=== PATIENT | male | born 1960 | race African-American/Black ===

== ENCOUNTER 2016-09-26 22:05 | Emergency (ER) | payer OTHER ==
[~2016-09-26] VITALS: Ht 167.6 cm; Wt 56.7 kg
[~2016-09-26 22:05] MED LIST: ADVAIR 250-501 EACH INH; ALBUTEROL SULF8.5 GM INH; ALBUTEROL2.5 MG/3 M HHN; ALBUTEROL2.5 MG/3 M INH; ASPIRIN81 MG ORAL; AUGMENTIN 875-1 EAC1 ORAL; BENAZEPRIL HCL20 MG ORAL; CYCLOBENZAPRINE10 MG ORAL; FUROSEMIDE40 MG ORAL; GUAIFENESIN DM118 M1 ORAL; HYDRALAZINE HCL25 M1 ORAL; KEFLEX500 MG ORAL; LEVAQUIN500 MG ORAL; LISINOPRIL20 MG ORAL; MEDROL DOSEPAK4 MG ORAL; NICODERM CQ1 EAC1 TDERMAL; NORVASC5 MG ORAL; PREDNISONE20 MG ORAL; PROMETHAZINE-C118 M1 ORAL; SPIRIVA INHALE1 PUF1 INH; VENTOLIN HFA18 GM INH; ZITHROMAX250 MG ORAL
[2016-09-26 22:30] VITALS: BP 117/78
[2016-09-26] MEDS ORDERED: Ipratropium 0.02% Inh Soln 2.5ml UD HHN ONE (22:30)
[2016-09-26] MEDS ORDERED: PredniSONE 20mg tab ORAL ONE (22:30)
[2016-09-26] MEDS ORDERED: Albuterol ud Inhalation HHN ONE (22:30)
[2016-09-26] MEDS ORDERED: ALBUTEROL SULF8.5 GM INH (22:33)
[2016-09-26] MEDS ORDERED: PREDNISONE20 MG ORAL (22:33)
[2016-09-26] MEDS ORDERED: AZITHROMYCIN250 MG ORAL (22:33)
[2016-09-26] MEDS ORDERED: ALBUTEROL2.5 MG/3 M HHN (22:33)
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
[2016-09-26 23:00] VITALS: BP 116/63
== END 2016-09-26 23:00 | disposition home or self-care (01) ==
LOC: EMR 22:29
DX: J44.1 Chronic obstructive pulmonary disease with (acute) exacerbation (principal); F14.10 Cocaine abuse, uncomplicated; Z88.8 Allergy status to other drugs, medicaments and biological substances; I10 Essential (primary) hypertension; F17.200 Nicotine dependence, unspecified, uncomplicated
CPT/HCPCS: 94640; 94664; 99284

== ENCOUNTER 2017-01-16 14:00 | Emergency (ER) | payer OTHER ==
[~2017-01-16] VITALS: Ht 167.6 cm; Wt 59.0 kg
[~2017-01-16 14:00] MED LIST changes: +AZITHROMYCIN250 MG ORAL
[2017-01-16] MEDS ORDERED: Acetaminophen 500mg (ES) tab ORAL ONE (14:15)
[2017-01-16] MEDS ORDERED: Ipratropium 0.02% Inh Soln 2.5ml UD HHN ONE (14:15)
[2017-01-16] MEDS ORDERED: Solu-MEDROL 125mg Inj IVP ONE (14:15)
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
[2017-01-16] MEDS ORDERED: Albuterol ud Inhalation ONE (14:18)
[2017-01-16] MEDS ORDERED: Ipratropium 0.02% Inh Soln 2.5ml UD ONE (14:18)
[2017-01-16] MEDS: Albuterol ud Inhalation HHN SCH ×3 (14:30→14:59)
[2017-01-16 14:56] LABS: MEAN CORPUSCULAR HGB CONC 32.8 G/DL (32.0-36.0); MEAN CORPUSCULAR VOLUME 95 FL (80-99); PLATELET COUNT 174 K/UL (150-450); RED BLOOD COUNT 4.93 M/UL (4.70-6.10); RED CELL DISTRIBUTION WIDTH 12.2 % (11.6-14.8); WHITE BLOOD COUNT 3.8 K/UL (4.8-10.8)
[2017-01-16 15:06] LABS: INR 0.9 (0.9-1.1); PROTHROMBIN TIME 9.4 SEC (9.30-11.50)
[2017-01-16 15:10] LABS: ALANINE AMINOTRANSFERASE 16 U/L (3-41); ANION GAP 14 (5-15); ASPARTATE AMINO TRANSFERASE 20 U/L (5-40); CARBON DIOXIDE 28 mEQ/L (20-30); CHLORIDE 103 mEQ/L (98-107); CREATININE 1.1 mg/dL (0.7-1.2); GLOMERULAR FILTRATION RATE > 60 mL/min (>60); HEMOLYSIS 8; POTASSIUM 3.7 mEQ/L (3.4-4.9); SODIUM 145 mEQ/L (135-145); TOTAL PROTEIN 8.2 g/dL (6.6-8.7)
[2017-01-16 15:11] LABS: BAND NEUTROPHILS % (MANUAL) 0 % (0-8); BASOPHILS % (MANUAL) 0 % (0-2); EOSINOPHILS % (MANUAL) 12 % (0-3); LYMPHOCYTES % (MANUAL) 28 % (20-45); NEUTROPHILS % (MANUAL) 43 % (45-75); PLATELET ESTIMATE ADEQUATE; PLATELET MORPHOLOGY NORMAL; TOTAL CELLS COUNTED 100
[2017-01-16 15:25] VITALS: BP 136/90
[2017-01-16 16:57] LABS: APPEARANCE,URINE CLEAR; KETONES,URINE 1+ (NEGATIVE); LEUKOCYTE ESTERASE ,URINE 3+ (NEGATIVE); NITRITE,URINE NEGATIVE (NEGATIVE); PH,URINE 5 (4.5-8.0); PROTEIN,URINE 1+ (NEGATIVE); UROBILINOGEN,URINE 4 MG/DL (0.0-1.0)
[2017-01-16] MEDS ORDERED: PREDNISONE20 MG ORAL (16:59)
[2017-01-16] MEDS ORDERED: CHLOR-TRIMETON4 MG PO (16:59)
[2017-01-16] MEDS ORDERED: ALBUTEROL2.5 MG/3 M HHN (16:59)
[2017-01-16 17:08] LABS: AMORPHOUS SEDIMENT,UR FEW /LPF; BACTERIA,URINE FEW /HPF; RBC,URINE 0-2 /HPF (0 - 0)
[2017-01-16 17:51] VITALS: BP 157/70
[2017-01-16 17:56] VITALS: BP 157/70
--- NOTE | 2017-01-17 10:02 | Diagnostic Imaging Report ---
Indication: Dyspnea Technique: XRAY CHEST 1 V Comparison: 12/29/15 Findings: Cardiac silhouette is prominent. There is no consolidation, pneumothorax or pleural effusion. Osseous structures are grossly stable. Impression: No acute cardiopulmonary disease.
--- NOTE | 2017-01-21 23:07 | Cardiology Report ---
APPROVED REPORT EKG Measurement Heart [id number] MS [id number] Sinus tachycardia Possible Left atrial enlargement Left ventricular hypertrophy with repolarization abnormality Cannot rule out Septal infarct, age undetermined Prolonged QT Abnormal ECG
== END 2017-01-16 17:57 | disposition home or self-care (01) ==
LOC: EMR 14:19
DX: J44.1 Chronic obstructive pulmonary disease with (acute) exacerbation (principal); F19.10 Other psychoactive substance abuse, uncomplicated; D72.1 Eosinophilia; I10 Essential (primary) hypertension; G81.94 Hemiplegia, unspecified affecting left nondominant side
CPT/HCPCS: 36415; 71010; 80053; 80300; 81003; 82550; 83605; 84484; 85007; 85025; 85610; 85730; 93005; 94640; 94664; 96374; 96375; 99284; J2930

== ENCOUNTER 2017-01-31 22:11 | Inpatient (IN) | payer OTHER ==
[~2017-01-31] VITALS: Ht 167.6 cm; Wt 61.2 kg
[~2017-01-31 22:11] MED LIST changes: +CHLOR-TRIMETON4 MG PO
[2017-01-31 22:35] VITALS: BP 138/80
[2017-01-31 23:29] LABS: BASOPHILS % (AUTO) 0.9 % (0.0-2.0); EOSINOPHILS % (AUTO) 6.2 % (0.0-3.0); LYMPHOCYTES % (AUTO) 23.7 % (20.0-45.0); MEAN CORPUSCULAR HGB CONC 31.3 G/DL (32.0-36.0); MEAN CORPUSCULAR VOLUME 96 FL (80-99); MEAN PLATELET VOLUME 7.9 FL (6.5-10.1); MONOCYTES % (AUTO) 9.4 % (1.0-10.0); NEUTROPHILS % (AUTO) 59.8 % (45.0-75.0); PLATELET COUNT 150 K/UL (150-450); RED CELL DISTRIBUTION WIDTH 12.2 % (11.6-14.8); WHITE BLOOD COUNT 7.6 K/UL (4.8-10.8)
[2017-01-31 23:37] LABS: ALANINE AMINOTRANSFERASE 20 U/L (12-78); ALBUMIN/GLOBULIN RATIO 0.8 (1.0-2.7); ANION GAP 6 mmol/L (5-15); ASPARTATE AMINO TRANSFERASE 15 U/L (15-37); CARBON DIOXIDE 32 MMOL/L (21-32); CHLORIDE 105 MMOL/L (98-107); CREATININE 1.7 MG/DL (0.55-1.30); GLOMERULAR FILTRATION RATE 50.8 mL/min (>60); POTASSIUM 3.8 MMOL/L (3.5-5.1); SODIUM 142 MMOL/L (136-145); TOTAL PROTEIN 7.4 G/DL (6.4-8.2)
[2017-01-31 23:40] VITALS: BP 135/78
[2017-02-01] VITALS (8 sets, daily range): BP systolic 113–196; BP diastolic 78–121
[2017-02-01] MEDS ORDERED: Ampicillin/Sulbactam Sod 3 GM in NS 110 ML IVPB ONE ×2
[2017-02-01] MEDS ORDERED: Unasyn 3gm Inj ONE (00:15)
[2017-02-01] MEDS ORDERED: Norco 5mg/325mg tab ORAL PRN (01:00)
[2017-02-01] MEDS ORDERED: Vancomycin 1 GM in D5W 275 ML IVPB ONE (02:00)
[2017-02-01] MEDS ORDERED: Vancomycin 1gm inj IVPB ONE (02:47)
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
[2017-02-01] MEDS: cefTRIAXone 1 GM in D5W 55 ML IVPB SCH (03:11)
[2017-02-01] MEDS ORDERED: Heparin 5000 units/ml inj SUBQ SCH (06:00)
[2017-02-01] MEDS ORDERED: Miralax 17gm pkt ORAL PRN (07:30)
[2017-02-01] MEDS ORDERED: Albuterol/Ipratropium 3ml neb HHN PRN (07:30)
[2017-02-01] MEDS ORDERED: Nitroglycerin Subl 0.4mg tab SL PRN (07:30)
[2017-02-01] MEDS ORDERED: Morphine Sulfate 2mg/ml Inj IVP PRN (07:30)
[2017-02-01] MEDS ORDERED: Albuterol ud Inhalation HHN PRN (07:30)
[2017-02-01 10:25] LABS: BASOPHILS % (AUTO) 1.3 % (0.0-2.0); EOSINOPHILS % (AUTO) 5.2 % (0.0-3.0); MEAN CORPUSCULAR HEMOGLOBIN 31.2 PG (27.0-31.0); MEAN CORPUSCULAR HGB CONC 32.8 G/DL (32.0-36.0); MEAN CORPUSCULAR VOLUME 95 FL (80-99); MEAN PLATELET VOLUME 9.6 FL (6.5-10.1); MONOCYTES % (AUTO) 10.4 % (1.0-10.0); NEUTROPHILS % (AUTO) 70.2 % (45.0-75.0); PLATELET COUNT 167 K/UL (150-450); RED BLOOD COUNT 4.47 M/UL (4.70-6.10); RED CELL DISTRIBUTION WIDTH 12.1 % (11.6-14.8); WHITE BLOOD COUNT 8.3 K/UL (4.8-10.8)
[2017-02-01 10:49] LABS: ALANINE AMINOTRANSFERASE 19 U/L (12-78); ALBUMIN/GLOBULIN RATIO 0.8 (1.0-2.7); ANION GAP 7 mmol/L (5-15); ASPARTATE AMINO TRANSFERASE 17 U/L (15-37); CALCIUM 8.8 MG/DL (8.5-10.1); CARBON DIOXIDE 28 MMOL/L (21-32); CHLORIDE 106 MMOL/L (98-107); GLOMERULAR FILTRATION RATE > 60 mL/min (>60); MAGNESIUM 1.8 MG/DL (1.8-2.4); PHOSPHORUS 2.7 MG/DL (2.5-4.9); SODIUM 140 MMOL/L (136-145); TOTAL PROTEIN 6.6 G/DL (6.4-8.2)
[2017-02-01 10:53] LABS: URIC ACID 4.2 MG/DL (2.6-7.2)
--- NOTE | 2017-02-01 10:58 | Wound Care Consultation ---
Wound Assessment Wound Assessment : Wound Number: 1 Wound Present on Admission: Yes New Wound: No Status Change of Wound: No Wound Location Body Site Modif: right Wound Location Body Site: hand Wound Type: other - open draining wound possible abcess. Nunu Test: Does not Nunu Wound Thickness: Full Thickness Wound Length: 3.0 Wound Width: 2.0 Wound Depth: utd Percent of Wound [place]/Red: 50 Percent of Wound Bed Yellow/Wh: 50 Wound Drainage Description: Cloudy - yellow, Serosanguineous Wound Drainage Amount: Moderate Wound Drainage Odor: None/Absent Tissue Surrounding Wound: Edematous Wound General Appearance: Reddened, Draining Wound Comment #1 Right hand open draining wound with cellulitis. Recommendation. -Local wound care as ordered. -Turn and reposition. -Offload affected site. -Keep clean and dry. -Optimize nutrition. -Follow up with MD for possible surgical evaluation. -Asses and notify MD for any further changes. per patient had a blister on right hand than popped it and it had a hole and pus. GAYLE IVEY Feb 01, 2017 10:57
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
[2017-02-01] MEDS ORDERED: Tubing IV Secondary IV ONE (14:42)
[2017-02-01] MEDS ORDERED: D5W 275ml ONE (14:42)
[2017-02-01] MEDS ORDERED: NS 275ml ONE (14:42)
--- NOTE | 2017-02-01 16:21 | Diagnostic Imaging Report ---
Indication: Infected right hand with dorsal open wound Technique: Coronal, axial, sagittal T1, coronal STIR, axial T2 fat saturated, pre-and postcontrast axial and coronal T1 fat saturated images of the right hand Comparison: None Findings: Marker díaz area of soft tissue wound in the medial dorsum of the right hand. There is diffuse enhancement of the subcutaneous fat, particularly dorsally. There is associated increased T2 and STIR signal within the subcutaneous fat as well. 2 small areas of non-enhancement are seen in the region of the MRI marker, the more proximal 7 x 8 mm in diameter, the more distal measuring 8 x 8 mm in diameter. These both reach the skin surface. No adjacent abnormal marrow signal abnormality to suggest osteomyelitis demonstrated. Small subchondral cysts are seen within the base of the first metacarpal, and within the heads of the third and fourth metacarpals, consistent with degenerative changes. The tendons are grossly unremarkable. Impression: Diffuse enhancement and edema of the subcutaneous fat, particularly dorsally. Given stated clinical history, most likely on the basis of cellulitis. 2 small areas of non-enhancement in the area of the open wound described in the technologist note. These are consistent with small superficial abscesses. May do appear to be communicating with the skin surface, so quite possibly clinically apparent No evidence of osteomyelitis Degenerative changes, as described
--- NOTE | 2017-02-01 19:15 | History & Physical ---
History and Physical History & Physicial Dictated for Int Med-Dr Moore no. [id number]. KRISTINE AUSTIN Feb 01, 2017 19:15
[2017-02-01] MEDS: Heparin 5000 units/ml inj SUBQ SCH (21:48)
[2017-02-01] MEDS ORDERED: Vancomycin 750mg/NS 250ml IVPB SCH (22:00)
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
[2017-02-01 23:22] LABS: APPEARANCE,URINE SLIGHTLY CLOUDY; KETONES,URINE NEGATIVE (NEGATIVE); LEUKOCYTE ESTERASE ,URINE 1+ (NEGATIVE); NITRITE,URINE NEGATIVE (NEGATIVE); PH,URINE 6 (4.5-8.0); PROTEIN,URINE NEGATIVE (NEGATIVE); UROBILINOGEN,URINE 1 MG/DL (0.0-1.0)
[2017-02-01 23:40] LABS: BACTERIA,URINE OCCASIONAL /HPF; SQUAMOUS EPITHELIAL CELL,UR OCCASIONAL /LPF (NONE/OCC); WBC,URINE 20-30 /HPF (0 - 0)
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
[2017-02-02] VITALS: BP 142/82
[2017-02-02] MEDS ORDERED: Vancomycin 1 GM in D5W 275 ML IV SCH (00:30)
[2017-02-02 04:00] VITALS: BP 154/94
[2017-02-02] MEDS: cefTRIAXone 1 GM in D5W 55 ML IVPB SCH (04:19)
[2017-02-02 07:03] LABS: ALANINE AMINOTRANSFERASE 19 U/L (12-78); ALBUMIN/GLOBULIN RATIO 0.7 (1.0-2.7); ANION GAP 8 mmol/L (5-15); ASPARTATE AMINO TRANSFERASE 18 U/L (15-37); CALCIUM 8.8 MG/DL (8.5-10.1); CARBON DIOXIDE 27 MMOL/L (21-32); CHLORIDE 105 MMOL/L (98-107); GLOMERULAR FILTRATION RATE > 60 mL/min (>60); POTASSIUM 4.1 MMOL/L (3.5-5.1); SODIUM 140 MMOL/L (136-145)
[2017-02-02 07:05] LABS: BASOPHILS % (AUTO) 1.7 % (0.0-2.0); EOSINOPHILS % (AUTO) 9.7 % (0.0-3.0); LYMPHOCYTES % (AUTO) 28.4 % (20.0-45.0); MEAN CORPUSCULAR HEMOGLOBIN 32.4 PG (27.0-31.0); MEAN CORPUSCULAR HGB CONC 34.2 G/DL (32.0-36.0); MEAN CORPUSCULAR VOLUME 95 FL (80-99); MEAN PLATELET VOLUME 9.5 FL (6.5-10.1); MONOCYTES % (AUTO) 9.4 % (1.0-10.0); NEUTROPHILS % (AUTO) 50.7 % (45.0-75.0); PLATELET COUNT 184 K/UL (150-450); RED BLOOD COUNT 4.57 M/UL (4.70-6.10); RED CELL DISTRIBUTION WIDTH 12.2 % (11.6-14.8); WHITE BLOOD COUNT 5.7 K/UL (4.8-10.8)
[2017-02-02 08:00] VITALS: BP 159/90
[2017-02-02] MEDS: Heparin 5000 units/ml inj SUBQ SCH ×2 (08:53→21:00)
--- NOTE | 2017-02-02 10:40 | Diagnostic Imaging Report ---
Indication: Abnormal renal function tests. Hypertension Technique: Grayscale and duplex images of the kidneys, retroperitoneum, and bladder were obtained. Comparison:12/03/2014 Findings: Right kidney measures 10.1 cm in length. Left kidney measures 9.3 cm in length. Right kidney demonstrates borderline increased echogenicity, appearing similar to the prior exam. Left kidney appears less hyperechoic than previously. No hydronephrosis. No focal abnormality. Normal inferior vena cava. Bladder is normal. Impression: Borderline increased right renal echogenicity, also evident on prior study 12/02/2014, could indicate medical renal disease Negative for hydronephrosis.
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
[2017-02-02 12:00] VITALS: BP 164/102
[2017-02-02] MEDS: Vancomycin 750mg/NS 250ml IVPB SCH (15:56)
[2017-02-02 16:00] VITALS: BP 144/95
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
--- NOTE | 2017-02-02 18:08 | Internal Med Progress Note ---
Subjective Date of Service: Feb 02, 2017 Physician Name Jovany Austin Attending Physician Satish Moore MD Current Medications Medications (Trade) Dose Ordered Sig/Stephenie Route PRN Reason Start Time Stop Time Status Last Admin Dose Admin Acetaminophen (Tylenol) 650 mg Q6H PRN ORAL Mild Pain/Temp > 100.5 02/01/17 01:00 03/03/17 00:59 Acetaminophen/ Hydrocodone Bitart ([place] 5/325) 1 tab Q6H PRN ORAL For Pain 02/01/17 01:00 02/08/17 00:59 Albuterol/ Ipratropium (DuoNeb 0.5-3(2.5)mg/3ml) 3 ml Q4H PRN HHN Shortness of Breath 02/01/17 07:30 02/06/17 07:29 Amlodipine Besylate (Norvasc) 5 mg DAILY ORAL 02/03/17 09:00 03/05/17 08:59 Carvedilol (Coreg) 3.125 mg EVERY 12 HOURS ORAL 02/01/17 21:00 03/03/17 20:59 02/02/17 08:52 Clonidine HCl (Catapres) 0.1 mg Q6H PRN ORAL SBP >150mmHg OR DBP>100mmHg 02/02/17 15:30 03/04/17 15:29 02/02/17 15:56 Dextrose (Dextrose 50%) STAT PRN IV Hypoglycemia 02/01/17 07:30 03/03/17 07:29 Heparin Sodium (Porcine) (Heparin 5000 units/ml) 5,000 units EVERY 12 HOURS SUBQ 02/01/17 21:00 03/03/17 20:59 02/02/17 08:53 Morphine Sulfate (Morphine Sulfate) 2 mg Q4H PRN IVP Moderate Pain (Pain Scale 4-6) 02/01/17 07:30 02/08/17 07:29 Nitroglycerin (Ntg) 0.4 mg Q5M PRN SL Prn Chest Pain 02/01/17 07:30 03/03/17 07:29 Ondansetron HCl (Zofran) 4 mg Q6H PRN IVP Nausea & Vomiting 02/01/17 07:30 03/03/17 07:29 Polyethylene Glycol (Miralax) 17 gm DAILYPRN PRN ORAL Constipation 02/01/17 07:30 03/03/17 07:29 Temazepam (Restoril) 15 mg HSPRN PRN ORAL Insomnia 02/01/17 07:30 02/08/17 07:29 Vancomycin HCl (Vanco rx to dose) 1 ea DAILY PRN MISC PER RX PROTOCOL 02/01/17 07:45 03/03/17 07:44 Vancomycin/Sodium Chloride 250 ml @ 166.667 mls/hr Q12HR@0500,1700 IVPB 02/02/17 17:00 02/07/17 16:59 02/02/17 15:56 Allergies: Coded Allergies: DIPHENHYDRAMINE (Unverified Allergy, Unknown, 11/29/14) ROS Limited/Unobtainable: No Constitutional: Reports: no symptoms HEENT: Reports: no symptoms Cardiovascular: Reports: no symptoms Respiratory: Reports: no symptoms Gastrointestinal/Abdominal: Reports: no symptoms Genitourinary: Reports: no symptoms Neurologic/Psychiatric: Reports: no symptoms Subjective 56 YO M admitted with right hand cellulitis. Cover for [facility] Med-Dr Moore. Objective Last Vital Signs Date Time Temp Pulse Resp B/P (MAP) Pulse Ox O2 Delivery O2 Flow Rate FiO2 02/02/17 16:00 97.3 61 20 144/95 98 Room Air 02/02/17 07:52 21 General Appearance: alert, mild distress, thin EENT: PERRL/EOMI, normal ENT inspection, TMs normal Neck: non-tender, normal alignment, supple Cardiovascular: normal peripheral pulses, normal rate, regular rhythm, no gallop/murmur, no JVD Respiratory/Chest: chest wall non-tender, lungs clear, normal breath sounds, no respiratory distress, no accessory muscle use Abdomen: normal bowel sounds, non tender, soft, no organomegaly, no mass Extremities: normal range of motion, other - right hand dressing Edema: trace edema 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, other - left hemiparesis Skin: normal pigmentation, warm/dry Laboratory Tests Test 02/01/17 22:40 02/02/17 06:05 Urine Color Pale yellow Urine Appearance Slightly cloudy Urine pH 6 (4.5-8.0) Urine Specific [place] 1.020 (1.005-1.035) Urine Protein Negative (NEGATIVE) Urine Glucose (UA) Negative (NEGATIVE) Urine Ketones Negative (NEGATIVE) Urine Occult Blood 1+ (NEGATIVE) H Urine Nitrite Negative (NEGATIVE) Urine Bilirubin Negative (NEGATIVE) Urine Urobilinogen 1 MG/DL (0.0-1.0) H Urine Leukocyte Esterase 1+ (NEGATIVE) H Urine RBC 2-4 /HPF (0 - 0) H Urine WBC 20-30 /HPF (0 - 0) H Urine Squamous Epithelial Cells Occasional /LPF Urine Bacteria Occasional /HPF (NONE) Urine Eosinophils None seen Urine Random Sodium 207 MEQ/L (20-110) H Urine Potassium Timed 26 mmol/L (12-62) White Blood Count 5.7 K/UL (4.8-10.8) Red Blood Count 4.57 M/UL (4.70-6.10) L Hemoglobin 14.8 G/DL (14.2-18.0) Hematocrit 43.3 % (42.0-52.0) Mean Corpuscular Volume 95 FL (80-99) Mean Corpuscular Hemoglobin 32.4 PG (27.0-31.0) H Mean Corpuscular Hemoglobin Concent 34.2 G/DL (32.0-36.0) Red Cell Distribution Width 12.2 % (11.6-14.8) Platelet Count 184 K/UL (150-450) Mean Platelet Volume 9.5 FL (6.5-10.1) Neutrophils (%) (Auto) 50.7 % (45.0-75.0) Lymphocytes (%) (Auto) 28.4 % (20.0-45.0) Monocytes (%) (Auto) 9.4 % (1.0-10.0) Eosinophils (%) (Auto) 9.7 % (0.0-3.0) H Basophils (%) (Auto) 1.7 % (0.0-2.0) Sodium Level 140 MMOL/L (136-145) Potassium Level 4.1 MMOL/L (3.5-5.1) Chloride Level 105 MMOL/L (98-107) Carbon Dioxide Level 27 MMOL/L (21-32) Anion Gap 8 mmol/L (5-15) Blood Urea Nitrogen 24 mg/dL (7-18) H Creatinine 1.0 MG/DL (0.55-1.30) Estimat Glomerular Filtration Rate > 60 mL/min (>60) Glucose Level 91 MG/DL (74-106) Calcium Level 8.8 MG/DL (8.5-10.1) Total Bilirubin 0.3 MG/DL (0.2-1.0) Aspartate Amino Transf (AST/SGOT) 18 U/L (15-37) Alanine Aminotransferase (ALT/SGPT) 19 U/L (12-78) Alkaline Phosphatase 45 U/L (46-116) L Total Protein 7.0 G/DL (6.4-8.2) Albumin 2.9 G/DL (3.4-5.0) L Globulin 4.1 g/dL Albumin/Globulin Ratio 0.7 (1.0-2.7) L Microbiology Date/Time Source Procedure Growth Status 01/31/17 23:10 Blood Blood Culture - Preliminary NO GROWTH AFTER 24 HOURS Resulted 01/31/17 22:55 Blood Blood Culture - Preliminary NO GROWTH AFTER 24 HOURS Resulted 02/01/17 12:50 Wound Gram Stain - Final Resulted 02/01/17 12:50 Wound Culture - Preliminary Staphylococcus Aureus Resulted 01/31/17 23:00 Hand Right Gram Stain - Final Resulted 01/31/17 23:00 Wound Culture - Preliminary Staphylococcus Aureus Resulted Intake and Output 02/02/17 02/03/17 19:00 07:00 Intake Total 300 ml Balance 300 ml Intake Oral 300 ml # Voids 1 Assessment/Plan Problem List: (1) HTN (hypertension) Assessment & Plan: Continue norvasc and prn clonidine (2) Left hemiparesis (3) Cellulitis of right hand Assessment & Plan: Continue vanco and ceftriaxone (4) COPD exacerbation Assessment & Plan: Cont prn albuterol Status: not improved JOVANY AUSTIN Feb 02, 2017 18:08
[2017-02-02 20:00] VITALS: BP 129/64
[2017-02-03 00:15] VITALS: BP 135/78
[2017-02-03 04:00] VITALS: BP 149/93
[2017-02-03] MEDS: Vancomycin 750mg/NS 250ml IVPB SCH (05:02)
[2017-02-03 06:52] LABS: ANION GAP 9 mmol/L (5-15); CALCIUM 8.9 MG/DL (8.5-10.1); CARBON DIOXIDE 26 MMOL/L (21-32); CHLORIDE 104 MMOL/L (98-107); CREATININE 1.1 MG/DL (0.55-1.30); GLOMERULAR FILTRATION RATE > 60 mL/min (>60); POTASSIUM 4.1 MMOL/L (3.5-5.1); SODIUM 139 MMOL/L (136-145)
[2017-02-03 07:04] LABS: BASOPHILS % (AUTO) 1.4 % (0.0-2.0); EOSINOPHILS % (AUTO) 8.9 % (0.0-3.0); LYMPHOCYTES % (AUTO) 28.4 % (20.0-45.0); MEAN CORPUSCULAR HEMOGLOBIN 30.9 PG (27.0-31.0); MEAN CORPUSCULAR HGB CONC 32.7 G/DL (32.0-36.0); MEAN CORPUSCULAR VOLUME 94 FL (80-99); MEAN PLATELET VOLUME 8.7 FL (6.5-10.1); MONOCYTES % (AUTO) 11.8 % (1.0-10.0); NEUTROPHILS % (AUTO) 49.6 % (45.0-75.0); PLATELET COUNT 196 K/UL (150-450); RED BLOOD COUNT 4.78 M/UL (4.70-6.10); RED CELL DISTRIBUTION WIDTH 12.1 % (11.6-14.8); WHITE BLOOD COUNT 5.3 K/UL (4.8-10.8)
[2017-02-03] MEDS: Heparin 5000 units/ml inj SUBQ SCH ×2 (08:29→20:24)
[2017-02-03 08:50] VITALS: BP 149/77
--- NOTE | 2017-02-03 08:59 | Diagnostic Imaging Report ---
APPROVED REPORT CPT Code: 09503 Present Symptoms Comments: R/O DVT BILATERAL: Imaging reveals a patent deep venous system bilaterally. There is no evidence of thrombus within the femoral, popliteal or tibial segments. The greater saphenous veins are also within normal limits. Doppler indicates normal spontaneous flow within these segments.
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
[2017-02-03 12:53] VITALS: BP 152/100
--- NOTE | 2017-02-03 13:30 | Internal Med Progress Note ---
Subjective Date of Service: Feb 03, 2017 Physician Name KallieKristine Attending Physician Satish Moore MD Current Medications Medications (Trade) Dose Ordered Sig/Stephenie Route PRN Reason Start Time Stop Time Status Last Admin Dose Admin Acetaminophen (Tylenol) 650 mg Q6H PRN ORAL Mild Pain/Temp > 100.5 02/01/17 01:00 03/03/17 00:59 Acetaminophen/ Hydrocodone Bitart ([place] 5/325) 1 tab Q6H PRN ORAL For Pain 02/01/17 01:00 02/08/17 00:59 Albuterol/ Ipratropium (DuoNeb 0.5-3(2.5)mg/3ml) 3 ml Q4H PRN HHN Shortness of Breath 02/01/17 07:30 02/06/17 07:29 Amlodipine Besylate (Norvasc) 5 mg DAILY ORAL 02/03/17 09:00 03/05/17 08:59 02/03/17 08:24 Carvedilol (Coreg) 3.125 mg EVERY 12 HOURS ORAL 02/01/17 21:00 03/03/17 20:59 02/03/17 08:24 Clonidine HCl (Catapres) 0.1 mg Q6H PRN ORAL SBP >150mmHg OR DBP>100mmHg 02/02/17 15:30 03/04/17 15:29 02/02/17 15:56 Dextrose (Dextrose 50%) STAT PRN IV Hypoglycemia 02/01/17 07:30 03/03/17 07:29 Heparin Sodium (Porcine) (Heparin 5000 units/ml) 5,000 units EVERY 12 HOURS SUBQ 02/01/17 21:00 03/03/17 20:59 02/03/17 08:29 Morphine Sulfate (Morphine Sulfate) 2 mg Q4H PRN IVP Moderate Pain (Pain Scale 4-6) 02/01/17 07:30 02/08/17 07:29 Nitroglycerin (Ntg) 0.4 mg Q5M PRN SL Prn Chest Pain 02/01/17 07:30 03/03/17 07:29 Ondansetron HCl (Zofran) 4 mg Q6H PRN IVP Nausea & Vomiting 02/01/17 07:30 03/03/17 07:29 Polyethylene Glycol (Miralax) 17 gm DAILYPRN PRN ORAL Constipation 02/01/17 07:30 03/03/17 07:29 Temazepam (Restoril) 15 mg HSPRN PRN ORAL Insomnia 02/01/17 07:30 02/08/17 07:29 Vancomycin HCl (Vanco rx to dose) 1 ea DAILY PRN MISC PER RX PROTOCOL 02/01/17 07:45 03/03/17 07:44 Vancomycin/Sodium Chloride 250 ml @ 166.667 mls/hr Q12HR@0500,1700 IVPB 02/02/17 17:00 02/07/17 16:59 02/03/17 05:02 Allergies: Coded Allergies: DIPHENHYDRAMINE (Unverified Allergy, Unknown, 11/29/14) ROS Limited/Unobtainable: No Constitutional: Reports: no symptoms HEENT: Reports: no symptoms Cardiovascular: Reports: no symptoms Respiratory: Reports: no symptoms Gastrointestinal/Abdominal: Reports: no symptoms Genitourinary: Reports: no symptoms Neurologic/Psychiatric: Reports: no symptoms Subjective 56 YO M admitted with right hand cellulitis. Await hand surgery consult. Cover for Int Med-Dr Moore. Objective Last Vital Signs Date Time Temp Pulse Resp B/P (MAP) Pulse Ox O2 Delivery O2 Flow Rate FiO2 02/03/17 12:53 97.9 62 20 152/100 98 Room Air 02/03/17 07:16 21 Laboratory Tests Test 02/03/17 05:55 White Blood Count 5.3 K/UL (4.8-10.8) Red Blood Count 4.78 M/UL (4.70-6.10) Hemoglobin 14.8 G/DL (14.2-18.0) Hematocrit 45.1 % (42.0-52.0) Mean Corpuscular Volume 94 FL (80-99) Mean Corpuscular Hemoglobin 30.9 PG (27.0-31.0) Mean Corpuscular Hemoglobin Concent 32.7 G/DL (32.0-36.0) Red Cell Distribution Width 12.1 % (11.6-14.8) Platelet Count 196 K/UL (150-450) Mean Platelet Volume 8.7 FL (6.5-10.1) Neutrophils (%) (Auto) 49.6 % (45.0-75.0) Lymphocytes (%) (Auto) 28.4 % (20.0-45.0) Monocytes (%) (Auto) 11.8 % (1.0-10.0) H Eosinophils (%) (Auto) 8.9 % (0.0-3.0) H Basophils (%) (Auto) 1.4 % (0.0-2.0) Sodium Level 139 MMOL/L (136-145) Potassium Level 4.1 MMOL/L (3.5-5.1) Chloride Level 104 MMOL/L (98-107) Carbon Dioxide Level 26 MMOL/L (21-32) Anion Gap 9 mmol/L (5-15) Blood Urea Nitrogen 24 mg/dL (7-18) H Creatinine 1.1 MG/DL (0.55-1.30) Estimat Glomerular Filtration Rate > 60 mL/min (>60) Glucose Level 146 MG/DL (74-106) H Calcium Level 8.9 MG/DL (8.5-10.1) Microbiology Date/Time Source Procedure Growth Status 01/31/17 23:10 Blood Blood Culture - Preliminary NO GROWTH AFTER 48 HOURS Resulted 01/31/17 22:55 Blood Blood Culture - Preliminary NO GROWTH AFTER 48 HOURS Resulted 02/01/17 12:50 Wound Gram Stain - Final Resulted 02/01/17 12:50 Wound Culture - Preliminary Staphylococcus Aureus Resulted 02/01/17 22:40 Urine,Clean Catch Urine Culture - Preliminary NO GROWTH AFTER 24 HOURS Resulted 01/31/17 23:00 Hand Right Gram Stain - Final Resulted 01/31/17 23:00 Wound Culture - Preliminary Staphylococcus Aureus - Mrsa Resulted Intake and Output 02/03/17 02/04/17 19:00 07:00 Intake Total 720 ml Balance 720 ml Intake Oral 720 ml Objective General Appearance: alert, mild distress, thin EENT: PERRL/EOMI, normal ENT inspection, TMs normal Neck: non-tender, normal alignment, supple Cardiovascular: normal peripheral pulses, normal rate, regular rhythm, no gallop/murmur, no JVD Respiratory/Chest: chest wall non-tender, lungs clear, normal breath sounds, no respiratory distress, no accessory muscle use Abdomen: normal bowel sounds, non tender, soft, no organomegaly, no mass Extremities: normal range of motion, other - right hand dressing Edema: trace edema 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 Await hand surgery consult-Dr White (4) COPD exacerbation Assessment & Plan: Cont prn albuterol Status: progressing KRISTINE AUSTIN Feb 03, 2017 13:30
[2017-02-03 16:00] VITALS: BP 137/86
--- NOTE | 2017-02-03 19:04 | Pulmonology Progress Note ---
Assessment/Plan Problems: (1) Cellulitis (2) COPD (chronic obstructive pulmonary disease) (3) Renal insufficiency (4) HTN (hypertension) (5) Substance abuse Assessment/Plan improving no surgical intervention needed Subjective ROS Limited/Unobtainable: No Interval Events: improving Allergies: Coded Allergies: DIPHENHYDRAMINE (Unverified Allergy, Unknown, 11/29/14) Objective Last 24 Hour Vital Signs Date Time Temp Pulse Resp B/P (MAP) Pulse Ox O2 Delivery O2 Flow Rate FiO2 02/03/17 16:00 97.7 63 19 137/86 100 02/03/17 12:53 97.9 62 20 152/100 98 Room Air 02/03/17 08:50 97.7 76 20 149/77 97 Room Air 02/03/17 08:24 76 149/77 02/03/17 08:24 76 149/77 02/03/17 07:16 57 16 Room Air 21 02/03/17 04:00 97.3 58 19 149/93 98 Room Air 02/03/17 00:15 97.5 61 19 135/78 98 Room Air 02/02/17 21:06 64 18 Room Air 21 02/02/17 20:59 62 129/64 02/02/17 20:00 97.3 62 19 129/64 98 Room Air Intake and Output 02/03/17 02/04/17 19:00 07:00 Intake Total 1530 ml Output Total 600 ml Balance 930 ml Intake Oral 1530 ml Output Urine Total 600 ml # Voids 2 General Appearance: cachetic HEENT: normocephalic, atraumatic Respiratory/Chest: chest wall non-tender, lungs clear Abdomen: normal bowel sounds, soft, non tender Skin: no rash, no lesions Microbiology Date/Time Source Procedure Growth Status 01/31/17 23:10 Blood Blood Culture - Preliminary NO GROWTH AFTER 48 HOURS Resulted 01/31/17 22:55 Blood Blood Culture - Preliminary NO GROWTH AFTER 48 HOURS Resulted 02/01/17 12:50 Wound Gram Stain - Final Resulted 02/01/17 12:50 Wound Culture - Preliminary Staphylococcus Aureus Resulted 02/01/17 22:40 Urine,Clean Catch Urine Culture - Preliminary NO GROWTH AFTER 24 HOURS Resulted 01/31/17 23:00 Hand Right Gram Stain - Final Resulted 01/31/17 23:00 Wound Culture - Preliminary Staphylococcus Aureus - Mrsa Resulted Laboratory Tests 02/03/17 05:55: White Blood Count 5.3, Red Blood Count 4.78, Hemoglobin 14.8, Hematocrit 45.1, Mean Corpuscular Volume 94, Mean Corpuscular Hemoglobin 30.9, Mean Corpuscular Hemoglobin Concent 32.7, Red Cell Distribution Width 12.1, Platelet Count 196, Mean Platelet Volume 8.7, Neutrophils (%) (Auto) 49.6, Lymphocytes (%) (Auto) 28.4, Monocytes (%) (Auto) 11.8H, Eosinophils (%) (Auto) 8.9H, Basophils (%) ( Auto) 1.4, Sodium Level 139, Potassium Level 4.1, Chloride Level 104, Carbon Dioxide Level 26, Anion Gap 9, Blood Urea Nitrogen 24H, Creatinine 1.1, Estimat Glomerular Filtration Rate > 60, Glucose Level 146H, Calcium Level 8.9 02/03/17 16:00: Vancomycin Level Trough 8.8 Current Medications Medications (Trade) Dose Ordered Sig/Stephenie Route PRN Reason Start Time Stop Time Status Last Admin Dose Admin Acetaminophen (Tylenol) 650 mg Q6H PRN ORAL Mild Pain/Temp > 100.5 02/01/17 01:00 03/03/17 00:59 Acetaminophen/ Hydrocodone Bitart ([place] 5/325) 1 tab Q6H PRN ORAL For Pain 02/01/17 01:00 02/08/17 00:59 Albuterol/ Ipratropium (DuoNeb 0.5-3(2.5)mg/3ml) 3 ml Q4H PRN HHN Shortness of Breath 02/01/17 07:30 02/06/17 07:29 Amlodipine Besylate (Norvasc) 5 mg DAILY ORAL 02/03/17 09:00 03/05/17 08:59 02/03/17 08:24 Carvedilol (Coreg) 3.125 mg EVERY 12 HOURS ORAL 02/01/17 21:00 03/03/17 20:59 02/03/17 08:24 Clonidine HCl (Catapres) 0.1 mg Q6H PRN ORAL SBP >150mmHg OR DBP>100mmHg 02/02/17 15:30 03/04/17 15:29 02/02/17 15:56 Dextrose (Dextrose 50%) STAT PRN IV Hypoglycemia 02/01/17 07:30 03/03/17 07:29 Heparin Sodium (Porcine) (Heparin 5000 units/ml) 5,000 units EVERY 12 HOURS SUBQ 02/01/17 21:00 03/03/17 20:59 02/03/17 08:29 Morphine Sulfate (Morphine Sulfate) 2 mg Q4H PRN IVP Moderate Pain (Pain Scale 4-6) 02/01/17 07:30 02/08/17 07:29 Nitroglycerin (Ntg) 0.4 mg Q5M PRN SL Prn Chest Pain 02/01/17 07:30 03/03/17 07:29 Ondansetron HCl (Zofran) 4 mg Q6H PRN IVP Nausea & Vomiting 02/01/17 07:30 03/03/17 07:29 Polyethylene Glycol (Miralax) 17 gm DAILYPRN PRN ORAL Constipation 02/01/17 07:30 03/03/17 07:29 Temazepam (Restoril) 15 mg HSPRN PRN ORAL Insomnia 02/01/17 07:30 02/08/17 07:29 Vancomycin HCl (Vanco rx to dose) 1 ea DAILY PRN MISC PER RX PROTOCOL 02/01/17 07:45 03/03/17 07:44 Vancomycin HCl 1 gm/Dextrose 250 ml @ 166.667 mls/hr Q12HR@0630,1830 IVPB 02/03/17 18:30 02/08/17 18:29 02/03/17 18:39 PANTERA RODRIGUEZ Feb 03, 2017 19:04
[2017-02-03 20:00] VITALS: BP 139/93
[2017-02-04] VITALS: BP 136/86
[2017-02-04 03:58] VITALS: BP 141/96
[2017-02-04 06:41] LABS: BASOPHILS % (AUTO) 1.2 % (0.0-2.0); EOSINOPHILS % (AUTO) 8.4 % (0.0-3.0); LYMPHOCYTES % (AUTO) 29.6 % (20.0-45.0); MEAN CORPUSCULAR HEMOGLOBIN 31.2 PG (27.0-31.0); MEAN CORPUSCULAR HGB CONC 32.9 G/DL (32.0-36.0); MEAN CORPUSCULAR VOLUME 95 FL (80-99); MEAN PLATELET VOLUME 8.1 FL (6.5-10.1); MONOCYTES % (AUTO) 15.3 % (1.0-10.0); NEUTROPHILS % (AUTO) 45.5 % (45.0-75.0); PLATELET COUNT 214 K/UL (150-450); RED BLOOD COUNT 4.78 M/UL (4.70-6.10); WHITE BLOOD COUNT 5.3 K/UL (4.8-10.8)
[2017-02-04 07:04] LABS: ANION GAP 7 mmol/L (5-15); CALCIUM 9.2 MG/DL (8.5-10.1); CARBON DIOXIDE 29 MMOL/L (21-32); CHLORIDE 104 MMOL/L (98-107); CREATININE 1.1 MG/DL (0.55-1.30); GLOMERULAR FILTRATION RATE > 60 mL/min (>60); POTASSIUM 4.4 MMOL/L (3.5-5.1); SODIUM 140 MMOL/L (136-145)
[2017-02-04 08:00] VITALS: BP 154/90
[2017-02-04] MEDS: Heparin 5000 units/ml inj SUBQ SCH (08:46)
[2017-02-04] MEDS ORDERED: NS 275ml ONE (10:48)
--- NOTE | 2017-02-04 11:46 | Consultation ---
History of Present Illness General Date patient seen: Feb 04, 2017 Time patient seen: 11:39 Chief Complaint: Skin Rash/Abscess Reason for Consultation: Right hand cellulitis Present Illness HPI Asked to evaluate this right hand dominant pt who was admitted to [facility] [place] on 01/31 with right hand cellulitis. He first noticed a boil on the ulnar dorsum of his right hand on 01/29. He lanced it at home the following day and purulent drainage came out. However he developed worsening swelling and erythema of the right hand and forearm and on 01/31 came to the ER. He was admitted and started on IV abx. He had an MRI c/w cellulitis. but no osteo and no tendon involvement. He has clinically improved over the last few days. Allergies: Coded Allergies: DIPHENHYDRAMINE (Unverified Allergy, Unknown, 11/29/14) Medication History Scheduled Albuterol Sulfate* (Albuterol Sulfate Mdi*), 2 PUFF INH Q4H Azithromycin* (Zithromax*), 250 MG ORAL DAILY Chlorpheniramine Maleate (Chlor-Trimeton), 4 MG PO Q6HR Prednisone* (Prednisone*), 60 MG ORAL DAILY Prednisone* (Prednisone*), 40 MG ORAL DAILY Scheduled PRN Albuterol Sulfate* (Albuterol Sulfate Hhn*), 3 ML INH Q4H PRN for Shortness of Breath Albuterol Sulfate* (Albuterol Sulfate Hhn*), 2.5 MG HHN Q4H PRN for Shortness of Breath Patient History History Provided By: Patient, Medical Record Healthcare decision maker PRINCE MCQUEEN Resuscitation status Full Code Advanced Directive on File No Past Medical/Surgical History Past Medical/Surgical History: (1) Left hemiparesis (2) HTN (hypertension) (3) Renal insufficiency (4) Substance abuse Review of Systems Constitutional: Reports: no symptoms Eye: Reports: no symptoms ENT: Reports: no symptoms Respiratory: Reports: no symptoms Cardiovascular: Reports: no symptoms All Other Systems: negative except mentioned in HPI Physical Exam General Appearance: WD/WN, no apparent distress, alert Lines, tubes and drains: peripheral Neck: non-tender Respiratory/Chest: no respiratory distress Cardiovascular/Chest: normal peripheral pulses, normal rate, regular rhythm Extremities: normal range of motion - Normal flexion and extension right fingers. Strength 5/5 on right hand Skin Exam: other - Open wound ulnar aspect of the dorsum of the right hand. Base is clean. No purulence and no fluctuance. No erythema. Mild edema around the wound but no swelling in wrist, forearm, or fingers. Last 24 Hour Vital Signs Date Time Temp Pulse Resp B/P (MAP) Pulse Ox O2 Delivery O2 Flow Rate FiO2 02/04/17 08:44 98 154/90 02/04/17 08:44 98 154/90 02/04/17 08:41 98 18 Room Air 21 02/04/17 08:00 97.7 61 18 154/90 96 Room Air 02/04/17 03:58 97.0 66 18 141/96 99 Room Air 02/04/17 00:00 97.6 73 18 136/86 100 Room Air 02/03/17 21:01 82 16 Room Air 21 02/03/17 20:23 82 139/93 02/03/17 20:00 96.4 82 18 139/93 96 Room Air 02/03/17 16:00 97.7 63 19 137/86 100 02/03/17 12:53 97.9 62 20 152/100 98 Room Air Laboratory Tests Test 02/03/17 16:00 02/04/17 05:45 Vancomycin Level Trough 8.8 ug/mL (5.0-12.0) White Blood Count 5.3 K/UL (4.8-10.8) Red Blood Count 4.78 M/UL (4.70-6.10) Hemoglobin 14.9 G/DL (14.2-18.0) Hematocrit 45.2 % (42.0-52.0) Mean Corpuscular Volume 95 FL (80-99) Mean Corpuscular Hemoglobin 31.2 PG (27.0-31.0) H Mean Corpuscular Hemoglobin Concent 32.9 G/DL (32.0-36.0) Red Cell Distribution Width 12.0 % (11.6-14.8) Platelet Count 214 K/UL (150-450) Mean Platelet Volume 8.1 FL (6.5-10.1) Neutrophils (%) (Auto) 45.5 % (45.0-75.0) Lymphocytes (%) (Auto) 29.6 % (20.0-45.0) Monocytes (%) (Auto) 15.3 % (1.0-10.0) H Eosinophils (%) (Auto) 8.4 % (0.0-3.0) H Basophils (%) (Auto) 1.2 % (0.0-2.0) Sodium Level 140 MMOL/L (136-145) Potassium Level 4.4 MMOL/L (3.5-5.1) Chloride Level 104 MMOL/L (98-107) Carbon Dioxide Level 29 MMOL/L (21-32) Anion Gap 7 mmol/L (5-15) Blood Urea Nitrogen 21 mg/dL (7-18) H Creatinine 1.1 MG/DL (0.55-1.30) Estimat Glomerular Filtration Rate > 60 mL/min (>60) Glucose Level 74 MG/DL (74-106) Calcium Level 9.2 MG/DL (8.5-10.1) Height (Feet): 5 Height (Inches): 6.00 Weight (Pounds): 135 Medications Current Medications Medications (Trade) Dose Ordered Sig/Stephenie Route PRN Reason Start Time Stop Time Status Last Admin Dose Admin Acetaminophen (Tylenol) 650 mg Q6H PRN ORAL Mild Pain/Temp > 100.5 02/01/17 01:00 03/03/17 00:59 Acetaminophen/ Hydrocodone Bitart ([place] 5/325) 1 tab Q6H PRN ORAL For Pain 02/01/17 01:00 02/08/17 00:59 Albuterol/ Ipratropium (DuoNeb 0.5-3(2.5)mg/3ml) 3 ml Q4H PRN HHN Shortness of Breath 02/01/17 07:30 02/06/17 07:29 Amlodipine Besylate (Norvasc) 5 mg DAILY ORAL 02/03/17 09:00 03/05/17 08:59 02/04/17 08:44 Carvedilol (Coreg) 3.125 mg EVERY 12 HOURS ORAL 02/01/17 21:00 03/03/17 20:59 02/04/17 08:44 Clonidine HCl (Catapres) 0.1 mg Q6H PRN ORAL SBP >150mmHg OR DBP>100mmHg 02/02/17 15:30 03/04/17 15:29 02/02/17 15:56 Dextrose (Dextrose 50%) STAT PRN IV Hypoglycemia 02/01/17 07:30 03/03/17 07:29 Heparin Sodium (Porcine) (Heparin 5000 units/ml) 5,000 units EVERY 12 HOURS SUBQ 02/01/17 21:00 03/03/17 20:59 02/04/17 08:46 Morphine Sulfate (Morphine Sulfate) 2 mg Q4H PRN IVP Moderate Pain (Pain Scale 4-6) 02/01/17 07:30 02/08/17 07:29 Nitroglycerin (Ntg) 0.4 mg Q5M PRN SL Prn Chest Pain 02/01/17 07:30 03/03/17 07:29 Ondansetron HCl (Zofran) 4 mg Q6H PRN IVP Nausea & Vomiting 02/01/17 07:30 03/03/17 07:29 Polyethylene Glycol (Miralax) 17 gm DAILYPRN PRN ORAL Constipation 02/01/17 07:30 03/03/17 07:29 Temazepam (Restoril) 15 mg HSPRN PRN ORAL Insomnia 02/01/17 07:30 02/08/17 07:29 Vancomycin HCl (Vanco rx to dose) 1 ea DAILY PRN MISC PER RX PROTOCOL 02/01/17 07:45 03/03/17 07:44 Vancomycin HCl 1 gm/Dextrose 250 ml @ 166.667 mls/hr Q12HR@0630,1830 IVPB 02/03/17 18:30 02/08/17 18:29 02/04/17 06:13 Assessment/Plan Status: stable, progressing Assessment/Plan Patient with right hand cellulitis that is resolving. No abscess, tenosynovitis. No surgical intervention necessary. He should continue antibiotics per ID recommendations. He should perform dressing changes with xereform or antibiotic ointment until wound is healed. Thank you for allowing me to participate in this patient's care. LIBERTY OGDEN Feb 04, 2017 11:46
[2017-02-04 11:58] VITALS: BP 163/99
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
[2017-02-04] MEDS ORDERED: cefTRIAXone 1 GM in D5W 55 ML IVPB SCH (13:00)
[2017-02-04 16:11] VITALS: BP 167/101
[2017-02-04 16:35] VITALS: BP 135/86
--- NOTE | 2017-02-04 17:19 | Internal Med Progress Note ---
Subjective Date of Service: Feb 04, 2017 Physician Name Jovany Austin Attending Physician Satish Moore MD Current Medications Medications (Trade) Dose Ordered Sig/Stephenie Route PRN Reason Start Time Stop Time Status Last Admin Dose Admin Acetaminophen (Tylenol) 650 mg Q6H PRN ORAL Mild Pain/Temp > 100.5 02/01/17 01:00 03/03/17 00:59 Acetaminophen/ Hydrocodone Bitart (Latimer 5/325) 1 tab Q6H PRN ORAL For Pain 02/01/17 01:00 02/08/17 00:59 Albuterol/ Ipratropium (DuoNeb 0.5-3(2.5)mg/3ml) 3 ml Q4H PRN HHN Shortness of Breath 02/01/17 07:30 02/06/17 07:29 Amlodipine Besylate (Norvasc) 5 mg DAILY ORAL 02/03/17 09:00 03/05/17 08:59 02/04/17 08:44 Carvedilol (Coreg) 3.125 mg EVERY 12 HOURS ORAL 02/01/17 21:00 03/03/17 20:59 02/04/17 08:44 Ceftriaxone Sodium 1 gm/ Dextrose 55 ml @ 110 mls/hr Q24H IVPB 02/04/17 13:00 02/11/17 12:59 02/04/17 13:50 Clonidine HCl (Catapres) 0.1 mg Q6H PRN ORAL SBP >150mmHg OR DBP>100mmHg 02/02/17 15:30 03/04/17 15:29 02/02/17 15:56 Dextrose (Dextrose 50%) STAT PRN IV Hypoglycemia 02/01/17 07:30 03/03/17 07:29 Heparin Sodium (Porcine) (Heparin 5000 units/ml) 5,000 units EVERY 12 HOURS SUBQ 02/01/17 21:00 03/03/17 20:59 02/04/17 08:46 Morphine Sulfate (Morphine Sulfate) 2 mg Q4H PRN IVP Moderate Pain (Pain Scale 4-6) 02/01/17 07:30 02/08/17 07:29 Nitroglycerin (Ntg) 0.4 mg Q5M PRN SL Prn Chest Pain 02/01/17 07:30 03/03/17 07:29 Ondansetron HCl (Zofran) 4 mg Q6H PRN IVP Nausea & Vomiting 02/01/17 07:30 03/03/17 07:29 Polyethylene Glycol (Miralax) 17 gm DAILYPRN PRN ORAL Constipation 02/01/17 07:30 03/03/17 07:29 Temazepam (Restoril) 15 mg HSPRN PRN ORAL Insomnia 02/01/17 07:30 02/08/17 07:29 Vancomycin HCl (Vanco rx to dose) 1 ea DAILY PRN MISC PER RX PROTOCOL 02/01/17 07:45 03/03/17 07:44 Vancomycin HCl 1 gm/Dextrose 250 ml @ 166.667 mls/hr Q12HR@0630,1830 IVPB 02/03/17 18:30 02/08/17 18:29 02/04/17 06:13 Allergies: Coded Allergies: DIPHENHYDRAMINE (Unverified Allergy, Unknown, 11/29/14) ROS Limited/Unobtainable: No Constitutional: Reports: no symptoms HEENT: Reports: no symptoms Cardiovascular: Reports: no symptoms Respiratory: Reports: no symptoms Gastrointestinal/Abdominal: Reports: no symptoms Genitourinary: Reports: no symptoms Neurologic/Psychiatric: Reports: no symptoms Subjective 56 YO M admitted with right hand cellulitis. Cover for Int Med-Dr Moore. Await discharge home Objective Last Vital Signs Date Time Temp Pulse Resp B/P (MAP) Pulse Ox O2 Delivery O2 Flow Rate FiO2 02/04/17 16:11 97.7 57 18 167/101 98 Room Air 02/04/17 08:41 21 Laboratory Tests Test 02/04/17 05:45 White Blood Count 5.3 K/UL (4.8-10.8) Red Blood Count 4.78 M/UL (4.70-6.10) Hemoglobin 14.9 G/DL (14.2-18.0) Hematocrit 45.2 % (42.0-52.0) Mean Corpuscular Volume 95 FL (80-99) Mean Corpuscular Hemoglobin 31.2 PG (27.0-31.0) H Mean Corpuscular Hemoglobin Concent 32.9 G/DL (32.0-36.0) Red Cell Distribution Width 12.0 % (11.6-14.8) Platelet Count 214 K/UL (150-450) Mean Platelet Volume 8.1 FL (6.5-10.1) Neutrophils (%) (Auto) 45.5 % (45.0-75.0) Lymphocytes (%) (Auto) 29.6 % (20.0-45.0) Monocytes (%) (Auto) 15.3 % (1.0-10.0) H Eosinophils (%) (Auto) 8.4 % (0.0-3.0) H Basophils (%) (Auto) 1.2 % (0.0-2.0) Sodium Level 140 MMOL/L (136-145) Potassium Level 4.4 MMOL/L (3.5-5.1) Chloride Level 104 MMOL/L (98-107) Carbon Dioxide Level 29 MMOL/L (21-32) Anion Gap 7 mmol/L (5-15) Blood Urea Nitrogen 21 mg/dL (7-18) H Creatinine 1.1 MG/DL (0.55-1.30) Estimat Glomerular Filtration Rate > 60 mL/min (>60) Glucose Level 74 MG/DL (74-106) Calcium Level 9.2 MG/DL (8.5-10.1) Microbiology Date/Time Source Procedure Growth Status 02/01/17 22:40 Urine,Clean Catch Urine Culture - Final NO GROWTH AFTER 48 HOURS Complete Objective General Appearance: alert, mild distress, thin EENT: PERRL/EOMI, normal ENT inspection, TMs normal Neck: non-tender, normal alignment, supple Cardiovascular: normal peripheral pulses, normal rate, regular rhythm, no gallop/murmur, no JVD Respiratory/Chest: chest wall non-tender, lungs clear, normal breath sounds, no respiratory distress, no accessory muscle use Abdomen: normal bowel sounds, non tender, soft, no organomegaly, no mass Extremities: normal range of motion, other - right hand dressing Edema: trace edema 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 See hand surgery consult-Dr White (4) COPD exacerbation Assessment & Plan: Cont prn albuterol Status: stable Assessment/Plan D/C home with oral cipro 500 mg BID and doxycycline 100 mg BID X 10 days JOVANY AUSTIN Feb 04, 2017 17:19
[2017-02-04] MEDS ORDERED: DOXYCYCLINE HY150 M1 PO (17:43)
[2017-02-04] MEDS ORDERED: DOXYCYCLINE MO100 MG ORAL (17:44)
[2017-02-04] MEDS ORDERED: CIPROFLOXACIN500 M2 ORAL (17:45)
--- NOTE | 2017-02-04 19:35 | Pulmonology Progress Note ---
Assessment/Plan Problems: (1) Cellulitis (2) COPD (chronic obstructive pulmonary disease) (3) Renal insufficiency (4) HTN (hypertension) (5) Substance abuse Assessment/Plan improving no surgical intervention needed continue abx dc planning Subjective ROS Limited/Unobtainable: No Constitutional: Reports: no symptoms HEENT: Repors: no symptoms Allergies: Coded Allergies: DIPHENHYDRAMINE (Unverified Allergy, Unknown, 11/29/14) Objective Last 24 Hour Vital Signs Date Time Temp Pulse Resp B/P (MAP) Pulse Ox O2 Delivery O2 Flow Rate FiO2 02/04/17 16:35 135/86 02/04/17 16:11 97.7 57 18 167/101 98 Room Air 02/04/17 11:58 97.7 59 17 163/99 96 Room Air 02/04/17 08:44 98 154/90 02/04/17 08:44 98 154/90 02/04/17 08:41 98 18 Room Air 21 02/04/17 08:00 97.7 61 18 154/90 96 Room Air 02/04/17 03:58 97.0 66 18 141/96 99 Room Air 02/04/17 00:00 97.6 73 18 136/86 100 Room Air 02/03/17 21:01 82 16 Room Air 21 02/03/17 20:23 82 139/93 02/03/17 20:00 96.4 82 18 139/93 96 Room Air General Appearance: cachetic HEENT: normocephalic, atraumatic Respiratory/Chest: chest wall non-tender, lungs clear Cardiovascular: normal peripheral pulses, normal rate Abdomen: normal bowel sounds, soft, non tender Genitourinary: normal external genitalia Extremities: no cyanosis 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, no motor/sensory deficits Microbiology Date/Time Source Procedure Growth Status 02/01/17 22:40 Urine,Clean Catch Urine Culture - Final NO GROWTH AFTER 48 HOURS Complete Laboratory Tests 02/04/17 05:45: White Blood Count 5.3, Red Blood Count 4.78, Hemoglobin 14.9, Hematocrit 45.2, Mean Corpuscular Volume 95, Mean Corpuscular Hemoglobin 31.2H, Mean Corpuscular Hemoglobin Concent 32.9, Red Cell Distribution Width 12.0, Platelet Count 214, Mean Platelet Volume 8.1, Neutrophils (%) (Auto) 45.5, Lymphocytes (%) (Auto) 29.6, Monocytes (%) (Auto) 15.3H, Eosinophils (%) (Auto) 8.4H, Basophils (%) ( Auto) 1.2, Sodium Level 140, Potassium Level 4.4, Chloride Level 104, Carbon Dioxide Level 29, Anion Gap 7, Blood Urea Nitrogen 21H, Creatinine 1.1, Estimat Glomerular Filtration Rate > 60, Glucose Level 74, Calcium Level 9.2 Current Medications Medications (Trade) Dose Ordered Sig/Stephenie Route PRN Reason Start Time Stop Time Status Last Admin Dose Admin Acetaminophen (Tylenol) 650 mg Q6H PRN ORAL Mild Pain/Temp > 100.5 02/01/17 01:00 03/03/17 00:59 Acetaminophen/ Hydrocodone Bitart (Tell 5/325) 1 tab Q6H PRN ORAL For Pain 02/01/17 01:00 02/08/17 00:59 Albuterol/ Ipratropium (DuoNeb 0.5-3(2.5)mg/3ml) 3 ml Q4H PRN HHN Shortness of Breath 02/01/17 07:30 02/06/17 07:29 Amlodipine Besylate (Norvasc) 5 mg DAILY ORAL 02/03/17 09:00 03/05/17 08:59 02/04/17 08:44 Carvedilol (Coreg) 3.125 mg EVERY 12 HOURS ORAL 02/01/17 21:00 03/03/17 20:59 02/04/17 08:44 Ceftriaxone Sodium 1 gm/ Dextrose 55 ml @ 110 mls/hr Q24H IVPB 02/04/17 13:00 02/11/17 12:59 02/04/17 13:50 Clonidine HCl (Catapres) 0.1 mg Q6H PRN ORAL SBP >150mmHg OR DBP>100mmHg 02/02/17 15:30 03/04/17 15:29 02/02/17 15:56 Dextrose (Dextrose 50%) STAT PRN IV Hypoglycemia 02/01/17 07:30 03/03/17 07:29 Heparin Sodium (Porcine) (Heparin 5000 units/ml) 5,000 units EVERY 12 HOURS SUBQ 02/01/17 21:00 03/03/17 20:59 02/04/17 08:46 Morphine Sulfate (Morphine Sulfate) 2 mg Q4H PRN IVP Moderate Pain (Pain Scale 4-6) 02/01/17 07:30 02/08/17 07:29 Nitroglycerin (Ntg) 0.4 mg Q5M PRN SL Prn Chest Pain 02/01/17 07:30 03/03/17 07:29 Ondansetron HCl (Zofran) 4 mg Q6H PRN IVP Nausea & Vomiting 02/01/17 07:30 03/03/17 07:29 Polyethylene Glycol (Miralax) 17 gm DAILYPRN PRN ORAL Constipation 02/01/17 07:30 03/03/17 07:29 Temazepam (Restoril) 15 mg HSPRN PRN ORAL Insomnia 02/01/17 07:30 02/08/17 07:29 Vancomycin HCl (Vanco rx to dose) 1 ea DAILY PRN MISC PER RX PROTOCOL 02/01/17 07:45 03/03/17 07:44 Vancomycin HCl 1 gm/Dextrose 250 ml @ 166.667 mls/hr Q12HR@0630,1830 IVPB 02/03/17 18:30 02/08/17 18:29 02/04/17 06:13 PANTERA RODRIGUEZ Feb 04, 2017 19:35
--- NOTE | 2017-02-05 10:25 | Discharge Summary ---
Discharge Summary Hospital Course Date of Admission Jan 31, 2017 at 23:42 Date of Discharge Feb 04, 2017 at 19:20 Admitting Diagnosis HAND CELLULITIS CHRIS Castellano is a 56 year old male who was admitted on Jan 31, 2017 at 23:42 for Hand Cellulitis Hospital Course [id number] Discharge Discharge Disposition Patient was discharged to home Discharge Diagnoses: Brittnee Harvey NP Feb 05, 2017 10:25
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
== END 2017-02-04 19:20 | disposition home or self-care (01) | DRG 383 ==
LOC: EMR 22:38 → ENRESERV 23:08 → 4W 23:42 → EDBEDREQ 02-01 00:10
DX: L03.113 Cellulitis of right upper limb (principal); N17.9 Acute kidney failure, unspecified; G81.94 Hemiplegia, unspecified affecting left nondominant side; J44.1 Chronic obstructive pulmonary disease with (acute) exacerbation; L02.511 Cutaneous abscess of right hand; Y24.9XXS Unspecified firearm discharge, undetermined intent, sequela; Z86.61 Personal history of infections of the central nervous system; T14.90XS Injury, unspecified, sequela; W34.00XS Accidental discharge from unspecified firearms or gun, sequela; Z88.8 Allergy status to other drugs, medicaments and biological substances; I10 Essential (primary) hypertension; A49.01 Methicillin susceptible Staphylococcus aureus infection, unspecified site; N28.9 Disorder of kidney and ureter, unspecified; F19.10 Other psychoactive substance abuse, uncomplicated
CPT/HCPCS: 36415; 76775; 80048; 80053; 80202; 81001; 82550; 83605; 83735; 84100; 84133; 84300; 84550; 85025; 87040; 87070; 87086; 87181; 87205; 89050; 93970; 94664; 99285; A9585

== ENCOUNTER 2017-09-14 06:20 | Inpatient (IN) | payer OTHER ==
[2017-09-14] VITALS (7 sets, daily range): BP systolic 131–188; BP diastolic 82–109
[~2017-09-14] VITALS: Ht 167.6 cm; Wt 59.9 kg
[~2017-09-14 06:20] MED LIST changes: +CIPROFLOXACIN500 M2 ORAL; +DOXYCYCLINE HY150 M1 PO; +DOXYCYCLINE MO100 MG ORAL
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
[2017-09-14] MEDS ORDERED: Ipratropium 0.02% Inh Soln 2.5ml UD HHN ONE (06:45)
[2017-09-14] MEDS ORDERED: Albuterol ud Inhalation HHN ONE (06:45)
[2017-09-14 07:47] LABS: BASOPHILS % (AUTO) 1.8 % (0.0-2.0); HEMATOCRIT 46.4 % (42.0-52.0); HEMOGLOBIN 15.7 G/DL (14.2-18.0); LYMPHOCYTES % (AUTO) 37.1 % (20.0-45.0); MEAN CORPUSCULAR VOLUME 92 FL (80-99); MONOCYTES % (AUTO) 10.2 % (1.0-10.0); NEUTROPHILS % (AUTO) 35.9 % (45.0-75.0); PLATELET COUNT 135 K/UL (150-450); RED BLOOD COUNT 5.04 M/UL (4.70-6.10); RED CELL DISTRIBUTION WIDTH 12.2 % (11.6-14.8); WHITE BLOOD COUNT 3.7 K/UL (4.8-10.8)
[2017-09-14 07:58] LABS: ANION GAP 8 mmol/L (5-15); BLOOD UREA NITROGEN 23 mg/dL (7-18); CALCIUM 8.6 MG/DL (8.5-10.1); CARBON DIOXIDE 27 MMOL/L (21-32); CHLORIDE 104 MMOL/L (98-107); CREATININE 1.3 MG/DL (0.55-1.30); POTASSIUM 3.8 MMOL/L (3.5-5.1); SODIUM 139 MMOL/L (136-145)
[2017-09-14 08:03] LABS: ALANINE AMINOTRANSFERASE 30 U/L (12-78); ALBUMIN 3.4 G/DL (3.4-5.0); ALKALINE PHOSPHATASE 43 U/L (46-116); ASPARTATE AMINO TRANSFERASE 38 U/L (15-37); BILIRUBIN,TOTAL 0.7 MG/DL (0.2-1.0); CREATINE KINASE 270 U/L (26-308)
[2017-09-14] MEDS ORDERED: Nitroglycerin 2% oint pkt TOPIC ONE (08:15)
[2017-09-14 09:54] LABS: APPEARANCE,URINE CLEAR; BILIRUBIN, URINE NEGATIVE (NEGATIVE); GLUCOSE, URINE (UA) 1+ (NEGATIVE); KETONES,URINE NEGATIVE (NEGATIVE); LEUKOCYTE ESTERASE ,URINE 3+ (NEGATIVE); NITRITE,URINE NEGATIVE (NEGATIVE); PH,URINE 5 (4.5-8.0); PROTEIN,URINE 1+ (NEGATIVE); UROBILINOGEN,URINE 1 MG/DL (0.0-1.0)
[2017-09-14 10:09] LABS: COLOR,URINE YELLOW
--- NOTE | 2017-09-14 11:02 | Diagnostic Imaging Report ---
Indication: Dyspnea Technique: One view of the chest Comparison: 01/16/2017 Findings: The heart is enlarged. The lungs and pleural spaces are clear. There is no significant interim change Impression: Cardiomegaly. No acute process This agrees with the preliminary interpretation provided by the emergency room physician
[2017-09-14] MEDS ORDERED: Promethazine/Codeine 5ml UD ORAL PRN (11:30)
[2017-09-14] MEDS ORDERED: Ketorolac 30mg Inj IV PRN (11:30)
[2017-09-14] MEDS ORDERED: Nitroglycerin Subl 0.4mg tab SL PRN (11:30)
[2017-09-14] MEDS ORDERED: LORazepam Inj 2mg/ml 1ml IV PRN (11:30)
[2017-09-14] MEDS ORDERED: Albuterol/Ipratropium 3ml neb HHN PRN (11:30)
[2017-09-14] MEDS ORDERED: Solu-MEDROL 125mg Inj IV SCH (12:00)
[2017-09-14] MEDS ORDERED: LISINOPRIL5 MG ORAL (12:17)
[2017-09-14] MEDS ORDERED: AMLODIPINE BESY10 MG ORAL (12:17)
--- NOTE | 2017-09-14 13:47 | Cardiology Report ---
APPROVED REPORT EKG Measurement Heart [id number] Sinus rhythm with marked sinus arrhythmia Possible Left atrial enlargement Left axis deviation Left bundle branch block Abnormal ECG
[2017-09-14] MEDS ORDERED: Piperacillin/Tazobactam 2.25 GM in D5W 55 ML IV SCH (14:00)
[2017-09-14] MEDS: Zosyn 3.375gm q8h **Extended infusion IVPB SCH ×4 (14:35→21:47)
[2017-09-14] MEDS: Heparin 5000 units/ml inj SUBQ SCH ×2 (14:35→21:49)
[2017-09-14] MEDS ORDERED: Tubing IV Secondary IV ONE (15:26)
[2017-09-14] MEDS ORDERED: NS 500ML ONE (15:26)
--- NOTE | 2017-09-14 16:16 | History & Physical ---
History and Physical History & Physicial Dictated for Int Med-Dr Moore no. [id number]. Jovany Arreguin MD Sep 14, 2017 16:16
--- NOTE | 2017-09-14 16:30 | Cardiac Electrophysiology PN ---
Subjective Subjective [id number] Objective Last 24 Hour Vital Signs Date Time Temp Pulse Resp B/P (MAP) Pulse Ox O2 Delivery O2 Flow Rate FiO2 09/14/17 12:30 73 09/14/17 12:30 97.9 68 20 145/82 95 Room Air 97.9 09/14/17 12:14 98.1 84 20 157/92 99 Room Air 09/14/17 11:09 98.3 87 18 131/94 97 Room Air 98.3 09/14/17 08:58 98.0 78 20 145/99 99 Room Air 98.0 09/14/17 08:17 162/71 09/14/17 07:32 72 18 99 Nasal Cannula 2.0 28 09/14/17 07:27 82 177/85 09/14/17 07:15 98.1 82 18 177/85 97 Nasal Cannula 2.0 28 98.1 09/14/17 07:15 82 18 Nasal Cannula 2.0 28 09/14/17 07:09 71 20 97 Nasal Cannula 2.0 28 09/14/17 07:09 28 09/14/17 06:50 70 24 Room Air 88 09/14/17 06:50 71 19 177/85 88 Room Air 09/14/17 06:38 97.6 85 18 192/103 96 Room Air 97.5 Intake and Output 09/13/17 09/14/17 19:00 07:00 Intake Total 0 ml Balance 0 ml Intake Oral 0 ml Laboratory Tests Test 09/14/17 07:30 09/14/17 09:47 White Blood Count 3.7 K/UL (4.8-10.8) L Red Blood Count 5.04 M/UL (4.70-6.10) Hemoglobin 15.7 G/DL (14.2-18.0) Hematocrit 46.4 % (42.0-52.0) Mean Corpuscular Volume 92 FL (80-99) Mean Corpuscular Hemoglobin 31.1 PG (27.0-31.0) H Mean Corpuscular Hemoglobin Concent 33.7 G/DL (32.0-36.0) Red Cell Distribution Width 12.2 % (11.6-14.8) Platelet Count 135 K/UL (150-450) L Mean Platelet Volume 8.8 FL (6.5-10.1) Neutrophils (%) (Auto) 35.9 % (45.0-75.0) L Lymphocytes (%) (Auto) 37.1 % (20.0-45.0) Monocytes (%) (Auto) 10.2 % (1.0-10.0) H Eosinophils (%) (Auto) 15.0 % (0.0-3.0) H Basophils (%) (Auto) 1.8 % (0.0-2.0) Prothrombin Time 10.7 SEC (9.30-11.50) Prothromb Time International Ratio 1.0 (0.9-1.1) Activated Partial Thromboplast Time 29 SEC (23-33) Sodium Level 139 MMOL/L (136-145) Potassium Level 3.8 MMOL/L (3.5-5.1) Chloride Level 104 MMOL/L (98-107) Carbon Dioxide Level 27 MMOL/L (21-32) Anion Gap 8 mmol/L (5-15) Blood Urea Nitrogen 23 mg/dL (7-18) H Creatinine 1.3 MG/DL (0.55-1.30) Estimat Glomerular Filtration Rate > 60 mL/min (>60) Glucose Level 192 MG/DL (74-106) H Calcium Level 8.6 MG/DL (8.5-10.1) Total Bilirubin 0.7 MG/DL (0.2-1.0) Aspartate Amino Transf (AST/SGOT) 38 U/L (15-37) H Alanine Aminotransferase (ALT/SGPT) 30 U/L (12-78) Alkaline Phosphatase 43 U/L (46-116) L Total Creatine Kinase 270 U/L (26-308) Troponin I 0.158 ng/mL (0.000-0.056) Total Protein 6.8 G/DL (6.4-8.2) Albumin 3.4 G/DL (3.4-5.0) Globulin 3.4 g/dL Albumin/Globulin Ratio 1.0 (1.0-2.7) Serum Alcohol < 3 mg/dL Urine Color Yellow Urine Appearance Clear Urine pH 5 (4.5-8.0) Urine Specific [place] 1.025 (1.005-1.035) Urine Protein 1+ (NEGATIVE) H Urine Glucose (UA) 1+ (NEGATIVE) H Urine Ketones Negative (NEGATIVE) Urine Occult Blood 1+ (NEGATIVE) H Urine Nitrite Negative (NEGATIVE) Urine Bilirubin Negative (NEGATIVE) Urine Urobilinogen 1 MG/DL (0.0-1.0) H Urine Leukocyte Esterase 3+ (NEGATIVE) H Urine RBC 2-4 /HPF (0 - 0) H Urine WBC 10-15 /HPF (0 - 0) H Urine Squamous Epithelial Cells Occasional /LPF Urine Bacteria Occasional /HPF (NONE) Urine Opiates Screen Negative (NEGATIVE) Urine Barbiturates Screen Negative (NEGATIVE) Phencyclidine (PCP) Screen Negative (NEGATIVE) Urine Amphetamines Screen Negative (NEGATIVE) Urine Benzodiazepines Screen Negative (NEGATIVE) Urine Cocaine Screen Positive (NEGATIVE) H Urine Marijuana (THC) Screen Negative (NEGATIVE) Agustin Sheehan MD Sep 14, 2017 16:30
[2017-09-14] MEDS: Solu-MEDROL 125mg Inj IV SCH ×2 (18:14→23:51)
[2017-09-14] MEDS: Theophylline ER 100mg ORAL SCH (21:47)
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
[2017-09-15] VITALS: BP 161/98
[2017-09-15 04:00] VITALS: BP 152/94
[2017-09-15 05:01] LABS: HEMATOCRIT 47.7 % (42.0-52.0); HEMOGLOBIN 15.8 G/DL (14.2-18.0); MEAN CORPUSCULAR VOLUME 92 FL (80-99); PLATELET COUNT 157 K/UL (150-450); RED BLOOD COUNT 5.16 M/UL (4.70-6.10); RED CELL DISTRIBUTION WIDTH 11.8 % (11.6-14.8); WHITE BLOOD COUNT 5.7 K/UL (4.8-10.8)
[2017-09-15 05:25] LABS: ANION GAP 10 mmol/L (5-15); BLOOD UREA NITROGEN 28 mg/dL (7-18); CALCIUM 9.3 MG/DL (8.5-10.1); CARBON DIOXIDE 24 MMOL/L (21-32); CHLORIDE 102 MMOL/L (98-107); CREATININE 1.2 MG/DL (0.55-1.30); POTASSIUM 4.5 MMOL/L (3.5-5.1); SODIUM 136 MMOL/L (136-145)
[2017-09-15 05:29] LABS: CHOLESTEROL 237 MG/DL (< 200); HDL CHOLESTEROL 127 MG/DL (40-60); TRIGLYCERIDES 36 MG/DL (30-150)
[2017-09-15] MEDS: Solu-MEDROL 125mg Inj IV SCH ×4 (05:48→23:55)
[2017-09-15] MEDS: Zosyn 3.375gm q8h **Extended infusion IVPB SCH ×4 (06:22→13:38)
[2017-09-15 08:00] VITALS: BP 154/91
[2017-09-15] MEDS ORDERED: Lisinopril 10mg tab ORAL SCH (09:00)
[2017-09-15] MEDS: Theophylline ER 100mg ORAL SCH ×2 (10:08→20:19)
[2017-09-15] MEDS: Heparin 5000 units/ml inj SUBQ SCH ×2 (10:11→20:22)
--- NOTE | 2017-09-15 10:49 | Consultation ---
History of Present Illness General Date patient seen: Sep 15, 2017 Chief Complaint: Asthma Reason for Consultation: dyspnea Present Illness HPI 57 year old male with hx of COPD, HTN, presented to ER with CC of acute onset of Dyspnea. Apparently pt ran out of his inhalers and developed acute SOB. On presentation to ER his troponin was positive. He is admitted to [facility] for further evaluation. Allergies: Coded Allergies: DIPHENHYDRAMINE (Unverified Allergy, Unknown, 11/29/14) Medication History Scheduled Albuterol Sulfate* (Albuterol Sulfate Mdi*), 2 PUFF INH Q4H Amlodipine Besylate* (Amlodipine Besylate*), 10 MG ORAL DAILY, (Reported) Ciprofloxacin Hcl* (Ciprofloxacin Hcl*), 500 MG ORAL EVERY 12 HOURS, (Reported) Doxycycline Hyclate (Doxycycline Hyclate), 100 MG PO BID, (Reported) Doxycycline Monohydrate* (Doxycycline Monohydrate*), 100 MG ORAL TWICE A DAY, ( Reported) Lisinopril (Lisinopril*), 5 MG ORAL DAILY, (Reported) Scheduled PRN Albuterol Sulfate* (Albuterol Sulfate Hhn*), 3 ML INH Q4H PRN for Shortness of Breath Albuterol Sulfate* (Albuterol Sulfate Hhn*), 2.5 MG HHN Q4H PRN for Shortness of Breath Patient History Healthcare decision maker Resuscitation status Full Code Advanced Directive on File Past Medical/Surgical History Past Medical/Surgical History: (1) Hypertension (2) Cocaine abuse (3) COPD (chronic obstructive pulmonary disease) (4) HTN (hypertension) Review of Systems Respiratory: Reports: shortness of breath, wheezing Physical Exam General Appearance: WD/WN, no apparent distress Lines, tubes and drains: peripheral HEENT: normocephalic, atraumatic Neck: non-tender, normal alignment Respiratory/Chest: chest wall non-tender, lungs clear Cardiovascular/Chest: normal peripheral pulses, normal rate Abdomen: normal bowel sounds, non tender Genitourinary/Rectal: normal genital exam Extremities: normal range of motion Skin Exam: normal pigmentation Neurologic: [employer] member II-XII grossly normal Last 24 Hour Vital Signs Date Time Temp Pulse Resp B/P (MAP) Pulse Ox O2 Delivery O2 Flow Rate FiO2 09/15/17 10:08 62 154/91 09/15/17 10:08 154/91 09/15/17 08:00 62 09/15/17 08:00 97.0 88 20 154/91 98 Nasal Cannula 2.0 98 97.0 09/15/17 07:29 96 Nasal Cannula 2.0 28 09/15/17 07:29 89 20 Nasal Cannula 2.0 28 09/15/17 07:29 Nasal Cannula 2.0 28 09/15/17 04:00 98.2 80 20 152/94 98 Room Air 98.2 09/15/17 03:47 54 09/15/17 00:00 97.7 59 19 161/98 96 Room Air 97.7 09/14/17 23:46 61 09/14/17 20:55 95 Nasal Cannula 2.0 28 09/14/17 20:55 Nasal Cannula 2.0 28 09/14/17 20:50 102 20 Nasal Cannula 2.0 28 09/14/17 20:29 97.7 67 19 188/109 97 Room Air 97.7 09/14/17 20:01 188/109 09/14/17 19:25 81 09/14/17 16:00 97.0 60 22 154/95 95 Room Air 97.0 09/14/17 16:00 64 09/14/17 12:30 73 09/14/17 12:30 97.9 68 20 145/82 95 Room Air 97.9 09/14/17 12:14 98.1 84 20 157/92 99 Room Air 09/14/17 11:09 98.3 87 18 131/94 97 Room Air 98.3 Intake and Output 09/14/17 09/15/17 19:00 07:00 Intake Total 1060.0 ml 354.98 ml Output Total 560 ml 150 ml Balance 500.0 ml 204.98 ml Intake Oral 950 ml 200 ml IV Total 110.0 ml 154.98 ml Output Urine Total 560 ml 150 ml # Voids 2 1 # Bowel Movements 5 Laboratory Tests Test 09/14/17 18:15 09/15/17 03:40 Troponin I 0.118 ng/mL (0.000-0.056) 0.107 ng/mL (0.000-0.056) Pro-B-Type Natriuretic Peptide 758 pg/mL (0-125) H 744 pg/mL (0-125) H White Blood Count 5.7 K/UL (4.8-10.8) # Red Blood Count 5.16 M/UL (4.70-6.10) Hemoglobin 15.8 G/DL (14.2-18.0) Hematocrit 47.7 % (42.0-52.0) Mean Corpuscular Volume 92 FL (80-99) Mean Corpuscular Hemoglobin 30.6 PG (27.0-31.0) Mean Corpuscular Hemoglobin Concent 33.1 G/DL (32.0-36.0) Red Cell Distribution Width 11.8 % (11.6-14.8) Platelet Count 157 K/UL (150-450) Mean Platelet Volume 10.0 FL (6.5-10.1) Neutrophils (%) (Auto) % (45.0-75.0) Lymphocytes (%) (Auto) % (20.0-45.0) Monocytes (%) (Auto) % (1.0-10.0) Eosinophils (%) (Auto) % (0.0-3.0) Basophils (%) (Auto) % (0.0-2.0) Sodium Level 136 MMOL/L (136-145) Potassium Level 4.5 MMOL/L (3.5-5.1) Chloride Level 102 MMOL/L (98-107) Carbon Dioxide Level 24 MMOL/L (21-32) Anion Gap 10 mmol/L (5-15) Blood Urea Nitrogen 28 mg/dL (7-18) H Creatinine 1.2 MG/DL (0.55-1.30) Estimat Glomerular Filtration Rate > 60 mL/min (>60) Glucose Level 132 MG/DL (74-106) H Calcium Level 9.3 MG/DL (8.5-10.1) Triglycerides Level 36 MG/DL (30-150) Cholesterol Level 237 MG/DL (< 200) H LDL Cholesterol 104 mg/dL (<100) H HDL Cholesterol 127 MG/DL (40-60) H Cholesterol/HDL Ratio 1.9 (3.3-4.4) L Height (Feet): 5 Height (Inches): 6.00 Weight (Pounds): 121 Medications Current Medications Medications (Trade) Dose Ordered Sig/Stephenie Route PRN Reason Start Time Stop Time Status Last Admin Dose Admin Acetaminophen (Tylenol) 650 mg Q6H PRN ORAL Mild Pain/Temp > 100.5 09/14/17 19:00 10/14/17 18:59 09/14/17 19:55 Albuterol/ Ipratropium (Albuterol/ Ipratropium) 3 ml Q4H PRN HHN dyspnea 09/14/17 11:30 09/19/17 11:29 Amlodipine Besylate (Norvasc) 5 mg DAILY ORAL 09/15/17 09:00 10/15/17 08:59 09/15/17 10:08 Clonidine HCl (Catapres Tab) 0.1 mg Q4H PRN ORAL For High Blood Pressure 09/14/17 16:30 10/14/17 16:29 09/14/17 20:01 Dextrose (Dextrose 50%) 25 ml STAT PRN IV Hypoglycemia 09/14/17 11:30 10/14/17 11:29 Dextrose (Dextrose 50%) 50 ml STAT PRN IV Hypoglycemia 09/14/17 12:30 10/14/17 12:29 Heparin Sodium (Porcine) (Heparin 5000 units/ml) 5,000 units EVERY 12 HOURS SUBQ 09/14/17 11:30 10/14/17 11:29 09/15/17 10:11 Ketorolac Tromethamine (Toradol 30mg) 30 mg Q8H PRN IV moderate pain 4-6 09/14/17 11:30 09/19/17 11:29 Lisinopril (Zestril) 10 mg DAILY ORAL 09/15/17 09:00 10/15/17 08:59 09/15/17 10:08 Lorazepam (Ativan 2mg/ml 1ml) 0.5 mg Q4H PRN IV For Anxiety 09/14/17 11:30 09/21/17 11:29 Methylprednisolone Sodium Succinate (Solu-MEDROL) 60 mg EVERY 6 HOURS IV 09/14/17 18:00 10/14/17 17:59 09/15/17 05:48 Nitroglycerin (Ntg) 0.4 mg Q5M X 3 DOSES PRN SL Prn Chest Pain 09/14/17 11:30 10/14/17 11:29 Ondansetron HCl (Zofran) 4 mg Q6H PRN IVP Nausea & Vomiting 09/14/17 11:30 10/14/17 11:29 Piperacillin Sod/ Tazobactam Sod 3.375 gm/Sodium Chloride 110 ml @ 27.5 mls/hr EVERY 8 HOURS IVPB 09/14/17 14:00 09/19/17 13:59 09/15/17 06:22 Promethazine HCl/ Codeine (Phenergan with Codeine) 5 ml Q6H PRN ORAL cough 09/14/17 11:30 10/14/17 11:29 Temazepam (Restoril) 15 mg HSPRN PRN ORAL Insomnia 09/14/17 11:30 09/21/17 11:29 Theophylline (Noe-Dur) 100 mg EVERY 12 HOURS ORAL 09/14/17 21:00 10/14/17 20:59 09/15/17 10:08 Assessment/Plan Problem List: (1) Acute respiratory failure ICD Codes: J96.00 - Acute respiratory failure, unspecified whether with hypoxia or hypercapnia SNOMED: 65895825 (2) Non-ST elevation (NSTEMI) myocardial infarction ICD Codes: I21.4 - Non-ST elevation (NSTEMI) myocardial infarction SNOMED: 110513402 (3) COPD (chronic obstructive pulmonary disease) ICD Codes: J44.9 - Chronic obstructive pulmonary disease, unspecified SNOMED: 34765511 (4) Cocaine abuse ICD Codes: F14.10 - Cocaine abuse, uncomplicated SNOMED: 57392484 (5) COPD exacerbation ICD Codes: J44.1 - COPD exacerbation SNOMED: 164565754 (6) HTN (hypertension) ICD Codes: I10 - Essential (primary) hypertension SNOMED: 60772624 Assessment/Plan respiratory treatment IV steroids IV abx check sputum check echo f/u torponin dvt prophylaxis, symptomatic treatment Jewell Sarabia MD Sep 15, 2017 10:49
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
[2017-09-15 12:00] VITALS: BP_SYST 156; BP_SYST 164; BP_DIAS 164; BP_DIAS 87
[2017-09-15] MEDS ORDERED: Nitroglycerin Subl 0.4mg tab SL PRN ×2 (12:15→15:30)
--- NOTE | 2017-09-15 12:27 | Internal Med Progress Note ---
Subjective Date of Service: Sep 15, 2017 Physician Name Jovany Arreguin Attending Physician Satish Moore MD Current Medications Medications (Trade) Dose Ordered Sig/Stephenie Route PRN Reason Start Time Stop Time Status Last Admin Dose Admin Acetaminophen (Tylenol) 650 mg Q6H PRN ORAL Mild Pain/Temp > 100.5 09/14/17 19:00 10/14/17 18:59 09/14/17 19:55 Albuterol/ Ipratropium (Albuterol/ Ipratropium) 3 ml Q4H PRN HHN dyspnea 09/14/17 11:30 09/19/17 11:29 Amlodipine Besylate (Norvasc) 5 mg DAILY ORAL 09/15/17 09:00 10/15/17 08:59 09/15/17 10:08 Clonidine HCl (Catapres Tab) 0.1 mg Q4H PRN ORAL For High Blood Pressure 09/14/17 16:30 10/14/17 16:29 09/14/17 20:01 Dextrose (Dextrose 50%) 25 ml STAT PRN IV Hypoglycemia 09/14/17 11:30 10/14/17 11:29 Dextrose (Dextrose 50%) 50 ml STAT PRN IV Hypoglycemia 09/14/17 12:30 10/14/17 12:29 Heparin Sodium (Porcine) (Heparin 5000 units/ml) 5,000 units EVERY 12 HOURS SUBQ 09/14/17 11:30 10/14/17 11:29 09/15/17 10:11 Ketorolac Tromethamine (Toradol 30mg) 30 mg Q8H PRN IV moderate pain 4-6 09/14/17 11:30 09/19/17 11:29 Lisinopril (Zestril) 10 mg DAILY ORAL 09/15/17 09:00 10/15/17 08:59 09/15/17 10:08 Lorazepam (Ativan 2mg/ml 1ml) 0.5 mg Q4H PRN IV For Anxiety 09/14/17 11:30 09/21/17 11:29 Methylprednisolone Sodium Succinate (Solu-MEDROL) 60 mg EVERY 6 HOURS IV 09/14/17 18:00 10/14/17 17:59 09/15/17 05:48 Nitroglycerin (Ntg) 0.4 mg Q5M PRN SL Prn Chest Pain 09/15/17 12:15 10/15/17 12:14 Ondansetron HCl (Zofran) 4 mg Q6H PRN IVP Nausea & Vomiting 09/14/17 11:30 10/14/17 11:29 Piperacillin Sod/ Tazobactam Sod 3.375 gm/Sodium Chloride 110 ml @ 27.5 mls/hr EVERY 8 HOURS IVPB 09/14/17 14:00 09/19/17 13:59 09/15/17 06:22 Promethazine HCl/ Codeine (Phenergan with Codeine) 5 ml Q6H PRN ORAL cough 09/14/17 11:30 10/14/17 11:29 Temazepam (Restoril) 15 mg HSPRN PRN ORAL Insomnia 09/14/17 11:30 09/21/17 11:29 Theophylline (Noe-Dur) 100 mg EVERY 12 HOURS ORAL 09/14/17 21:00 10/14/17 20:59 09/15/17 10:08 Allergies: Coded Allergies: DIPHENHYDRAMINE (Unverified Allergy, Unknown, 11/29/14) ROS Limited/Unobtainable: No Constitutional: Reports: no symptoms HEENT: Reports: no symptoms Cardiovascular: Reports: no symptoms Respiratory: Reports: shortness of breath, wheezing Gastrointestinal/Abdominal: Reports: no symptoms Genitourinary: Reports: no symptoms Neurologic/Psychiatric: Reports: no symptoms Subjective 57 YO M admitted with shortness of breath. Now COPD exacerbation and elevated troponin. Cover for Int Ansel[facility]-Dr Moore. [facility] Objective Last Vital Signs Date Time Temp Pulse Resp B/P (MAP) Pulse Ox O2 Delivery O2 Flow Rate FiO2 09/15/17 10:08 62 154/91 09/15/17 08:00 97.0 20 98 Nasal Cannula 2.0 98 97.0 General Appearance: alert, mild distress, thin EENT: PERRL/EOMI, normal ENT inspection Neck: non-tender, normal alignment, supple Cardiovascular: normal peripheral pulses, normal rate, regular rhythm, no gallop/murmur, no JVD Respiratory/Chest: chest wall non-tender, respiratory distress, crackles/rales , rhonchi - left, expiratory wheezing Abdomen: normal bowel sounds, non tender, soft, no organomegaly, no mass Neurologic: motor weakness - left Skin: normal pigmentation, warm/dry Laboratory Tests Test 09/14/17 18:15 09/15/17 03:40 Troponin I 0.118 ng/mL (0.000-0.056) 0.107 ng/mL (0.000-0.056) Pro-B-Type Natriuretic Peptide 758 pg/mL (0-125) H 744 pg/mL (0-125) H White Blood Count 5.7 K/UL (4.8-10.8) # Red Blood Count 5.16 M/UL (4.70-6.10) Hemoglobin 15.8 G/DL (14.2-18.0) Hematocrit 47.7 % (42.0-52.0) Mean Corpuscular Volume 92 FL (80-99) Mean Corpuscular Hemoglobin 30.6 PG (27.0-31.0) Mean Corpuscular Hemoglobin Concent 33.1 G/DL (32.0-36.0) Red Cell Distribution Width 11.8 % (11.6-14.8) Platelet Count 157 K/UL (150-450) Mean Platelet Volume 10.0 FL (6.5-10.1) Neutrophils (%) (Auto) % (45.0-75.0) Lymphocytes (%) (Auto) % (20.0-45.0) Monocytes (%) (Auto) % (1.0-10.0) Eosinophils (%) (Auto) % (0.0-3.0) Basophils (%) (Auto) % (0.0-2.0) Sodium Level 136 MMOL/L (136-145) Potassium Level 4.5 MMOL/L (3.5-5.1) Chloride Level 102 MMOL/L (98-107) Carbon Dioxide Level 24 MMOL/L (21-32) Anion Gap 10 mmol/L (5-15) Blood Urea Nitrogen 28 mg/dL (7-18) H Creatinine 1.2 MG/DL (0.55-1.30) Estimat Glomerular Filtration Rate > 60 mL/min (>60) Glucose Level 132 MG/DL (74-106) H Calcium Level 9.3 MG/DL (8.5-10.1) Triglycerides Level 36 MG/DL (30-150) Cholesterol Level 237 MG/DL (< 200) H LDL Cholesterol 104 mg/dL (<100) H HDL Cholesterol 127 MG/DL (40-60) H Cholesterol/HDL Ratio 1.9 (3.3-4.4) L Microbiology Date/Time Source Procedure Growth Status 09/14/17 09:47 Urine,Clean Catch Urine Culture - Preliminary Mixed Gram Positive Organism Resulted Intake and Output 09/14/17 09/15/17 19:00 07:00 Intake Total 1060.0 ml 354.98 ml Output Total 560 ml 150 ml Balance 500.0 ml 204.98 ml Intake Oral 950 ml 200 ml IV Total 110.0 ml 154.98 ml Output Urine Total 560 ml 150 ml # Voids 2 1 # Bowel Movements 5 Assessment/Plan Problem List: (1) Uncontrolled hypertension Assessment & Plan: Increase amlodipine. Continue lisinopril and prn clonidine (2) COPD exacerbation Assessment & Plan: Schedule duoneb. Continue IV solumedrol (3) Bronchitis Assessment & Plan: Continue zosyn (4) Elevated troponin Assessment & Plan: Decreasing. See cardiology note. (5) Left hemiparesis (6) Cardiomyopathy Assessment & Plan: LVEF=55-60%. See cardiology note. Status: progressing Jovany Arreguin MD Sep 15, 2017 12:27
--- NOTE | 2017-09-15 14:05 | Cardiology Report ---
APPROVED REPORT EXAM: Two-dimensional and M-mode echocardiogram with Doppler and color Doppler. INDICATION Congestive Heart Failure M-Mode DIMENSIONS IVSd1.2 (0.7-1.1cm)Left Atrium (MM)3.6 (1.6-4.0cm) LVDd5.7 (3.5-5.6cm)Aortic Root3.4 (2.0-3.7cm) PWd1.5 (0.7-1.1cm)Aortic Cusp Exc.1.9 (1.5-2.0cm) LVDs4.3 (2.5-4.0cm) PWs1.8 cm Mild left ventricular enlargement,normal systolic function and mild global hypokinesis Left ventricular ejection fraction estimated to be 45-50%. No evidence of left ventricular hypertrophy. No evidence of pericardial or pleural effusion. All other cardiac chamber sizes are within normal limits. Focal aortic valve sclerosis with adequate cusp excursion. Thickened mitral valve leaflets with normal excursion. Mild mitral annulus and aortic root calcification. Pulmonic valve not well visualized. Normal tricuspid valve structure. IVC is normal in size and collapsible with respiration. on the para sternal images there are increased mobile echo in the lvot but they are not noted on the apical images specially the three chamber view and likey represent reverberration artifact , clinical correlation is recommneded , message left for the treatign bridge operator slip A color flow and spectral Doppler study was performed and revealed: No aortic regurgitation. Trace mitral regurgitation. Mitral diastolic velocities suggest reduced left ventricular relaxation c/w diastolic dysfunction grade 1. No tricuspid regurgitation.
[2017-09-15] MEDS ORDERED: Albuterol/Ipratropium 3ml neb HHN SCH (15:00)
[2017-09-15] MEDS ORDERED: LORazepam Inj 2mg/ml 1ml IV PRN (15:30)
[2017-09-15] MEDS ORDERED: Ketorolac 30mg Inj IV PRN (15:30)
[2017-09-15] MEDS: Albuterol/Ipratropium 3ml neb HHN SCH ×3 (15:41→23:16)
[2017-09-15 16:00] VITALS: BP 140/74
[2017-09-15] MEDS ORDERED: Promethazine/Codeine 5ml UD ORAL PRN (16:00)
[2017-09-15 20:00] VITALS: BP 162/81
[2017-09-15] MEDS: Piperacillin/Tazobactam 3.375 GM in NS 110 ML IVPB SCH (22:22)
[2017-09-16] VITALS: BP 137/75
[2017-09-16] MEDS: Albuterol/Ipratropium 3ml neb HHN SCH ×6 (03:44→23:08)
[2017-09-16 04:00] VITALS: BP 143/78
[2017-09-16] MEDS: Solu-MEDROL 125mg Inj IV SCH (05:08)
[2017-09-16] MEDS: Piperacillin/Tazobactam 3.375 GM in NS 110 ML IVPB SCH (05:08)
[2017-09-16 06:58] LABS: HEMATOCRIT 43.3 % (42.0-52.0); HEMOGLOBIN 15.5 G/DL (14.2-18.0); MEAN CORPUSCULAR VOLUME 92 FL (80-99); PLATELET COUNT 159 K/UL (150-450); RED BLOOD COUNT 4.71 M/UL (4.70-6.10); RED CELL DISTRIBUTION WIDTH 12.3 % (11.6-14.8); WHITE BLOOD COUNT 17.4 K/UL (4.8-10.8)
[2017-09-16 07:05] LABS: ANION GAP 10 mmol/L (5-15); BLOOD UREA NITROGEN 26 mg/dL (7-18); CALCIUM 8.8 MG/DL (8.5-10.1); CARBON DIOXIDE 24 MMOL/L (21-32); CHLORIDE 104 MMOL/L (98-107); CREATININE 1.3 MG/DL (0.55-1.30); POTASSIUM 3.8 MMOL/L (3.5-5.1); SODIUM 138 MMOL/L (136-145)
[2017-09-16 08:00] VITALS: BP 178/105
[2017-09-16] MEDS: Theophylline ER 100mg ORAL SCH ×2 (09:19→22:04)
[2017-09-16] MEDS: Lisinopril 10mg tab ORAL SCH (09:19)
[2017-09-16] MEDS: Heparin 5000 units/ml inj SUBQ SCH ×2 (09:20→21:00)
--- NOTE | 2017-09-16 10:53 | Pulmonology Progress Note ---
Assessment/Plan Problems: (1) Acute respiratory failure (2) Non-ST elevation (NSTEMI) myocardial infarction (3) COPD (chronic obstructive pulmonary disease) (4) Cocaine abuse (5) COPD exacerbation (6) HTN (hypertension) Assessment/Plan taper steroids change IV abx to po f/u cardio recommendations Review Echo reports, old echo showing EF of 10, echo from yesterday showing EF of 45% titrate cardiac meds. Subjective ROS Limited/Unobtainable: No Constitutional: Reports: no symptoms HEENT: Repors: no symptoms Respiratory: Reports: no symptoms Allergies: Coded Allergies: DIPHENHYDRAMINE (Unverified Allergy, Unknown, 11/29/14) Objective Last 24 Hour Vital Signs Date Time Temp Pulse Resp B/P (MAP) Pulse Ox O2 Delivery O2 Flow Rate FiO2 09/16/17 09:19 178/105 09/16/17 09:19 105 178/101 09/16/17 08:00 98.1 105 20 178/105 96 Room Air 98.1 09/16/17 07:03 86 20 100 Room Air 21 09/16/17 07:02 71 20 Room Air 21 09/16/17 07:02 98 Room Air 21 09/16/17 07:02 Nasal Cannula 2.0 28 09/16/17 06:53 71 20 98 Room Air 21 09/16/17 04:00 96.3 63 20 143/78 98 Room Air 96.3 09/16/17 04:00 63 09/16/17 03:10 83 20 100 Room Air 21 09/16/17 03:00 88 20 99 Nasal Cannula 2.0 28 09/16/17 00:00 97.9 71 20 137/75 96 Room Air 97.9 09/16/17 00:00 73 09/15/17 23:26 70 20 100 Nasal Cannula 2.0 28 09/15/17 23:17 68 20 98 Nasal Cannula 2.0 28 09/15/17 20:57 162/81 09/15/17 20:16 63 16 99 Nasal Cannula 2.0 28 09/15/17 20:12 Nasal Cannula 2.0 28 09/15/17 20:12 62 16 97 Nasal Cannula 2.0 28 09/15/17 20:11 97 Nasal Cannula 2.0 28 09/15/17 20:10 62 16 Nasal Cannula 2.0 28 09/15/17 20:00 97.5 64 18 162/81 96 Room Air 97.5 09/15/17 20:00 83 09/15/17 16:00 97.0 60 18 140/74 98 Room Air 97.0 09/15/17 15:44 85 18 99 Room Air 21 09/15/17 15:30 80 16 97 Room Air 21 09/15/17 15:15 61 09/15/17 12:00 93 09/15/17 12:00 97.6 61 20 156/87 98 Room Air 97.6 Intake and Output 09/15/17 09/16/17 19:00 07:00 Intake Total 230.0 ml 361.3 ml Balance 230.0 ml 361.3 ml Intake Oral 120 ml 200 ml IV Total 110.0 ml 161.3 ml # Voids 1 # Bowel Movements 1 General Appearance: cachetic HEENT: normocephalic, atraumatic Respiratory/Chest: chest wall non-tender, lungs clear Genitourinary: normal external genitalia Extremities: no cyanosis Skin: no rash Microbiology Date/Time Source Procedure Growth Status 09/14/17 09:47 Urine,Clean Catch Urine Culture - Final Mixed Gram Positive Organism Complete Laboratory Tests 09/16/17 06:05: White Blood Count 17.4#H, Red Blood Count 4.71, Hemoglobin 15.5, Hematocrit 43.3 , Mean Corpuscular Volume 92, Mean Corpuscular Hemoglobin 32.9H, Mean Corpuscular Hemoglobin Concent 35.9, Red Cell Distribution Width 12.3, Platelet Count 159, Mean Platelet Volume 9.7, Neutrophils (%) (Auto) , Lymphocytes (%) ( Auto) , Monocytes (%) (Auto) , Eosinophils (%) (Auto) , Basophils (%) (Auto) , Differential Total Cells Counted 100, Neutrophils % (Manual) 93H, Lymphocytes % (Manual) 5L, Monocytes % (Manual) 2, Eosinophils % (Manual) 0, Basophils % ( Manual) 0, Band Neutrophils 0, Platelet Estimate Adequate, Platelet Morphology Normal, Red Blood Cell Morphology Normal, Sodium Level 138, Potassium Level 3.8 , Chloride Level 104, Carbon Dioxide Level 24, Anion Gap 10, Blood Urea Nitrogen 26H, Creatinine 1.3, Estimat Glomerular Filtration Rate > 60, Glucose Level 184H, Calcium Level 8.8, Troponin I 0.073H Current Medications Medications (Trade) Dose Ordered Sig/Stephenie Route PRN Reason Start Time Stop Time Status Last Admin Dose Admin Acetaminophen (Tylenol) 650 mg Q6H PRN ORAL Mild Pain/Temp > 100.5 09/15/17 16:00 10/14/17 15:59 Albuterol/ Ipratropium (Albuterol/ Ipratropium) 3 ml Q4HRT HHN 09/15/17 15:00 09/20/17 14:59 09/16/17 06:54 Amlodipine Besylate (Norvasc) 10 mg DAILY ORAL 09/16/17 09:00 10/15/17 08:59 09/16/17 09:19 Clonidine HCl (Catapres Tab) 0.1 mg Q4H PRN ORAL SBP>150 or DBP>100 09/15/17 15:30 10/15/17 15:29 09/15/17 20:57 Dextrose (Dextrose 50%) 25 ml STAT PRN IV Hypoglycemia 09/16/17 15:30 10/14/17 15:29 Dextrose (Dextrose 50%) 50 ml STAT PRN IV Hypoglycemia 09/15/17 15:30 10/15/17 15:29 Heparin Sodium (Porcine) (Heparin 5000 units/ml) 5,000 units EVERY 12 HOURS SUBQ 09/15/17 21:00 10/14/17 11:29 09/16/17 09:20 Ketorolac Tromethamine (Toradol 30mg) 30 mg Q8H PRN IV Moderate Pain (Pain Scale 4-6) 09/15/17 15:30 09/19/17 15:29 Lisinopril (Zestril) 10 mg DAILY ORAL 09/16/17 09:00 10/15/17 08:59 09/16/17 09:19 Lorazepam (Ativan 2mg/ml 1ml) 0.5 mg Q4H PRN IV For Anxiety 09/15/17 15:30 09/21/17 11:29 Methylprednisolone Sodium Succinate (Solu-MEDROL) 60 mg EVERY 6 HOURS IV 09/15/17 18:00 10/14/17 17:59 09/16/17 05:08 Nitroglycerin (Ntg) 0.4 mg Q5M PRN SL Prn Chest Pain 09/15/17 15:30 10/15/17 15:29 Ondansetron HCl (Zofran) 4 mg Q6H PRN IVP Nausea & Vomiting 09/15/17 15:30 10/14/17 15:29 Piperacillin Sod/ Tazobactam Sod 3.375 gm/Sodium Chloride 110 ml @ 27.5 mls/hr EVERY 8 HOURS IVPB 09/15/17 22:00 09/19/17 13:59 09/16/17 05:08 Promethazine HCl/ Codeine (Phenergan with Codeine) 5 ml Q6H PRN ORAL cough 09/15/17 16:00 10/14/17 15:59 Temazepam (Restoril) 15 mg HSPRN PRN ORAL Insomnia 09/15/17 21:00 09/22/17 20:59 Theophylline (Noe-Dur) 100 mg EVERY 12 HOURS ORAL 09/15/17 21:00 10/14/17 20:59 09/16/17 09:19 Jewell Sarabia MD Sep 16, 2017 10:53
[2017-09-16 12:00] VITALS: BP 145/80
[2017-09-16] MEDS: Promethazine/Codeine 5ml UD ORAL PRN ×2 (12:16→17:15)
[2017-09-16 15:39] VITALS: BP 141/88
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
--- NOTE | 2017-09-16 17:36 | Internal Med Progress Note ---
Subjective Date of Service: Sep 16, 2017 Physician Name Jovany Arreguin Attending Physician Satish Moore MD Current Medications Medications (Trade) Dose Ordered Sig/Stephenie Route PRN Reason Start Time Stop Time Status Last Admin Dose Admin Acetaminophen (Tylenol) 650 mg Q6H PRN ORAL Mild Pain/Temp > 100.5 09/15/17 16:00 10/14/17 15:59 Albuterol/ Ipratropium (Albuterol/ Ipratropium) 3 ml Q4HRT HHN 09/15/17 15:00 09/20/17 14:59 09/16/17 16:13 Clonidine HCl (Catapres Tab) 0.1 mg Q4H PRN ORAL SBP>150 or DBP>100 09/15/17 15:30 10/15/17 15:29 09/15/17 20:57 Dextrose (Dextrose 50%) 25 ml STAT PRN IV Hypoglycemia 09/16/17 15:30 10/14/17 15:29 Dextrose (Dextrose 50%) 50 ml STAT PRN IV Hypoglycemia 09/15/17 15:30 10/15/17 15:29 Furosemide (Lasix) 40 mg DAILY IV 09/17/17 09:00 10/17/17 08:59 Heparin Sodium (Porcine) (Heparin 5000 units/ml) 5,000 units EVERY 12 HOURS SUBQ 09/15/17 21:00 10/14/17 11:29 09/16/17 09:20 Lisinopril (Zestril) 10 mg DAILY ORAL 09/16/17 09:00 10/15/17 08:59 09/16/17 09:19 Lorazepam (Ativan 2mg/ml 1ml) 0.5 mg Q4H PRN IV For Anxiety 09/15/17 15:30 09/21/17 11:29 Nitroglycerin (Ntg) 0.4 mg Q5M PRN SL Prn Chest Pain 09/15/17 15:30 10/15/17 15:29 Ondansetron HCl (Zofran) 4 mg Q6H PRN IVP Nausea & Vomiting 09/15/17 15:30 10/14/17 15:29 Prednisone (predniSONE) 20 mg DAILY ORAL 09/17/17 09:00 10/17/17 08:59 Promethazine HCl/ Codeine (Phenergan with Codeine) 5 ml Q4H PRN ORAL For Cough 09/16/17 11:15 10/16/17 11:14 09/16/17 17:15 Spironolactone (Aldactone) 25 mg DAILY ORAL 09/17/17 09:00 10/17/17 08:59 Temazepam (Restoril) 15 mg HSPRN PRN ORAL Insomnia 09/15/17 21:00 09/22/17 20:59 Theophylline (Noe-Dur) 100 mg EVERY 12 HOURS ORAL 09/15/17 21:00 10/14/17 20:59 09/16/17 09:19 Trimethoprim/ Sulfamethoxazole (Bactrim-DS) 20 ml EVERY 12 HOURS NG 09/16/17 21:00 09/23/17 20:59 Allergies: Coded Allergies: DIPHENHYDRAMINE (Unverified Allergy, Unknown, 11/29/14) ROS Limited/Unobtainable: No Constitutional: Reports: no symptoms HEENT: Reports: no symptoms Cardiovascular: Reports: no symptoms Respiratory: Reports: cough Gastrointestinal/Abdominal: Reports: no symptoms Genitourinary: Reports: no symptoms Neurologic/Psychiatric: Reports: no symptoms Subjective 57 YO M admitted with shortness of breath. Now COPD exacerbation and elevated troponin. Cover for Int Anselmo-Dr Moore. WBC increasing. C/O cough Objective Last Vital Signs Date Time Temp Pulse Resp B/P (MAP) Pulse Ox O2 Delivery O2 Flow Rate FiO2 09/16/17 16:23 88 20 98 Room Air 21 09/16/17 15:39 97.1 141/88 97.1 09/16/17 07:02 2.0 Laboratory Tests Test 09/16/17 06:05 White Blood Count 17.4 K/UL (4.8-10.8) #H Red Blood Count 4.71 M/UL (4.70-6.10) Hemoglobin 15.5 G/DL (14.2-18.0) Hematocrit 43.3 % (42.0-52.0) Mean Corpuscular Volume 92 FL (80-99) Mean Corpuscular Hemoglobin 32.9 PG (27.0-31.0) H Mean Corpuscular Hemoglobin Concent 35.9 G/DL (32.0-36.0) Red Cell Distribution Width 12.3 % (11.6-14.8) Platelet Count 159 K/UL (150-450) Mean Platelet Volume 9.7 FL (6.5-10.1) Neutrophils (%) (Auto) % (45.0-75.0) Lymphocytes (%) (Auto) % (20.0-45.0) Monocytes (%) (Auto) % (1.0-10.0) Eosinophils (%) (Auto) % (0.0-3.0) Basophils (%) (Auto) % (0.0-2.0) Differential Total Cells Counted 100 Neutrophils % (Manual) 93 % (45-75) H Lymphocytes % (Manual) 5 % (20-45) L Monocytes % (Manual) 2 % (1-10) Eosinophils % (Manual) 0 % (0-3) Basophils % (Manual) 0 % (0-2) Band Neutrophils 0 % (0-8) Platelet Estimate Adequate Platelet Morphology Normal Red Blood Cell Morphology Normal Sodium Level 138 MMOL/L (136-145) Potassium Level 3.8 MMOL/L (3.5-5.1) Chloride Level 104 MMOL/L (98-107) Carbon Dioxide Level 24 MMOL/L (21-32) Anion Gap 10 mmol/L (5-15) Blood Urea Nitrogen 26 mg/dL (7-18) H Creatinine 1.3 MG/DL (0.55-1.30) Estimat Glomerular Filtration Rate > 60 mL/min (>60) Glucose Level 184 MG/DL (74-106) H Calcium Level 8.8 MG/DL (8.5-10.1) Troponin I 0.073 ng/mL (0.000-0.056) Microbiology Date/Time Source Procedure Growth Status 09/14/17 09:47 Urine,Clean Catch Urine Culture - Final Mixed Gram Positive Organism Complete Intake and Output 09/15/17 09/16/17 19:00 07:00 Intake Total 230.0 ml 361.3 ml Balance 230.0 ml 361.3 ml Intake Oral 120 ml 200 ml IV Total 110.0 ml 161.3 ml # Voids 1 # Bowel Movements 1 Objective General Appearance: alert, mild distress, thin EENT: PERRL/EOMI, normal ENT inspection Neck: non-tender, normal alignment, supple Cardiovascular: normal peripheral pulses, normal rate, regular rhythm, no gallop/murmur, no JVD Respiratory/Chest: chest wall non-tender, respiratory distress, crackles/rales , rhonchi - left, expiratory wheezing Abdomen: normal bowel sounds, non tender, soft, no organomegaly, no mass Neurologic: motor weakness - left Skin: normal pigmentation, warm/dry Assessment/Plan Problem List: (1) Uncontrolled hypertension Assessment & Plan: Increase amlodipine. Continue lisinopril and prn clonidine (2) COPD exacerbation Assessment & Plan: Schedule duoneb. Continue IV solumedrol and theophylline (3) Bronchitis Assessment & Plan: Continue zosyn (4) Elevated troponin Assessment & Plan: Decreasing. See cardiology note. (5) Left hemiparesis (6) Cardiomyopathy Assessment & Plan: LVEF=55-60%. See cardiology note. (7) Leukocytosis Assessment & Plan: ?due to solumedrol? Repeat CXR and CBC. ID consult. Status: not improved Jovany Arreguin MD Sep 16, 2017 17:36
[2017-09-16 18:03] LABS: HEMATOCRIT 42.2 % (42.0-52.0); HEMOGLOBIN 14.3 G/DL (14.2-18.0); MEAN CORPUSCULAR VOLUME 92 FL (80-99); PLATELET COUNT 142 K/UL (150-450); RED BLOOD COUNT 4.59 M/UL (4.70-6.10); RED CELL DISTRIBUTION WIDTH 12.8 % (11.6-14.8); WHITE BLOOD COUNT 18.5 K/UL (4.8-10.8)
[2017-09-16 18:04] LABS: BASOPHILS % (AUTO) 0.3 % (0.0-2.0); LYMPHOCYTES % (AUTO) 3.6 % (20.0-45.0); MONOCYTES % (AUTO) 6.9 % (1.0-10.0); NEUTROPHILS % (AUTO) 89.2 % (45.0-75.0)
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
[2017-09-16 20:00] VITALS: BP 150/87
[2017-09-16] MEDS ORDERED: Levofloxacin 500mg tab ORAL SCH (21:00)
[2017-09-16] MEDS ORDERED: Bactrim Susp 20ml NG SCH (21:00)
[2017-09-17] VITALS: BP 154/92
[2017-09-17] MEDS: Albuterol/Ipratropium 3ml neb HHN SCH ×3 (03:21→11:15)
[2017-09-17 04:00] VITALS: BP 153/98
[2017-09-17 07:49] LABS: ANION GAP 8 mmol/L (5-15); BLOOD UREA NITROGEN 20 mg/dL (7-18); CALCIUM 8.5 MG/DL (8.5-10.1); CARBON DIOXIDE 27 MMOL/L (21-32); CHLORIDE 107 MMOL/L (98-107); CREATININE 1.2 MG/DL (0.55-1.30); SODIUM 142 MMOL/L (136-145)
[2017-09-17 07:55] LABS: BASOPHILS % (AUTO) 0.3 % (0.0-2.0); EOSINOPHILS % (AUTO) 0.1 % (0.0-3.0); HEMATOCRIT 42.6 % (42.0-52.0); HEMOGLOBIN 14.7 G/DL (14.2-18.0); LYMPHOCYTES % (AUTO) 10.2 % (20.0-45.0); MEAN CORPUSCULAR VOLUME 93 FL (80-99); MONOCYTES % (AUTO) 7.7 % (1.0-10.0); NEUTROPHILS % (AUTO) 81.8 % (45.0-75.0); PLATELET COUNT 135 K/UL (150-450); RED BLOOD COUNT 4.57 M/UL (4.70-6.10); RED CELL DISTRIBUTION WIDTH 12.5 % (11.6-14.8); WHITE BLOOD COUNT 12.9 K/UL (4.8-10.8)
[2017-09-17 08:00] VITALS: BP 178/100
[2017-09-17] MEDS ORDERED: Spironolactone 25mg tab ORAL SCH (09:00)
[2017-09-17] MEDS: Lisinopril 10mg tab ORAL SCH (09:04)
[2017-09-17] MEDS: Theophylline ER 100mg ORAL SCH (09:04)
[2017-09-17] MEDS: Heparin 5000 units/ml inj SUBQ SCH (09:10)
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
[2017-09-17 12:00] VITALS: BP 162/88
[2017-09-17] MEDS ORDERED: LEVAQUIN500 MG ORAL (12:34)
[2017-09-17] MEDS ORDERED: THEOPHYLLINE A100 MG ORAL (12:34)
--- NOTE | 2017-09-17 12:35 | Pulmonology Progress Note ---
Assessment/Plan Problems: (1) Acute respiratory failure (2) Non-ST elevation (NSTEMI) myocardial infarction (3) COPD (chronic obstructive pulmonary disease) (4) Cocaine abuse (5) COPD exacerbation (6) HTN (hypertension) Assessment/Plan improving f/u cardio recommendations Review Echo reports, old echo showing EF of 10, echo from yesterday showing EF of 45% titrate cardiac meds. dc home today/ Subjective ROS Limited/Unobtainable: No Constitutional: Reports: no symptoms HEENT: Repors: no symptoms Allergies: Coded Allergies: DIPHENHYDRAMINE (Unverified Allergy, Unknown, 11/29/14) Objective Last 24 Hour Vital Signs Date Time Temp Pulse Resp B/P (MAP) Pulse Ox O2 Delivery O2 Flow Rate FiO2 09/17/17 12:22 162/88 09/17/17 12:00 97.5 75 19 162/88 99 Room Air 97.5 09/17/17 11:24 78 20 99 Room Air 21 09/17/17 11:15 82 18 98 Room Air 21 09/17/17 09:04 178/100 09/17/17 08:00 92 09/17/17 08:00 97.5 90 20 178/100 99 Room Air 97.5 09/17/17 07:34 80 20 99 Room Air 21 09/17/17 07:25 77 20 97 Room Air 21 09/17/17 07:25 99 Room Air 21 09/17/17 07:25 Room Air 21 09/17/17 04:00 82 09/17/17 04:00 97.5 85 18 153/98 98 Room Air 97.5 09/17/17 03:35 90 18 99 Room Air 21 09/17/17 03:23 92 20 98 Room Air 21 09/17/17 00:00 97.7 89 19 154/92 99 Room Air 97.7 09/17/17 00:00 88 09/16/17 23:20 83 18 99 Room Air 21 09/16/17 23:07 85 18 98 Room Air 21 09/16/17 20:00 97.5 74 20 150/87 96 Room Air 97.5 09/16/17 20:00 69 09/16/17 19:57 78 18 Room Air 21 09/16/17 19:57 78 18 99 Room Air 21 09/16/17 19:47 98 Room Air 21 09/16/17 19:47 21 09/16/17 19:46 80 20 98 Room Air 21 09/16/17 16:23 88 20 98 Room Air 21 09/16/17 16:13 88 20 98 Room Air 21 09/16/17 16:00 85 09/16/17 15:39 97.1 92 18 141/88 96 Room Air 97.1 Intake and Output 09/16/17 09/17/17 19:00 07:00 Intake Total 600 ml 240 ml Output Total 250 ml Balance 350 ml 240 ml Intake Oral 600 ml 240 ml Output Urine Total 250 ml # Voids 1 2 General Appearance: WD/WN HEENT: normocephalic, atraumatic Respiratory/Chest: chest wall non-tender, lungs clear Cardiovascular: normal peripheral pulses, normal rate Abdomen: normal bowel sounds, soft, non tender Genitourinary: normal external genitalia Neurologic/Psychiatric: precision honer II-XII grossly normal Microbiology Date/Time Source Procedure Growth Status 09/16/17 11:40 Sputum Gram Stain Pending Resulted 09/16/17 11:40 Sputum Sputum Culture - Preliminary NORMAL UPPER RESPIRATORY IHSAN AT 24 ... Resulted Laboratory Tests 09/16/17 17:45: White Blood Count 18.5H, Red Blood Count 4.59L, Hemoglobin 14.3, Hematocrit 42.2 , Mean Corpuscular Volume 92, Mean Corpuscular Hemoglobin 31.1H, Mean Corpuscular Hemoglobin Concent 33.8, Red Cell Distribution Width 12.8, Platelet Count 142L, Mean Platelet Volume 9.4, Neutrophils (%) (Auto) 89.2H, Lymphocytes (%) (Auto) 3.6L, Monocytes (%) (Auto) 6.9, Eosinophils (%) (Auto) 0.0, Basophils (%) (Auto) 0.3 09/17/17 06:00: White Blood Count 12.9H, Red Blood Count 4.57L, Hemoglobin 14.7, Hematocrit 42.6 , Mean Corpuscular Volume 93, Mean Corpuscular Hemoglobin 32.1H, Mean Corpuscular Hemoglobin Concent 34.4, Red Cell Distribution Width 12.5, Platelet Count 135L, Mean Platelet Volume 10.3H, Neutrophils (%) (Auto) 81.8H, Lymphocytes (%) (Auto) 10.2L, Monocytes (%) (Auto) 7.7, Eosinophils (%) (Auto) 0.1, Basophils (%) (Auto) 0.3, Sodium Level 142, Potassium Level 4.0, Chloride Level 107, Carbon Dioxide Level 27, Anion Gap 8, Blood Urea Nitrogen 20H, Creatinine 1.2, Estimat Glomerular Filtration Rate > 60, Glucose Level 104, Calcium Level 8.5 Current Medications Medications (Trade) Dose Ordered Sig/Stephenie Route PRN Reason Start Time Stop Time Status Last Admin Dose Admin Acetaminophen (Tylenol) 650 mg Q6H PRN ORAL Mild Pain/Temp > 100.5 09/15/17 16:00 10/14/17 15:59 09/16/17 22:06 Albuterol/ Ipratropium (Albuterol/ Ipratropium) 3 ml Q4HRT HHN 09/15/17 15:00 09/20/17 14:59 09/17/17 11:15 Carisoprodol (Soma) 350 mg EVERY 8 HOURS ORAL 09/17/17 14:00 10/17/17 13:59 Clonidine HCl (Catapres Tab) 0.1 mg Q4H PRN ORAL SBP>150 or DBP>100 09/15/17 15:30 10/15/17 15:29 09/17/17 12:22 Dextrose (Dextrose 50%) 25 ml STAT PRN IV Hypoglycemia 09/16/17 15:30 10/14/17 15:29 Dextrose (Dextrose 50%) 50 ml STAT PRN IV Hypoglycemia 09/15/17 15:30 10/15/17 15:29 Furosemide (Lasix) 40 mg DAILY IV 09/17/17 09:00 10/17/17 08:59 09/17/17 09:05 Heparin Sodium (Porcine) (Heparin 5000 units/ml) 5,000 units EVERY 12 HOURS SUBQ 09/15/17 21:00 10/14/17 11:29 09/17/17 09:10 Levofloxacin (Levaquin) 500 mg QHS ORAL 09/16/17 21:00 09/18/17 20:59 09/16/17 22:04 Lisinopril (Zestril) 10 mg DAILY ORAL 09/16/17 09:00 10/15/17 08:59 09/17/17 09:04 Lorazepam (Ativan 2mg/ml 1ml) 0.5 mg Q4H PRN IV For Anxiety 09/15/17 15:30 09/21/17 11:29 Nitroglycerin (Ntg) 0.4 mg Q5M PRN SL Prn Chest Pain 09/15/17 15:30 10/15/17 15:29 Ondansetron HCl (Zofran) 4 mg Q6H PRN IVP Nausea & Vomiting 09/15/17 15:30 10/14/17 15:29 Prednisone (predniSONE) 20 mg DAILY ORAL 09/17/17 09:00 10/17/17 08:59 09/17/17 09:04 Promethazine HCl/ Codeine (Phenergan with Codeine) 5 ml Q4H PRN ORAL For Cough 09/16/17 11:15 10/16/17 11:14 09/16/17 17:15 Spironolactone (Aldactone) 25 mg DAILY ORAL 09/17/17 09:00 10/17/17 08:59 09/17/17 09:04 Temazepam (Restoril) 15 mg HSPRN PRN ORAL Insomnia 09/15/17 21:00 09/22/17 20:59 Theophylline (Noe-Dur) 100 mg EVERY 12 HOURS ORAL 09/15/17 21:00 10/14/17 20:59 09/17/17 09:04 Jewell Sarabia MD Sep 17, 2017 12:35
--- NOTE | 2017-09-17 12:36 | Diagnostic Imaging Report ---
Indication: Cough Comparison: 09/14/2017 A single view chest radiograph was obtained. Findings: Cardiomediastinal appearance is within normal limits for age. Pulmonary vascularity is appropriate. The diaphragmatic contour is smooth and costophrenic angles are sharp. No pleural effusions are identified. The bones are unremarkable. Impression: No acute findings
[2017-09-17 13:46] VITALS: BP 150/92
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
== END 2017-09-17 14:04 | disposition home or self-care (01) | DRG 133 ==
LOC: EMR 06:51 → 2W 09:18 → EDBEDREQ 11:37 → 2E 09-15 15:00
DX: J96.00 Acute respiratory failure, unspecified whether with hypoxia or hypercapnia (principal); I42.9 Cardiomyopathy, unspecified; A04.72 Enterocolitis due to Clostridium difficile, not specified as recurrent; E86.0 Dehydration; G81.94 Hemiplegia, unspecified affecting left nondominant side; J44.1 Chronic obstructive pulmonary disease with (acute) exacerbation; I16.0 Hypertensive urgency; Y33.XXXS Other specified events, undetermined intent, sequela; F14.10 Cocaine abuse, uncomplicated; D72.829 Elevated white blood cell count, unspecified; B96.89 Other specified bacterial agents as the cause of diseases classified elsewhere
CPT/HCPCS: 36415; 71045; 80048; 80053; 80061; 80307; 80329; 81003; 82550; 83880; 84484; 85007; 85025; 85610; 85730; 87040; 87070; 87086; 87205; 93005; 93306; 94640; 94664; 94760; 99285; J7620

== ENCOUNTER 2017-12-18 20:45 | Emergency (ER) | payer OTHER ==
[~2017-12-18] VITALS: Ht 167.6 cm; Wt 63.5 kg
[~2017-12-18 20:45] MED LIST changes: +AMLODIPINE BESY10 MG ORAL; +LISINOPRIL5 MG ORAL; +THEOPHYLLINE A100 MG ORAL
[2017-12-18 21:00] VITALS: BP 162/92
[2017-12-18] MEDS ORDERED: Albuterol/Ipratropium 3ml neb HHN ONE (21:15)
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
[2017-12-18] MEDS ORDERED: Aspirin Baby 81mg ORAL ONE (21:45)
[2017-12-18] MEDS ORDERED: ALBUTEROL SULF8.5 GM INH (22:18)
[2017-12-19 01:52] VITALS: BP 150/76
== END 2017-12-18 22:35 | disposition home or self-care (01) ==
LOC: EMR 21:28
DX: J44.9 Chronic obstructive pulmonary disease, unspecified (principal); F14.10 Cocaine abuse, uncomplicated
CPT/HCPCS: 94640; 94664; 99284; J7620

== ENCOUNTER 2017-12-27 09:17 | Inpatient (IN) | payer OTHER ==
[~2017-12-27] VITALS: Ht 167.6 cm; Wt 61.7 kg
[2017-12-27 09:30] VITALS: BP 161/115
[2017-12-27] MEDS ORDERED: HYDROCHLOROTH12.5 M2 ORAL (09:40)
[2017-12-27] MEDS ORDERED: Ipratropium 0.02% Inh Soln 2.5ml UD HHN ONE (09:45)
[2017-12-27] MEDS ORDERED: Albuterol ud Inhalation HHN ONE (09:45)
[2017-12-27 10:00] VITALS: BP 163/129
[2017-12-27 10:19] LABS: BASOPHILS % (AUTO) 1.3 % (0.0-2.0); EOSINOPHILS % (AUTO) 15.5 % (0.0-3.0); HEMATOCRIT 49.2 % (42.0-52.0); HEMOGLOBIN 15.9 G/DL (14.2-18.0); LYMPHOCYTES % (AUTO) 27.8 % (20.0-45.0); MEAN CORPUSCULAR VOLUME 93 FL (80-99); NEUTROPHILS % (AUTO) 45.5 % (45.0-75.0); PLATELET COUNT 165 K/UL (150-450); RED BLOOD COUNT 5.29 M/UL (4.70-6.10); RED CELL DISTRIBUTION WIDTH 12.7 % (11.6-14.8); WHITE BLOOD COUNT 4.2 K/UL (4.8-10.8)
[2017-12-27] MEDS ORDERED: cefTRIAXone 1 GM in NS 55 ML IVPB ONE (10:30)
[2017-12-27 10:32] LABS: ANION GAP 8 mmol/L (5-15); BLOOD UREA NITROGEN 22 mg/dL (7-18); CALCIUM 8.8 MG/DL (8.5-10.1); CARBON DIOXIDE 28 MMOL/L (21-32); CHLORIDE 108 MMOL/L (98-107); CREATININE 1.2 MG/DL (0.55-1.30); POTASSIUM 4.2 MMOL/L (3.5-5.1); SODIUM 144 MMOL/L (136-145)
--- NOTE | 2017-12-27 10:55 | Diagnostic Imaging Report ---
Indication: Chest pain Technique: XRAY Chest 1v Comparison: 09/16/2017 and 09/14/2017 Findings: Stable cardiomegaly. Sternal contours are sharp. There are some atherosclerotic calcifications in the aortic arch. There is pulmonary vascular congestion and haziness of the pulmonary vascularity suggesting interstitial edema. There is linear opacity at the right base possibly related to subsegmental atelectasis. Costophrenic sulci appear sharp. No pneumothorax. There are degenerative changes in the spine. No acute osseous abnormality appreciated. IMPRESSION: Cardiomegaly with findings suggestive of mild CHF/interstitial edema. Clinical correlation/follow-up recommended. Linear opacities at the right base likely subsegmental atelectasis.
[2017-12-27 10:58] LABS: ALANINE AMINOTRANSFERASE 148 U/L (12-78); ALBUMIN 3.8 G/DL (3.4-5.0); ALBUMIN/GLOBULIN RATIO 1.2 (1.0-2.7); ALKALINE PHOSPHATASE 77 U/L (46-116); ASPARTATE AMINO TRANSFERASE 298 U/L (15-37); BILIRUBIN,TOTAL 0.4 MG/DL (0.2-1.0); CKMB 6.7 NG/ML (0.0-3.6); CREATINE KINASE 275 U/L (26-308)
[2017-12-27 11:25] LABS: APPEARANCE,URINE SLIGHTLY CLOUDY; BILIRUBIN, URINE NEGATIVE (NEGATIVE); GLUCOSE, URINE (UA) NEGATIVE (NEGATIVE); KETONES,URINE NEGATIVE (NEGATIVE); LEUKOCYTE ESTERASE ,URINE 3+ (NEGATIVE); NITRITE,URINE NEGATIVE (NEGATIVE); PH,URINE 5 (4.5-8.0); PROTEIN,URINE 2+ (NEGATIVE); UROBILINOGEN,URINE 1 MG/DL (0.0-1.0)
[2017-12-27 11:28] LABS: COLOR,URINE YELLOW
[2017-12-27 12:00] VITALS: BP 156/97
[2017-12-27] MEDS ORDERED: LORazepam Inj 2mg/ml 1ml IV PRN (13:45)
[2017-12-27] MEDS ORDERED: Promethazine/Codeine 5ml UD ORAL PRN (13:45)
[2017-12-27] MEDS ORDERED: Morphine Sulfate 2mg/ml Inj IVP PRN (13:45)
[2017-12-27] MEDS ORDERED: Ketorolac 30mg Inj IV PRN (13:45)
[2017-12-27] MEDS ORDERED: Nitroglycerin Subl 0.4mg tab SL PRN (13:45)
[2017-12-27 14:00] VITALS: BP 146/92
[2017-12-27] MEDS ORDERED: Piperacillin/Tazobactam 2.25 GM in D5W 55 ML IV SCH (14:00)
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
[2017-12-27] MEDS: Zoysn 3.37gm in NS 100ML IVPB SCH ×2 (15:14→21:14)
[2017-12-27 16:49] VITALS: BP 158/92
[2017-12-27] MEDS: Solu-MEDROL 125mg Inj IV SCH (17:32)
--- NOTE | 2017-12-27 18:24 | History & Physical ---
History and Physical History & Physicial Dictated for Int Med-Dr Moore no [id number]. Jovany Arreguin MD Dec 27, 2017 18:24
[2017-12-27] MEDS: Albuterol/Ipratropium 3ml neb HHN PRN (19:46)
[2017-12-27 20:20] VITALS: BP 178/115
[2017-12-27] MEDS ORDERED: Theophylline ER 100mg ORAL SCH (21:00)
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
[2017-12-27] MEDS: Theophylline ER 100mg ORAL SCH (21:14)
[2017-12-27] MEDS: Heparin 5000 units/ml inj SUBQ SCH (21:21)
[2017-12-28] VITALS (7 sets, daily range): BP systolic 154–177; BP diastolic 96–114
[2017-12-28] MEDS: Solu-MEDROL 125mg Inj IV SCH ×5 (00:29→23:54)
[2017-12-28] MEDS: Zoysn 3.37gm in NS 100ML IVPB SCH ×3 (06:00→20:49)
[2017-12-28 07:17] LABS: ANION GAP 8 mmol/L (5-15); BLOOD UREA NITROGEN 28 mg/dL (7-18); CARBON DIOXIDE 24 MMOL/L (21-32); CHLORIDE 106 MMOL/L (98-107); CREATININE 1.2 MG/DL (0.55-1.30); POTASSIUM 4.3 MMOL/L (3.5-5.1); SODIUM 137 MMOL/L (136-145)
[2017-12-28 07:22] LABS: HEMATOCRIT 46.6 % (42.0-52.0); HEMOGLOBIN 15.5 G/DL (14.2-18.0); MEAN CORPUSCULAR VOLUME 92 FL (80-99); PLATELET COUNT 162 K/UL (150-450); RED BLOOD COUNT 5.07 M/UL (4.70-6.10); RED CELL DISTRIBUTION WIDTH 12.3 % (11.6-14.8); WHITE BLOOD COUNT 7.8 K/UL (4.8-10.8)
[2017-12-28] MEDS: Theophylline ER 100mg ORAL SCH ×2 (08:35→20:48)
[2017-12-28] MEDS: Lisinopril 2.5mg tab ORAL SCH (08:36)
[2017-12-28] MEDS: Heparin 5000 units/ml inj SUBQ SCH ×2 (08:38→20:50)
--- NOTE | 2017-12-28 10:14 | Consultation ---
History of Present Illness General Date patient seen: Dec 28, 2017 Chief Complaint: Chest Pain Present Illness HPI 57 year old male with hx of COPD, emphysema, active smoker presented to ER with CC of SOB with productive cough. He is having difficulty getting a deep breath. He has been using his inhalers. He denies chest pain. He denies fever or chills. He denies nausea or vomiting. He denies cough or congestion. He has no other complaints. His troponin was high. He is admitted to telemetry for further management. Allergies: Coded Allergies: DIPHENHYDRAMINE (Unverified Allergy, Unknown, 12/18/17) Medication History Scheduled Albuterol Sulfate* (Albuterol Sulfate Mdi*), 2 PUFF INH Q4H Albuterol Sulfate* (Albuterol Sulfate Mdi*), 2 PUFF INH Q4H Amlodipine Besylate* (Amlodipine Besylate*), 10 MG ORAL DAILY, (Reported) Ciprofloxacin Hcl* (Ciprofloxacin Hcl*), 500 MG ORAL EVERY 12 HOURS, (Reported) Doxycycline Hyclate (Doxycycline Hyclate), 100 MG PO BID, (Reported) Doxycycline Monohydrate* (Doxycycline Monohydrate*), 100 MG ORAL TWICE A DAY, ( Reported) Hydrochlorothiazide* (Hydrochlorothiazide*), 12.5 MG ORAL DAILY, (Reported) Levofloxacin* (Levaquin*), 500 MG ORAL QHS Lisinopril (Lisinopril*), 5 MG ORAL DAILY, (Reported) Theophylline (Theodur*), 100 MG ORAL EVERY 12 HOURS Scheduled PRN Albuterol Sulfate* (Albuterol Sulfate Hhn*), 3 ML INH Q4H PRN for Shortness of Breath Albuterol Sulfate* (Albuterol Sulfate Hhn*), 2.5 MG HHN Q4H PRN for Shortness of Breath Patient History Healthcare decision maker Resuscitation status Full Code Advanced Directive on File Past Medical/Surgical History Past Medical/Surgical History: (1) Cocaine abuse (2) COPD (chronic obstructive pulmonary disease) (3) Cardiomyopathy (4) HTN (hypertension) Review of Systems Constitutional: Reports: no symptoms Eye: Reports: no symptoms Hematologic/Lymphatic: Reports: no symptoms Physical Exam General Appearance: WD/WN, no apparent distress Lines, tubes and drains: peripheral HEENT: normocephalic, atraumatic Neck: non-tender, normal alignment Respiratory/Chest: chest wall non-tender, lungs clear Breasts: no masses Cardiovascular/Chest: normal peripheral pulses Abdomen: normal bowel sounds Genitourinary/Rectal: normal genital exam Last 24 Hour Vital Signs Date Time Temp Pulse Resp B/P (MAP) Pulse Ox O2 Delivery O2 Flow Rate FiO2 12/28/17 08:51 Room Air 12/28/17 08:36 173/100 12/28/17 08:36 67 173/100 12/28/17 08:00 97.5 67 21 173/100 (124) 96 97.5 12/28/17 04:00 65 12/28/17 04:00 97.7 82 19 157/100 (119) 97 97.7 12/28/17 02:47 159/96 (117) 12/28/17 00:29 178/115 12/28/17 00:00 97.5 80 19 177/114 (135) 97 97.5 12/28/17 00:00 79 12/27/17 21:00 Room Air 12/27/17 20:20 97.3 94 18 178/115 (136) 97 97.3 94 12/27/17 20:00 91 12/27/17 19:45 97 18 100 Room Air 21 12/27/17 19:40 95 20 Room Air 21 12/27/17 19:40 95 20 100 Room Air 21 12/27/17 16:49 97.0 94 18 158/92 (114) 95 97.0 94 12/27/17 16:27 Room Air 12/27/17 16:00 70 12/27/17 14:41 98.1 90 18 155/78 99 Room Air 21 98.3 12/27/17 14:00 98.3 94 20 146/92 97 Room Air 21 98.3 12/27/17 12:00 98.5 101 20 156/97 96 Room Air 21 98.5 12/27/17 11:18 98 25 98 Room Air 21 12/27/17 10:29 93 22 Room Air 21 12/27/17 10:22 93 22 100 Room Air 21 12/27/17 10:00 97 27 163/129 98 Room Air Intake and Output 12/27/17 12/28/17 19:00 07:00 Intake Total 295 ml 780 ml Output Total 400 ml Balance -105 ml 780 ml Intake Oral 240 ml 780 ml IV Total 55 ml Output Urine Total 400 ml # Voids 4 Laboratory Tests Test 12/27/17 10:00 12/27/17 11:25 12/28/17 06:41 White Blood Count 4.2 K/UL (4.8-10.8) L 7.8 K/UL (4.8-10.8) # Red Blood Count 5.29 M/UL (4.70-6.10) 5.07 M/UL (4.70-6.10) Hemoglobin 15.9 G/DL (14.2-18.0) 15.5 G/DL (14.2-18.0) Hematocrit 49.2 % (42.0-52.0) 46.6 % (42.0-52.0) Mean Corpuscular Volume 93 FL (80-99) 92 FL (80-99) Mean Corpuscular Hemoglobin 30.2 PG (27.0-31.0) 30.7 PG (27.0-31.0) Mean Corpuscular Hemoglobin Concent 32.4 G/DL (32.0-36.0) 33.3 G/DL (32.0-36.0) Red Cell Distribution Width 12.7 % (11.6-14.8) 12.3 % (11.6-14.8) Platelet Count 165 K/UL (150-450) 162 K/UL (150-450) Mean Platelet Volume 8.7 FL (6.5-10.1) 9.8 FL (6.5-10.1) Neutrophils (%) (Auto) 45.5 % (45.0-75.0) % (45.0-75.0) Lymphocytes (%) (Auto) 27.8 % (20.0-45.0) % (20.0-45.0) Monocytes (%) (Auto) 10.0 % (1.0-10.0) % (1.0-10.0) Eosinophils (%) (Auto) 15.5 % (0.0-3.0) H % (0.0-3.0) Basophils (%) (Auto) 1.3 % (0.0-2.0) % (0.0-2.0) Urine Color Yellow Urine Appearance Slightly cloudy Urine pH 5 (4.5-8.0) Urine Specific [place] 1.025 (1.005-1.035) Urine Protein 2+ (NEGATIVE) H Urine Glucose (UA) Negative (NEGATIVE) Urine Ketones Negative (NEGATIVE) Urine Blood 1+ (NEGATIVE) H Urine Nitrite Negative (NEGATIVE) Urine Bilirubin Negative (NEGATIVE) Urine Urobilinogen 1 MG/DL (0.0-1.0) H Urine Leukocyte Esterase 3+ (NEGATIVE) H Urine RBC 2-4 /HPF (0 - 0) H Urine WBC 15-20 /HPF (0 - 0) H Urine Squamous Epithelial Cells Occasional /LPF Urine Bacteria Few /HPF (NONE) Sodium Level 144 MMOL/L (136-145) 137 MMOL/L (136-145) Potassium Level 4.2 MMOL/L (3.5-5.1) 4.3 MMOL/L (3.5-5.1) Chloride Level 108 MMOL/L (98-107) H 106 MMOL/L (98-107) Carbon Dioxide Level 28 MMOL/L (21-32) 24 MMOL/L (21-32) Anion Gap 8 mmol/L (5-15) 8 mmol/L (5-15) Blood Urea Nitrogen 22 mg/dL (7-18) H 28 mg/dL (7-18) H Creatinine 1.2 MG/DL (0.55-1.30) 1.2 MG/DL (0.55-1.30) Estimat Glomerular Filtration Rate > 60 mL/min (>60) > 60 mL/min (>60) Glucose Level 92 MG/DL (74-106) 114 MG/DL (74-106) H Calcium Level 8.8 MG/DL (8.5-10.1) 9.0 MG/DL (8.5-10.1) Total Bilirubin 0.4 MG/DL (0.2-1.0) Aspartate Amino Transf (AST/SGOT) 298 U/L (15-37) H Alanine Aminotransferase (ALT/SGPT) 148 U/L (12-78) H Alkaline Phosphatase 77 U/L (46-116) Total Creatine Kinase 275 U/L (26-308) Creatine Kinase MB 6.7 NG/ML (0.0-3.6) H Creatine Kinase MB Relative Index 2.4 Troponin I 0.243 ng/mL (0.000-0.056) 0.205 ng/mL (0.000-0.056) 0.191 ng/mL (0.000-0.056) Total Protein 7.1 G/DL (6.4-8.2) Albumin 3.8 G/DL (3.4-5.0) Globulin 3.3 g/dL Albumin/Globulin Ratio 1.2 (1.0-2.7) Urine Opiates Screen Negative (NEGATIVE) Urine Barbiturates Screen Negative (NEGATIVE) Phencyclidine (PCP) Screen Negative (NEGATIVE) Urine Amphetamines Screen Negative (NEGATIVE) Urine Benzodiazepines Screen Negative (NEGATIVE) Urine Cocaine Screen Positive (NEGATIVE) H Urine Marijuana (THC) Screen Negative (NEGATIVE) Pro-B-Type Natriuretic Peptide 2113 pg/mL (0-125) H 2341 pg/mL (0-125) H Neutrophils % (Manual) Pending Lymphocytes % (Manual) Pending Platelet Estimate Pending Platelet Morphology Pending Microbiology Date/Time Source Procedure Growth Status 12/27/17 10:00 Urine,Clean Catch Urine Culture - Preliminary NO GROWTH Resulted Height (Feet): 5 Height (Inches): 6.00 Weight (Pounds): 130 Medications Current Medications Medications (Trade) Dose Ordered Sig/Stephenie Route PRN Reason Start Time Stop Time Status Last Admin Dose Admin Albuterol/ Ipratropium (Albuterol/ Ipratropium) 3 ml Q4H PRN HHN dyspnea 12/27/17 13:45 01/01/18 13:44 12/27/17 19:46 Amlodipine Besylate (Norvasc) 10 mg DAILY ORAL 12/28/17 09:00 01/27/18 08:59 12/28/17 08:36 Clonidine HCl (Catapres Tab) 0.1 mg Q4H PRN ORAL for BP over 170 12/27/17 23:30 01/26/18 23:29 12/28/17 00:29 Dextrose (Dextrose 50%) 25 ml PRN IV Hypoglycemia 12/27/17 13:45 01/26/18 13:44 Dextrose (Dextrose 50%) 50 ml PRN IV hypoglycemia 12/27/17 13:45 01/26/18 13:44 Heparin Sodium (Porcine) (Heparin 5000 units/ml) 5,000 units EVERY 12 HOURS SUBQ 12/27/17 21:00 01/26/18 20:59 12/28/17 08:38 Ketorolac Tromethamine (Toradol 30mg) 30 mg Q8H PRN IV moderate pain 4-6 12/27/17 13:45 01/01/18 13:44 Lisinopril (Zestril) 5 mg DAILY ORAL 12/28/17 09:00 01/27/18 08:59 12/28/17 08:36 Lorazepam (Ativan 2mg/ml 1ml) 0.5 mg Q4H PRN IV For Anxiety 12/27/17 13:45 01/03/18 13:44 Methylprednisolone Sodium Succinate (Solu-MEDROL) 60 mg EVERY 6 HOURS IV 12/27/17 18:00 01/26/18 17:59 12/28/17 06:00 Morphine Sulfate (Morphine Sulfate) 2 mg Q4H PRN IVP severe pain 7-10 12/27/17 13:45 01/03/18 13:44 Nitroglycerin (Ntg) 0.4 mg Q5M X 3 DOSES PRN SL Prn Chest Pain 12/27/17 13:45 01/26/18 13:44 Ondansetron HCl (Zofran) 4 mg Q6H PRN IVP Nausea & Vomiting 12/27/17 13:45 01/26/18 13:44 Piperacillin Sod/ Tazobactam Sod 3.375 gm/Sodium Chloride 110 ml @ 27.5 mls/hr EVERY 8 HOURS IVPB 12/27/17 14:00 01/01/18 13:59 12/28/17 06:00 Promethazine HCl/ Codeine (Phenergan with Codeine) 5 ml Q6H PRN ORAL cough 12/27/17 13:45 01/26/18 13:44 Temazepam (Restoril) 15 mg HSPRN PRN ORAL Insomnia 12/27/17 13:45 01/03/18 13:44 Theophylline (Noe-Dur) 100 mg EVERY 12 HOURS ORAL 12/27/17 21:00 01/26/18 20:59 12/28/17 08:35 Assessment/Plan Problem List: (1) HTN (hypertension) ICD Codes: I10 - Essential (primary) hypertension SNOMED: 95190334 (2) COPD (chronic obstructive pulmonary disease) ICD Codes: J44.9 - Chronic obstructive pulmonary disease, unspecified SNOMED: 35812774 (3) COPD exacerbation ICD Codes: J44.1 - Obstructive chronic bronchitis with exacerbation SNOMED: 828900211 (4) Bronchitis ICD Codes: J40 - Bronchitis, not specified as acute or chronic SNOMED: 91506404 Assessment/Plan respiratory treatment iv abx iv steroids echo monitor BP check electrolytes cardiology evaluation. Jewell Sarabia MD Dec 28, 2017 10:14
--- NOTE | 2017-12-28 10:34 | Cardiac Electrophysiology PN ---
Subjective Subjective [id number] Objective Last 24 Hour Vital Signs Date Time Temp Pulse Resp B/P (MAP) Pulse Ox O2 Delivery O2 Flow Rate FiO2 12/28/17 08:51 Room Air 12/28/17 08:36 173/100 12/28/17 08:36 67 173/100 12/28/17 08:00 87 12/28/17 08:00 97.5 67 21 173/100 (124) 96 97.5 12/28/17 04:00 65 12/28/17 04:00 97.7 82 19 157/100 (119) 97 97.7 12/28/17 02:47 159/96 (117) 12/28/17 00:29 178/115 12/28/17 00:00 97.5 80 19 177/114 (135) 97 97.5 12/28/17 00:00 79 12/27/17 21:00 Room Air 12/27/17 20:20 97.3 94 18 178/115 (136) 97 97.3 94 12/27/17 20:00 91 12/27/17 19:45 97 18 100 Room Air 21 12/27/17 19:40 95 20 Room Air 21 12/27/17 19:40 95 20 100 Room Air 21 12/27/17 16:49 97.0 94 18 158/92 (114) 95 97.0 94 12/27/17 16:27 Room Air 12/27/17 16:00 70 12/27/17 14:41 98.1 90 18 155/78 99 Room Air 21 98.3 12/27/17 14:00 98.3 94 20 146/92 97 Room Air 21 98.3 12/27/17 12:00 98.5 101 20 156/97 96 Room Air 21 98.5 12/27/17 11:18 98 25 98 Room Air 21 Intake and Output 12/27/17 12/28/17 19:00 07:00 Intake Total 295 ml 780 ml Output Total 400 ml Balance -105 ml 780 ml Intake Oral 240 ml 780 ml IV Total 55 ml Output Urine Total 400 ml # Voids 4 Laboratory Tests Test 12/27/17 11:25 12/28/17 06:41 Troponin I 0.205 ng/mL (0.000-0.056) 0.191 ng/mL (0.000-0.056) Pro-B-Type Natriuretic Peptide 2113 pg/mL (0-125) H 2341 pg/mL (0-125) H White Blood Count 7.8 K/UL (4.8-10.8) # Red Blood Count 5.07 M/UL (4.70-6.10) Hemoglobin 15.5 G/DL (14.2-18.0) Hematocrit 46.6 % (42.0-52.0) Mean Corpuscular Volume 92 FL (80-99) Mean Corpuscular Hemoglobin 30.7 PG (27.0-31.0) Mean Corpuscular Hemoglobin Concent 33.3 G/DL (32.0-36.0) Red Cell Distribution Width 12.3 % (11.6-14.8) Platelet Count 162 K/UL (150-450) Mean Platelet Volume 9.8 FL (6.5-10.1) Neutrophils (%) (Auto) % (45.0-75.0) Lymphocytes (%) (Auto) % (20.0-45.0) Monocytes (%) (Auto) % (1.0-10.0) Eosinophils (%) (Auto) % (0.0-3.0) Basophils (%) (Auto) % (0.0-2.0) Neutrophils % (Manual) Pending Lymphocytes % (Manual) Pending Platelet Estimate Pending Platelet Morphology Pending Sodium Level 137 MMOL/L (136-145) Potassium Level 4.3 MMOL/L (3.5-5.1) Chloride Level 106 MMOL/L (98-107) Carbon Dioxide Level 24 MMOL/L (21-32) Anion Gap 8 mmol/L (5-15) Blood Urea Nitrogen 28 mg/dL (7-18) H Creatinine 1.2 MG/DL (0.55-1.30) Estimat Glomerular Filtration Rate > 60 mL/min (>60) Glucose Level 114 MG/DL (74-106) H Calcium Level 9.0 MG/DL (8.5-10.1) Microbiology Date/Time Source Procedure Growth Status 12/27/17 10:00 Urine,Clean Catch Urine Culture - Preliminary NO GROWTH Resulted Agustin Sheehan MD Dec 28, 2017 10:34
--- NOTE | 2017-12-28 13:10 | Cardiology Report ---
APPROVED REPORT EXAM: Two-dimensional and M-mode echocardiogram with Doppler and color Doppler. INDICATION SOB M-Mode DIMENSIONS IVSd1.9 (0.7-1.1cm)Left Atrium (MM)4.4 (1.6-4.0cm) LVDd5.8 (3.5-5.6cm)Aortic Root3.6 (2.0-3.7cm) PWd1.9 (0.7-1.1cm)Aortic Cusp Exc.2.3 (1.5-2.0cm) LVDs4.4 (2.5-4.0cm) PWs2.1 cm Mild left ventricular enlargement. Mild global left ventricular hypokinesis with akinesis of the inferior wall and mid to distal posterior wall and post septum Left ventricular ejection fraction estimated to be 35-40 %. Increased E point-interventricular septal separation c/w left ventricular dysfunction. Mild left ventricular hypertrophy. Anterior Echo-free space, may be due to pericardial fat or effusion. Moderate left atrial enlargement. Right cardiac chamber sizes are within normal limits. Mild focal aortic valve sclerosis with adequate cusp excursion. Thickened mitral valve leaflets with normal excursion. Mitral annulus and aortic root calcification. Pulmonic valve not well visualized. Normal tricuspid valve structure. IVC dilated at 2.2 cm with physiologic collapse suggestive of mildly increased RA pressure. A color flow and spectral Doppler study was performed and revealed: Mild aortic regurgitation. Moderate mitral regurgitation. Mitral inflow velocities indicates possible pseudo normalization pattern implying moderately elevated left atrial pressure (Grade II). Mild tricuspid regurgitation. Tricuspid systolic velocities suggests peak right ventricular systolic pressure of 47 mmHg, consistent with moderate pulmonary hypertension.
--- NOTE | 2017-12-28 14:23 | Cardiology Report ---
APPROVED REPORT EKG Measurement Heart [id number] Sinus tachycardia Biatrial enlargement Left ventricular hypertrophy with QRS widening and repolarization abnormality Cannot rule out Septal infarct, age undetermined Abnormal ECG
--- NOTE | 2017-12-28 18:11 | Internal Med Progress Note ---
Subjective Physician Name Jovany Arreguin Attending Physician Satish Moore MD Current Medications Medications (Trade) Dose Ordered Sig/Stephenie Route PRN Reason Start Time Stop Time Status Last Admin Dose Admin Albuterol/ Ipratropium (Albuterol/ Ipratropium) 3 ml Q4H PRN HHN dyspnea 12/27/17 13:45 01/01/18 13:44 12/27/17 19:46 Amlodipine Besylate (Norvasc) 10 mg DAILY ORAL 12/28/17 09:00 01/27/18 08:59 12/28/17 08:36 Clonidine HCl (Catapres Tab) 0.1 mg Q4H PRN ORAL for BP over 170 12/27/17 23:30 01/26/18 23:29 12/28/17 00:29 Dextrose (Dextrose 50%) 25 ml PRN IV Hypoglycemia 12/27/17 13:45 01/26/18 13:44 Dextrose (Dextrose 50%) 50 ml PRN IV hypoglycemia 12/27/17 13:45 01/26/18 13:44 Furosemide (Lasix) 40 mg DAILY IV 12/29/17 09:00 01/28/18 08:59 Heparin Sodium (Porcine) (Heparin 5000 units/ml) 5,000 units EVERY 12 HOURS SUBQ 12/27/17 21:00 01/26/18 20:59 12/28/17 08:38 Lisinopril (Zestril) 5 mg DAILY ORAL 12/28/17 09:00 01/27/18 08:59 12/28/17 08:36 Lorazepam (Ativan 2mg/ml 1ml) 0.5 mg Q4H PRN IV For Anxiety 12/27/17 13:45 01/03/18 13:44 Methylprednisolone Sodium Succinate (Solu-MEDROL) 60 mg EVERY 6 HOURS IV 12/27/17 18:00 01/26/18 17:59 12/28/17 12:20 Nitroglycerin (Ntg) 0.4 mg Q5M X 3 DOSES PRN SL Prn Chest Pain 12/27/17 13:45 01/26/18 13:44 Ondansetron HCl (Zofran) 4 mg Q6H PRN IVP Nausea & Vomiting 12/27/17 13:45 01/26/18 13:44 Piperacillin Sod/ Tazobactam Sod 3.375 gm/Sodium Chloride 110 ml @ 27.5 mls/hr EVERY 8 HOURS IVPB 12/27/17 14:00 01/01/18 13:59 12/28/17 13:42 Promethazine HCl/ Codeine (Phenergan with Codeine) 5 ml Q6H PRN ORAL cough 12/27/17 13:45 01/26/18 13:44 Spironolactone (Aldactone) 25 mg DAILY ORAL 12/29/17 09:00 01/28/18 08:59 Temazepam (Restoril) 15 mg HSPRN PRN ORAL Insomnia 12/27/17 13:45 01/03/18 13:44 Theophylline (Noe-Dur) 100 mg EVERY 12 HOURS ORAL 12/27/17 21:00 01/26/18 20:59 12/28/17 08:35 Allergies: Coded Allergies: DIPHENHYDRAMINE (Unverified Allergy, Unknown, 12/18/17) Objective Last Vital Signs Date Time Temp Pulse Resp B/P (MAP) Pulse Ox O2 Delivery O2 Flow Rate FiO2 12/28/17 16:00 67 12/28/17 15:46 98.1 21 166/97 (120) 94 98.1 12/28/17 08:51 Room Air 12/27/17 19:45 21 Laboratory Tests Test 12/28/17 06:41 White Blood Count 7.8 K/UL (4.8-10.8) # Red Blood Count 5.07 M/UL (4.70-6.10) Hemoglobin 15.5 G/DL (14.2-18.0) Hematocrit 46.6 % (42.0-52.0) Mean Corpuscular Volume 92 FL (80-99) Mean Corpuscular Hemoglobin 30.7 PG (27.0-31.0) Mean Corpuscular Hemoglobin Concent 33.3 G/DL (32.0-36.0) Red Cell Distribution Width 12.3 % (11.6-14.8) Platelet Count 162 K/UL (150-450) Mean Platelet Volume 9.8 FL (6.5-10.1) Neutrophils (%) (Auto) % (45.0-75.0) Lymphocytes (%) (Auto) % (20.0-45.0) Monocytes (%) (Auto) % (1.0-10.0) Eosinophils (%) (Auto) % (0.0-3.0) Basophils (%) (Auto) % (0.0-2.0) Differential Total Cells Counted 100 Neutrophils % (Manual) 82 % (45-75) H Lymphocytes % (Manual) 12 % (20-45) L Monocytes % (Manual) 4 % (1-10) Eosinophils % (Manual) 0 % (0-3) Basophils % (Manual) 2 % (0-2) Band Neutrophils 0 % (0-8) Platelet Estimate Adequate Platelet Morphology Normal Red Blood Cell Morphology Normal Sodium Level 137 MMOL/L (136-145) Potassium Level 4.3 MMOL/L (3.5-5.1) Chloride Level 106 MMOL/L (98-107) Carbon Dioxide Level 24 MMOL/L (21-32) Anion Gap 8 mmol/L (5-15) Blood Urea Nitrogen 28 mg/dL (7-18) H Creatinine 1.2 MG/DL (0.55-1.30) Estimat Glomerular Filtration Rate > 60 mL/min (>60) Glucose Level 114 MG/DL (74-106) H Calcium Level 9.0 MG/DL (8.5-10.1) Troponin I 0.191 ng/mL (0.000-0.056) Pro-B-Type Natriuretic Peptide 2341 pg/mL (0-125) H Microbiology Date/Time Source Procedure Growth Status 12/27/17 10:00 Urine,Clean Catch Urine Culture - Preliminary NO GROWTH Resulted Intake and Output 12/27/17 12/28/17 19:00 07:00 Intake Total 295 ml 780 ml Output Total 400 ml Balance -105 ml 780 ml Intake Oral 240 ml 780 ml IV Total 55 ml Output Urine Total 400 ml # Voids 4 Objective PHYSICAL EXAMINATION: GENERAL: The patient is thin-appearing male, in no apparent distress. HEENT: Eyes, pupils equal and responsive to light and accommodation. Extraocular movements are intact. NECK: Supple without lymphadenopathy. CHEST: Diffuse crackles 1[address] in the bilateral bases. Otherwise, clear to auscultation without wheezes. ABDOMEN: Soft, nontender, and nondistended. Positive bowel sounds. No evidence of hepatosplenomegaly. Currently, no rebound or guarding noted. EXTREMITIES: Negative for clubbing or cyanosis. There is trace pitting edema of bilateral lower extremities. NEUROLOGICAL: Cranial nerves II through XII are grossly intact without focal deficits. Motor strength is 5/5 bilaterally. There is a left-sided upper extremity hemiparesis. Motor strength is 3/5 in the left upper extremity and 5/5 bilaterally. RECTAL/GENITAL: Refused. Assessment/Plan Problem List: (1) Elevated troponin Assessment & Plan: See cardiology note. (2) Dyspnea (3) Edema (4) HTN (hypertension) Assessment & Plan: Continue amlodipine, lisinopril and clonidine (5) CHF (congestive heart failure) Assessment & Plan: LVEF=35-40%. See cardiology note. (6) COPD (chronic obstructive pulmonary disease) (7) Cardiomyopathy (8) Left hemiparesis Status: progressing Jovany Arreguin MD Dec 28, 2017 18:11
[2017-12-28] MEDS: Albuterol/Ipratropium 3ml neb HHN PRN (19:43)
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
[2017-12-29 00:01] VITALS: BP 149/66
[2017-12-29] MEDS: Albuterol/Ipratropium 3ml neb HHN PRN (03:24)
[2017-12-29 04:00] VITALS: BP 156/78
[2017-12-29] MEDS: Solu-MEDROL 125mg Inj IV SCH (06:15)
[2017-12-29] MEDS: Zoysn 3.37gm in NS 100ML IVPB SCH (06:15)
[2017-12-29 07:13] LABS: HEMATOCRIT 45.3 % (42.0-52.0); HEMOGLOBIN 15.3 G/DL (14.2-18.0); MEAN CORPUSCULAR VOLUME 93 FL (80-99); PLATELET COUNT 165 K/UL (150-450); RED BLOOD COUNT 4.89 M/UL (4.70-6.10); RED CELL DISTRIBUTION WIDTH 12.1 % (11.6-14.8); WHITE BLOOD COUNT 19.3 K/UL (4.8-10.8)
[2017-12-29 07:32] LABS: ALANINE AMINOTRANSFERASE 80 U/L (12-78); ALBUMIN 3.2 G/DL (3.4-5.0); ALBUMIN/GLOBULIN RATIO 0.9 (1.0-2.7); ALKALINE PHOSPHATASE 53 U/L (46-116); ANION GAP 7 mmol/L (5-15); ASPARTATE AMINO TRANSFERASE 50 U/L (15-37); BILIRUBIN,TOTAL 0.3 MG/DL (0.2-1.0); BLOOD UREA NITROGEN 31 mg/dL (7-18); CALCIUM 9.2 MG/DL (8.5-10.1); CARBON DIOXIDE 26 MMOL/L (21-32); CHLORIDE 105 MMOL/L (98-107); CREATININE 1.3 MG/DL (0.55-1.30); PHOSPHORUS 3.8 MG/DL (2.5-4.9); POTASSIUM 4.2 MMOL/L (3.5-5.1); SODIUM 138 MMOL/L (136-145)
[2017-12-29 08:00] VITALS: BP 161/104
[2017-12-29] MEDS: Theophylline ER 100mg ORAL SCH (08:53)
[2017-12-29] MEDS: Lisinopril 2.5mg tab ORAL SCH (08:54)
[2017-12-29] MEDS ORDERED: Spironolactone 25mg tab ORAL SCH (09:00)
[2017-12-29] MEDS: Heparin 5000 units/ml inj SUBQ SCH (09:02)
[2017-12-29] MEDS ORDERED: FUROSEMIDE20 M1 ORAL (11:30)
[2017-12-29] MEDS ORDERED: ALDACTONE25 MG ORAL (11:30)
--- NOTE | 2017-12-29 11:35 | Pulmonology Progress Note ---
Assessment/Plan Problems: (1) HTN (hypertension) (2) COPD (chronic obstructive pulmonary disease) (3) COPD exacerbation (4) Bronchitis Assessment/Plan improving less cough less short of breath cardio note appreciated echo reviewed, dc home with close f/u with primary Subjective ROS Limited/Unobtainable: No Constitutional: Reports: no symptoms HEENT: Repors: no symptoms Respiratory: Reports: no symptoms Allergies: Coded Allergies: DIPHENHYDRAMINE (Unverified Allergy, Unknown, 12/18/17) Objective Last 24 Hour Vital Signs Date Time Temp Pulse Resp B/P (MAP) Pulse Ox O2 Delivery O2 Flow Rate FiO2 12/29/17 09:00 Room Air Room Air 12/29/17 08:54 161/104 12/29/17 08:54 161/104 12/29/17 08:54 91 161/104 12/29/17 08:00 97.7 91 20 161/104 (123) 95 97.7 12/29/17 08:00 92 12/29/17 04:00 84 12/29/17 04:00 97.0 84 20 156/78 (104) 96 97.0 12/29/17 03:21 95 20 100 Room Air 21 12/29/17 03:21 90 20 98 Room Air 21 12/29/17 00:01 97.2 95 20 149/66 (93) 96 97.2 12/29/17 00:00 63 12/28/17 21:00 Room Air Room Air 12/28/17 20:00 64 12/28/17 20:00 98.0 64 20 154/96 (115) 94 98.0 12/28/17 19:50 92 18 100 Room Air 21 12/28/17 19:43 91 20 Room Air 21 12/28/17 19:43 91 20 97 Room Air 21 12/28/17 16:00 67 12/28/17 15:46 98.1 74 21 166/97 (120) 94 98.1 12/28/17 12:00 92 12/28/17 12:00 97.9 86 21 165/104 (124) 96 97.9 Intake and Output 12/28/17 12/29/17 19:00 07:00 Intake Total 450 ml Output Total 1000 ml Balance -550 ml Intake Oral 450 ml Output Urine Total 1000 ml General Appearance: WD/WN HEENT: normocephalic, anicteric Respiratory/Chest: chest wall non-tender, lungs clear Cardiovascular: normal peripheral pulses, normal rate Abdomen: normal bowel sounds, soft, non tender Extremities: no cyanosis, no clubbing Skin: no lesions Neurologic/Psychiatric: rn navigator II-XII grossly normal, no motor/sensory deficits Lymphatic: no neck adenopathy Musculoskeletal: normal muscle bulk, no effusion Microbiology Date/Time Source Procedure Growth Status 12/27/17 10:00 Urine,Clean Catch Urine Culture - Preliminary Mixed Gram Positive Organism Resulted Laboratory Tests 12/29/17 05:40: White Blood Count 19.3#H, Red Blood Count 4.89, Hemoglobin 15.3, Hematocrit 45.3 , Mean Corpuscular Volume 93, Mean Corpuscular Hemoglobin 31.2H, Mean Corpuscular Hemoglobin Concent 33.7, Red Cell Distribution Width 12.1, Platelet Count 165, Mean Platelet Volume 9.2, Neutrophils (%) (Auto) , Lymphocytes (%) ( Auto) , Monocytes (%) (Auto) , Eosinophils (%) (Auto) , Basophils (%) (Auto) , Differential Total Cells Counted 100, Neutrophils % (Manual) 91H, Lymphocytes % (Manual) 4L, Monocytes % (Manual) 5, Eosinophils % (Manual) 0, Basophils % ( Manual) 0, Band Neutrophils 0, Platelet Estimate Adequate, Platelet Morphology Normal, Red Blood Cell Morphology Normal, Erythrocyte Sedimentation Rate 2, Sodium Level 138, Potassium Level 4.2, Chloride Level 105, Carbon Dioxide Level 26, Anion Gap 7, Blood Urea Nitrogen 31H, Creatinine 1.3, Estimat Glomerular Filtration Rate > 60, Glucose Level 127H, Calcium Level 9.2, Phosphorus Level 3.8, Magnesium Level 1.9, Total Bilirubin 0.3, Aspartate Amino Transf (AST/SGOT ) 50H, Alanine Aminotransferase (ALT/SGPT) 80H, Alkaline Phosphatase 53, Troponin I 0.122H, Total Protein 6.6, Albumin 3.2L, Globulin 3.4, Albumin/ Globulin Ratio 0.9L Current Medications Medications (Trade) Dose Ordered Sig/Stephenie Route PRN Reason Start Time Stop Time Status Last Admin Dose Admin Albuterol/ Ipratropium (Albuterol/ Ipratropium) 3 ml Q4H PRN HHN dyspnea 12/27/17 13:45 01/01/18 13:44 12/29/17 03:24 Amlodipine Besylate (Norvasc) 10 mg DAILY ORAL 12/28/17 09:00 01/27/18 08:59 12/29/17 08:54 Clonidine HCl (Catapres Tab) 0.1 mg Q4H PRN ORAL for BP over 170 12/27/17 23:30 01/26/18 23:29 12/29/17 08:54 Dextrose (Dextrose 50%) 25 ml PRN IV Hypoglycemia 12/27/17 13:45 01/26/18 13:44 Dextrose (Dextrose 50%) 50 ml PRN IV hypoglycemia 12/27/17 13:45 01/26/18 13:44 Furosemide (Lasix) 40 mg DAILY IV 12/29/17 09:00 01/28/18 08:59 12/29/17 08:53 Heparin Sodium (Porcine) (Heparin 5000 units/ml) 5,000 units EVERY 12 HOURS SUBQ 12/27/17 21:00 01/26/18 20:59 12/29/17 09:02 Lisinopril (Zestril) 5 mg DAILY ORAL 12/28/17 09:00 01/27/18 08:59 12/29/17 08:54 Lorazepam (Ativan 2mg/ml 1ml) 0.5 mg Q4H PRN IV For Anxiety 12/27/17 13:45 01/03/18 13:44 Methylprednisolone Sodium Succinate (Solu-MEDROL) 60 mg EVERY 6 HOURS IV 12/27/17 18:00 01/26/18 17:59 12/29/17 06:15 Nitroglycerin (Ntg) 0.4 mg Q5M X 3 DOSES PRN SL Prn Chest Pain 12/27/17 13:45 01/26/18 13:44 Ondansetron HCl (Zofran) 4 mg Q6H PRN IVP Nausea & Vomiting 12/27/17 13:45 01/26/18 13:44 Piperacillin Sod/ Tazobactam Sod 3.375 gm/Sodium Chloride 110 ml @ 27.5 mls/hr EVERY 8 HOURS IVPB 12/27/17 14:00 01/01/18 13:59 12/29/17 06:15 Promethazine HCl/ Codeine (Phenergan with Codeine) 5 ml Q6H PRN ORAL cough 12/27/17 13:45 01/26/18 13:44 Spironolactone (Aldactone) 25 mg DAILY ORAL 12/29/17 09:00 01/28/18 08:59 12/29/17 08:53 Temazepam (Restoril) 15 mg HSPRN PRN ORAL Insomnia 12/27/17 13:45 01/03/18 13:44 Theophylline (Noe-Dur) 100 mg EVERY 12 HOURS ORAL 12/27/17 21:00 01/26/18 20:59 12/29/17 08:53 Jewell Sarabia MD Dec 29, 2017 11:35
[2017-12-29 12:00] VITALS: BP 141/100
--- NOTE | 2017-12-29 17:49 | Internal Med Progress Note ---
Subjective Date of Service: Dec 29, 2017 Physician Name Jovany Arreguin Attending Physician Satish Moore MD Allergies: Coded Allergies: DIPHENHYDRAMINE (Unverified Allergy, Unknown, 12/18/17) ROS Limited/Unobtainable: No Constitutional: Reports: no symptoms HEENT: Reports: no symptoms Cardiovascular: Reports: no symptoms Respiratory: Reports: no symptoms Gastrointestinal/Abdominal: Reports: no symptoms Genitourinary: Reports: no symptoms Neurologic/Psychiatric: Reports: no symptoms Subjective 57 YO M admitted with shortness of breath. Now CHF. Cover for Int med-Dr Moore Objective Last Vital Signs Date Time Temp Pulse Resp B/P (MAP) Pulse Ox O2 Delivery O2 Flow Rate FiO2 12/29/17 12:00 96.9 87 20 141/100 (114) 97 96.9 12/29/17 09:00 Room Air Room Air 12/29/17 03:21 21 Laboratory Tests Test 12/29/17 05:40 White Blood Count 19.3 K/UL (4.8-10.8) #H Red Blood Count 4.89 M/UL (4.70-6.10) Hemoglobin 15.3 G/DL (14.2-18.0) Hematocrit 45.3 % (42.0-52.0) Mean Corpuscular Volume 93 FL (80-99) Mean Corpuscular Hemoglobin 31.2 PG (27.0-31.0) H Mean Corpuscular Hemoglobin Concent 33.7 G/DL (32.0-36.0) Red Cell Distribution Width 12.1 % (11.6-14.8) Platelet Count 165 K/UL (150-450) Mean Platelet Volume 9.2 FL (6.5-10.1) Neutrophils (%) (Auto) % (45.0-75.0) Lymphocytes (%) (Auto) % (20.0-45.0) Monocytes (%) (Auto) % (1.0-10.0) Eosinophils (%) (Auto) % (0.0-3.0) Basophils (%) (Auto) % (0.0-2.0) Differential Total Cells Counted 100 Neutrophils % (Manual) 91 % (45-75) H Lymphocytes % (Manual) 4 % (20-45) L Monocytes % (Manual) 5 % (1-10) Eosinophils % (Manual) 0 % (0-3) Basophils % (Manual) 0 % (0-2) Band Neutrophils 0 % (0-8) Platelet Estimate Adequate Platelet Morphology Normal Red Blood Cell Morphology Normal Erythrocyte Sedimentation Rate 2 MM/HR (0-20) Sodium Level 138 MMOL/L (136-145) Potassium Level 4.2 MMOL/L (3.5-5.1) Chloride Level 105 MMOL/L (98-107) Carbon Dioxide Level 26 MMOL/L (21-32) Anion Gap 7 mmol/L (5-15) Blood Urea Nitrogen 31 mg/dL (7-18) H Creatinine 1.3 MG/DL (0.55-1.30) Estimat Glomerular Filtration Rate > 60 mL/min (>60) Glucose Level 127 MG/DL (74-106) H Calcium Level 9.2 MG/DL (8.5-10.1) Phosphorus Level 3.8 MG/DL (2.5-4.9) Magnesium Level 1.9 MG/DL (1.8-2.4) Total Bilirubin 0.3 MG/DL (0.2-1.0) Aspartate Amino Transf (AST/SGOT) 50 U/L (15-37) H Alanine Aminotransferase (ALT/SGPT) 80 U/L (12-78) H Alkaline Phosphatase 53 U/L (46-116) Troponin I 0.122 ng/mL (0.000-0.056) Total Protein 6.6 G/DL (6.4-8.2) Albumin 3.2 G/DL (3.4-5.0) L Globulin 3.4 g/dL Albumin/Globulin Ratio 0.9 (1.0-2.7) L Microbiology Date/Time Source Procedure Growth Status 12/27/17 10:00 Urine,Clean Catch Urine Culture - Preliminary Mixed Gram Positive Organism Resulted Intake and Output 12/28/17 12/29/17 19:00 07:00 Intake Total 450 ml Output Total 1000 ml Balance -550 ml Intake Oral 450 ml Output Urine Total 1000 ml Objective PHYSICAL EXAMINATION: GENERAL: The patient is thin-appearing male, in no apparent distress. HEENT: Eyes, pupils equal and responsive to light and accommodation. Extraocular movements are intact. NECK: Supple without lymphadenopathy. CHEST: Diffuse crackles [address] in the bilateral bases. Otherwise, clear to auscultation without wheezes. ABDOMEN: Soft, nontender, and nondistended. Positive bowel sounds. No evidence of hepatosplenomegaly. Currently, no rebound or guarding noted. EXTREMITIES: Negative for clubbing or cyanosis. There is trace pitting edema of bilateral lower extremities. NEUROLOGICAL: Cranial nerves II through XII are grossly intact without focal deficits. Motor strength is 5/5 bilaterally. There is a left-sided upper extremity hemiparesis. Motor strength is 3/5 in the left upper extremity and 5/5 bilaterally. RECTAL/GENITAL: Refused. Assessment/Plan Problem List: (1) Elevated troponin Assessment & Plan: See cardiology note. (2) Dyspnea (3) Edema (4) HTN (hypertension) Assessment & Plan: Continue amlodipine, lisinopril and clonidine (5) CHF (congestive heart failure) Assessment & Plan: LVEF=35-40%. See cardiology note. (6) COPD (chronic obstructive pulmonary disease) (7) Cardiomyopathy (8) Left hemiparesis Status: stable Assessment/Plan Discharge home today Jovany Arreguin MD Dec 29, 2017 17:48
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
--- NOTE | 2017-12-30 18:56 | Cardiology Report ---
APPROVED REPORT EKG Measurement Heart [id number] Normal sinus rhythm Left atrial enlargement Left ventricular hypertrophy with QRS widening and repolarization abnormality Cannot rule out Septal infarct, age undetermined Abnormal ECG
== END 2017-12-29 13:10 | disposition home or self-care (01) | DRG 194 ==
LOC: EMR 10:11 → EDBEDREQ 10:28 → 2E 11:10 → EDBEDREQ 12:52
DX: I11.0 Hypertensive heart disease with heart failure (principal); I21.A1 Myocardial infarction type 2; I42.9 Cardiomyopathy, unspecified; G81.94 Hemiplegia, unspecified affecting left nondominant side; J44.1 Chronic obstructive pulmonary disease with (acute) exacerbation; I50.31 Acute diastolic (congestive) heart failure; T14.90XS Injury, unspecified, sequela; X58.XXXS Exposure to other specified factors, sequela; F14.10 Cocaine abuse, uncomplicated; J40 Bronchitis, not specified as acute or chronic; Z88.8 Allergy status to other drugs, medicaments and biological substances; W34.00XS Accidental discharge from unspecified firearms or gun, sequela; I35.1 Nonrheumatic aortic (valve) insufficiency; I34.0 Nonrheumatic mitral (valve) insufficiency
CPT/HCPCS: 36415; 71045; 80048; 80053; 80307; 81003; 82550; 82553; 83735; 83880; 84100; 84484; 85007; 85025; 85651; 87086; 93005; 93306; 94640; 94664; 96365; 99285; J7620

== ENCOUNTER 2018-02-07 08:29 | Inpatient (IN) | payer OTHER ==
[~2018-02-07] VITALS: Ht 167.6 cm; Wt 59.5 kg
[~2018-02-07 08:29] MED LIST changes: +ALDACTONE25 MG ORAL; +FUROSEMIDE20 M1 ORAL; +HYDROCHLOROTH12.5 M2 ORAL
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
[2018-02-07] MEDS ORDERED: Albuterol ud Inhalation HHN ONE (09:00)
[2018-02-07] MEDS ORDERED: Ipratropium 0.02% Inh Soln 2.5ml UD HHN ONE (09:00)
[2018-02-07] MEDS ORDERED: Solu-MEDROL 125mg Inj IVP ONE (09:00)
[2018-02-07 09:22] VITALS: BP 138/98
[2018-02-07 09:36] LABS: ANION GAP 10 mmol/L (5-15); BASOPHILS % (AUTO) 1.4 % (0.0-2.0); BLOOD UREA NITROGEN 22 mg/dL (7-18); CALCIUM 8.1 MG/DL (8.5-10.1); CARBON DIOXIDE 25 MMOL/L (21-32); CHLORIDE 109 MMOL/L (98-107); CREATININE 1.1 MG/DL (0.55-1.30); EOSINOPHILS % (AUTO) 12.3 % (0.0-3.0); HEMATOCRIT 44.6 % (42.0-52.0); LYMPHOCYTES % (AUTO) 24.7 % (20.0-45.0); MEAN CORPUSCULAR VOLUME 91 FL (80-99); MONOCYTES % (AUTO) 11.1 % (1.0-10.0); NEUTROPHILS % (AUTO) 50.5 % (45.0-75.0); PLATELET COUNT 183 K/UL (150-450); POTASSIUM 4.2 MMOL/L (3.5-5.1); RED BLOOD COUNT 4.93 M/UL (4.70-6.10); RED CELL DISTRIBUTION WIDTH 11.9 % (11.6-14.8); SODIUM 143 MMOL/L (136-145); WHITE BLOOD COUNT 4.2 K/UL (4.8-10.8)
[2018-02-07 09:50] LABS: ALANINE AMINOTRANSFERASE 57 U/L (12-78); ALBUMIN 3.1 G/DL (3.4-5.0); ALBUMIN/GLOBULIN RATIO 0.9 (1.0-2.7); ALKALINE PHOSPHATASE 70 U/L (46-116); ASPARTATE AMINO TRANSFERASE 79 U/L (15-37); BILIRUBIN,TOTAL 0.3 MG/DL (0.2-1.0); CKMB 7.9 NG/ML (0.0-3.6); CREATINE KINASE 413 U/L (26-308)
[2018-02-07 10:03] VITALS: BP 160/108
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
[2018-02-07 12:00] VITALS: BP 149/99
[2018-02-07] MEDS ORDERED: Promethazine/Codeine 5ml UD ORAL PRN (12:00)
[2018-02-07] MEDS ORDERED: Albuterol/Ipratropium 3ml neb HHN PRN (12:00)
[2018-02-07] MEDS ORDERED: Morphine Sulfate 2mg/ml Inj IVP PRN (12:00)
[2018-02-07] MEDS ORDERED: Ketorolac 30mg Inj IV PRN (12:00)
[2018-02-07] MEDS ORDERED: LORazepam Inj 2mg/ml 1ml IV PRN (12:00)
[2018-02-07] MEDS ORDERED: Nitroglycerin Subl 0.4mg tab SL PRN (12:00)
--- NOTE | 2018-02-07 12:13 | Diagnostic Imaging Report ---
Indication: Dyspnea Comparison: 12/27/2017 A single view chest radiograph was obtained. Findings: Pulmonary vascular congestion demonstrated with interstitial edema and prominent cephalized pulmonary vessels and cardiomegaly. IMPRESSION: CHF/interstitial edema
[2018-02-07] MEDS: Solu-MEDROL 125mg Inj IV SCH ×2 (13:18→18:34)
[2018-02-07] MEDS: Piperacillin/Tazobactam 3.375 GM in D5W 110 ML IVPB SCH ×2 (13:47→21:16)
[2018-02-07 14:47] VITALS: BP 149/99
[2018-02-07 16:00] VITALS: BP 159/113
[2018-02-07] MEDS ORDERED: Tubing IV Secondary IV ONE (17:43)
[2018-02-07] MEDS ORDERED: NS 275ml ONE (17:43)
--- NOTE | 2018-02-07 18:13 | History & Physical ---
History and Physical History & Physicial Dictated for Int Med-Dr Moore no. [id number]. Jovany Arreguin MD Feb 07, 2018 18:13
[2018-02-07 20:00] VITALS: BP 159/113
[2018-02-07] MEDS: Theophylline ER 100mg ORAL SCH (21:16)
[2018-02-07] MEDS: Heparin 5000 units/ml inj SUBQ SCH (21:18)
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
[2018-02-08] VITALS (7 sets, daily range): BP systolic 134–162; BP diastolic 79–113
[2018-02-08] MEDS: Solu-MEDROL 125mg Inj IV SCH ×3 (00:12→21:17)
[2018-02-08] MEDS: Piperacillin/Tazobactam 3.375 GM in D5W 110 ML IVPB SCH ×3 (06:04→21:18)
[2018-02-08 07:44] LABS: HEMATOCRIT 44.5 % (42.0-52.0); HEMOGLOBIN 15.2 G/DL (14.2-18.0); MEAN CORPUSCULAR VOLUME 91 FL (80-99); PLATELET COUNT 194 K/UL (150-450); RED CELL DISTRIBUTION WIDTH 11.7 % (11.6-14.8); WHITE BLOOD COUNT 8.6 K/UL (4.8-10.8)
[2018-02-08 08:10] LABS: ALANINE AMINOTRANSFERASE 46 U/L (12-78); ALBUMIN 3.1 G/DL (3.4-5.0); ALBUMIN/GLOBULIN RATIO 0.9 (1.0-2.7); ALKALINE PHOSPHATASE 65 U/L (46-116); ANION GAP 9 mmol/L (5-15); ASPARTATE AMINO TRANSFERASE 30 U/L (15-37); BILIRUBIN,TOTAL 0.4 MG/DL (0.2-1.0); BLOOD UREA NITROGEN 28 mg/dL (7-18); CALCIUM 8.8 MG/DL (8.5-10.1); CARBON DIOXIDE 24 MMOL/L (21-32); CHLORIDE 105 MMOL/L (98-107); CREATININE 1.1 MG/DL (0.55-1.30); PHOSPHORUS 2.8 MG/DL (2.5-4.9); POTASSIUM 4.4 MMOL/L (3.5-5.1); SODIUM 138 MMOL/L (136-145)
[2018-02-08] MEDS: Theophylline ER 100mg ORAL SCH ×2 (08:42→21:17)
[2018-02-08] MEDS: Heparin 5000 units/ml inj SUBQ SCH ×2 (08:43→21:19)
[2018-02-08] MEDS: Lisinopril 2.5mg tab ORAL SCH (08:48)
--- NOTE | 2018-02-08 10:37 | Pulmonology Progress Note ---
Assessment/Plan Problems: (1) Non-ST elevation [place] (NSTEMI) (2) COPD exacerbation (3) Cardiomyopathy (4) Cocaine abuse (5) Severe protein-calorie malnutrition Assessment/Plan cardio to see troponin dropping taper steroids check bun/creatinine check sputum cultures dvt prophylaxis. Subjective Interval Events: coughing greenish/whitish phlegmn Allergies: Coded Allergies: DIPHENHYDRAMINE (Unverified Allergy, Unknown, 12/18/17) Objective Last 24 Hour Vital Signs Date Time Temp Pulse Resp B/P (MAP) Pulse Ox O2 Delivery O2 Flow Rate FiO2 02/08/18 09:00 Nasal Cannula 2.0 02/08/18 08:48 147/98 02/08/18 08:42 88 147/98 02/08/18 08:00 105 02/08/18 08:00 97.1 88 18 147/98 (114) 100 02/08/18 05:00 154/99 (117) 02/08/18 04:05 162/113 02/08/18 04:00 97.2 94 20 162/113 (129) 95 02/08/18 04:00 86 02/08/18 00:00 97 02/08/18 00:00 97.4 98 20 148/106 (120) 97 02/07/18 21:00 Nasal Cannula 2.0 02/07/18 20:18 102 20 Nasal Cannula 2.0 28 02/07/18 20:00 98.0 91 19 159/113 (128) 98 02/07/18 20:00 100 02/07/18 16:00 98 02/07/18 16:00 97.3 94 20 159/113 (128) 95 02/07/18 12:00 97.3 97 20 149/99 (116) 98 02/07/18 12:00 102 02/07/18 10:53 Room Air Intake and Output 02/07/18 02/08/18 19:00 07:00 Intake Total 640 ml 110.0 ml Output Total 200 ml 500 ml Balance 440 ml -390.0 ml Intake Oral 640 ml IV Total 110.0 ml Output Urine Total 200 ml 500 ml # Voids 1 # Bowel Movements 1 General Appearance: cachetic HEENT: normocephalic, atraumatic Respiratory/Chest: chest wall non-tender, lungs clear Cardiovascular: normal peripheral pulses, normal rate Abdomen: normal bowel sounds, soft, non tender Laboratory Tests 02/08/18 07:20: White Blood Count 8.6#, Red Blood Count 4.90, Hemoglobin 15.2, Hematocrit 44.5, Mean Corpuscular Volume 91, Mean Corpuscular Hemoglobin 31.1H, Mean Corpuscular Hemoglobin Concent 34.3, Red Cell Distribution Width 11.7, Platelet Count 194, Mean Platelet Volume 9.2, Neutrophils (%) (Auto) , Lymphocytes (%) (Auto) , Monocytes (%) (Auto) , Eosinophils (%) (Auto) , Basophils (%) (Auto) , Differential Total Cells Counted 100, Neutrophils % (Manual) 90H, Lymphocytes % (Manual) 7L, Monocytes % (Manual) 2, Eosinophils % (Manual) 1, Basophils % ( Manual) 0, Band Neutrophils 0, Platelet Estimate Adequate, Platelet Morphology Normal, Red Blood Cell Morphology Normal, Erythrocyte Sedimentation Rate 4, Sodium Level 138, Potassium Level 4.4, Chloride Level 105, Carbon Dioxide Level 24, Anion Gap 9, Blood Urea Nitrogen 28H, Creatinine 1.1, Estimat Glomerular Filtration Rate > 60, Glucose Level 133H, Calcium Level 8.8, Phosphorus Level 2.8, Magnesium Level 1.9, Total Bilirubin 0.4, Aspartate Amino Transf (AST/SGOT ) 30, Alanine Aminotransferase (ALT/SGPT) 46, Alkaline Phosphatase 65, Troponin I 0.111H, Pro-B-Type Natriuretic Peptide 4347H, Total Protein 6.7, Albumin 3.1L , Globulin 3.6, Albumin/Globulin Ratio 0.9L Current Medications Medications (Trade) Dose Ordered Sig/Stephenie Route PRN Reason Start Time Stop Time Status Last Admin Dose Admin Albuterol/ Ipratropium (Albuterol/ Ipratropium) 3 ml Q4H PRN HHN dyspnea 02/07/18 12:00 02/12/18 11:59 Amlodipine Besylate (Norvasc) 10 mg DAILY ORAL 02/08/18 09:00 03/10/18 08:59 02/08/18 08:42 Clonidine HCl (Catapres Tab) 0.1 mg Q6H PRN ORAL SBP>160 02/07/18 15:19 03/09/18 15:18 02/08/18 04:05 Dextrose (Dextrose 50%) 25 ml Q30M PRN IV Hypoglycemia 02/07/18 12:00 03/09/18 11:59 Dextrose (Dextrose 50%) 50 ml Q30M PRN IV Hypoglycemia 02/07/18 12:00 03/09/18 11:59 Heparin Sodium (Porcine) (Heparin 5000 units/ml) 5,000 units EVERY 12 HOURS SUBQ 02/07/18 21:00 03/09/18 20:59 02/08/18 08:43 Ketorolac Tromethamine (Toradol 30mg) 30 mg Q8H PRN IV moderate pain 4-6 02/07/18 12:00 02/12/18 11:59 Lisinopril (Zestril) 5 mg DAILY ORAL 02/08/18 09:00 03/10/18 08:59 02/08/18 08:48 Lorazepam (Ativan 2mg/ml 1ml) 0.5 mg Q4H PRN IV For Anxiety 02/07/18 12:00 02/14/18 11:59 Methylprednisolone Sodium Succinate (Solu-MEDROL) 60 mg EVERY 12 HOURS IV 02/08/18 21:00 03/09/18 11:59 Morphine Sulfate (Morphine Sulfate) 2 mg Q4H PRN IVP severe pain 7-10 02/07/18 12:00 02/14/18 11:59 Nitroglycerin (Ntg) 0.4 mg Q5M X 3 DOSES PRN SL Prn Chest Pain 02/07/18 12:00 03/09/18 11:59 Ondansetron HCl (Zofran) 4 mg Q6H PRN IVP Nausea & Vomiting 02/07/18 12:00 03/09/18 11:59 Piperacillin Sod/ Tazobactam Sod 3.375 gm/Dextrose 110 ml @ 27.5 mls/hr EVERY 8 HOURS IVPB 02/07/18 14:00 02/14/18 13:59 02/08/18 06:04 Promethazine HCl/ Codeine (Phenergan with Codeine) 5 ml Q6H PRN ORAL cough 02/07/18 12:00 03/09/18 11:59 Temazepam (Restoril) 15 mg HSPRN PRN ORAL Insomnia 02/07/18 12:00 02/14/18 11:59 Theophylline (Noe-Dur) 100 mg EVERY 12 HOURS ORAL 02/07/18 21:00 03/09/18 20:59 02/08/18 08:42 Jewell Sarabia MD Feb 08, 2018 10:37
--- NOTE | 2018-02-08 15:01 | Cardiology Report ---
APPROVED REPORT EKG Measurement Heart [id number] ME [id number] [id number] Normal sinus rhythm Right atrial enlargement Left ventricular hypertrophy with QRS widening and repolarization abnormality Lateral infarct, age undetermined Abnormal ECG consider repeat ekg to assure no arm reversal
--- NOTE | 2018-02-08 16:26 | Cardiac Electrophysiology PN ---
Subjective Subjective [id number] Objective Last 24 Hour Vital Signs Date Time Temp Pulse Resp B/P (MAP) Pulse Ox O2 Delivery O2 Flow Rate FiO2 02/08/18 16:00 97.0 90 20 150/93 (112) 99 02/08/18 12:00 82 02/08/18 12:00 98.0 85 20 152/99 (116) 97 02/08/18 09:00 Nasal Cannula 2.0 02/08/18 08:48 147/98 02/08/18 08:42 88 147/98 02/08/18 08:00 105 02/08/18 08:00 97.1 88 18 147/98 (114) 100 02/08/18 05:00 154/99 (117) 02/08/18 04:05 162/113 02/08/18 04:00 97.2 94 20 162/113 (129) 95 02/08/18 04:00 86 02/08/18 00:00 97 02/08/18 00:00 97.4 98 20 148/106 (120) 97 02/07/18 21:00 Nasal Cannula 2.0 02/07/18 20:18 102 20 Nasal Cannula 2.0 28 02/07/18 20:00 98.0 91 19 159/113 (128) 98 02/07/18 20:00 100 Intake and Output 02/07/18 02/08/18 19:00 07:00 Intake Total 640 ml 110.0 ml Output Total 200 ml 500 ml Balance 440 ml -390.0 ml Intake Oral 640 ml IV Total 110.0 ml Output Urine Total 200 ml 500 ml # Voids 1 # Bowel Movements 1 Laboratory Tests Test 02/08/18 07:20 White Blood Count 8.6 K/UL (4.8-10.8) # Red Blood Count 4.90 M/UL (4.70-6.10) Hemoglobin 15.2 G/DL (14.2-18.0) Hematocrit 44.5 % (42.0-52.0) Mean Corpuscular Volume 91 FL (80-99) Mean Corpuscular Hemoglobin 31.1 PG (27.0-31.0) H Mean Corpuscular Hemoglobin Concent 34.3 G/DL (32.0-36.0) Red Cell Distribution Width 11.7 % (11.6-14.8) Platelet Count 194 K/UL (150-450) Mean Platelet Volume 9.2 FL (6.5-10.1) Neutrophils (%) (Auto) % (45.0-75.0) Lymphocytes (%) (Auto) % (20.0-45.0) Monocytes (%) (Auto) % (1.0-10.0) Eosinophils (%) (Auto) % (0.0-3.0) Basophils (%) (Auto) % (0.0-2.0) Differential Total Cells Counted 100 Neutrophils % (Manual) 90 % (45-75) H Lymphocytes % (Manual) 7 % (20-45) L Monocytes % (Manual) 2 % (1-10) Eosinophils % (Manual) 1 % (0-3) Basophils % (Manual) 0 % (0-2) Band Neutrophils 0 % (0-8) Platelet Estimate Adequate Platelet Morphology Normal Red Blood Cell Morphology Normal Erythrocyte Sedimentation Rate 4 MM/HR (0-20) Sodium Level 138 MMOL/L (136-145) Potassium Level 4.4 MMOL/L (3.5-5.1) Chloride Level 105 MMOL/L (98-107) Carbon Dioxide Level 24 MMOL/L (21-32) Anion Gap 9 mmol/L (5-15) Blood Urea Nitrogen 28 mg/dL (7-18) H Creatinine 1.1 MG/DL (0.55-1.30) Estimat Glomerular Filtration Rate > 60 mL/min (>60) Glucose Level 133 MG/DL (74-106) H Calcium Level 8.8 MG/DL (8.5-10.1) Phosphorus Level 2.8 MG/DL (2.5-4.9) Magnesium Level 1.9 MG/DL (1.8-2.4) Total Bilirubin 0.4 MG/DL (0.2-1.0) Aspartate Amino Transf (AST/SGOT) 30 U/L (15-37) Alanine Aminotransferase (ALT/SGPT) 46 U/L (12-78) Alkaline Phosphatase 65 U/L (46-116) Troponin I 0.111 ng/mL (0.000-0.056) Pro-B-Type Natriuretic Peptide 4347 pg/mL (0-125) H Total Protein 6.7 G/DL (6.4-8.2) Albumin 3.1 G/DL (3.4-5.0) L Globulin 3.6 g/dL Albumin/Globulin Ratio 0.9 (1.0-2.7) L Microbiology Date/Time Source Procedure Growth Status 02/08/18 01:30 Sputum Gram Stain - Final Resulted 02/08/18 01:30 Sputum Sputum Culture Pending Resulted Agustin Sheehan MD Feb 08, 2018 16:26
--- NOTE | 2018-02-08 17:01 | Internal Med Progress Note ---
Subjective Date of Service: Feb 08, 2018 Physician Name Jovany Arreguin Attending Physician Satish Moore MD Current Medications Medications (Trade) Dose Ordered Sig/Stephenie Route PRN Reason Start Time Stop Time Status Last Admin Dose Admin Albuterol/ Ipratropium (Albuterol/ Ipratropium) 3 ml Q4H PRN HHN dyspnea 02/07/18 12:00 02/12/18 11:59 Amlodipine Besylate (Norvasc) 10 mg DAILY ORAL 02/08/18 09:00 03/10/18 08:59 02/08/18 08:42 Clonidine HCl (Catapres Tab) 0.1 mg Q6H PRN ORAL SBP>160 02/07/18 15:19 03/09/18 15:18 02/08/18 04:05 Dextrose (Dextrose 50%) 25 ml Q30M PRN IV Hypoglycemia 02/07/18 12:00 03/09/18 11:59 Dextrose (Dextrose 50%) 50 ml Q30M PRN IV Hypoglycemia 02/07/18 12:00 03/09/18 11:59 Heparin Sodium (Porcine) (Heparin 5000 units/ml) 5,000 units EVERY 12 HOURS SUBQ 02/07/18 21:00 03/09/18 20:59 02/08/18 08:43 Ketorolac Tromethamine (Toradol 30mg) 30 mg Q8H PRN IV moderate pain 4-6 02/07/18 12:00 02/12/18 11:59 Lisinopril (Zestril) 5 mg DAILY ORAL 02/08/18 09:00 03/10/18 08:59 02/08/18 08:48 Lorazepam (Ativan 2mg/ml 1ml) 0.5 mg Q4H PRN IV For Anxiety 02/07/18 12:00 02/14/18 11:59 Methylprednisolone Sodium Succinate (Solu-MEDROL) 60 mg EVERY 12 HOURS IV 02/08/18 21:00 03/09/18 11:59 Morphine Sulfate (Morphine Sulfate) 2 mg Q4H PRN IVP severe pain 7-10 02/07/18 12:00 02/14/18 11:59 Nitroglycerin (Ntg) 0.4 mg Q5M X 3 DOSES PRN SL Prn Chest Pain 02/07/18 12:00 03/09/18 11:59 Ondansetron HCl (Zofran) 4 mg Q6H PRN IVP Nausea & Vomiting 02/07/18 12:00 03/09/18 11:59 Piperacillin Sod/ Tazobactam Sod 3.375 gm/Dextrose 110 ml @ 27.5 mls/hr EVERY 8 HOURS IVPB 02/07/18 14:00 02/14/18 13:59 02/08/18 14:52 Promethazine HCl/ Codeine (Phenergan with Codeine) 5 ml Q6H PRN ORAL cough 02/07/18 12:00 03/09/18 11:59 Temazepam (Restoril) 15 mg HSPRN PRN ORAL Insomnia 02/07/18 12:00 02/14/18 11:59 Theophylline (Noe-Dur) 100 mg EVERY 12 HOURS ORAL 02/07/18 21:00 03/09/18 20:59 02/08/18 08:42 Allergies: Coded Allergies: DIPHENHYDRAMINE (Unverified Allergy, Unknown, 12/18/17) ROS Limited/Unobtainable: No Constitutional: Reports: no symptoms HEENT: Reports: no symptoms Cardiovascular: Reports: no symptoms Respiratory: Reports: shortness of breath Gastrointestinal/Abdominal: Reports: no symptoms Genitourinary: Reports: no symptoms Neurologic/Psychiatric: Reports: no symptoms Subjective 57 YO M admitted with shortness of breath. Now CHF exacerbation. Cover for Int Anselmo-Dr Moore Objective Last Vital Signs Date Time Temp Pulse Resp B/P (MAP) Pulse Ox O2 Delivery O2 Flow Rate FiO2 02/08/18 16:00 97.0 90 20 150/93 (112) 99 02/08/18 09:00 Nasal Cannula 2.0 02/07/18 20:18 28 General Appearance: no apparent distress, alert, thin EENT: PERRL/EOMI, normal ENT inspection Neck: non-tender, normal alignment, supple, normal inspection Cardiovascular: normal peripheral pulses, normal rate, regular rhythm, no gallop/murmur, no JVD Respiratory/Chest: chest wall non-tender, crackles/rales, rhonchi - bilaterally , expiratory wheezing Abdomen: normal bowel sounds, non tender, soft, no organomegaly, no mass Extremities: normal range of motion, non-tender Edema: trace edema 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, no motor/sensory deficits Skin: normal pigmentation, warm/dry Laboratory Tests Test 02/08/18 07:20 White Blood Count 8.6 K/UL (4.8-10.8) # Red Blood Count 4.90 M/UL (4.70-6.10) Hemoglobin 15.2 G/DL (14.2-18.0) Hematocrit 44.5 % (42.0-52.0) Mean Corpuscular Volume 91 FL (80-99) Mean Corpuscular Hemoglobin 31.1 PG (27.0-31.0) H Mean Corpuscular Hemoglobin Concent 34.3 G/DL (32.0-36.0) Red Cell Distribution Width 11.7 % (11.6-14.8) Platelet Count 194 K/UL (150-450) Mean Platelet Volume 9.2 FL (6.5-10.1) Neutrophils (%) (Auto) % (45.0-75.0) Lymphocytes (%) (Auto) % (20.0-45.0) Monocytes (%) (Auto) % (1.0-10.0) Eosinophils (%) (Auto) % (0.0-3.0) Basophils (%) (Auto) % (0.0-2.0) Differential Total Cells Counted 100 Neutrophils % (Manual) 90 % (45-75) H Lymphocytes % (Manual) 7 % (20-45) L Monocytes % (Manual) 2 % (1-10) Eosinophils % (Manual) 1 % (0-3) Basophils % (Manual) 0 % (0-2) Band Neutrophils 0 % (0-8) Platelet Estimate Adequate Platelet Morphology Normal Red Blood Cell Morphology Normal Erythrocyte Sedimentation Rate 4 MM/HR (0-20) Sodium Level 138 MMOL/L (136-145) Potassium Level 4.4 MMOL/L (3.5-5.1) Chloride Level 105 MMOL/L (98-107) Carbon Dioxide Level 24 MMOL/L (21-32) Anion Gap 9 mmol/L (5-15) Blood Urea Nitrogen 28 mg/dL (7-18) H Creatinine 1.1 MG/DL (0.55-1.30) Estimat Glomerular Filtration Rate > 60 mL/min (>60) Glucose Level 133 MG/DL (74-106) H Calcium Level 8.8 MG/DL (8.5-10.1) Phosphorus Level 2.8 MG/DL (2.5-4.9) Magnesium Level 1.9 MG/DL (1.8-2.4) Total Bilirubin 0.4 MG/DL (0.2-1.0) Aspartate Amino Transf (AST/SGOT) 30 U/L (15-37) Alanine Aminotransferase (ALT/SGPT) 46 U/L (12-78) Alkaline Phosphatase 65 U/L (46-116) Troponin I 0.111 ng/mL (0.000-0.056) Pro-B-Type Natriuretic Peptide 4347 pg/mL (0-125) H Total Protein 6.7 G/DL (6.4-8.2) Albumin 3.1 G/DL (3.4-5.0) L Globulin 3.6 g/dL Albumin/Globulin Ratio 0.9 (1.0-2.7) L Microbiology Date/Time Source Procedure Growth Status 02/08/18 01:30 Sputum Gram Stain - Final Resulted 02/08/18 01:30 Sputum Sputum Culture Pending Resulted Intake and Output 02/07/18 02/08/18 19:00 07:00 Intake Total 640 ml 110.0 ml Output Total 200 ml 500 ml Balance 440 ml -390.0 ml Intake Oral 640 ml IV Total 110.0 ml Output Urine Total 200 ml 500 ml # Voids 1 # Bowel Movements 1 Assessment/Plan Problem List: (1) Dyspnea (2) CHF (congestive heart failure) Assessment & Plan: Patient non compliant with lasix. Restart lasix. See cardiology note. (3) HTN (hypertension) Assessment & Plan: Continue lisinopril (4) COPD (chronic obstructive pulmonary disease) Assessment & Plan: See pulmonary note. Continue zosyn (5) Cardiomyopathy Status: not improved Jovany Arreguin MD Feb 08, 2018 17:01
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
[2018-02-09] VITALS: BP 130/93
[2018-02-09 04:00] VITALS: BP 142/101
[2018-02-09] MEDS: Piperacillin/Tazobactam 3.375 GM in D5W 110 ML IVPB SCH ×3 (05:32→20:59)
[2018-02-09 06:44] LABS: BASOPHILS % (AUTO) 0.5 % (0.0-2.0); EOSINOPHILS % (AUTO) 0.9 % (0.0-3.0); HEMATOCRIT 46.3 % (42.0-52.0); HEMOGLOBIN 15.4 G/DL (14.2-18.0); LYMPHOCYTES % (AUTO) 13.4 % (20.0-45.0); MEAN CORPUSCULAR VOLUME 92 FL (80-99); MONOCYTES % (AUTO) 8.2 % (1.0-10.0); PLATELET COUNT 188 K/UL (150-450); RED BLOOD COUNT 5.04 M/UL (4.70-6.10); RED CELL DISTRIBUTION WIDTH 12.3 % (11.6-14.8); WHITE BLOOD COUNT 14.4 K/UL (4.8-10.8)
[2018-02-09 07:00] LABS: ANION GAP 7 mmol/L (5-15); BLOOD UREA NITROGEN 29 mg/dL (7-18); CALCIUM 8.8 MG/DL (8.5-10.1); CARBON DIOXIDE 26 MMOL/L (21-32); CHLORIDE 104 MMOL/L (98-107); CREATININE 1.2 MG/DL (0.55-1.30); POTASSIUM 4.3 MMOL/L (3.5-5.1); SODIUM 136 MMOL/L (136-145)
[2018-02-09 08:00] VITALS: BP 138/81
[2018-02-09] MEDS: Theophylline ER 100mg ORAL SCH ×2 (08:59→20:59)
[2018-02-09] MEDS: Lisinopril 2.5mg tab ORAL SCH (08:59)
[2018-02-09] MEDS: Solu-MEDROL 125mg Inj IV SCH (09:00)
[2018-02-09] MEDS: Heparin 5000 units/ml inj SUBQ SCH ×2 (09:03→21:02)
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
[2018-02-09] MEDS ORDERED: Sennosides 8.6mg tab ORAL SCH (10:38)
[2018-02-09] MEDS: Sennosides 8.6mg tab ORAL SCH (10:58)
[2018-02-09 12:00] VITALS: BP 130/99
[2018-02-09] MEDS: Docusate 100mg cap ORAL SCH ×2 (13:21→17:34)
--- NOTE | 2018-02-09 15:22 | Cardiac Electrophysiology PN ---
Assessment/Plan Assessment/Plan 1. Troponin leak. Likely due to active cocaine use. 2. Congestive heart failure exacerbation with ejection fraction of 10%. Continue lisinopril 5 mg daily and change Lasix to 40 iv bid. Avoid beta-logan in view of active cocaine use. 3. Hypertension, DC Norvasc, increase Lisinopril to 10 bid 4. History of chronic obstructive pulmonary disease. On theophylline and Solu- Medrol. 5. Active cocaine use. Subjective Subjective Objective Last 24 Hour Vital Signs Date Time Temp Pulse Resp B/P (MAP) Pulse Ox O2 Delivery O2 Flow Rate FiO2 02/09/18 12:00 98.0 96 20 130/99 (109) 98 02/09/18 11:33 102 02/09/18 08:59 138/81 02/09/18 08:59 93 138/81 02/09/18 08:10 Nasal Cannula 2.0 02/09/18 08:00 98.0 93 20 138/81 (100) 98 02/09/18 07:41 95 Nasal Cannula 2.0 28 02/09/18 07:39 Nasal Cannula 2.0 28 02/09/18 07:35 90 02/09/18 04:00 79 02/09/18 04:00 98.2 79 20 142/101 (115) 96 02/09/18 00:00 81 02/09/18 00:00 98.0 81 20 130/93 (105) 98 02/08/18 21:00 Nasal Cannula 2.0 02/08/18 20:00 96 Nasal Cannula 2.0 28 02/08/18 20:00 98.1 79 20 134/79 (97) 98 02/08/18 20:00 Nasal Cannula 2.0 28 02/08/18 20:00 79 02/08/18 16:00 97.0 90 20 150/93 (112) 99 02/08/18 16:00 85 Intake and Output 02/08/18 02/09/18 19:00 07:00 Intake Total 360 ml 710.0 ml Balance 360 ml 710.0 ml Intake Oral 360 ml 600 ml IV Total 110.0 ml # Voids 3 5 Laboratory Tests Test 02/09/18 05:50 White Blood Count 14.4 K/UL (4.8-10.8) #H Red Blood Count 5.04 M/UL (4.70-6.10) Hemoglobin 15.4 G/DL (14.2-18.0) Hematocrit 46.3 % (42.0-52.0) Mean Corpuscular Volume 92 FL (80-99) Mean Corpuscular Hemoglobin 30.5 PG (27.0-31.0) Mean Corpuscular Hemoglobin Concent 33.2 G/DL (32.0-36.0) Red Cell Distribution Width 12.3 % (11.6-14.8) Platelet Count 188 K/UL (150-450) Mean Platelet Volume 9.3 FL (6.5-10.1) Neutrophils (%) (Auto) 77.0 % (45.0-75.0) H Lymphocytes (%) (Auto) 13.4 % (20.0-45.0) L Monocytes (%) (Auto) 8.2 % (1.0-10.0) Eosinophils (%) (Auto) 0.9 % (0.0-3.0) Basophils (%) (Auto) 0.5 % (0.0-2.0) Sodium Level 136 MMOL/L (136-145) Potassium Level 4.3 MMOL/L (3.5-5.1) Chloride Level 104 MMOL/L (98-107) Carbon Dioxide Level 26 MMOL/L (21-32) Anion Gap 7 mmol/L (5-15) Blood Urea Nitrogen 29 mg/dL (7-18) H Creatinine 1.2 MG/DL (0.55-1.30) Estimat Glomerular Filtration Rate > 60 mL/min (>60) Glucose Level 88 MG/DL (74-106) Calcium Level 8.8 MG/DL (8.5-10.1) Troponin I 0.119 ng/mL (0.000-0.056) Microbiology Date/Time Source Procedure Growth Status 02/07/18 09:06 Blood Blood Culture - Preliminary NO GROWTH AFTER 24 HOURS Resulted 02/07/18 08:50 Blood Blood Culture - Preliminary NO GROWTH AFTER 24 HOURS Resulted 02/08/18 01:30 Sputum Gram Stain - Final Resulted 02/08/18 01:30 Sputum Sputum Culture Pending Resulted Objective HEAD AND NECK: Shows positive JVD. LUNGS: Decreased breath sounds. CARDIOVASCULAR: Irregular S1 and S2 with no gallop. ABDOMEN: Soft. EXTREMITIES: 1+ pitting edema. Agustin Sheehan MD Feb 09, 2018 15:22
[2018-02-09 16:00] VITALS: BP 132/94
--- NOTE | 2018-02-09 18:20 | Internal Med Progress Note ---
Subjective Date of Service: Feb 09, 2018 Physician Name Arreguin,Jovany Attending Physician Satish Moore MD Current Medications Medications (Trade) Dose Ordered Sig/Stephenie Route PRN Reason Start Time Stop Time Status Last Admin Dose Admin Albuterol/ Ipratropium (Albuterol/ Ipratropium) 3 ml Q4H PRN HHN dyspnea 02/07/18 12:00 02/12/18 11:59 Clonidine HCl (Catapres Tab) 0.1 mg Q6H PRN ORAL SBP>160 02/07/18 15:19 03/09/18 15:18 02/08/18 04:05 Dextrose (Dextrose 50%) 25 ml Q30M PRN IV Hypoglycemia 02/07/18 12:00 03/09/18 11:59 Dextrose (Dextrose 50%) 50 ml Q30M PRN IV Hypoglycemia 02/07/18 12:00 03/09/18 11:59 Docusate Sodium (Colace) 100 mg THREE TIMES A DAY ORAL 02/09/18 13:00 03/11/18 12:59 02/09/18 17:34 Furosemide (Lasix) 40 mg BID IV 02/09/18 18:00 03/11/18 13:59 02/09/18 17:37 Heparin Sodium (Porcine) (Heparin 5000 units/ml) 5,000 units EVERY 12 HOURS SUBQ 02/07/18 21:00 03/09/18 20:59 02/09/18 09:03 Lisinopril (Zestril) 5 mg DAILY ORAL 02/08/18 09:00 03/10/18 08:59 02/09/18 08:59 Methylprednisolone Sodium Succinate (Solu-MEDROL) 30 mg EVERY 12 HOURS IVP 02/09/18 21:00 03/09/18 11:59 Mineral Oil (Fleet's Mineral Oil Enema) 133 ml EVERY OTHER DAY RECTAL 02/10/18 09:00 03/12/18 08:59 Nitroglycerin (Ntg) 0.4 mg Q5M X 3 DOSES PRN SL Prn Chest Pain 02/07/18 12:00 03/09/18 11:59 Piperacillin Sod/ Tazobactam Sod 3.375 gm/Dextrose 110 ml @ 27.5 mls/hr EVERY 8 HOURS IVPB 02/07/18 14:00 02/14/18 13:59 02/09/18 13:23 Polyethylene Glycol (Miralax) 17 gm BEDTIME ORAL 02/09/18 21:00 03/11/18 20:59 Promethazine HCl/ Codeine (Phenergan with Codeine) 5 ml Q6H PRN ORAL cough 02/07/18 12:00 03/09/18 11:59 Sennosides (Senokot) 1 tab DAILY ORAL 02/09/18 10:58 03/11/18 10:57 02/09/18 10:58 Temazepam (Restoril) 15 mg HSPRN PRN ORAL Insomnia 02/07/18 12:00 02/14/18 11:59 Theophylline (Noe-Dur) 100 mg EVERY 12 HOURS ORAL 02/07/18 21:00 03/09/18 20:59 02/09/18 08:59 Allergies: Coded Allergies: DIPHENHYDRAMINE (Unverified Allergy, Unknown, 12/18/17) ROS Limited/Unobtainable: No Constitutional: Reports: no symptoms HEENT: Reports: no symptoms Cardiovascular: Reports: no symptoms Respiratory: Reports: shortness of breath Gastrointestinal/Abdominal: Reports: no symptoms Genitourinary: Reports: no symptoms Neurologic/Psychiatric: Reports: no symptoms Subjective 57 YO M admitted with shortness of breath. Now CHF exacerbation. Cover for Int Med-Dr Moore Objective Last Vital Signs Date Time Temp Pulse Resp B/P (MAP) Pulse Ox O2 Delivery O2 Flow Rate FiO2 02/09/18 16:00 98.2 103 22 132/94 (107) 100 02/09/18 08:10 Nasal Cannula 2.0 02/09/18 07:41 28 Laboratory Tests Test 02/09/18 05:50 White Blood Count 14.4 K/UL (4.8-10.8) #H Red Blood Count 5.04 M/UL (4.70-6.10) Hemoglobin 15.4 G/DL (14.2-18.0) Hematocrit 46.3 % (42.0-52.0) Mean Corpuscular Volume 92 FL (80-99) Mean Corpuscular Hemoglobin 30.5 PG (27.0-31.0) Mean Corpuscular Hemoglobin Concent 33.2 G/DL (32.0-36.0) Red Cell Distribution Width 12.3 % (11.6-14.8) Platelet Count 188 K/UL (150-450) Mean Platelet Volume 9.3 FL (6.5-10.1) Neutrophils (%) (Auto) 77.0 % (45.0-75.0) H Lymphocytes (%) (Auto) 13.4 % (20.0-45.0) L Monocytes (%) (Auto) 8.2 % (1.0-10.0) Eosinophils (%) (Auto) 0.9 % (0.0-3.0) Basophils (%) (Auto) 0.5 % (0.0-2.0) Sodium Level 136 MMOL/L (136-145) Potassium Level 4.3 MMOL/L (3.5-5.1) Chloride Level 104 MMOL/L (98-107) Carbon Dioxide Level 26 MMOL/L (21-32) Anion Gap 7 mmol/L (5-15) Blood Urea Nitrogen 29 mg/dL (7-18) H Creatinine 1.2 MG/DL (0.55-1.30) Estimat Glomerular Filtration Rate > 60 mL/min (>60) Glucose Level 88 MG/DL (74-106) Calcium Level 8.8 MG/DL (8.5-10.1) Troponin I 0.119 ng/mL (0.000-0.056) Microbiology Date/Time Source Procedure Growth Status 02/07/18 09:06 Blood Blood Culture - Preliminary NO GROWTH AFTER 24 HOURS Resulted 02/07/18 08:50 Blood Blood Culture - Preliminary NO GROWTH AFTER 24 HOURS Resulted 02/08/18 01:30 Sputum Gram Stain - Final Resulted 02/08/18 01:30 Sputum Sputum Culture Pending Resulted Intake and Output 02/08/18 02/09/18 19:00 07:00 Intake Total 360 ml 710.0 ml Balance 360 ml 710.0 ml Intake Oral 360 ml 600 ml IV Total 110.0 ml # Voids 3 5 Objective General Appearance: no apparent distress, alert, thin EENT: PERRL/EOMI, normal ENT inspection Neck: non-tender, normal alignment, supple, normal inspection Cardiovascular: normal peripheral pulses, normal rate, regular rhythm, no gallop/murmur, no JVD Respiratory/Chest: chest wall non-tender, crackles/rales, rhonchi - bilaterally , expiratory wheezing Abdomen: normal bowel sounds, non tender, soft, no organomegaly, no mass Extremities: normal range of motion, non-tender Edema: trace edema 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 Restart lasix. See cardiology note. (3) HTN (hypertension) Assessment & Plan: Continue lisinopril (4) COPD (chronic obstructive pulmonary disease) Assessment & Plan: See pulmonary note. Continue zosyn (5) Cardiomyopathy Status: not improved Joavny Arreguin MD Feb 09, 2018 18:20
[2018-02-09 20:00] VITALS: BP 125/79
[2018-02-09] MEDS: Solu-MEDROL 40mg Inj IVP SCH (20:59)
[2018-02-09] MEDS ORDERED: Miralax 17gm pkt ORAL SCH (21:00)
[2018-02-10] VITALS: BP 134/92
[2018-02-10 04:00] VITALS: BP 134/89
[2018-02-10] MEDS: Piperacillin/Tazobactam 3.375 GM in D5W 110 ML IVPB SCH (05:47)
[2018-02-10 07:09] LABS: HEMATOCRIT 47.4 % (42.0-52.0); HEMOGLOBIN 16.1 G/DL (14.2-18.0); MEAN CORPUSCULAR VOLUME 90 FL (80-99); PLATELET COUNT 198 K/UL (150-450); RED BLOOD COUNT 5.28 M/UL (4.70-6.10); RED CELL DISTRIBUTION WIDTH 11.8 % (11.6-14.8); WHITE BLOOD COUNT 11.8 K/UL (4.8-10.8)
[2018-02-10 07:27] LABS: ALANINE AMINOTRANSFERASE 49 U/L (12-78); ALBUMIN 3.1 G/DL (3.4-5.0); ALBUMIN/GLOBULIN RATIO 0.8 (1.0-2.7); ALKALINE PHOSPHATASE 61 U/L (46-116); ANION GAP 6 mmol/L (5-15); ASPARTATE AMINO TRANSFERASE 30 U/L (15-37); BILIRUBIN,TOTAL 0.4 MG/DL (0.2-1.0); BLOOD UREA NITROGEN 29 mg/dL (7-18); CALCIUM 9.5 MG/DL (8.5-10.1); CARBON DIOXIDE 32 MMOL/L (21-32); CHLORIDE 98 MMOL/L (98-107); CREATININE 1.4 MG/DL (0.55-1.30); POTASSIUM 3.9 MMOL/L (3.5-5.1); SODIUM 136 MMOL/L (136-145)
[2018-02-10 07:48] VITALS: BP 152/104
[2018-02-10] MEDS: Theophylline ER 100mg ORAL SCH (08:42)
[2018-02-10] MEDS: Docusate 100mg cap ORAL SCH (08:42)
[2018-02-10] MEDS: Sennosides 8.6mg tab ORAL SCH (08:42)
[2018-02-10] MEDS: Solu-MEDROL 40mg Inj IVP SCH (08:43)
[2018-02-10] MEDS: Lisinopril 2.5mg tab ORAL SCH (08:44)
[2018-02-10] MEDS: Heparin 5000 units/ml inj SUBQ SCH (08:45)
[2018-02-10] MEDS ORDERED: Fleet's Mineral Oil Enema RECTAL SCH (09:00)
--- NOTE | 2018-02-10 09:17 | Diagnostic Imaging Report ---
Indication: DYSPNEA, Cough Technique: One view of the chest Comparison: 02/07/2018 Findings: Interim marked improvement of previously demonstrated interstitial and airspace edema, now largely resolved. No effusions. The heart is enlarged. Impression: Largely resolved pulmonary over 3 days, lungs currently clear Cardiomegaly
--- NOTE | 2018-02-10 09:22 | Cardiac Electrophysiology PN ---
Assessment/Plan Assessment/Plan 1. Troponin leak. Likely due to active cocaine use. 2. Congestive heart failure exacerbation with ejection fraction of 10%. Continue lisinopril 5 mg daily and Lasix 40 iv bid. Avoid beta-logan in view of active cocaine use. 3. Hypertension, On Lisinopril 5 daily 4. History of chronic obstructive pulmonary disease. On theophylline and Solu- Medrol. 5. Active cocaine use. Subjective Subjective Wants to go home. RN at bedside Objective Last 24 Hour Vital Signs Date Time Temp Pulse Resp B/P (MAP) Pulse Ox O2 Delivery O2 Flow Rate FiO2 02/10/18 08:44 152/104 02/10/18 08:10 Room Air 02/10/18 07:48 97.5 78 21 152/104 (120) 99 02/10/18 07:18 Room Air 21 02/10/18 07:18 95 Room Air 21 02/10/18 04:00 63 02/10/18 04:00 97.0 80 19 134/89 (104) 98 02/10/18 00:00 98.2 82 18 134/92 (106) 98 02/10/18 00:00 102 02/09/18 21:00 Room Air 02/09/18 20:38 96 Nasal Cannula 21 02/09/18 20:38 Room Air 21 02/09/18 20:00 97.0 81 19 125/79 (94) 98 02/09/18 20:00 73 02/09/18 16:00 98.2 103 22 132/94 (107) 100 02/09/18 15:27 87 02/09/18 12:00 98.0 96 20 130/99 (109) 98 02/09/18 11:33 102 Intake and Output 02/09/18 02/10/18 19:00 07:00 Intake Total 980 ml Output Total 800 ml 2300 ml Balance 180 ml -2300 ml Intake Oral 980 ml Output Urine Total 800 ml 2300 ml # Voids 2 Laboratory Tests Test 02/10/18 06:25 White Blood Count 11.8 K/UL (4.8-10.8) H Red Blood Count 5.28 M/UL (4.70-6.10) Hemoglobin 16.1 G/DL (14.2-18.0) Hematocrit 47.4 % (42.0-52.0) Mean Corpuscular Volume 90 FL (80-99) Mean Corpuscular Hemoglobin 30.4 PG (27.0-31.0) Mean Corpuscular Hemoglobin Concent 33.9 G/DL (32.0-36.0) Red Cell Distribution Width 11.8 % (11.6-14.8) Platelet Count 198 K/UL (150-450) Mean Platelet Volume 9.5 FL (6.5-10.1) Neutrophils (%) (Auto) % (45.0-75.0) Lymphocytes (%) (Auto) % (20.0-45.0) Monocytes (%) (Auto) % (1.0-10.0) Eosinophils (%) (Auto) % (0.0-3.0) Basophils (%) (Auto) % (0.0-2.0) Differential Total Cells Counted 100 Neutrophils % (Manual) 91 % (45-75) H Lymphocytes % (Manual) 4 % (20-45) L Monocytes % (Manual) 5 % (1-10) Eosinophils % (Manual) 0 % (0-3) Basophils % (Manual) 0 % (0-2) Band Neutrophils 0 % (0-8) Platelet Estimate Adequate Platelet Morphology Normal Red Blood Cell Morphology Normal Sodium Level 136 MMOL/L (136-145) Potassium Level 3.9 MMOL/L (3.5-5.1) Chloride Level 98 MMOL/L (98-107) Carbon Dioxide Level 32 MMOL/L (21-32) Anion Gap 6 mmol/L (5-15) Blood Urea Nitrogen 29 mg/dL (7-18) H Creatinine 1.4 MG/DL (0.55-1.30) H Estimat Glomerular Filtration Rate > 60 mL/min (>60) Glucose Level 185 MG/DL (74-106) H Calcium Level 9.5 MG/DL (8.5-10.1) Total Bilirubin 0.4 MG/DL (0.2-1.0) Aspartate Amino Transf (AST/SGOT) 30 U/L (15-37) Alanine Aminotransferase (ALT/SGPT) 49 U/L (12-78) Alkaline Phosphatase 61 U/L (46-116) Pro-B-Type Natriuretic Peptide 1380 pg/mL (0-125) H Total Protein 6.8 G/DL (6.4-8.2) Albumin 3.1 G/DL (3.4-5.0) L Globulin 3.7 g/dL Albumin/Globulin Ratio 0.8 (1.0-2.7) L Microbiology Date/Time Source Procedure Growth Status 02/08/18 01:30 Sputum Gram Stain - Final Complete 02/08/18 01:30 Sputum Sputum Culture - Final NORMAL UPPER RESPIRATORY IHSAN PRESENT Complete Objective HEAD AND NECK: Mild JVD. LUNGS: Decreased breath sounds. CARDIOVASCULAR: Irregular S1 and S2 with no gallop. ABDOMEN: Soft. EXTREMITIES: 1+ pitting edema. Agustin Sheehan MD Feb 10, 2018 09:22
[2018-02-10] MEDS ORDERED: FUROSEMIDE20 M1 ORAL (10:45)
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
[2018-02-10 12:00] VITALS: BP 166/104
[2018-02-10 12:07] VITALS: BP 166/104
[2018-02-11] MEDS ORDERED: Fleet's Mineral Oil Enema RECTAL SCH (09:00)
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
--- NOTE | 2018-02-11 15:56 | Cardiology Report ---
APPROVED REPORT EXAM: Two-dimensional and M-mode echocardiogram with Doppler and color Doppler. INDICATION Congestive Heart Failure M-Mode DIMENSIONS IVSd1.4 (0.7-1.1cm)Left Atrium (MM)4.8 (1.6-4.0cm) LVDd5.6 (3.5-5.6cm)Aortic Root3.0 (2.0-3.7cm) PWd1.9 (0.7-1.1cm)Aortic Cusp Exc.1.9 (1.5-2.0cm) IVSs1.7 cm LVDs4.8 (2.5-4.0cm) PWs1.5 cm TDI E/Lateral E'0.0E/Medial E'0.0 Mild left ventricular enlargement . Global left ventricular hypokinesis , inferior wall and mid to distal posterior wall akinesis Left ventricular ejection fraction estimated to be 20 %. Mild left ventricular hypertrophy. No evidence of pericardial effusion. Mild left atrial enlargement . Right cardiac chamber sizes are within normal limits. Focal aortic valve sclerosis with adequate cusp excursion. Thickened mitral valve leaflets with normal excursion. Mitral annulus and aortic root calcification. Pulmonic valve not well visualized. Normal tricuspid valve structure. IVC dialated at size 2.2 with physiologic collapse, suggestive to increase RA pressure . A color flow and spectral Doppler study was performed and revealed: Mild aortic insufficiency . Moderate mitral regurgitation. Mitral inflow indicates restrictive pattern, implying severely elevated left atrial pressure (Grade III ). Moderate tricuspid regurgitation. Tricuspid systolic velocities suggests peak right ventricular systolic pressure of 42mmHg,consistent with mild pulmonary hypertension.
== END 2018-02-10 12:18 | disposition home or self-care (01) | DRG 194 ==
LOC: EMR 08:54 → 2E 09:11 → EDBEDREQ 09:33
DX: I11.0 Hypertensive heart disease with heart failure (principal); I21.4 Non-ST elevation (NSTEMI) myocardial infarction; E43 Unspecified severe protein-calorie malnutrition; I42.9 Cardiomyopathy, unspecified; J44.1 Chronic obstructive pulmonary disease with (acute) exacerbation; I50.31 Acute diastolic (congestive) heart failure; G81.94 Hemiplegia, unspecified affecting left nondominant side; T14.90XS Injury, unspecified, sequela; W34.00XS Accidental discharge from unspecified firearms or gun, sequela; F14.10 Cocaine abuse, uncomplicated; Z88.8 Allergy status to other drugs, medicaments and biological substances
CPT/HCPCS: 36415; 71045; 80048; 80053; 80307; 82550; 82553; 83735; 83880; 84100; 84484; 85007; 85025; 85651; 87040; 87070; 87205; 93005; 93306; 94640; 94664; 94760; 96374; 96375; 99291; J7620

== ENCOUNTER 2018-07-07 06:31 | Inpatient (IN) | payer OTHER ==
[2018-07-07] VITALS (8 sets, daily range): BP systolic 128–158; BP diastolic 80–99
[~2018-07-07] VITALS: Ht 167.6 cm; Wt 59.0 kg
--- NOTE | 2018-07-07 06:40 | NUR ---
ED Nurse Note: Patient walked into ED c/o SOB that started this morning, patient does have a history of COPD, states that he used his inhaler but was not helpgul, denies any chills or sore throat. patient does present with upper lobe wheezing, RT was called to get breathing treatment, patient's o2 sat is at 96%. patient is alert and oriented x4, ambulatory with a steady gait, VSS
[2018-07-07] MEDS ORDERED: Solu-MEDROL 125mg Inj IVP ONE (06:45)
[2018-07-07] MEDS ORDERED: Albuterol ud Inhalation HHN ONE (06:45)
[2018-07-07] MEDS ORDERED: Ipratropium 0.02% Inh Soln 2.5ml UD HHN ONE (06:45)
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
[2018-07-07 07:11] LABS: HEMATOCRIT 48.2 % (42.0-52.0); HEMOGLOBIN 15.9 G/DL (14.2-18.0); MEAN CORPUSCULAR VOLUME 93 FL (80-99); PLATELET COUNT 143 K/UL (150-450); RED BLOOD COUNT 5.18 M/UL (4.70-6.10); RED CELL DISTRIBUTION WIDTH 12.5 % (11.6-14.8); WHITE BLOOD COUNT 4.3 K/UL (4.8-10.8)
[2018-07-07 07:16] LABS: INR 0.9 (0.9-1.1)
[2018-07-07 07:19] LABS: ANION GAP 8 mmol/L (5-15); BLOOD UREA NITROGEN 19 mg/dL (7-18); CALCIUM 8.8 MG/DL (8.5-10.1); CARBON DIOXIDE 29 MMOL/L (21-32); CHLORIDE 105 MMOL/L (98-107); POTASSIUM 4.3 MMOL/L (3.5-5.1); SODIUM 142 MMOL/L (136-145)
--- NOTE | 2018-07-07 07:26 | NUR ---
HAND-OFF: Report given to TEX Rocha.
[2018-07-07 07:29] LABS: ALANINE AMINOTRANSFERASE 21 U/L (12-78); ALBUMIN 3.5 G/DL (3.4-5.0); ALBUMIN/GLOBULIN RATIO 1.1 (1.0-2.7); ALKALINE PHOSPHATASE 39 U/L (46-116); ASPARTATE AMINO TRANSFERASE 20 U/L (15-37); BILIRUBIN,TOTAL 0.5 MG/DL (0.2-1.0); CREATINE KINASE 276 U/L (26-308)
--- NOTE | 2018-07-07 07:30 | NUR ---
ED Nurse Note: received patient in bed. Patient is alert awake oriented x4, in no acute distress. VSS. see flowsheet Girlfriend at bedside.
[2018-07-07] MEDS ORDERED: Metoprolol 5mg/5ml Inj IVP SCH (07:45)
[2018-07-07] MEDS ORDERED: Nitroglycerin 2% oint pkt TOPIC ONE (07:45)
--- NOTE | 2018-07-07 07:50 | NUR ---
ED Nurse Note: sandwich and water provided to the patient Dr Evelia sahu with it.
[2018-07-07 08:05] LABS: APPEARANCE,URINE CLEAR; BILIRUBIN, URINE NEGATIVE (NEGATIVE); COLOR,URINE PALE YELLOW; GLUCOSE, URINE (UA) NEGATIVE (NEGATIVE); KETONES,URINE NEGATIVE (NEGATIVE); LEUKOCYTE ESTERASE ,URINE 1+ (NEGATIVE); NITRITE,URINE NEGATIVE (NEGATIVE); PH,URINE 7 (4.5-8.0); PROTEIN,URINE NEGATIVE (NEGATIVE); UROBILINOGEN,URINE 1 MG/DL (0.0-1.0)
--- NOTE | 2018-07-07 09:07 | NUR ---
ED Nurse Note: belongings checked with the patient and Ritika Sparrow RN. Counted florez with the patient. patient declined to put it in safe, patient declined to have his girlfriend bring it home.
[2018-07-07] MEDS ORDERED: Albuterol/Ipratropium 3ml neb HHN PRN (10:00)
[2018-07-07] MEDS ORDERED: Miralax 17gm pkt ORAL PRN (10:00)
--- NOTE | 2018-07-07 10:35 | Diagnostic Imaging Report ---
Indication: Dyspnea Comparison: 02/10/2018 A single view chest radiograph was obtained. Findings: The heart is prominent size. Lungs are clear. Vascularity is normal. The bones are osteopenic. IMPRESSION: Cardiomegaly
--- NOTE | 2018-07-07 11:58 | NUR ---
ED Nurse Note: patient is in no distress, comfortable in bed. vss. see flowsheet. called for a hospital bed.
--- NOTE | 2018-07-07 12:31 | NUR ---
ED Nurse Note: patient transferred to hospital bed, patient is in no acute distress lunch is provided
--- NOTE | 2018-07-07 13:40 | NUR ---
ED Nurse Note: 2D echo being done at bedside.
[2018-07-07] MEDS ORDERED: Morphine Sulfate 2mg/ml Inj(IV/IM USE ONLY) IVP PRN (15:44)
[2018-07-07] MEDS ORDERED: Nitroglycerin Subl 0.4mg tab SL PRN (15:44)
[2018-07-07] MEDS ORDERED: Enalaprilat 2.5mg/2ml Inj IV PRN (15:44)
[2018-07-07] MEDS ORDERED: Ketorolac 30mg Inj IV PRN (15:45)
--- NOTE | 2018-07-07 18:25 | NUR ---
ED Nurse Note: sent down repeat troponin.
[2018-07-07] MEDS ORDERED: dilTIAZem HCl 25mg/5ml Inj IV PRN (19:07)
--- NOTE | 2018-07-07 19:09 | NUR ---
HAND-OFF: Report given to Claudio Gambino RN. patient stable in bed
--- NOTE | 2018-07-07 20:00 | NUR ---
TRANSFER TO FLOOR: Patient transferred to Telemetry 208-2 as ordered, per MD Oscar. Report given to TEX Cooper. Belongings list completed with receiving RN.
--- NOTE | 2018-07-07 20:15 | NUR ---
NURSE NOTES: Received pt from ED via hospital bed. Pt is awake, AOx4. In no acute distress. Pt is being admitted for Elevated Troponin and SOB. No c/o CP, no SOB at this time. VS stable. Placed on groundwater monitoring technician showing SR. Oriented to room and unit. Bed in lowest position, call light within reach. Admission orders noted and carried out.
[2018-07-07] MEDS: Heparin 5000 units/ml inj SUBQ SCH (20:46)
[2018-07-08] VITALS: BP 155/92
[2018-07-08 04:00] VITALS: BP 156/91
--- NOTE | 2018-07-08 07:00 | NUR ---
HAND-OFF: Report given to TEX Witt.
--- NOTE | 2018-07-08 07:04 | NUR ---
NURSE NOTES: Patient standing up in room next to bed, awake and alert, bed in lowest position, call light within reach. No c/o pain, no SOB, in no apparent distress.
[2018-07-08 07:14] LABS: INR 1.1 (0.9-1.1)
[2018-07-08 07:16] LABS: BASOPHILS % (AUTO) 2.5 % (0.0-2.0); EOSINOPHILS % (AUTO) 3.7 % (0.0-3.0); HEMATOCRIT 48.1 % (42.0-52.0); HEMOGLOBIN 15.9 G/DL (14.2-18.0); LYMPHOCYTES % (AUTO) 20.6 % (20.0-45.0); MEAN CORPUSCULAR VOLUME 93 FL (80-99); MONOCYTES % (AUTO) 14.7 % (1.0-10.0); NEUTROPHILS % (AUTO) 58.5 % (45.0-75.0); PLATELET COUNT 122 K/UL (150-450); RED BLOOD COUNT 5.18 M/UL (4.70-6.10); RED CELL DISTRIBUTION WIDTH 12.5 % (11.6-14.8)
[2018-07-08 07:39] LABS: CHOLESTEROL 205 MG/DL (< 200); HDL CHOLESTEROL 108 MG/DL (40-60); TRIGLYCERIDES 30 MG/DL (30-150)
[2018-07-08 08:00] VITALS: BP 153/90
[2018-07-08] MEDS: Heparin 5000 units/ml inj SUBQ SCH (08:25)
[2018-07-08] MEDS ORDERED: Aspirin Baby 81mg ORAL SCH (09:00)
--- NOTE | 2018-07-08 10:01 | NUR ---
NURSE NOTES: Reported troponin=0.[address] [place] [address] Satish Moore's office. Will continue to monitor patient.
[2018-07-08 12:00] VITALS: BP 143/111
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
--- NOTE | 2018-07-08 12:18 | NUR ---
Social Work This Sw met with patient, who admitted to abusing Cocaine prior to this admission, planning to stop and will follow up with N.A kirsty. Patient explains he lives with his mother (who is independent), receiving SSI. This Sw provided education to patient regarding the health risks involved with substance abuse, while provided list of substance abuse treatment resources. Patient currently denied any depression or mental kimberly concerns. Patient plans to discharge back to home with his mother today. No other needs or concerns present at this time.
--- NOTE | 2018-07-08 14:10 | Cardiac Electrophysiology PN ---
Subjective Subjective [id number]. DW Dr Sarabia and RN Objective Last 24 Hour Vital Signs Date Time Temp Pulse Resp B/P (MAP) Pulse Ox O2 Delivery O2 Flow Rate FiO2 07/08/18 12:00 75 07/08/18 12:00 97.6 69 20 143/111 (122) 100 07/08/18 08:37 Room Air 07/08/18 08:00 97.2 70 20 153/90 (111) 100 07/08/18 08:00 82 07/08/18 07:57 74 18 Room Air 07/08/18 04:00 82 07/08/18 04:00 97.3 68 18 156/91 (112) 98 07/08/18 00:00 61 07/08/18 00:00 97.5 61 18 155/92 (113) 99 07/07/18 20:34 67 07/07/18 20:30 Room Air 07/07/18 20:15 97.6 67 18 152/97 (115) 98 07/07/18 20:00 97.9 82 14 141/82 99 Room Air 07/07/18 19:09 97.9 82 14 141/82 99 Room Air 07/07/18 15:39 97.9 70 15 139/83 100 Room Air Intake and Output 07/07/18 07/08/18 18:59 06:59 Intake Total 500 ml Balance 500 ml Intake Oral 500 ml # Voids 3 # Bowel Movements 1 Laboratory Tests Test 07/07/18 18:30 07/08/18 06:45 Troponin I 0.064 ng/mL (0.000-0.056) 0.073 ng/mL (0.000-0.056) White Blood Count 6.0 K/UL (4.8-10.8) Red Blood Count 5.18 M/UL (4.70-6.10) Hemoglobin 15.9 G/DL (14.2-18.0) Hematocrit 48.1 % (42.0-52.0) Mean Corpuscular Volume 93 FL (80-99) Mean Corpuscular Hemoglobin 30.8 PG (27.0-31.0) Mean Corpuscular Hemoglobin Concent 33.1 G/DL (32.0-36.0) Red Cell Distribution Width 12.5 % (11.6-14.8) Platelet Count 122 K/UL (150-450) L Mean Platelet Volume 7.9 FL (6.5-10.1) Neutrophils (%) (Auto) 58.5 % (45.0-75.0) Lymphocytes (%) (Auto) 20.6 % (20.0-45.0) Monocytes (%) (Auto) 14.7 % (1.0-10.0) H Eosinophils (%) (Auto) 3.7 % (0.0-3.0) H Basophils (%) (Auto) 2.5 % (0.0-2.0) H Prothrombin Time 11.4 SEC (9.30-11.50) Prothromb Time International Ratio 1.1 (0.9-1.1) Activated Partial Thromboplast Time 27 SEC (23-33) C-Reactive Protein, Quantitative < 0.4 mg/dL (0.00-0.90) Triglycerides Level 30 MG/DL (30-150) Cholesterol Level 205 MG/DL (< 200) H LDL Cholesterol 87 mg/dL (<100) HDL Cholesterol 108 MG/DL (40-60) H Cholesterol/HDL Ratio 1.9 (3.3-4.4) L Thyroid Stimulating Hormone (TSH) 1.029 uiU/mL (0.358-3.740) Microbiology Date/Time Source Procedure Growth Status 07/07/18 07:02 Nasal Nares Influenza Types A,B Antigen (ELISA) - Final Complete Agustin Sheehan MD Jul 08, 2018 14:10
--- NOTE | 2018-07-08 16:05 | NUR ---
CASE MANAGEMENT:REVIEW 58 YR OLD MALE FROM HOME CC: SOB PMH: COPD SI: NSTEMI. COCAINE ABUSE 97.8 81 18 158/98 96% ON RA TROPONIN(+) 0.082 URINE(+) COCAINE IS: IV METOPROLOL DUONEB HHN IV SOLUMEDROL 1L NS BOLUS ASA PO NITRO 1" ; TO TELEMETRY INTERQUAL CRITERIA MET
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
[2018-07-09] MEDS ORDERED: Lisinopril 10mg tab ORAL SCH (09:00)
--- NOTE | 2018-07-10 11:41 | Cardiology Report ---
APPROVED REPORT EXAM: Two-dimensional and M-mode echocardiogram with Doppler and color Doppler. INDICATION LV FUNCTION M-Mode DIMENSIONS IVSd1.5 (0.7-1.1cm)Left Atrium (MM)2.7 (1.6-4.0cm) LVDd5.1 (3.5-5.6cm)Aortic Root3.8 (2.0-3.7cm) PWd1.2 (0.7-1.1cm)Aortic Cusp Exc.1.9 (1.5-2.0cm) IVSs1.8 cm LVDs4.7 (2.5-4.0cm) PWs1.5 cm Mild left ventricular enlargement . Global left ventricular hypokinesis , inferior wall mid to distal wall akinesis . Left ventricular ejection fraction estimated to be 15-20%. Mild left ventricular hypertrophy by 2-D. No evidence of pericardial effusion. All other cardiac chamber sizes are within normal limits. Focal aortic valve sclerosis with adequate cusp excursion. Mildly thickened mitral valve leaflets with normal excursion. Mild mitral annulus and aortic root calcification. Pulmonic valve not well visualized. IVC at normal size with physiologic collapse . A color flow and spectral Doppler study was performed and revealed: No aortic insufficiency . Mitral diastolic velocities suggest reduced left ventricular relaxation c/w mild LV diastolic dysfunction (Grade I ) Moderate mitral regurgitation. Mild tricuspid regurgitation. Tricuspid systolic velocities suggests peak right ventricular systolic pressure of 18mmHg.
--- NOTE | 2018-07-10 13:53 | NUR ---
CASE MANAGEMENT: Clinical information (face sheet/ DC instruction/ ER MD notes/ progress notes) faxed to [facility] UM Dept @ [phone] and [facility] @ [phone].
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
== END 2018-07-08 14:30 | disposition home or self-care (01) | DRG 194 ==
LOC: EMR 07:02 → EDBEDREQ 18:34 → 2E 18:40
DX: I11.0 Hypertensive heart disease with heart failure (principal); G81.94 Hemiplegia, unspecified affecting left nondominant side; I42.9 Cardiomyopathy, unspecified; F17.200 Nicotine dependence, unspecified, uncomplicated; J44.9 Chronic obstructive pulmonary disease, unspecified; I50.33 Acute on chronic diastolic (congestive) heart failure; T14.8XXS Other injury of unspecified body region, sequela; W34.00XS Accidental discharge from unspecified firearms or gun, sequela; I44.7 Left bundle-branch block, unspecified; Z88.8 Allergy status to other drugs, medicaments and biological substances; F14.10 Cocaine abuse, uncomplicated
CPT/HCPCS: 36415; 71045; 80053; 80061; 80307; 81003; 82550; 83690; 83880; 84443; 84484; 85007; 85025; 85610; 85730; 86140; 86710; 93005; 93306; 94640; 94664; 96361; 96374; 99285

== ENCOUNTER 2018-12-26 11:09 | Inpatient (IN) | payer OTHER ==
[~2018-12-26] VITALS: Ht 167.6 cm; Wt 53.1 kg
[2018-12-26 11:14] VITALS: BP 178/105
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
[2018-12-26] MEDS ORDERED: Aspirin Baby 81mg ORAL ONE (11:30)
[2018-12-26] MEDS ORDERED: Albuterol ud Inhalation HHN ONE (11:30)
--- NOTE | 2018-12-26 11:31 | NUR ---
ED Nurse Note: PT. AAOX4. AMBULATORY. CAME IN TO ER DUE TO SOB SINCE LAST NIGHT. STRIDOR AUSCULATATED ON BILATERAL LUNG SOUND FLOWERS. UTILIZATION OF ACCESSORY MUSCE WITH DEEP BREATHS NOTED. SKIN IS INTACT. DENIES ANY PAIN AT THIS TIME
[2018-12-26 11:49] LABS: BASOPHILS % (AUTO) 1.5 % (0.0-2.0); EOSINOPHILS % (AUTO) 11.7 % (0.0-3.0); HEMATOCRIT 49.3 % (42.0-52.0); HEMOGLOBIN 15.9 G/DL (14.2-18.0); LYMPHOCYTES % (AUTO) 30.6 % (20.0-45.0); MEAN CORPUSCULAR VOLUME 96 FL (80-99); MONOCYTES % (AUTO) 12.1 % (1.0-10.0); NEUTROPHILS % (AUTO) 44.2 % (45.0-75.0); PLATELET COUNT 171 K/UL (150-450); RED BLOOD COUNT 5.16 M/UL (4.70-6.10); RED CELL DISTRIBUTION WIDTH 12.8 % (11.6-14.8)
[2018-12-26 12:03] LABS: ANION GAP 8 mmol/L (5-15); BLOOD UREA NITROGEN 20 mg/dL (7-18); CALCIUM 8.3 MG/DL (8.5-10.1); CARBON DIOXIDE 26 MMOL/L (21-32); CHLORIDE 107 MMOL/L (98-107); CREATININE 1.1 MG/DL (0.55-1.30); POTASSIUM 3.2 MMOL/L (3.5-5.1); SODIUM 141 MMOL/L (136-145)
--- NOTE | 2018-12-26 12:10 | NUR ---
ED Nurse Note: Partner at bedside with pt.
[2018-12-26 12:18] LABS: ALANINE AMINOTRANSFERASE 25 U/L (12-78); ALBUMIN 3.5 G/DL (3.4-5.0); ALBUMIN/GLOBULIN RATIO 1.2 (1.0-2.7); ALKALINE PHOSPHATASE 40 U/L (46-116); ASPARTATE AMINO TRANSFERASE 29 U/L (15-37); BILIRUBIN,TOTAL 0.6 MG/DL (0.2-1.0); CKMB 7.5 NG/ML (0.0-3.6); CREATINE KINASE 435 U/L (26-308)
[2018-12-26 12:46] VITALS: BP 143/82
--- NOTE | 2018-12-26 12:48 | NUR ---
ED Nurse Note: Pt tolerated well with Potassium, Vital signs stable and updated in Intervention.
--- NOTE | 2018-12-26 13:39 | Diagnostic Imaging Report ---
Indication: Dyspnea Comparison: 06/29/2018 A single view chest radiograph was obtained. Findings: Pulmonary vascularity is mildly prominent. Bones are unremarkable. The heart is enlarged. No pleural effusion seen. IMPRESSION: Query mild pulmonary vascular congestion. Correlate clinically
--- NOTE | 2018-12-26 14:11 | NUR ---
ED Nurse Note: Report given to TEX Johnson at ext [phone]. Pt to be transfered to room 238-2 on [facility] per protocol with all belongings. No signs of acute distress noted.
[2018-12-26 14:12] VITALS: BP 139/85
--- NOTE | 2018-12-26 14:25 | NUR ---
NURSE NOTES: Received patient from ED. Placed on monitored bed. Awake, alert, verbal. In no apparent distress at this time. Belongings checked with ED nurse. With $7 florez and 4 credit cards, patient refused to placed credit cards in the safe. Cellphone [employer] with plastic design applier at bedside. Will admit to SDU standard level of care.
--- NOTE | 2018-12-26 15:21 | NUR ---
NURSE NOTES: Spoke with Dr. Mccauley via telephone. MD said to call back in 30 mins for admission orders. Cardiac diet order obtained at this time.
--- NOTE | 2018-12-26 16:54 | NUR ---
NURSE NOTES: Called [facility] pharmacy in [facility]. Verified with Pharmacist/Sana regarding patient's medication. Naproxen 500mg 1 tab BID Hydralazine 25mg 1 tab TID ASA 81mg QD Spiriva 2.5mcg 2 puff QD Ventolin 2 puff every 4-6 PRN Lisinopril 20 mg QD[address] Will call Dr. Mccauley regarding this medications.
--- NOTE | 2018-12-26 16:58 | NUR ---
NURSE NOTES: Called Dr. Mccauley, with admission orders obtained. Informed MD regarding the medication list obtained from [facility] pharmacy. Informed regarding troponin level. With orders to check troponin every 8 hours x 3. Read back telephone orders to Dr. Mccauley.
[2018-12-26] MEDS ORDERED: Furosemide 40mg tab ORAL SCH (17:00)
--- NOTE | 2018-12-26 17:38 | NUR ---
NURSE NOTES: Dr. Mcleod in the unit. He said that he'll review and change medication orders.
[2018-12-26] MEDS: HydrALAZINE 25mg tab ORAL SCH ×2 (18:25→23:33)
[2018-12-26] MEDS ORDERED: Naproxen 500mg tab ORAL SCH (18:30)
--- NOTE | 2018-12-26 18:40 | NUR ---
NURSE NOTES: Patient refused lasix at this time. Patient verbalized that he'll have it tomorrow.
--- NOTE | 2018-12-26 19:25 | NUR ---
HAND-OFF: Report given to Beryl Son RN.
--- NOTE | 2018-12-26 19:26 | NUR ---
NURSE NOTES: received pt from Lora RN,. pt is awake, AOx4, and resting on the bed. no dysrhythmia reported from the last shift. pt states no pain at this moment. Right IV FA 20G is intact, patent, and clean. bed is at the lowest position, alarmed, and locked. call light within reach. will continue with plan of care.
[2018-12-26] MEDS: Albuterol/Ipratropium 3ml neb HHN SCH (19:39)
--- NOTE | 2018-12-26 19:40 | NUR ---
NURSE NOTES: received new troponin level from Shawna Collins.
--- NOTE | 2018-12-26 19:49 | NUR ---
NURSE NOTES: notified Dr. Mccauley regarding Troponin level that is trending down from troponin previous level 0.142 to 0.131. will continue to monitor pt.
[2018-12-26 20:00] VITALS: BP 125/74
[2018-12-27] VITALS: BP 136/102
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
[2018-12-27] MEDS: Albuterol/Ipratropium 3ml neb HHN SCH ×4 (01:53→20:07)
[2018-12-27 04:00] VITALS: BP 128/97
[2018-12-27 04:06] LABS: ALANINE AMINOTRANSFERASE 23 U/L (12-78); ALBUMIN 3.4 G/DL (3.4-5.0); ALBUMIN/GLOBULIN RATIO 1.1 (1.0-2.7); ALKALINE PHOSPHATASE 47 U/L (46-116); ANION GAP 11 mmol/L (5-15); ASPARTATE AMINO TRANSFERASE 35 U/L (15-37); BILIRUBIN,TOTAL 0.4 MG/DL (0.2-1.0); BLOOD UREA NITROGEN 22 mg/dL (7-18); CALCIUM 8.7 MG/DL (8.5-10.1); CARBON DIOXIDE 26 MMOL/L (21-32); CHLORIDE 103 MMOL/L (98-107); CREATININE 1.2 MG/DL (0.55-1.30); POTASSIUM 4.1 MMOL/L (3.5-5.1); SODIUM 139 MMOL/L (136-145)
[2018-12-27] MEDS: HydrALAZINE 25mg tab ORAL SCH ×3 (05:41→17:58)
--- NOTE | 2018-12-27 06:45 | NUR ---
NURSE NOTES: left message regarding Magnesium 1.6 waiting for the call back.
--- NOTE | 2018-12-27 07:55 | NUR ---
HAND-OFF: Report given to Aliya NICE, Pt is resting on the bed, no SOB noted at this moment. V/S stable. call light within reach.
[2018-12-27 08:00] VITALS: BP 149/93
--- NOTE | 2018-12-27 08:00 | NUR ---
NURSE NOTES: received pt in the bed, wake, alert, oriented, vital signs stable, no co pain, no SOB, skin warm and dry to touch, intact, ambulatory, left arm contracted, Mag level 1.6, dr. Mccauley aware, no order, bed in low position, call light within reach.
[2018-12-27] MEDS ORDERED: Aspirin Baby 81mg ORAL SCH (09:00)
[2018-12-27] MEDS: Lisinopril 20mg tab ORAL SCH (09:27)
[2018-12-27] MEDS: Spironolactone 25mg tab ORAL SCH (09:28)
[2018-12-27] MEDS: Aspirin EC 81mg tab ORAL SCH (09:28)
--- NOTE | 2018-12-27 10:46 | NUR ---
*-* INSURANCE *-* ALL AVAILABLE CLINICALS HAVE BEEN FAXED TO: [facility] Brass Cleaner: Concepcion #[phone] Addendum: 12/28/18 at 1137 by JOVON SANCHEZ CM REF# [id number]
[2018-12-27 12:00] VITALS: BP 139/98
--- NOTE | 2018-12-27 13:00 | NUR ---
NURSE NOTES: no any distress, vital signs stable, no co pain, continue monitoring.
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
--- NOTE | 2018-12-27 14:13 | NUR ---
RD ASSESSMENT & RECOMMENDATIONS SEE CARE ACTIVITY FOR COMPLETE ASSESSMENT DAILY ESTIMATED NEEDS: Needs based on Underweight, wasting, cardiac 51kg 30-35 kcals/kg 9898-2065 total kcals 1-1.5 g protein/kg 51-77 g total protein Fluid per MD, on lasix NUTRITION DIAGNOSIS: Increased kcal and pro needs r/t underweight status and wasting as evidenced by pt is 80% of Dorsey Body weight, w/ signs of moderate wasting. CURRENT DIET: Cardiac diet, texture as tolerated PO DIET RECOMMENDATIONS: Rec diet change to LOW NA (soft easy chew) ADDITIONAL RECOMMENDATIONS: 1) Obtain a calibrated bed scale wt 2) Add ENSURE daily Add snacks in b/w meals 3) Monitor lytes on lasix, replete as needed
--- NOTE | 2018-12-27 15:00 | NUR ---
CASE MANAGEMENT:REVIEW 58 YR OLD MALE PRESENTED TO ER FROM HOME CC: SOB. USING ACCESSORY MUSCLES NOTED. BILATERAL PEDAL EDEMA SI: RESPIRATORY DISTRESS. CHF. DYSPNEA 95.0 83 24 178/105 99% ON RA K-3.2 BUN+20 TCK+435 BNP+1774 TROPONIN(+) 0.142 URINE(+) COCAINE IS: ALBUTEROL HHN ASA PO IV LASIX KCL 60MEQ : TO STEP DOWN UNIT IS: LISINOPRIL PO QD ALDACTONE PO QD ASA PO QD DUONEB HHN Q6HRS HYDRALAZINE PO Q6HRS IV LASIX QD K-DUR PO QD INTERQUAL CRITERIA MET
[2018-12-27 16:00] VITALS: BP 121/75
--- NOTE | 2018-12-27 18:06 | Cardiology Report ---
APPROVED REPORT EXAM: Two-dimensional and M-mode echocardiogram with Doppler and color Doppler. INDICATION Congestive Heart Failure M-Mode DIMENSIONS IVSd1.2 (0.7-1.1cm)Left Atrium (MM)3.8 (1.6-4.0cm) LVDd7.4 (3.5-5.6cm)Aortic Root3.1 (2.0-3.7cm) PWd1.5 (0.7-1.1cm)Aortic Cusp Exc.1.6 (1.5-2.0cm) LVDs6.1 (2.5-4.0cm) PWs1.6 cm Moderate to severe left ventricular enlargement. Severe global LV hypokinesis. Best motion noted in proximal to mid anteriro wall and anterolateral wall and proximal to mid posterior wall Left ventricular ejection fraction estimated to be30-35 %. Mild left ventricular hypertrophy with basal septal thinning. No evidence of pericardial effusion. Mild left atrial enlargement. Right cardiac chamber sizes are within normal limits. Focal aortic valve sclerosis with adequate cusp excursion. Thickened mitral valve leaflets with normal excursion. Mitral annulus and aortic root calcification. Pulmonic valve not well visualized. Normal tricuspid valve structure. IVC at normal size with physiologic collapse. A color flow and spectral Doppler study was performed and revealed: Trace aortic regurgitation. Moderate mitral regurgitation. Mitral diastolic velocities suggest normal left ventricular diastolic function. Mild tricuspid regurgitation. Tricuspid systolic velocities suggests peak right ventricular systolic pressure of 31 mmHg. Mild pulmonic regurgitation present.
--- NOTE | 2018-12-27 18:12 | Cardiology Report ---
APPROVED REPORT EKG Measurement Heart [id number] FL [id number] Sinus rhythm with occasional premature ventricular complexes Biatrial enlargement Left axis deviation Left bundle branch block Abnormal ECG
--- NOTE | 2018-12-27 19:23 | NUR ---
NURSE NOTES: Received patient from Carmelina Torres RN. patient is observed resting in bed, AO x4, denies pain at this time. is at bedside. patient is on room air; no s/sx of respiratory distress noted at this time. IV site is patent and intact, asymptomatic. urinal at bedside. bed in lowest position and locked, siderails up X2, call light within reach. will continue to monitor.
--- NOTE | 2018-12-27 19:24 | NUR ---
HAND-OFF: Report given to IDANIA NICE.
[2018-12-27 20:00] VITALS: BP 135/76
--- NOTE | 2018-12-27 23:30 | NUR ---
NURSE NOTES: left message for Dr. Mcleod regarding patient's Mg level. awaiting call back.
[2018-12-28] VITALS: BP 128/90
[2018-12-28] MEDS: HydrALAZINE 25mg tab ORAL SCH ×4 (00:02→17:56)
--- NOTE | 2018-12-28 00:15 | Progress Note ---
DATE: 12/27/2018 CARDIOLOGY PROGRESS NOTE SUBJECTIVE: The patient has shortness of breath. He is unable to lie flat. Tox screen was positive for cocaine. Troponin remains with low range of 0.115. PHYSICAL EXAMINATION: VITAL SIGNS: Blood pressure 129/82, pulse 84, respiratory rate 18. LUNGS: Bilateral rales. LUNGS: Jugular venous pressure elevated. CARDIAC: Regular rhythm and rate. Normal S1, paradoxically split S2. A 1/6 systolic apical murmur. EXTREMITIES: With 1+ edema. LABORATORY AND DIAGNOSTIC DATA: BUN 22, creatinine 1.2. Pro-natriuretic peptide 2127. IMPRESSION: 1. Cocaine abuse. 2. Severe cardiomyopathy. 3. Acute on chronic systolic congestive heart failure. 4. Acute myocardial ischemia. 5. High risk for sudden cardiac . 6. Noncompliance. PLAN: 1. Continue diuresis. 2. Titration of antihypertensive regimen. 3. Replace magnesium. 4. Counseled regarding cocaine use. 5. Cardiac defibrillator can be considered if the patient remains off cocaine for the next several months and compliance with cardiac medication. Stephen Mcleod M.D. DR: Betzaida JOB#: [id number] CC:
[2018-12-28] MEDS: Albuterol/Ipratropium 3ml neb HHN SCH ×5 (01:00→19:00)
[2018-12-28] MEDS ORDERED: Albuterol/Ipratropium 3ml neb ONE (03:01)
[2018-12-28 04:00] VITALS: BP 118/81
--- NOTE | 2018-12-28 07:50 | NUR ---
HAND-OFF: Report given to Carmelina Torres RN. patient is in stable condition.
[2018-12-28 08:00] VITALS: BP 123/67
--- NOTE | 2018-12-28 08:10 | NUR ---
NURSE NOTES: received pt in the bed, awake, alert, oriented, vital signs stable, no co pain, no SOB, skin warm and dry to touch, intact, left arm contracted, ambulatory, bed in low position, call light within reach.
--- NOTE | 2018-12-28 08:34 | Pulmonology Progress Note ---
Assessment/Plan Assessment/Plan IMPRESSION: 1. Acute on chronic systolic congestive heart failure. 2. COPD with paroxysmal bronchospasm. 3. Nicotine dependence. 4. Hypokalemia. 5. Hypertensive heart disease with hypertensive urgency. 6. Medication noncompliance. 7. Acute myocardial ischemia precipitated by malignant range hypertension and hypoperfusion. PLAN: 1. Cardiac monitoring. 2. IV diuretic therapy. 3. Up titration of anti-failure and antihypertensives. 4. Potassium replacement. 5. On Aldactone. 6. Cardiology notes reviewed 7. Counselling against cocaine Subjective Interval Events: Feeling better Constitutional: Reports: no symptoms HEENT: Repors: no symptoms Respiratory: Reports: no symptoms Cardiovascular: Reports: no symptoms Gastrointestinal/Abdominal: Reports: no symptoms Genitourinary: Reports: no symptoms Allergies: Coded Allergies: DIPHENHYDRAMINE (Unverified Allergy, Unknown, 12/18/17) Objective Last 24 Hour Vital Signs Date Time Temp Pulse Resp B/P (MAP) Pulse Ox O2 Delivery O2 Flow Rate FiO2 12/28/18 08:00 Room Air 12/28/18 08:00 97.4 90 18 123/67 (85) 99 12/28/18 06:00 118/81 12/28/18 04:00 64 12/28/18 04:00 Room Air 12/28/18 04:00 97.0 69 20 118/81 (93) 100 12/28/18 03:04 92 18 98 Room Air 21 88 18 95 12/28/18 00:02 128/90 12/28/18 00:00 Room Air 12/28/18 00:00 97.7 90 20 128/90 (103) 100 12/28/18 00:00 78 12/27/18 20:00 Room Air 12/27/18 20:00 91 12/27/18 20:00 96 18 100 Room Air 21 92 18 98 12/27/18 20:00 97.5 83 20 135/76 (95) 98 12/27/18 17:58 121/75 12/27/18 16:00 104 12/27/18 16:00 Room Air 12/27/18 16:00 97.9 62 16 121/75 (90) 99 12/27/18 13:21 81 16 99 Room Air 21 12/27/18 13:12 79 16 93 Room Air 21 9/17/19 12:32 139/98 12/27/18 12:00 68 12/27/18 12:00 98.4 84 16 139/98 (112) 99 12/27/18 12:00 Room Air 12/27/18 09:27 149/93 12/27/18 09:25 86 Intake and Output 12/27/18 12/28/18 19:00 07:00 Intake Total 380 ml 320 ml Output Total 1250 ml Balance -870 ml 320 ml Intake Oral 380 ml 120 ml IV Total 200 ml Output Urine Total 1250 ml # Voids 2 # Bowel Movements 2 General Appearance: no acute distress HEENT: normocephalic Respiratory/Chest: chest wall non-tender, lungs clear Cardiovascular: normal peripheral pulses, normal rate Abdomen: normal bowel sounds, soft, non tender Laboratory Tests 12/27/18 10:50: Troponin I 0.115H Current Medications Medications (Trade) Dose Ordered Sig/Stephenie Route PRN Reason Start Time Stop Time Status Last Admin Dose Admin Albuterol/ Ipratropium (Albuterol/ Ipratropium) 3 ml Q6HRT HHN 12/26/18 19:00 12/31/18 18:59 12/28/18 03:04 Aspirin (Ecotrin) 81 mg DAILY ORAL 12/27/18 09:00 01/26/19 08:59 12/27/18 09:28 Furosemide (Lasix) 40 mg DAILY IV 12/26/18 17:45 01/25/19 17:44 12/27/18 09:27 Hydralazine HCl (Apresoline) 25 mg Q6HR ORAL 12/26/18 18:00 01/25/19 17:59 12/28/18 06:00 Lisinopril (Prinivil) 20 mg DAILY ORAL 12/27/18 09:00 01/26/19 08:59 12/27/18 09:27 Nicotine (Nicoderm) 1 patch Q24H TDERMAL 12/26/18 18:30 01/25/19 18:29 12/27/18 17:58 Potassium Chloride (K-Dur) 20 meq DAILY ORAL 12/26/18 17:45 01/25/19 17:44 12/27/18 09:28 Spironolactone (Aldactone) 25 mg DAILY ORAL 12/27/18 09:00 01/26/19 08:59 12/27/18 09:28 Isaiah Mccauley MD Dec 28, 2018 08:34
[2018-12-28] MEDS: Spironolactone 25mg tab ORAL SCH (08:42)
[2018-12-28] MEDS: Lisinopril 20mg tab ORAL SCH (08:42)
[2018-12-28] MEDS: Aspirin EC 81mg tab ORAL SCH (08:42)
[2018-12-28] MEDS ORDERED: Albuterol/Ipratropium 3ml neb HHN PRN (11:00)
[2018-12-28 11:46] VITALS: BP 126/80
--- NOTE | 2018-12-28 12:00 | NUR ---
NURSE NOTES: vital signs stable, no co pain, no SOB, continue monitoring.
--- NOTE | 2018-12-28 15:15 | NUR ---
CASE MANAGEMENT:REVIEW 12/28/18 SI: AC/CHR CHF. COPD. AMI 97.2 83 20 126/80 100% ON RA IS: LISINOPRIL PO QD ALDACTONE PO QD ASA PO QD DUONEB HHN Q6HRS RTC HYDRALAZINE PO Q6HRS IV LASIX QD K-DUR PO QD : STEP DOWN UNIT....TRANSFER TO TELEMETRY
[2018-12-28 15:54] VITALS: BP 111/77
--- NOTE | 2018-12-28 16:45 | NUR ---
*-* INSURANCE *-* ALL AVAILABLE CLINICALS HAVE BEEN FAXED TO: [facility] Dye Tub Tender: Concepcion REF# [id number]
--- NOTE | 2018-12-28 19:15 | NUR ---
HAND-OFF: Report given to IDANIA NICE, no distress noted..
--- NOTE | 2018-12-28 19:20 | NUR ---
NURSE NOTES: Received patient from Carmelina Torres RN and Shira RN. patient is observed resting in bed, AO X4, denies pain at this time. patient is on room air; no s/sx of respiratory distress noted at this time. IV site is patent and intact, asymptomatic. bed in lowest position, brakes engaged, siderails up X2, call light within reach. will continue to monitor.
[2018-12-28 20:00] VITALS: BP 118/57
[2018-12-29] VITALS: BP 120/76
[2018-12-29] MEDS: HydrALAZINE 25mg tab ORAL SCH ×5 (00:12→23:39)
[2018-12-29] MEDS: Albuterol/Ipratropium 3ml neb HHN SCH ×4 (01:15→19:17)
--- NOTE | 2018-12-29 02:15 | Progress Note ---
DATE: 12/28/2018 CARDIOLOGY PROGRESS NOTE SUBJECTIVE: The patient still short of breath. No chest pain. OBJECTIVE: VITAL SIGNS: Blood pressure 123/67, pulse 90, and respiratory rate 18. LUNGS: Bilateral rales, few rhonchi. CARDIAC: Regular rhythm and rate. Normal S1 and S2. A 1/6 systolic apical murmur. ABDOMEN: Soft. EXTREMITIES: 1+ edema. IMPRESSION: 1. Acute on chronic systolic congestive heart failure. 2. Severe cardiomyopathy. 3. Nicotine dependence. 4. Cocaine abuse. 5. Hypokalemia. 6. Hypertensive heart disease. 7. Hypertensive urgency, resolved. 8. Medication noncompliance. 9. Acute myocardial ischemia, resolved. PLAN: 1. Counseling again for cocaine use and made aware of high risk of sudden cardiac with cocaine and severe cardiomyopathy. 2. Replace electrolytes. 3. Adjust anti-failure regimen. 4. Transition had been excellent ____ oral diuretics for outpatient management. Stephen Mcleod M.D. DR: RAY JOB#: [id number] CC:
[2018-12-29 04:00] VITALS: BP 115/73
--- NOTE | 2018-12-29 07:44 | NUR ---
HAND-OFF: Report given to TEX Espinal. patient is in stable condition.
--- NOTE | 2018-12-29 07:46 | NUR ---
NURSE NOTES: Patient received lying in bed, awake, alert, on room air. Not in any form of distress. Breathing even and unlabored. No complains of pain at this time. Right forearm peripheral IV, saline lock, asymptomatic. Sinus Tachycardia rate of low 100s on the monitor. Bed kept at lowest position. Call light placed within reach. Will continue to monitor.
[2018-12-29 08:00] VITALS: BP 114/64
--- NOTE | 2018-12-29 08:00 | Pulmonology Progress Note ---
Assessment/Plan Assessment/Plan IMPRESSION: 1. Acute on chronic systolic congestive heart failure. 2. COPD with paroxysmal bronchospasm. 3. Nicotine dependence. 4. Hypokalemia. 5. Hypertensive heart disease with hypertensive urgency. 6. Medication noncompliance. 7. Acute myocardial ischemia precipitated by malignant range hypertension and hypoperfusion. PLAN: 1. Cardiac monitoring. 2. IV diuretic therapy. 3. Up titration of anti-failure and antihypertensives. 4. Potassium replacement. 5. On Aldactone. 6. Cardiology notes reviewed 7. Counselling against cocaine DC planning for home in AM Subjective Interval Events: None new Constitutional: Reports: no symptoms HEENT: Repors: no symptoms Respiratory: Reports: no symptoms Allergies: Coded Allergies: DIPHENHYDRAMINE (Unverified Allergy, Unknown, 12/18/17) Objective Last 24 Hour Vital Signs Date Time Temp Pulse Resp B/P (MAP) Pulse Ox O2 Delivery O2 Flow Rate FiO2 12/29/18 07:47 95 18 100 Room Air 21 94 18 97 12/29/18 05:50 92 18 100 Room Air 21 97 16 98 12/29/18 05:39 115/73 12/29/18 04:00 Room Air 12/29/18 04:00 97.8 85 20 115/73 (87) 97 12/29/18 03:23 86 12/29/18 01:15 89 18 100 Room Air 21 89 16 97 12/29/18 00:12 120/76 12/29/18 00:00 Room Air 12/29/18 00:00 97.3 82 20 120/76 (91) 99 12/29/18 00:00 72 12/28/18 20:00 Room Air 12/28/18 20:00 91 12/28/18 20:00 97.8 65 20 118/57 (77) 98 12/28/18 19:00 87 18 100 Room Air 21 86 16 96 12/28/18 17:56 129/92 12/28/18 16:00 Room Air 12/28/18 15:54 97.3 95 18 111/77 (88) 97 12/28/18 15:25 75 12/28/18 12:32 126/80 12/28/18 12:00 Room Air 12/28/18 12:00 98 12/28/18 11:46 97.2 83 20 126/80 (95) 100 12/28/18 11:07 81 22 100 Room Air 21 87 16 96 12/28/18 08:42 123/67 12/28/18 08:00 Room Air 12/28/18 08:00 97.4 90 18 123/67 (85) 99 Intake and Output 12/28/18 12/29/18 19:00 07:00 Intake Total 400 ml 120 ml Output Total 450 ml Balance -50 ml 120 ml Intake Oral 400 ml 120 ml Output Urine Total 450 ml # Voids 2 5 General Appearance: no acute distress HEENT: normocephalic Respiratory/Chest: chest wall non-tender, lungs clear Cardiovascular: normal peripheral pulses, normal rate Current Medications Medications (Trade) Dose Ordered Sig/Stephenie Route PRN Reason Start Time Stop Time Status Last Admin Dose Admin Albuterol/ Ipratropium (Albuterol/ Ipratropium) 3 ml Q6H PRN HHN Shortness of Breath 12/28/18 11:00 01/02/19 10:59 12/29/18 05:49 Albuterol/ Ipratropium (Albuterol/ Ipratropium) 3 ml Q6HRT HHN 12/26/18 19:00 12/31/18 18:59 12/29/18 07:47 Aspirin (Ecotrin) 81 mg DAILY ORAL 12/27/18 09:00 01/26/19 08:59 12/28/18 08:42 Furosemide (Lasix) 40 mg DAILY IV 12/26/18 17:45 01/25/19 17:44 12/27/18 09:27 Hydralazine HCl (Apresoline) 25 mg Q6HR ORAL 12/26/18 18:00 01/25/19 17:59 12/29/18 05:39 Lisinopril (Prinivil) 20 mg DAILY ORAL 12/27/18 09:00 01/26/19 08:59 12/28/18 08:42 Nicotine (Nicoderm) 1 patch Q24H TDERMAL 12/26/18 18:30 01/25/19 18:29 12/28/18 17:56 Potassium Chloride (K-Dur) 20 meq DAILY ORAL 12/26/18 17:45 01/25/19 17:44 12/28/18 08:43 Spironolactone (Aldactone) 25 mg DAILY ORAL 12/27/18 09:00 01/26/19 08:59 12/28/18 08:42 Isaiah Mccauley MD Dec 29, 2018 08:00
[2018-12-29] MEDS: Lisinopril 20mg tab ORAL SCH (09:33)
[2018-12-29] MEDS: Aspirin EC 81mg tab ORAL SCH (09:34)
[2018-12-29] MEDS: Spironolactone 25mg tab ORAL SCH (09:34)
[2018-12-29 11:54] VITALS: BP 101/49
--- NOTE | 2018-12-29 12:00 | NUR ---
NURSE NOTES: Blood pressure medication hydralazine held due to decreasing BP.
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
--- NOTE | 2018-12-29 12:30 | NUR ---
HAND-OFF: Report given to TEX Hinojosa,patient stable on bed eating lunch.
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
--- NOTE | 2018-12-29 13:14 | NUR ---
CASE MANAGEMENT:REVIEW 12/29/18 SI:AC.CHR CHF. COPD. AMI 98.6 89 18 101/49 98% ON RA IS: LISINOPRIL PO QD ALDACTONE PO QD ASA PO QD DUONEB HHN Q6HRS HYDRALAZINE PO Q6HRS IV LASIX QD K-DUR PO QD : DOWNGRADE TO TELEMETRY DCP: FROM HOME PLAN: COUNSELING AGAINST COCAINE
[2018-12-29] MEDS ORDERED: Albuterol/Ipratropium 3ml neb HHN PRN (14:00)
--- NOTE | 2018-12-29 15:22 | NUR ---
*-* INSURANCE *-* ALL AVAILABLE CLINICALS HAVE BEEN FAXED TO: [facility] Field Superintendent: Concepcion REF# [id number]
[2018-12-29 16:00] VITALS: BP 93/63
--- NOTE | 2018-12-29 19:58 | NUR ---
HAND-OFF: Report given to Lorenzo/TEX, Patient is in stable condition. Endorsed plan of care.
--- NOTE | 2018-12-29 19:59 | NUR ---
NURSE NOTES: Got report from Micaela RN. Pt in stable condition. Denies any pain. No s/s of distress or discomfort noted. Pt resting in bed comfortably. Bed in low and locked position, call light within reach, bedside table within reach. Continue to monitor.
[2018-12-29 20:00] VITALS: BP 101/67
[2018-12-30] VITALS: BP 101/71
[2018-12-30] MEDS: Albuterol/Ipratropium 3ml neb HHN SCH ×3 (01:04→13:02)
[2018-12-30 04:00] VITALS: BP 101/55
[2018-12-30] MEDS: HydrALAZINE 25mg tab ORAL SCH ×2 (05:42→12:00)
--- NOTE | 2018-12-30 07:00 | NUR ---
HAND-OFF: Report given to Micaela RN. Endorsed plan of care.
--- NOTE | 2018-12-30 07:05 | NUR ---
NURSE NOTES: Received report from Lorenzo/RN, Patient is asleep, Lying semi-rand's, resting comfortably. On room air, no acute distress/SOB noted. IV patent, no bleeding or infiltration noted. Bed in low position and locked, Call light within reach. Will continue plan of care.
[2018-12-30 08:00] VITALS: BP 108/68
[2018-12-30] MEDS ORDERED: Lisinopril 20mg tab ORAL SCH (09:00)
[2018-12-30] MEDS ORDERED: Spironolactone 25mg tab ORAL SCH (09:00)
[2018-12-30] MEDS ORDERED: Aspirin EC 81mg tab ORAL SCH (09:00)
[2018-12-30] MEDS ORDERED: Tubing IV Secondary IV ONE (10:33)
[2018-12-30] MEDS ORDERED: NS 275ml ONE (10:33)
--- NOTE | 2018-12-30 11:34 | NUR ---
*-* INSURANCE *-* UPDATED CLINICALS HAVE BEEN FAXED TO: [facility] Dyslexia Teacher: Conecpcion REF# [id number]
[2018-12-30 12:00] VITALS: BP 112/66
--- NOTE | 2018-12-30 13:18 | NUR ---
CASE MANAGEMENT:REVIEW 12/30/18 SI:AC.CHR CHF. COPD. AMI (+) COCAINE 97.5 88 20 112/66 96% ON RA IS: LISINOPRIL PO QD ALDACTONE PO QD ASA PO QD DUONEB HHN Q6HRS HYDRALAZINE PO Q6HRS IV LASIX QD K-DUR PO QD : DOWNGRADE TO TELEMETRY DCP: FROM HOME
--- NOTE | 2018-12-30 13:48 | Pulmonology Progress Note ---
Assessment/Plan Assessment/Plan IMPRESSION: 1. Acute on chronic systolic congestive heart failure. 2. COPD with paroxysmal bronchospasm. 3. Nicotine dependence. 4. Hypokalemia. 5. Hypertensive heart disease with hypertensive urgency. 6. Medication noncompliance. 7. Acute myocardial ischemia precipitated by malignant range hypertension and hypoperfusion. PLAN: 1. Cardiac monitoring. 2. IV diuretic therapy. 3. Up titration of anti-failure and antihypertensives. 4. Potassium replacement. 5. On Aldactone. 6. Cardiology notes reviewed 7. Counselling against cocaine DC home Subjective Interval Events: None new Constitutional: Reports: no symptoms HEENT: Repors: no symptoms Respiratory: Reports: no symptoms Cardiovascular: Reports: no symptoms Gastrointestinal/Abdominal: Reports: no symptoms Genitourinary: Reports: no symptoms Allergies: Coded Allergies: DIPHENHYDRAMINE (Unverified Allergy, Unknown, 12/18/17) Objective Last 24 Hour Vital Signs Date Time Temp Pulse Resp B/P (MAP) Pulse Ox O2 Delivery O2 Flow Rate FiO2 12/30/18 13:02 81 18 100 Room Air 21 82 18 99 12/30/18 12:00 Room Air 12/30/18 12:00 91 12/30/18 12:00 112/66 12/30/18 12:00 97.5 88 20 112/66 (81) 96 12/30/18 10:00 108/68 12/30/18 09:00 Room Air 12/30/18 08:00 91 12/30/18 08:00 97.7 60 18 108/68 (81) 91 12/30/18 07:10 83 18 100 Room Air 21 80 18 98 12/30/18 05:42 101/55 12/30/18 04:10 Room Air 12/30/18 04:00 83 12/30/18 04:00 98.1 77 20 101/55 (70) 97 12/30/18 01:04 88 18 100 Room Air 21 87 18 96 12/30/18 00:01 Room Air 12/30/18 00:00 90 12/30/18 00:00 98.0 92 20 101/71 (81) 96 12/29/18 23:39 101/67 12/29/18 20:00 97.8 98 20 101/67 (78) 96 12/29/18 20:00 Room Air 12/29/18 20:00 92 12/29/18 19:18 79 18 99 Room Air 21 76 18 96 12/29/18 18:00 93/63 12/29/18 16:00 84 12/29/18 16:00 Room Air 12/29/18 16:00 98.2 88 20 93/63 (73) 98 Intake and Output 12/29/18 12/30/18 19:00 07:00 Intake Total 140 ml 120 ml Output Total 1400 ml Balance -1260 ml 120 ml Intake Oral 140 ml 120 ml Output Urine Total 1400 ml # Voids 5 3 General Appearance: no acute distress HEENT: normocephalic Respiratory/Chest: chest wall non-tender Cardiovascular: normal peripheral pulses Abdomen: normal bowel sounds Current Medications Medications (Trade) Dose Ordered Sig/Stephenie Route PRN Reason Start Time Stop Time Status Last Admin Dose Admin Albuterol/ Ipratropium (Albuterol/ Ipratropium) 3 ml Q6H PRN N Shortness of Breath 12/29/18 14:00 01/02/19 13:59 Albuterol/ Ipratropium (Albuterol/ Ipratropium) 3 ml Q6HRT HHN 12/29/18 19:00 12/31/18 18:59 12/30/18 13:02 Aspirin (Ecotrin) 81 mg DAILY ORAL 12/30/18 09:00 01/26/19 08:59 12/30/18 10:02 Furosemide (Lasix) 40 mg DAILY IV 12/30/18 09:00 01/25/19 17:44 12/30/18 10:02 Hydralazine HCl (Apresoline) 25 mg Q6HR ORAL 12/29/18 18:00 01/25/19 17:59 Lisinopril (Prinivil) 20 mg DAILY ORAL 12/30/18 09:00 01/26/19 08:59 Nicotine (Nicoderm) 1 patch Q24H TDERMAL 12/29/18 18:30 01/25/19 18:29 12/29/18 18:14 Potassium Chloride (K-Dur) 20 meq DAILY ORAL 12/30/18 09:00 01/25/19 17:44 12/30/18 10:02 Spironolactone (Aldactone) 25 mg DAILY ORAL 12/30/18 09:00 01/26/19 08:59 12/30/18 10:02 Isaiah Mccauley MD Dec 30, 2018 13:48
--- NOTE | 2018-12-30 14:50 | NUR ---
*-* INSURANCE *-* UPDATED CLINICALS HAVE BEEN FAXED TO: [facility] Past Due Accounts Clerk: Concepcion REF# [id number]
--- NOTE | 2018-12-30 15:50 | NUR ---
NURSE NOTES: Discharge Instruction given, Patient verbalized understanding. Medication and Belonging given to patient, Verbalized the dose, Side effect and regimen of medication. Explained the importance of following up with his primary doctor. javascript web developer and IV removed, No bleeding, or distress noted. Patient is in stable condition, signed all paper work and Escorted downstairs. Patient left with family member via private vehicle.
--- NOTE | 2018-12-31 16:21 | Cardiology Report ---
APPROVED REPORT EKG Measurement Heart [id number] Sinus rhythm with sinus arrhythmia with occasional premature ventricular complexes Biatrial enlargement Left bundle branch block Abnormal ECG
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
--- NOTE | 2019-01-02 11:38 | NUR ---
*-* INSURANCE *-* DISCAHRGE SUMMARY HAS BEEN FAXED TO: [facility] [employer] Machine Operator: Concepcion REF# [id number]
== END 2018-12-30 15:50 | disposition home or self-care (01) | DRG 194 ==
LOC: EMR 12:16 → 2W 12:55 → EDBEDREQ 13:16 → EDBEDREQSVC 13:16 → EDBEDREQ 14:02 → 2E 12-29 12:26
DX: I11.0 Hypertensive heart disease with heart failure (principal); F14.10 Cocaine abuse, uncomplicated; J44.9 Chronic obstructive pulmonary disease, unspecified; I50.23 Acute on chronic systolic (congestive) heart failure; I51.3 Intracardiac thrombosis, not elsewhere classified; F17.200 Nicotine dependence, unspecified, uncomplicated; E87.6 Hypokalemia; I16.0 Hypertensive urgency; Z91.14 Patient's other noncompliance with medication regimen; G62.9 Polyneuropathy, unspecified; J98.01 Acute bronchospasm; Z88.8 Allergy status to other drugs, medicaments and biological substances; G83.24 Monoplegia of upper limb affecting left nondominant side; W34.00XS Accidental discharge from unspecified firearms or gun, sequela; I42.9 Cardiomyopathy, unspecified
CPT/HCPCS: 36415; 71045; 80053; 80307; 82550; 82553; 83690; 83735; 83880; 84443; 84484; 85025; 93005; 93306; 94640; 96374; 99291; J7620; J8499

== ENCOUNTER 2019-02-13 04:53 | Inpatient (IN) | payer OTHER ==
[2019-02-13] VITALS (7 sets, daily range): BP systolic 132–156; BP diastolic 88–112
[~2019-02-13] VITALS: Ht 167.6 cm; Wt 60.0 kg
[2019-02-13] MEDS ORDERED: Dexamethasone 4mg/ml vial IVP ONE (05:15)
--- NOTE | 2019-02-13 05:15 | NUR ---
ED Nurse Note: Recieved pt BIBA from home with c/o sob with COPD, pt is awake, alert and oriented x 4, has mild sob noted at rest and unable to complete sentences, pt denies CP or any pain, immediately gowned and placed on cardiac monitoring, IV line and labs done also, pt resting quietly in bed, will continue to closely monitor.
[2019-02-13] MEDS: Albuterol ud Inhalation HHN SCH ×3 (05:20→05:45)
[2019-02-13] MEDS: Ipratropium 0.02% Inh Soln 2.5ml UD HHN SCH ×3 (05:20→05:45)
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
[2019-02-13 05:39] LABS: BASOPHILS % (AUTO) 1.2 % (0.0-2.0); EOSINOPHILS % (AUTO) 13.8 % (0.0-3.0); HEMATOCRIT 44.6 % (42.0-52.0); HEMOGLOBIN 14.7 G/DL (14.2-18.0); LYMPHOCYTES % (AUTO) 28.7 % (20.0-45.0); MEAN CORPUSCULAR VOLUME 93 FL (80-99); MONOCYTES % (AUTO) 12.3 % (1.0-10.0); NEUTROPHILS % (AUTO) 44.1 % (45.0-75.0); PLATELET COUNT 148 K/UL (150-450); RED BLOOD COUNT 4.78 M/UL (4.70-6.10); RED CELL DISTRIBUTION WIDTH 12.7 % (11.6-14.8); WHITE BLOOD COUNT 4.8 K/UL (4.8-10.8)
[2019-02-13 05:50] LABS: ANION GAP 8 mmol/L (5-15); BLOOD UREA NITROGEN 20 mg/dL (7-18); CALCIUM 8.7 MG/DL (8.5-10.1); CARBON DIOXIDE 28 MMOL/L (21-32); CHLORIDE 107 MMOL/L (98-107); CREATININE 1.8 MG/DL (0.55-1.30); POTASSIUM 3.6 MMOL/L (3.5-5.1); SODIUM 143 MMOL/L (136-145)
[2019-02-13 05:55] LABS: ALANINE AMINOTRANSFERASE 57 U/L (12-78); ALBUMIN 3.3 G/DL (3.4-5.0); ALBUMIN/GLOBULIN RATIO 1.1 (1.0-2.7); ALKALINE PHOSPHATASE 65 U/L (46-116); ASPARTATE AMINO TRANSFERASE 82 U/L (15-37); BILIRUBIN,TOTAL 0.5 MG/DL (0.2-1.0)
[2019-02-13] MEDS ORDERED: Azithromycin 250mg tab ORAL ONE (06:15)
[2019-02-13] MEDS ORDERED: Enoxaparin 60mg Inj SUBQ ONE (06:15)
[2019-02-13] MEDS ORDERED: cefTRIAXone 1 GM in NS 55 ML IVPB ONE (06:15)
--- NOTE | 2019-02-13 06:30 | NUR ---
ED Nurse Note: Pt being admitted to hospital, troponin levels elevated, denies pain, no CP, sob has gotten better, o2 vrz=720, pt meds given, being prepared for admission, pt sitting on side of bed due to breathing effort better, remains on cardiac monitoring, no changes, MD explained diagnosis to pt and reason for SOB, pt very anxious.
--- NOTE | 2019-02-13 07:14 | NUR ---
HAND-OFF: Report given to TEX Armstrong .
[2019-02-13] MEDS ORDERED: Miralax 17gm pkt ORAL PRN (07:15)
[2019-02-13] MEDS ORDERED: Promethazine/Codeine 5ml UD ORAL PRN (07:15)
--- NOTE | 2019-02-13 07:25 | NUR ---
ED Nurse Note: pt c/o difficulty to breath. RT notified for PRN breathing treatment.
--- NOTE | 2019-02-13 07:33 | NUR ---
ED Nurse Note: breathing treatment being done at bedside.
[2019-02-13] MEDS: Albuterol/Ipratropium 3ml neb HHN PRN ×4 (07:34→15:53)
--- NOTE | 2019-02-13 08:00 | NUR ---
ED Nurse Note: US initiated at bedside.
--- NOTE | 2019-02-13 09:17 | NUR ---
ED Nurse Note: DR Farmer at bedside assessing pt.
[2019-02-13] MEDS: Heparin 5000 units/ml inj SUBQ SCH ×2 (09:20→21:00)
--- NOTE | 2019-02-13 10:02 | NUR ---
ED Nurse Note: pt still c/o SOB. RT notified and breathing treatment given.
--- NOTE | 2019-02-13 10:05 | NUR ---
ED Nurse Note: vascular US initiating at bedside.
--- NOTE | 2019-02-13 11:03 | NUR ---
ED Nurse Note: REPORT GIVEN TO TEX PEARSON BY SACHIN DANGELO RN
--- NOTE | 2019-02-13 11:15 | NUR ---
ED Nurse Note: transfer the pt to floor via gurney with diagnostic cardiac sonographer, accompanied by 2 RNs. Pt remined stable at this time.
--- NOTE | 2019-02-13 11:40 | NUR ---
NURSE NOTES: Received report from TEX Morocho @ ER. The patient's spouse, Mahogany, at the bedside to support the patient. The patient is stable without acute distress or shortness of breath. The patient's bed in the lowest position, call light in reach, and fall and aspiration precaution reinforced. IV site intact and patent. The patient's skin is intact. The patient's belongings checked with the patient and TEX Morocho including florez and singed by two nurses. At ER, home medication reconciliation, EKG, and belonging checked completed. At the bedside, the patient's medical, surgical, social, and allergy history taken by the primary nurse via the patient's self report. Per patient, he does not have POLST or advance directive. The patient's vital signs were as follows: blood pressure 147/98, pulse 103, temperature 97.0F, and SpO2 99% in room air. Dr. Sarabia and Dr. Farmer already put admission orders. The patient is stable without acute distress or shortness of breath. Will continue plan of care.
[2019-02-13] MEDS: Theophylline ER 100mg ORAL SCH ×2 (11:53→22:37)
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
--- NOTE | 2019-02-13 12:30 | NUR ---
NURSE NOTES: Notified Dr. Sarabia regarding abnormal labs and initial vital signs. Notified Dr. Sarabia regarding abnormal platelet, BUN, Cr, AST, and elevated Troponin level. No new order but just monitoring per Dr. Sarabia. The patient is on room air and SpO2 98-98%. Will continue plan of care.
--- NOTE | 2019-02-13 12:55 | Diagnostic Imaging Report ---
Indication: Dyspnea Comparison: 12/26/2018 A single view chest radiograph was obtained. Findings: Pulmonary vascular congestion is present with cardiomegaly. Bones are osteopenic. IMPRESSION: Mild CHF
--- NOTE | 2019-02-13 14:49 | NUR ---
NURSE NOTES: The patient is stable without acute distress or shortness of breath. Will continue plan of care.
--- NOTE | 2019-02-13 16:25 | NUR ---
NURSE NOTES: Notified Dr. Sarabia regarding elevated blood pressure and heart rate. No new order yet. Will continue to monitor the patient. Will continue plan of care. Addendum: 02/13/19 at 1844 by Ernesto Robertson RN Notified Dr. Vallecillo regarding elevated blood pressure and heart rate. No new order yet. Will continue plan of care. Will continue to monitor the patient.
--- NOTE | 2019-02-13 17:00 | History and Physical Report ---
DATE OF ADMISSION: 02/13/2019 CONSULTANTS: 1. Matthew Streeter M.D. 2. Jewell Sarabia M.D. 3. Blaine Frankel M.D. CHIEF COMPLAINT: Shortness of breath, COPD, pneumonia, sepsis, and NSTEMI. BRIEF HISTORY: This is a 58-year-old male, who lives at home, presents with shortness of breath x2 days, swelling of legs as well, slight chest pain sharp, intermittent, no loss of consciousness. The patient came to [place] [facility], diagnosed with COPD, pneumonia, sepsis, and NSTEMI and currently slight short of breath, getting pulmonary treatment in the ER, getting in bed shortly. PAST MEDICAL HISTORY: Includes hypertension, COPD, KIMO, and emphysema. PAST SURGICAL HISTORY: None. MEDICATIONS: Furosemide, theophylline, temazepam, albuterol, promethazine, aspirin, ceftriaxone, and azithromycin. ALLERGIES: Diphenhydramine. SOCIAL HISTORY: Positive smoke. Positive alcohol. Positive cocaine use yesterday. PHYSICAL EXAMINATION: GENERAL: Calm in bed, oriented x3, slight short of breath, in no acute distress. VITAL SIGNS: Temperature is 98 degrees, pulse 102, respirations 20, and blood pressure 151/88. CARDIOVASCULAR: No murmurs. LUNGS: Poor air exchange. ABDOMEN: Bowel sounds distant. EXTREMITIES: Show no cyanosis, clubbing, or edema. NEUROLOGIC: The patient moves all extremities, slightly weak. LABORATORY DATA: Labs, at this time, show platelet 148,000, otherwise CBC is normal. BMP show BUN and creatinine are 29 and 1.8. AST 85. Troponin 0.151. Albumin 3.3. PLAN: 1. COPD. 2. Pneumonia. 3. Sepsis. 4. NSTEMI. 5. . 6. Malnutrition. 7. Edema. 8. Shortness of breath. 9. Hypertension. 10. Drug abuse. PLAN: 1. O2 and pulmonary treatment. 2. Antibiotics per Infectious Disease. 3. Troponin q.8 h. x3. 4. EKG in the a.m. 5. Cardiology followup. 6. Detox. 7. Pain control. 8. Nephrology followup. 9. PT and dietary evaluation. 10. CBC and BMP in the morning. Chris Farmer D.O. DR: YUDITH JOB#: [id number] CC:
--- NOTE | 2019-02-13 18:25 | NUR ---
CASE MANAGEMENT: REVIEW 58 Y/O MALE PRESENTED TO ED FROM HOME CC: CHEST PAIN . SOB X1 DAY SI: COPD EXACERBATION . NSTEMI T 97.3 HR 107 RR 16 BP 154/109 SAT 94% ROOM AIR TROP 0.151 IS: NS IVF BOLUS X1 DECADRON IV X1 ATROVENT HHN X1 PROVENTIL HHN X1 AZITHROMYCIN PO X1 CEFTRIAXONE IV X1 ASA 325MG PO X1 PATIENT ADMITTED TO TELEMETRY UNIT 02/13/2019 DCP: PATIENT IS FROM HOME
--- NOTE | 2019-02-13 18:30 | NUR ---
NURSE NOTES: The patient is stable without acute distress or shortness of breath. Will continue plan of care.
--- NOTE | 2019-02-13 19:10 | NUR ---
HAND-OFF: Report given to TEX Ball. The patient is resting on the bed without acute distress or shortness of breath. The patient's bed in the lowest position, call light in reach, and fall and aspiration precaution reinforced. IV site intact and patent. Endorsed plan of care.
--- NOTE | 2019-02-13 19:28 | NUR ---
NURSE NOTES: The patient is stable without acute distress or shortness of breath. The patient's bed in the lowest position, call light in reach, and fall and aspiration precautions reinforced. IV site intact and patent. The patient's skin is intact. Call light within reach will continue to monitor
--- NOTE | 2019-02-13 20:13 | Cardiology Progress Note ---
Assessment/Plan Assessment/Plan 1. Acute on chronic systolic congestive heart failure. 2. Severe cardiomyopathy. 3. Nicotine dependence. 4. Cocaine abuse. 5. Hypokalemia. 6. Hypertensive heart disease. 7. Hypertensive urgency, resolved. 8. Medication noncompliance. 9. Acute renal fialure resume home meds may not be ablet o use acei in setting of renal insu will use norvasc repeat torp he is not alble to provide any info as too drowsey will follow Subjective Cardiovascular: Denies: chest pain Respiratory: Reports: shortness of breath, SOB with excertion Gastrointestinal/Abdominal: Denies: abdominal pain Genitourinary: Denies: burning Objective Last 24 Hour Vital Signs Date Time Temp Pulse Resp B/P (MAP) Pulse Ox O2 Delivery O2 Flow Rate FiO2 02/13/19 16:00 103 02/13/19 16:00 96.3 107 20 141/112 (122) 98 02/13/19 15:54 92 20 99 Room Air 21 89 22 96 02/13/19 13:32 103 26 100 Room Air 21 99 24 97 02/13/19 12:13 Room Air 02/13/19 12:00 102 02/13/19 11:30 97.0 103 20 147/98 (114) 99 02/13/19 11:15 98.0 100 22 136/80 100 Room Air 02/13/19 10:51 98.8 102 28 153/99 100 Room Air 02/13/19 09:31 104 28 100 Room Air 21 106 30 100 02/13/19 07:34 102 20 100 Room Air 21 97 22 97 02/13/19 06:00 98.8 82 20 151/88 98 Room Air 21 02/13/19 05:40 92 19 100 Room Air 21 94 14 100 02/13/19 05:20 89 20 100 Room Air 21 85 19 99 02/13/19 05:15 102 16 Room Air 02/13/19 04:54 97.3 102 16 154/109 (124) 94 Room Air General Appearance: no apparent distress, other - drowsey Neck: supple Cardiovascular: normal rate Respiratory/Chest: crackles/rales - left base Abdomen: normal bowel sounds, non tender, soft Extremities: trace edema Laboratory Tests Test 02/13/19 05:15 White Blood Count 4.8 K/UL (4.8-10.8) Red Blood Count 4.78 M/UL (4.70-6.10) Hemoglobin 14.7 G/DL (14.2-18.0) Hematocrit 44.6 % (42.0-52.0) Mean Corpuscular Volume 93 FL (80-99) Mean Corpuscular Hemoglobin 30.7 PG (27.0-31.0) Mean Corpuscular Hemoglobin Concent 32.9 G/DL (32.0-36.0) Red Cell Distribution Width 12.7 % (11.6-14.8) Platelet Count 148 K/UL (150-450) L Mean Platelet Volume 8.7 FL (6.5-10.1) Neutrophils (%) (Auto) 44.1 % (45.0-75.0) L Lymphocytes (%) (Auto) 28.7 % (20.0-45.0) Monocytes (%) (Auto) 12.3 % (1.0-10.0) H Eosinophils (%) (Auto) 13.8 % (0.0-3.0) H Basophils (%) (Auto) 1.2 % (0.0-2.0) Sodium Level 143 MMOL/L (136-145) Potassium Level 3.6 MMOL/L (3.5-5.1) Chloride Level 107 MMOL/L (98-107) Carbon Dioxide Level 28 MMOL/L (21-32) Anion Gap 8 mmol/L (5-15) Blood Urea Nitrogen 20 mg/dL (7-18) H Creatinine 1.8 MG/DL (0.55-1.30) H Estimat Glomerular Filtration Rate 47.1 mL/min (>60) Glucose Level 134 MG/DL (74-106) H Calcium Level 8.7 MG/DL (8.5-10.1) Total Bilirubin 0.5 MG/DL (0.2-1.0) Aspartate Amino Transf (AST/SGOT) 82 U/L (15-37) H Alanine Aminotransferase (ALT/SGPT) 57 U/L (12-78) Alkaline Phosphatase 65 U/L (46-116) Troponin I 0.151 ng/mL (0.000-0.056) Total Protein 6.2 G/DL (6.4-8.2) L Albumin 3.3 G/DL (3.4-5.0) L Globulin 2.9 g/dL Albumin/Globulin Ratio 1.1 (1.0-2.7) Matthew Streeter MD Feb 13, 2019 20:13
[2019-02-14] VITALS: BP 128/72
--- NOTE | 2019-02-14 07:22 | Cardiology Report ---
APPROVED REPORT EKG Measurement Heart [id number] Sinus rhythm with premature atrial complexes with aberrant conduction Left atrial enlargement Left axis deviation Left bundle branch block Abnormal ECG
--- NOTE | 2019-02-14 07:29 | NUR ---
HAND-OFF: Report given to TEX Villareal.
--- NOTE | 2019-02-14 07:30 | NUR ---
NURSE NOTES: I received the patient awake and resting in bed. Patient alert and oriented x4. Bed in the lowest position and call light within reach. Patient ambulated to the bathroom. Patient does not display any signs of distress or SOB. I will continue to monitor the patient and implement care.
--- NOTE | 2019-02-14 07:54 | Cardiology Report ---
APPROVED REPORT EXAM: Two-dimensional and M-mode echocardiogram with Doppler and color Doppler. INDICATION LV function. M-Mode DIMENSIONS IVSd1.1 (0.7-1.1cm)Left Atrium (MM)3.5 (1.6-4.0cm) LVDd5.8 (3.5-5.6cm)Aortic Root2.3 (2.0-3.7cm) PWd0.8 (0.7-1.1cm)Aortic Cusp Exc.1.6 (1.5-2.0cm) LVDs5.1 (2.5-4.0cm) PWs1.0 cm Moderate to severe left ventricular enlargement. Severe global LV hypokinesia except posteriorwall and basal lateral wall which demonstrate normal wall motion. Ischemic cardiomyopathy cannot be excluded. Left ventricular ejection fraction is estimated to be 10-15%. Anterior Echo-free space, may be due to pericardial fat or effusion. Moderate left atrial enlargement. Right atrial chamber size is within normal limits. Mild right ventricular enlargement with reduced RV systolic function. Focal aortic valve sclerosis with adequate cusp excursion. Thickened mitral valve leaflets with normal excursion. Mitral annulus and aortic root calcification. Pulmonic valve not well visualized. Normal tricuspid valve structure. IVC dilated at 2.4 cm without physiologic collapse suggestive of increased RA pressure. A color flow and spectral Doppler study was performed and revealed: Mild aortic regurgitation. Severe mitral regurgitation. Mitral inflow indicates restrictive pattern, implying severely elevated left atrial pressure (Grade III ). Mild to moderate tricuspid regurgitation. Tricuspid systolic velocities suggests peak right ventricular systolic pressure of 59 mmHg, consistent with moderate to severe pulmonary hypertension. Pulmonic regurgitation present.
[2019-02-14 08:00] VITALS: BP 128/83
[2019-02-14] MEDS: Azithromycin 250mg tab ORAL SCH (08:39)
[2019-02-14] MEDS: Theophylline ER 100mg ORAL SCH ×2 (08:39→21:18)
[2019-02-14] MEDS: Heparin 5000 units/ml inj SUBQ SCH ×2 (08:42→21:00)
[2019-02-14 08:44] LABS: BASOPHILS % (AUTO) 1.1 % (0.0-2.0); EOSINOPHILS % (AUTO) 4.6 % (0.0-3.0); HEMATOCRIT 45.8 % (42.0-52.0); HEMOGLOBIN 15.2 G/DL (14.2-18.0); MEAN CORPUSCULAR VOLUME 93 FL (80-99); MONOCYTES % (AUTO) 11.1 % (1.0-10.0); NEUTROPHILS % (AUTO) 58.3 % (45.0-75.0); PLATELET COUNT 179 K/UL (150-450); RED BLOOD COUNT 4.91 M/UL (4.70-6.10); RED CELL DISTRIBUTION WIDTH 12.8 % (11.6-14.8); WHITE BLOOD COUNT 5.7 K/UL (4.8-10.8)
[2019-02-14 09:02] LABS: ALBUMIN 3.5 G/DL (3.4-5.0); ANION GAP 9 mmol/L (5-15); BLOOD UREA NITROGEN 25 mg/dL (7-18); CALCIUM 9.1 MG/DL (8.5-10.1); CARBON DIOXIDE 30 MMOL/L (21-32); CHLORIDE 101 MMOL/L (98-107); CREATININE 1.5 MG/DL (0.55-1.30); PHOSPHORUS 4.1 MG/DL (2.5-4.9); SODIUM 140 MMOL/L (136-145)
--- NOTE | 2019-02-14 10:24 | NUR ---
*-* NO INSURANCE INFORMATION IN THE BAR UNABLE TO SEND CLINICALS OR REVIEWS *-*
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
--- NOTE | 2019-02-14 11:33 | NUR ---
P.T Note: P.T evaluation completed. Pt is baseline independent in all areas of ADL/functional mobilities and gait/locomotion. Pt's current functional status does not warrant skilled P.T service at this time. Pt encouraged OOB activities VS bedrest during stay unless otherwise indicated/ordered to prevent deconditioning. Pt verbalized understanding. D/C P.T services. Thank you for this referral.
[2019-02-14 12:00] VITALS: BP 125/88
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
--- NOTE | 2019-02-14 14:22 | Diagnostic Imaging Report ---
APPROVED REPORT CPT Code: 07900 Present Symptoms Shortness of breath BILATERAL: Imaging reveals a patent deep venous system bilaterally. There is no evidence of thrombus within the femoral, popliteal or tibial segments. The greater saphenous veins are also within normal limits. Doppler indicates normal spontaneous flow within these segments.
--- NOTE | 2019-02-14 14:27 | General Progress Note ---
Assessment/Plan Problem List: (1) Pneumonia ICD Codes: J18.9 - Pneumonia, unspecified organism SNOMED: 283947941 (2) COPD exacerbation ICD Codes: J44.1 - COPD exacerbation SNOMED: 134576903 (3) Cocaine abuse ICD Codes: F14.10 - Cocaine abuse, uncomplicated SNOMED: 60922547 (4) HTN (hypertension) ICD Codes: I10 - Essential (primary) hypertension SNOMED: 87070116 (5) Severe protein-calorie malnutrition ICD Codes: E43 - Unspecified severe protein-calorie malnutrition SNOMED: 917499454 (6) Non-ST elevation ME (NSTEMI) ICD Codes: I21.4 - Non-ST elevation (NSTEMI) myocardial infarction SNOMED: 514546327 (7) KIMO (acute kidney injury) ICD Codes: N17.9 - Acute kidney failure, unspecified SNOMED: 80264120, 8410710 Status: unchanged Assessment/Plan: o2 pulm tx abx pt diet eval cbc bmp am Subjective Constitutional: Reports: weakness Allergies: Coded Allergies: DIPHENHYDRAMINE (Unverified Allergy, Unknown, 12/18/17) All Systems: reviewed and negative except above Subjective calm in bed Objective Last 24 Hour Vital Signs Date Time Temp Pulse Resp B/P (MAP) Pulse Ox O2 Delivery O2 Flow Rate FiO2 02/14/19 12:00 97.8 104 18 125/88 (100) 97 02/14/19 11:54 82 02/14/19 09:00 Room Air 02/14/19 08:40 128/83 02/14/19 08:40 86 128/83 02/14/19 08:00 97.0 86 20 128/83 (98) 98 02/14/19 07:46 96 02/14/19 04:00 89 02/14/19 00:00 98.3 87 20 128/72 (90) 96 02/14/19 00:00 90 02/13/19 23:25 97.0 90 24 132/92 (105) 98 02/13/19 22:37 156/100 02/13/19 22:37 103 156/100 02/13/19 22:00 132/92 (105) 02/13/19 21:00 Room Air 02/13/19 20:00 98.1 100 20 156/103 (120) 100 02/13/19 20:00 113 02/13/19 16:00 103 02/13/19 16:00 96.3 107 20 141/112 (122) 98 02/13/19 15:54 92 20 99 Room Air 21 89 22 96 Intake and Output 02/13/19 02/14/19 19:00 07:00 Intake Total 1055 ml Balance 1055 ml Intake Oral 1000 ml IV Total 55 ml # Voids 5 3 # Bowel Movements 1 Laboratory Tests 02/14/19 07:48: White Blood Count 5.7, Red Blood Count 4.91, Hemoglobin 15.2, Hematocrit 45.8, Mean Corpuscular Volume 93, Mean Corpuscular Hemoglobin 31.0, Mean Corpuscular Hemoglobin Concent 33.3, Red Cell Distribution Width 12.8, Platelet Count 179, Mean Platelet Volume 8.9, Neutrophils (%) (Auto) 58.3, Lymphocytes (%) (Auto) 25.0, Monocytes (%) (Auto) 11.1H, Eosinophils (%) (Auto) 4.6H, Basophils (%) ( Auto) 1.1, Sodium Level 140, Potassium Level 3.0L, Chloride Level 101, Carbon Dioxide Level 30, Anion Gap 9, Blood Urea Nitrogen 25H, Creatinine 1.5H, Estimat Glomerular Filtration Rate 58.3, Glucose Level 176H, Calcium Level 9.1, Phosphorus Level 4.1, Troponin I 0.156H, Albumin 3.5 Height (Feet): 5 Height (Inches): 6.00 Weight (Pounds): 130 General Appearance: lethargic EENT: normal ENT inspection Neck: normal alignment Cardiovascular: normal peripheral pulses, normal rate, regular rhythm Respiratory/Chest: chest wall non-tender, lungs clear, normal breath sounds Abdomen: normal bowel sounds, non tender, soft Extremities: normal inspection Edema: no edema noted Arm (L), no edema noted Arm (R), no edema noted Leg (L), no edema noted Leg (R), no edema noted Pedal (L), no edema noted Pedal (R), no edema noted Generalized Neurologic: responsive, motor weakness Skin: normal pigmentation, warm/dry Chris Farmer DO Feb 14, 2019 14:26
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
[2019-02-14 16:00] VITALS: BP 109/76
[2019-02-14] MEDS ORDERED: K-DUR10 ME1 ORAL (17:48)
[2019-02-14 17:58] VITALS: BP 118/79
--- NOTE | 2019-02-14 19:08 | NUR ---
HAND-OFF: Report given to Leonard German RN.
--- NOTE | 2019-02-14 19:20 | NUR ---
NURSE NOTES: Patient received from TEX Villareal alert and oriented x4 with no acute s/s of distress noted. IV site asymptomatic and patent. Bed in lowest position, call light and belongings within reach.
[2019-02-14 20:00] VITALS: BP 138/72
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
[2019-02-14] MEDS: Albuterol/Ipratropium 3ml neb HHN PRN (21:26)
[2019-02-15] VITALS: BP 113/75
[2019-02-15 04:00] VITALS: BP 136/87
[2019-02-15 06:30] LABS: BASOPHILS % (AUTO) 1.6 % (0.0-2.0); EOSINOPHILS % (AUTO) 13.5 % (0.0-3.0); HEMATOCRIT 49.9 % (42.0-52.0); HEMOGLOBIN 16.7 G/DL (14.2-18.0); LYMPHOCYTES % (AUTO) 36.7 % (20.0-45.0); MEAN CORPUSCULAR VOLUME 93 FL (80-99); NEUTROPHILS % (AUTO) 37.2 % (45.0-75.0); PLATELET COUNT 186 K/UL (150-450); RED BLOOD COUNT 5.36 M/UL (4.70-6.10); RED CELL DISTRIBUTION WIDTH 12.6 % (11.6-14.8); WHITE BLOOD COUNT 5.1 K/UL (4.8-10.8)
[2019-02-15 06:32] LABS: ANION GAP 5 mmol/L (5-15); BLOOD UREA NITROGEN 28 mg/dL (7-18); CALCIUM 9.5 MG/DL (8.5-10.1); CARBON DIOXIDE 34 MMOL/L (21-32); CHLORIDE 100 MMOL/L (98-107); CREATININE 1.4 MG/DL (0.55-1.30); POTASSIUM 3.8 MMOL/L (3.5-5.1); SODIUM 139 MMOL/L (136-145)
--- NOTE | 2019-02-15 07:10 | NUR ---
HAND-OFF: Report given to TEX Villareal. Plan of care endorsed.
--- NOTE | 2019-02-15 07:21 | NUR ---
NURSE NOTES: I received the patient awake and sitting at the side of the bed. Patient alert and oriented x4. Bed in the lowest position and call light within reach. Patient does not display any signs of distress or SOB. Patient able to make his needs known. I will continue to monitor the patient and implement care.
[2019-02-15 08:00] VITALS: BP 119/72
[2019-02-15 08:44] VITALS: BP 119/72
[2019-02-15] MEDS: Azithromycin 250mg tab ORAL SCH (08:44)
[2019-02-15] MEDS: Theophylline ER 100mg ORAL SCH (08:44)
[2019-02-15] MEDS: Heparin 5000 units/ml inj SUBQ SCH (08:46)
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
--- NOTE | 2019-02-15 09:59 | General Progress Note ---
Assessment/Plan Problem List: (1) Pneumonia ICD Codes: J18.9 - Pneumonia, unspecified organism SNOMED: 760133516 (2) COPD exacerbation ICD Codes: J44.1 - COPD exacerbation SNOMED: 243152768 (3) Cocaine abuse ICD Codes: F14.10 - Cocaine abuse, uncomplicated SNOMED: 24911974 (4) HTN (hypertension) ICD Codes: I10 - Essential (primary) hypertension SNOMED: 59968355 (5) Severe protein-calorie malnutrition ICD Codes: E43 - Unspecified severe protein-calorie malnutrition SNOMED: 116885794 (6) Non-ST elevation [place] (NSTEMI) ICD Codes: I21.4 - Non-ST elevation (NSTEMI) myocardial infarction SNOMED: 344729451 (7) KIMO (acute kidney injury) ICD Codes: N17.9 - Acute kidney failure, unspecified SNOMED: 71714020, 8076853 Status: unchanged Assessment/Plan: o2 pulm tx abx pt diet eval cbc bmp am Subjective Constitutional: Reports: weakness Allergies: Coded Allergies: DIPHENHYDRAMINE (Unverified Allergy, Unknown, 12/18/17) All Systems: reviewed and negative except above Subjective calm in bed Objective Last 24 Hour Vital Signs Date Time Temp Pulse Resp B/P (MAP) Pulse Ox O2 Delivery O2 Flow Rate FiO2 02/15/19 08:49 Room Air Room Air 02/15/19 08:44 119/72 02/15/19 08:44 76 119/72 02/15/19 08:00 97.3 76 20 119/72 (88) 98 02/15/19 04:00 98.6 80 18 136/87 (103) 99 02/15/19 04:00 81 02/15/19 00:00 91 02/15/19 00:00 98.4 92 18 113/75 (88) 96 02/14/19 21:26 51 18 98 Nasal Cannula 2.0 28 49 18 96 02/14/19 21:00 Room Air 02/14/19 20:00 81 02/14/19 20:00 98.0 87 18 138/72 (94) 97 02/14/19 17:58 118/79 02/14/19 17:58 87 118/79 (92) 02/14/19 16:22 94 02/14/19 16:00 97.3 87 20 109/76 (87) 100 02/14/19 12:00 97.8 104 18 125/88 (100) 97 02/14/19 11:54 82 Intake and Output 02/14/19 02/15/19 19:00 07:00 Intake Total 610 ml 200 ml Balance 610 ml 200 ml Intake Oral 610 ml 200 ml # Voids 4 2 Laboratory Tests 02/15/19 05:55: White Blood Count 5.1, Red Blood Count 5.36, Hemoglobin 16.7, Hematocrit 49.9, Mean Corpuscular Volume 93, Mean Corpuscular Hemoglobin 31.1H, Mean Corpuscular Hemoglobin Concent 33.5, Red Cell Distribution Width 12.6, Platelet Count 186, Mean Platelet Volume 8.8, Neutrophils (%) (Auto) 37.2L, Lymphocytes (%) (Auto) 36.7, Monocytes (%) (Auto) 11.0H, Eosinophils (%) (Auto) 13.5H, Basophils (%) ( Auto) 1.6, Sodium Level 139, Potassium Level 3.8, Chloride Level 100, Carbon Dioxide Level 34H, Anion Gap 5, Blood Urea Nitrogen 28H, Creatinine 1.4H, Estimat Glomerular Filtration Rate > 60, Glucose Level 106, Calcium Level 9.5, Troponin I 0.154H Height (Feet): 5 Height (Inches): 6.00 Weight (Pounds): 132 General Appearance: lethargic EENT: normal ENT inspection Neck: normal alignment Cardiovascular: normal peripheral pulses, normal rate, regular rhythm Respiratory/Chest: chest wall non-tender, lungs clear, normal breath sounds Abdomen: normal bowel sounds, non tender, soft Extremities: normal inspection Edema: no edema noted Arm (L), no edema noted Arm (R), no edema noted Leg (L), no edema noted Leg (R), no edema noted Pedal (L), no edema noted Pedal (R), no edema noted Generalized Neurologic: motor weakness Skin: normal pigmentation, warm/dry Chris Farmer DO Feb 15, 2019 09:59
--- NOTE | 2019-02-15 10:58 | NUR ---
NURSE NOTES: Patient provided with discharge summary and education. RN discussed with the patient about eating a heart healthy diet and restricting fluids. The patient verbalized understanding. Patient's telemetry box was removed. IV was removed and the site did not display any signs of bleeding, swelling or redness. Addendum: 02/15/19 at 1131 by GO FORMAN RN Patient discharged in stable condition. Patient confirmed he was in possession of all his belongings. Patient's picked-up the patient and transported him home. Patient was educated about heart healthy diet and fluid restriction. [facility] and was in stable condition.
--- NOTE | 2019-02-15 11:33 | NUR ---
*-* INSURANCE *-* ALL AVAILABLE CLINICALS AND REVIEWS HAVE BEEN FAXED TO: [facility] Ref#[id number] ; Concepcion #[phone] fax#[phone]
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
--- NOTE | 2019-02-17 11:45 | Cardiology Report ---
APPROVED REPORT EKG Measurement Heart [id number] Sinus rhythm with occasional premature ventricular complexes Biatrial enlargement Left axis deviation Left bundle branch block Abnormal ECG
== END 2019-02-15 11:33 | disposition home or self-care (01) | DRG 194 ==
LOC: EMR 05:20 → 2E 06:22 → EDBEDREQ 10:33
DX: I11.0 Hypertensive heart disease with heart failure (principal); I50.23 Acute on chronic systolic (congestive) heart failure; I21.4 Non-ST elevation (NSTEMI) myocardial infarction; N17.9 Acute kidney failure, unspecified; J18.9 Pneumonia, unspecified organism; J44.0 Chronic obstructive pulmonary disease with (acute) lower respiratory infection; J44.1 Chronic obstructive pulmonary disease with (acute) exacerbation; F14.10 Cocaine abuse, uncomplicated; E43 Unspecified severe protein-calorie malnutrition; Z68.21 Body mass index [BMI] 21.0-21.9, adult; I42.8 Other cardiomyopathies; E87.6 Hypokalemia; I16.0 Hypertensive urgency; F14.188 Cocaine abuse with other cocaine-induced disorder; I27.20 Pulmonary hypertension, unspecified; I34.0 Nonrheumatic mitral (valve) insufficiency; G83.89 Other specified paralytic syndromes; W34.00XS Accidental discharge from unspecified firearms or gun, sequela; F17.200 Nicotine dependence, unspecified, uncomplicated; G62.9 Polyneuropathy, unspecified; Z88.8 Allergy status to other drugs, medicaments and biological substances; I36.1 Nonrheumatic tricuspid (valve) insufficiency; Z91.14 Patient's other noncompliance with medication regimen; R74.8 Abnormal levels of other serum enzymes
CPT/HCPCS: 36415; 71045; 80048; 80053; 80069; 84484; 85025; 93005; 93306; 93970; 94640; 96361; 96365; 96372; 96375; 99285; J7030; J7620; J8499

== ENCOUNTER 2019-04-13 12:54 | Inpatient (IN) | payer OTHER ==
[~2019-04-13] VITALS: Ht 167.6 cm; Wt 54.9 kg
[~2019-04-13 12:54] MED LIST changes: +AMIODARONE HCL200 MG ORAL; +AMLODIPINE BESYL5 MG ORAL; +CARVEDILOL3.125 MG ORAL; +ENTRESTO 49 MG1 EACH PO; +FAMOTIDINE20 MG ORAL; +HYDROCODON-ACE1 EA15 ORAL; +K-DUR10 ME1 ORAL; +NAPROXEN500 M2 ORAL; +OMEPRAZOLE20 M2 ORAL; +SIMVASTATIN40 MG ORAL; +SPIRIVA18 MCG INH
[2019-04-13 13:30] VITALS: BP 150/97
--- NOTE | 2019-04-13 13:30 | NUR ---
ED Nurse Note: Pt presented to ED w/ c/o phlegm, body aches 8/10 pain, and coughing x2days. Pt also complain of swelling and pain BLE. Pt alert and oriented, ambulatory. Pt blood labs sent. Will cont to monitor.
[2019-04-13] MEDS: Albuterol/Ipratropium 3ml neb HHN SCH ×4 (13:57→19:00)
--- NOTE | 2019-04-13 14:40 | Diagnostic Imaging Report ---
Indication: Shortness of breath Technique: One view of the chest Comparison: 03/23/2019 Findings: External defibrillator hardware is in place, may obscure pathology. There is mild interstitial congestion. No definite airspace consolidation. Linear bands of scarring are seen in the left midlung periphery. The heart remains enlarged. The costophrenic angles are obscured by the overlying hardware, no definite effusion Impression: Mild interstitial congestion Somewhat limited exam as described
[2019-04-13 15:19] LABS: BASOPHILS % (AUTO) 1.3 % (0.0-2.0); EOSINOPHILS % (AUTO) 7.6 % (0.0-3.0); HEMATOCRIT 41.5 % (42.0-52.0); HEMOGLOBIN 13.6 G/DL (14.2-18.0); LYMPHOCYTES % (AUTO) 15.6 % (20.0-45.0); MEAN CORPUSCULAR VOLUME 95 FL (80-99); MONOCYTES % (AUTO) 13.4 % (1.0-10.0); NEUTROPHILS % (AUTO) 62.1 % (45.0-75.0); PLATELET COUNT 135 K/UL (150-450); RED BLOOD COUNT 4.38 M/UL (4.70-6.10); RED CELL DISTRIBUTION WIDTH 13.6 % (11.6-14.8)
[2019-04-13 15:28] LABS: ANION GAP 7 mmol/L (5-15); BLOOD UREA NITROGEN 29 mg/dL (7-18); CALCIUM 8.4 MG/DL (8.5-10.1); CARBON DIOXIDE 27 MMOL/L (21-32); CHLORIDE 111 MMOL/L (98-107); CREATININE 1.1 MG/DL (0.55-1.30); SODIUM 145 MMOL/L (136-145)
[2019-04-13 15:31] LABS: INR 0.9 (0.9-1.1)
[2019-04-13 15:38] LABS: ALANINE AMINOTRANSFERASE 86 U/L (12-78); ALKALINE PHOSPHATASE 88 U/L (46-116); ASPARTATE AMINO TRANSFERASE 41 U/L (15-37); BILIRUBIN,TOTAL 0.5 MG/DL (0.2-1.0)
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
[2019-04-13 18:03] LABS: APPEARANCE,URINE CLEAR; BILIRUBIN, URINE NEGATIVE (NEGATIVE); COLOR,URINE PALE YELLOW; GLUCOSE, URINE (UA) NEGATIVE (NEGATIVE); KETONES,URINE NEGATIVE (NEGATIVE); LEUKOCYTE ESTERASE ,URINE NEGATIVE (NEGATIVE); NITRITE,URINE NEGATIVE (NEGATIVE); PH,URINE 6.5 (4.5-8.0); PROTEIN,URINE NEGATIVE (NEGATIVE); UROBILINOGEN,URINE NORMAL MG/DL (0.0-1.0)
--- NOTE | 2019-04-13 18:50 | NUR ---
ER DISCHARGE NOTE: Patient is cleared to be transferred per ERMD, pt is aox4, on room air, with stable vital signs. , pt was able to verbalize understanding. pt is able to ambulate with steady gait. pt took all belongings. Report given to Maki NICE.
[2019-04-13 19:00] VITALS: BP 138/95
[2019-04-13 19:03] VITALS: BP 141/90
--- NOTE | 2019-04-13 19:30 | NUR ---
NURSE NOTES: Received report from Akhil Lopez. Patient being admitted to the floor from ER. Patient is awake and alert. at bedside. Patient ambulatory. VSS 138/95, 110, 98.1, 20, 98% on room air. Denies pain or discomfort at this time. patient noted wearing cardiac vest as per patient he wears it all the time. media monitor placed on patient. oriented to room and safety. fall precautions in place. call moraes within patients reach. will follow
--- NOTE | 2019-04-13 19:30 | NUR ---
NURSE NOTES: Received report from TEX Lu. Patient is awake, lying in semi rand's; resting comfortably. A/Ox4. Able to make needs known. Denies pain at this time. No signs of acute distress noted. On cardiac vest. Checked IV site and flushed. No erythema, bleeding or infiltration noted. Bed at lowest position, brakes on, [id number]. Call light within reach. Will continue to monitor. Paged. Dr. Rene for admitting orders.
--- NOTE | 2019-04-13 19:57 | NUR ---
HAND-OFF: Report given to Akhil Valdez. aware repeatt toponin result came back 0.101.
[2019-04-13 20:00] VITALS: BP 144/103
--- NOTE | 2019-04-13 20:00 | NUR ---
NURSE NOTES: Received admitting orders from Dr. Rene. Noted and carried out.
[2019-04-13] MEDS ORDERED: Acetaminophen 500mg (ES) tab ORAL PRN (20:15)
[2019-04-13] MEDS ORDERED: HYDROcodone/Acetamin 5/325 tab ORAL PRN (21:00)
[2019-04-13] MEDS: Heparin 5000 units/ml inj SUBQ SCH (21:00)
--- NOTE | 2019-04-13 21:00 | NUR ---
NURSE NOTES: Paged Dr. Sarah for further orders. Per Dr. Sarah to continue home meds, O2 via NC @ 2LPM O2 sat 90-96%, labs and 2D echo for tomorrow AM, bipap 12/5 FiO2 90-96% PRN for SOB, on aspiration precaution, ST eval tomorrow AM. Noted and carried out.
[2019-04-13] MEDS ORDERED: Ipratropium 0.02% Inh Soln 2.5ml UD ONE (21:03)
[2019-04-13] MEDS: Ipratropium 0.02% Inh Soln 2.5ml UD HHN SCH (21:13)
[2019-04-13] MEDS ORDERED: HydrALAZINE 25mg tab ORAL PRN (21:15)
--- NOTE | 2019-04-13 21:15 | NUR ---
NURSE NOTES: Paged Dr. Sheehan for further orders. Per Dr. Sheehan, 2D echo and troponin in AM. Noted and carried out.
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
--- NOTE | 2019-04-13 22:00 | NUR ---
NURSE NOTES: Per allan, HR 130 on the monitor. Went to patient's room. No signs of pain nor distress noted. Paged Dr. Sheehan, awaiting for callback. Per Dr. Sheehan, 12 L EKG. Noted and carried out. Dr. Sheehan made aware of patient's troponin 0.099 and 0.101.
[2019-04-13] MEDS ORDERED: Ipratropium 0.02% Inh Soln 2.5ml UD HHN PRN (23:45)
[2019-04-14] VITALS: BP 157/110
[2019-04-14] MEDS: Ipratropium 0.02% Inh Soln 2.5ml UD HHN SCH ×4 (01:27→18:53)
--- NOTE | 2019-04-14 03:25 | NUR ---
NURSE NOTES: Resting throughout the night. No significant change of condition noted. Will continue to monitor.
[2019-04-14 04:00] VITALS: BP 146/99
--- NOTE | 2019-04-14 06:55 | CDS Physician Query ---
PLEASE COMPLETE THE DOCUMENT BEFORE SIGNING Dear Dr. Sarah Date:04.14.19 CDS: Suresh Pitts Exercise your independent professional judgment when responding to query. Question asked do not imply a particular answer is desired/expected Clinical Documentation States: "Heart Failure / CHF" documented in the Pulmonology Progress Note "Congestive Heart Failure with reduced ejection fraction exacerbation" Clinical Findings Show: BNP: 3797H Diuretic:Furosemide 40 mg IV Please Clarify: Acuity [ ] Acute [ ] Chronic [ ] Acute on Chronic Type [ ] Systolic [ ] Diastolic [ ] Systolic & Diastolic (Combined) [ ] Left Heart failure [ ] Other: Etiology [ ] CHF due to Hypertension [ ] Cardiomyopathy [ ] Valvular Heart Disease [ ] Coronary Artery Disease [ ] Unable to determine [ ] Other: Condition Present on Admission: [ ] Yes [ ] No [ ]Clinically Undeterminable Please also document in your Progress Notes and/or Discharge Summary and indicate if the condition was present on admission. EDER
--- NOTE | 2019-04-14 07:10 | NUR ---
HAND-OFF: Report given to TEX Gifford. Plan of care endorsed. Addendum: 04/14/19 at 0725 by Courtney Mills RN HAND-OFF: Report given to TEX Ivan. Plan of care endorsed.
--- NOTE | 2019-04-14 07:10 | NUR ---
NURSE NOTES: Nurse report given by TEX Valdez. Patient's awake and sitting at bedside. Ao x 4, denies pain, no s/s of distress or SOB. Patient is on 2L of NC. Patient ambulates with steady gait. Bed low and locked, call light within reach, side rails x 2. IV mahesh saline locked, patent and asymptomatic. Will continue to monitor.
[2019-04-14 07:18] LABS: BASOPHILS % (AUTO) 1.3 % (0.0-2.0); EOSINOPHILS % (AUTO) 5.6 % (0.0-3.0); HEMATOCRIT 42.4 % (42.0-52.0); HEMOGLOBIN 13.9 G/DL (14.2-18.0); LYMPHOCYTES % (AUTO) 10.5 % (20.0-45.0); MEAN CORPUSCULAR VOLUME 94 FL (80-99); MONOCYTES % (AUTO) 9.1 % (1.0-10.0); NEUTROPHILS % (AUTO) 73.4 % (45.0-75.0); PLATELET COUNT 145 K/UL (150-450); RED CELL DISTRIBUTION WIDTH 13.2 % (11.6-14.8); WHITE BLOOD COUNT 9.6 K/UL (4.8-10.8)
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
[2019-04-14 07:58] LABS: ANION GAP 3 mmol/L (5-15); BLOOD UREA NITROGEN 25 mg/dL (7-18); CALCIUM 8.8 MG/DL (8.5-10.1); CARBON DIOXIDE 33 MMOL/L (21-32); CHLORIDE 103 MMOL/L (98-107); CREATININE 1.2 MG/DL (0.55-1.30); POTASSIUM 3.9 MMOL/L (3.5-5.1); SODIUM 139 MMOL/L (136-145)
[2019-04-14 08:00] VITALS: BP 138/104
[2019-04-14] MEDS: Heparin 5000 units/ml inj SUBQ SCH ×2 (09:00→21:00)
[2019-04-14] MEDS ORDERED: Furosemide 40mg tab ORAL SCH (09:00)
[2019-04-14] MEDS: Lisinopril 20mg tab ORAL SCH (09:06)
[2019-04-14] MEDS: Aspirin Baby 81mg ORAL SCH (09:07)
[2019-04-14] MEDS: Amiodarone 200mg tab ORAL SCH (09:07)
--- NOTE | 2019-04-14 09:54 | Consultation ---
History of Present Illness General Date patient seen: Apr 14, 2019 Present Illness Allergies: Coded Allergies: DIPHENHYDRAMINE (Unverified Allergy, Unknown, 12/18/17) Medication History Scheduled Amiodarone Hcl* (Cordarone*), 200 MG ORAL DAILY, (Reported) Amlodipine Besylate* (Amlodipine Besylate*), 5 MG ORAL BID, (Reported) Aspirin* (Aspirin*), 81 MG ORAL DAILY, (Reported) Carvedilol* (Carvedilol*), 3.125 MG ORAL EVERY 12 HOURS, (Reported) Famotidine* (Pepcid 20mg tablet*), 20 MG ORAL TWICE A DAY, (Reported) Furosemide* (Lasix*), 40 MG ORAL TWICE A DAY Hydralazine Hcl* (Hydralazine Hcl*), 25 MG ORAL EVERY 8 HOURS, (Reported) Lisinopril (Lisinopril*), 20 MG ORAL DAILY, (Reported) Naproxen* (Naproxen*), 500 MG ORAL TWICE A DAY, (Reported) Omeprazole (Omeprazole), 20 MG ORAL BID, (Reported) Sacubitril/Valsartan (Entresto 49 mg-51 mg Tablet), 1 EACH PO BID, (Reported) Simvastatin (Zocor), 40 MG ORAL BEDTIME, (Reported) Tiotropium [place]* (Spiriva*), 2 PUFF INH DAILY, (Reported) Scheduled PRN Albuterol Sulfate* (Albuterol Sulfate Hhn*), 3 ML INH Q4H PRN for Shortness of Breath, (Reported) Hydrocodone/Acetaminophen 5-325* (Hydrocodone/Acetaminophen 5-325*), 1 TAB ORAL Q4H PRN for Moderate Pain (Pain Scale 4-6), (Reported) Patient History Healthcare decision maker Resuscitation status Full Code Advanced Directive on File Physical Exam Last 24 Hour Vital Signs Date Time Temp Pulse Resp B/P (MAP) Pulse Ox O2 Delivery O2 Flow Rate FiO2 04/14/19 09:06 138/104 04/14/19 09:06 115 138/104 04/14/19 09:06 115 138/104 04/14/19 08:38 62 18 98 Nasal Cannula 3.0 04/14/19 08:36 62 16 100 Nasal Cannula 3.0 04/14/19 08:00 2.0 04/14/19 08:00 115 04/14/19 08:00 97.5 108 20 138/104 (115) 98 04/14/19 07:51 100 Nasal Cannula 3.0 32 04/14/19 07:34 65 20 100 Nasal Cannula 3.0 32 61 18 100 04/14/19 07:29 100 04/14/19 05:27 106 22 99 Facial 28 Bi-Pap 28 04/14/19 04:00 98.1 104 21 146/99 (115) 99 04/14/19 04:00 2.0 04/14/19 04:00 94 04/14/19 03:28 94 21 99 Facial 28 Bi-Pap 28 04/14/19 01:28 105 20 100 Nasal Cannula 3.0 32 106 20 100 04/14/19 01:17 2.0 28 04/14/19 00:00 105 04/14/19 00:00 2.0 04/14/19 00:00 98.2 114 19 157/110 (126) 95 04/13/19 23:55 107 35 99 Facial 28 Bi-Pap 28 04/13/19 23:44 Nasal Cannula 2.0 04/13/19 22:02 108 144/103 04/13/19 22:00 2.0 04/13/19 21:25 88 20 100 Nasal Cannula 3.0 32 83 20 98 04/13/19 21:23 100 Nasal Cannula 3.0 32 04/13/19 21:16 73 20 98 Nasal Cannula 3.0 32 04/13/19 20:00 98.1 108 18 144/103 (117) 99 04/13/19 20:00 2.0 04/13/19 19:10 104 04/13/19 19:03 98.1 18 141/90 97 Room Air 04/13/19 19:00 98.1 110 20 138/95 (109) 98 04/13/19 18:58 98.7 79 18 120/81 100 Room Air 04/13/19 14:33 98 20 100 Room Air 21 99 23 100 04/13/19 13:57 99 23 Room Air 21 04/13/19 13:30 98.0 16 150/97 97 Room Air 04/13/19 12:59 97.5 109 16 155/108 (124) 96 Room Air Intake and Output 04/13/19 04/14/19 19:00 07:00 Intake Total 300 ml Output Total 400 ml Balance -100 ml Intake Oral 300 ml Output Urine Total 400 ml # Voids 2 3 # Bowel Movements 1 Laboratory Tests Test 04/13/19 13:52 04/13/19 14:10 04/13/19 17:35 04/13/19 18:20 White Blood Count 7.0 K/UL (4.8-10.8) Red Blood Count 4.38 M/UL (4.70-6.10) L Hemoglobin 13.6 G/DL (14.2-18.0) L Hematocrit 41.5 % (42.0-52.0) L Mean Corpuscular Volume 95 FL (80-99) Mean Corpuscular Hemoglobin 31.0 PG (27.0-31.0) Mean Corpuscular Hemoglobin Concent 32.7 G/DL (32.0-36.0) Red Cell Distribution Width 13.6 % (11.6-14.8) Platelet Count 135 K/UL (150-450) L Mean Platelet Volume 8.0 FL (6.5-10.1) Neutrophils (%) (Auto) 62.1 % (45.0-75.0) Lymphocytes (%) (Auto) 15.6 % (20.0-45.0) L Monocytes (%) (Auto) 13.4 % (1.0-10.0) H Eosinophils (%) (Auto) 7.6 % (0.0-3.0) H Basophils (%) (Auto) 1.3 % (0.0-2.0) Prothrombin Time 10.0 SEC (9.30-11.50) Prothromb Time International Ratio 0.9 (0.9-1.1) Activated Partial Thromboplast Time 26 SEC (23-33) D-Dimer 0.31 mg/L FEU (0.00-0.49) Sodium Level 145 MMOL/L (136-145) Potassium Level 4.0 MMOL/L (3.5-5.1) Chloride Level 111 MMOL/L (98-107) H Carbon Dioxide Level 27 MMOL/L (21-32) Anion Gap 7 mmol/L (5-15) Blood Urea Nitrogen 29 mg/dL (7-18) H Creatinine 1.1 MG/DL (0.55-1.30) Estimat Glomerular Filtration Rate > 60 mL/min (>60) Glucose Level 76 MG/DL (74-106) Calcium Level 8.4 MG/DL (8.5-10.1) L Total Bilirubin 0.5 MG/DL (0.2-1.0) Aspartate Amino Transf (AST/SGOT) 41 U/L (15-37) H Alanine Aminotransferase (ALT/SGPT) 86 U/L (12-78) H Alkaline Phosphatase 88 U/L (46-116) Troponin I 0.099 ng/mL (0.000-0.056) 0.101 ng/mL (0.000-0.056) Pro-B-Type Natriuretic Peptide 3797 pg/mL (0-125) H Total Protein 6.1 G/DL (6.4-8.2) L Albumin 3.0 G/DL (3.4-5.0) L Globulin 3.1 g/dL Albumin/Globulin Ratio 1.0 (1.0-2.7) Arterial Blood pH 7.439 (7.350-7.450) Arterial Blood Partial Pressure CO2 39.3 mmHg (35.0-45.0) Arterial Blood Partial Pressure O2 246.6 mmHg (75.0-100.0) H Arterial Blood HCO3 26.0 mmol/L (22.0-26.0) Arterial Blood Oxygen Saturation 98.8 % (95-100) Arterial Blood Base Excess 1.9 (-2-2) Wei Test Positive Urine Color Pale yellow Urine Appearance Clear Urine pH 6.5 (4.5-8.0) Urine Specific [place] 1.010 (1.005-1.035) Urine Protein Negative (NEGATIVE) Urine Glucose (UA) Negative (NEGATIVE) Urine Ketones Negative (NEGATIVE) Urine Blood Negative (NEGATIVE) Urine Nitrite Negative (NEGATIVE) Urine Bilirubin Negative (NEGATIVE) Urine Urobilinogen Normal MG/DL (0.0-1.0) Urine Leukocyte Esterase Negative (NEGATIVE) Urine Opiates Screen Negative (NEGATIVE) Urine Barbiturates Screen Negative (NEGATIVE) Phencyclidine (PCP) Screen Negative (NEGATIVE) Urine Amphetamines Screen Negative (NEGATIVE) Urine Benzodiazepines Screen Negative (NEGATIVE) Urine Cocaine Screen Positive (NEGATIVE) H Urine Marijuana (THC) Screen Negative (NEGATIVE) Test 04/14/19 05:45 White Blood Count 9.6 K/UL (4.8-10.8) Red Blood Count 4.50 M/UL (4.70-6.10) L Hemoglobin 13.9 G/DL (14.2-18.0) L Hematocrit 42.4 % (42.0-52.0) Mean Corpuscular Volume 94 FL (80-99) Mean Corpuscular Hemoglobin 30.9 PG (27.0-31.0) Mean Corpuscular Hemoglobin Concent 32.8 G/DL (32.0-36.0) Red Cell Distribution Width 13.2 % (11.6-14.8) Platelet Count 145 K/UL (150-450) L Mean Platelet Volume 8.3 FL (6.5-10.1) Neutrophils (%) (Auto) 73.4 % (45.0-75.0) Lymphocytes (%) (Auto) 10.5 % (20.0-45.0) L Monocytes (%) (Auto) 9.1 % (1.0-10.0) Eosinophils (%) (Auto) 5.6 % (0.0-3.0) H Basophils (%) (Auto) 1.3 % (0.0-2.0) Sodium Level 139 MMOL/L (136-145) Potassium Level 3.9 MMOL/L (3.5-5.1) Chloride Level 103 MMOL/L (98-107) Carbon Dioxide Level 33 MMOL/L (21-32) H Anion Gap 3 mmol/L (5-15) L Blood Urea Nitrogen 25 mg/dL (7-18) H Creatinine 1.2 MG/DL (0.55-1.30) Estimat Glomerular Filtration Rate > 60 mL/min (>60) Glucose Level 103 MG/DL (74-106) Calcium Level 8.8 MG/DL (8.5-10.1) Troponin I 0.106 ng/mL (0.000-0.056) Pro-B-Type Natriuretic Peptide 3661 pg/mL (0-125) H Hepatitis A IgM Antibody Pending Hepatitis B Surface Antigen Pending Hepatitis B Core IgM Antibody Pending Hepatitis C Antibody Pending HIV (1&2) Antibody Rapid Negative (NEGATIVE) Microbiology Date/Time Source Procedure Growth Status 04/13/19 13:52 Nasal Nares - Final Complete 04/13/19 13:52 Nasal Nares - Final Complete Height (Feet): 5 Height (Inches): 6.00 Weight (Pounds): 121 Medications Current Medications Medications (Trade) Dose Ordered Sig/Stephenie Route PRN Reason Start Time Stop Time Status Last Admin Dose Admin Acetaminophen (Tylenol) 500 mg Q4H PRN ORAL Mild Pain/Temp > 100.5 04/13/19 20:15 05/13/19 20:14 Acetaminophen (Tylenol) 650 mg Q6H PRN ORAL Moderate Pain (Pain Scale 4-6) 04/13/19 21:14 05/13/19 21:13 Amiodarone HCl (Cordarone) 200 mg DAILY ORAL 04/14/19 09:00 05/14/19 08:59 04/14/19 09:07 Amlodipine Besylate (Norvasc) 5 mg DAILY ORAL 04/14/19 09:00 05/14/19 08:59 04/14/19 09:06 Aspirin (ASA) 81 mg DAILY ORAL 04/14/19 09:00 05/14/19 08:59 04/14/19 09:07 Atorvastatin Calcium (Lipitor) 20 mg BEDTIME ORAL 04/14/19 21:00 05/14/19 20:59 Carvedilol (Coreg) 3.125 mg EVERY 12 HOURS ORAL 04/13/19 21:00 05/13/19 20:59 04/14/19 09:06 Furosemide (Lasix) 40 mg EVERY 12 HOURS IV 04/13/19 21:23 05/13/19 21:22 04/14/19 09:06 Heparin Sodium (Porcine) (Heparin 5000 units/ml) 5,000 units EVERY 12 HOURS SUBQ 04/13/19 21:00 05/13/19 20:59 Hydralazine HCl (Apresoline) 25 mg Q8H PRN ORAL For High Blood Pressure 04/13/19 21:15 05/13/19 21:14 Ipratropium [place] (Atrovent) 500 mcg Q4H PRN HHN Shortness of Breath 04/13/19 23:45 04/18/19 23:44 Ipratropium [place] (Atrovent) 500 mcg Q6HRT HHN 04/13/19 20:48 04/18/19 20:47 04/14/19 07:24 Lisinopril (PriniviL) 20 mg DAILY ORAL 04/14/19 09:00 05/14/19 08:59 04/14/19 09:06 Ondansetron HCl (Zofran) 4 mg Q6H PRN IVP Nausea & Vomiting 04/13/19 21:00 05/13/19 20:59 Pantoprazole (Protonix) 40 mg EVERY 12 HOURS ORAL 04/13/19 21:00 05/13/19 20:59 04/14/19 09:07 Tiotropium [place] (Spiriva Inhaler) 2 puff DAILY INH 04/14/19 09:00 05/14/19 08:59 04/14/19 08:24 Assessment/Plan Assessment/Plan: (1) Degenerative joint disease (2) Congestive heart failure (3) Cocaine abuse seen dictated Anton Laboy Apr 14, 2019 09:54
--- NOTE | 2019-04-14 10:37 | NUR ---
NURSE NOTES: Left message for Dr. Sheehan regarding patient's troponin is 0.106. Awaiting for response.
[2019-04-14 12:00] VITALS: BP 130/94
--- NOTE | 2019-04-14 12:23 | NUR ---
SPEECH PATHOLOGY: BEDSIDE SWALLOW EVALUATION COMPLETED POST CHART REVIEW AND INTERVIEW WITH TEX SEALS. PATIENT AWAKE, ALERT, COOPERATIVE/AGREEABLE TO INTERVENTION DYSPHAGIA RISK FACTORS FOR THIS 59 Y.O. MALE: SHORTNESS OF BREATH, POSSIBLE HX OF APOXIA, COPD, XEROSTOMIA, HIGH RISK FOR MALNUTRITION/DEHYDRATION PATIENT ASSESSED ON P.O. TRIALS OF SOFT SOLID, THIN LIQUIDS (CUP/STRAW) AND PUREE. HE PRESENTED WITH WHAT APPEARED TO BE AN INTACT OROPHARYNGEAL PHASE OF SWALLOW. WITH MULTIPLE P.O. TRIALS HE BEGAN TO DEMONSTRATE AN INCREASE IN RESPIRATION RATE. VOCAL QUALITY CLEAR THROUGHOUT ALL TRIALS IN ORDER TO MAXIMIZE SWALLOW SAFETY AND MINIMIZE RISK OF ASPIRATION THE FOLLOWING IS RECOMMENDED: RECOMMENDATIONS: 1. CONTINUE CURRENT WITH THE ADDITION OF EXTRA SAUCES/BROTHS/GRAVIES TO MOISTEN FOOD FOR EASE OF INTAKE 2. IF SHORT OF BREATH DURING A MEAL, STOP/RELAX, THEN RESUME MEAL. 3. MOUTH MOISTENER USE PRIOR TO P.O. FOR EASE OF SWALLOW 4. HIGH CALORIE/NUTRIENT DIET PER RN RECOMMENDATION 5. NO FURTHER SKILLED ST SERVICES APPEAR TO BE NEEDED AT THIS TIME THANK YOU FOR THIS REFERRAL.
--- NOTE | 2019-04-14 13:16 | NUR ---
CASE MANAGEMENT:REVIEW 59 YR OLD MALE WALKED IN TO ER CC: BODY ACHES,CHILLS, COUGHING AND BLE PAIN SI: CHF EXACERBATION. COPD EXACERBATION.COCAINE ABUSE 97.5 109 16 155/108 96% ON RA H/H-13.6/41.5 PLT-135 TROPONIN(+) 0.099 AND 0.101 BNP+3797 URINE(+) COCAINE IS: DUONEB HHN Q15 MIN IV LASIX PREDNISONE PO CHEST XRAY : TO TELEMETRY IS: ASA PO QD NORVASC PO QD LISINOPRIL PO QD SPIRIVA INH QD IV LASIX Q12 COREG PO Q12 ATROVENT HHN Q6HRS RTC
[2019-04-14] MEDS: Levofloxacin 750mg tab ORAL SCH (13:37)
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
--- NOTE | 2019-04-14 15:23 | Diagnostic Imaging Report ---
Indication: Abdominal pain, elevated LFTs Technique: Multiplanar grayscale and duplex Doppler imaging of the abdomen Comparison: None Findings: Imaged portions of the abdominal aorta are normal in caliber. Imaged portions of the pancreatic head and body are unremarkable in appearance. The distal body and tail are not well visualized. Hepatic contour appears smooth. No focal hepatic mass lesion appreciated sonographically. The imaged hepatic veins appear patent. Main portal vein is patent with normal direction of flow. There is no intrahepatic or extra hepatic biliary ductal dilatation. Common bile duct within normal limits measuring 5 mm diameter. No cholelithiasis or gallstones identified. No gallbladder wall thickening or pericholecystic fluid. Sonographic Kennedy sign reported as negative. Kidneys are symmetric in size. They demonstrate normal echogenicity. There is no hydronephrosis or sonographically appreciable renal stone. Spleen is normal in appearance. No ascites is demonstrated. Impression: Unremarkable abdominal sonogram.
[2019-04-14 16:00] VITALS: BP 102/57
--- NOTE | 2019-04-14 18:32 | Cardiac Electrophysiology PN ---
Subjective Subjective [id number] Objective Last 24 Hour Vital Signs Date Time Temp Pulse Resp B/P (MAP) Pulse Ox O2 Delivery O2 Flow Rate FiO2 04/14/19 16:00 97.3 94 22 102/57 (72) 99 04/14/19 16:00 2.0 04/14/19 13:07 69 18 100 Nasal Cannula 3.0 32 67 20 97 04/14/19 12:00 97.9 97 21 130/94 (106) 99 04/14/19 12:00 2.0 04/14/19 12:00 93 04/14/19 09:29 100 04/14/19 09:06 138/104 04/14/19 09:06 115 138/104 04/14/19 09:06 115 138/104 04/14/19 09:00 Nasal Cannula 2.0 04/14/19 08:38 62 18 98 Nasal Cannula 3.0 04/14/19 08:36 62 16 100 Nasal Cannula 3.0 04/14/19 08:00 2.0 04/14/19 08:00 115 04/14/19 08:00 97.5 108 20 138/104 (115) 98 04/14/19 07:51 100 Nasal Cannula 3.0 32 04/14/19 07:34 65 20 100 Nasal Cannula 3.0 32 61 18 100 04/14/19 07:29 100 04/14/19 05:27 106 22 99 Facial 28 Bi-Pap 28 04/14/19 04:00 98.1 104 21 146/99 (115) 99 04/14/19 04:00 2.0 04/14/19 04:00 94 04/14/19 03:28 94 21 99 Facial 28 Bi-Pap 28 04/14/19 01:28 105 20 100 Nasal Cannula 3.0 32 106 20 100 04/14/19 01:17 2.0 28 04/14/19 00:00 105 04/14/19 00:00 2.0 04/14/19 00:00 98.2 114 19 157/110 (126) 95 04/13/19 23:55 107 35 99 Facial 28 Bi-Pap 28 04/13/19 23:44 Nasal Cannula 2.0 04/13/19 22:02 108 144/103 04/13/19 22:00 2.0 04/13/19 21:25 88 20 100 Nasal Cannula 3.0 32 83 20 98 04/13/19 21:23 100 Nasal Cannula 3.0 32 04/13/19 21:16 73 20 98 Nasal Cannula 3.0 32 04/13/19 20:00 98.1 108 18 144/103 (117) 99 04/13/19 20:00 2.0 04/13/19 19:10 104 04/13/19 19:03 98.1 18 141/90 97 Room Air 04/13/19 19:00 98.1 110 20 138/95 (109) 98 04/13/19 18:58 98.7 79 18 120/81 100 Room Air Intake and Output 04/13/19 04/14/19 19:00 07:00 Intake Total 300 ml Output Total 400 ml Balance -100 ml Intake Oral 300 ml Output Urine Total 400 ml # Voids 2 3 # Bowel Movements 1 Laboratory Tests Test 04/14/19 05:45 White Blood Count 9.6 K/UL (4.8-10.8) Red Blood Count 4.50 M/UL (4.70-6.10) L Hemoglobin 13.9 G/DL (14.2-18.0) L Hematocrit 42.4 % (42.0-52.0) Mean Corpuscular Volume 94 FL (80-99) Mean Corpuscular Hemoglobin 30.9 PG (27.0-31.0) Mean Corpuscular Hemoglobin Concent 32.8 G/DL (32.0-36.0) Red Cell Distribution Width 13.2 % (11.6-14.8) Platelet Count 145 K/UL (150-450) L Mean Platelet Volume 8.3 FL (6.5-10.1) Neutrophils (%) (Auto) 73.4 % (45.0-75.0) Lymphocytes (%) (Auto) 10.5 % (20.0-45.0) L Monocytes (%) (Auto) 9.1 % (1.0-10.0) Eosinophils (%) (Auto) 5.6 % (0.0-3.0) H Basophils (%) (Auto) 1.3 % (0.0-2.0) Sodium Level 139 MMOL/L (136-145) Potassium Level 3.9 MMOL/L (3.5-5.1) Chloride Level 103 MMOL/L (98-107) Carbon Dioxide Level 33 MMOL/L (21-32) H Anion Gap 3 mmol/L (5-15) L Blood Urea Nitrogen 25 mg/dL (7-18) H Creatinine 1.2 MG/DL (0.55-1.30) Estimat Glomerular Filtration Rate > 60 mL/min (>60) Glucose Level 103 MG/DL (74-106) Calcium Level 8.8 MG/DL (8.5-10.1) Troponin I 0.106 ng/mL (0.000-0.056) Pro-B-Type Natriuretic Peptide 3661 pg/mL (0-125) H Hepatitis A IgM Antibody Pending Hepatitis B Surface Antigen Pending Hepatitis B Core IgM Antibody Pending Hepatitis C Antibody Pending HIV (1&2) Antibody Rapid Negative (NEGATIVE) Microbiology Date/Time Source Procedure Growth Status 04/13/19 13:52 Nasal Nares - Final Complete 04/13/19 13:52 Nasal Nares - Final Complete Agustin Sheehan MD Apr 14, 2019 18:32
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
[2019-04-14] MEDS ORDERED: METRONIDAZOLE500 MG ORAL (19:02)
[2019-04-14] MEDS ORDERED: AMOXICILLIN500 MG ORAL (19:02)
--- NOTE | 2019-04-14 19:41 | NUR ---
NURSE NOTES: Received report from TEX Ivan. Patient is in bed, awake and alert, responsive to verbal and tactile stimuli. Breathing regular and unlabored with no s/s of SOB noted. Patient is on a NC 2L to keep saturation levels between 92-96%. Patient is wearing a life-vest. No C/O pain or discomfort noted at this time. Bed is in lowest position, breaks engaged, and call light is within reach at all times. All needs attended to, will continue to monitor.
--- NOTE | 2019-04-14 19:41 | NUR ---
HAND-OFF: Report given to TEX Shi. Patient's stable, plan of care endorsed.
[2019-04-14 20:00] VITALS: BP 113/74
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
[2019-04-14] MEDS: Atorvastatin 20mg tab ORAL SCH (22:03)
[2019-04-15] VITALS: BP 116/80
[2019-04-15] MEDS: Ipratropium 0.02% Inh Soln 2.5ml UD HHN SCH ×4 (01:31→20:18)
[2019-04-15 04:00] VITALS: BP 140/82
--- NOTE | 2019-04-15 07:10 | NUR ---
NURSE NOTES: Nurse report given by TEX Shi. Patient's awake and sitting at bedside. Patient denies pain, AO x 4, no s/s of distress or SOB. Bed low and locked, call light within reach, side rails x 2. IV is saline locked, patent and asymptomatic. Will continue to monitor.
--- NOTE | 2019-04-15 07:13 | NUR ---
HAND-OFF: Report given to TEX Ivan. Plan of care endorsed.
[2019-04-15 08:00] VITALS: BP 120/67
[2019-04-15] MEDS: Heparin 5000 units/ml inj SUBQ SCH ×2 (09:00→21:00)
[2019-04-15] MEDS: Aspirin Baby 81mg ORAL SCH (09:35)
[2019-04-15] MEDS: Levofloxacin 750mg tab ORAL SCH (09:35)
[2019-04-15] MEDS: Amiodarone 200mg tab ORAL SCH (09:35)
[2019-04-15] MEDS: Lisinopril 20mg tab ORAL SCH (09:35)
--- NOTE | 2019-04-15 09:47 | Hematology/Onc Progress Note ---
Assessment/Plan Assessment/Plan Assessment and Recs: # Thrombocytopenia likely reactive process, hx of drug abuse, cocaine use and smoking currently, continues to smoke --> labs have been reviewed, no bleeding, monitor for withdrawal --> smear has been reviewed and no schistocytes are noted --> peripheral smear is pending --> hepatitis and hiv as needed --> meds have been reviewed --> plt trend 135-->145k # CHF exacerbation --> very likely related to cocaine use --> 2d echo as per cards --> diuresis per cards # COPD exacerbation --> breathing treatments as per pulm --> pulmonary toilet --> pulm consulted # Cocaine abuse --> currently still using drugs --> Sw consult as needed --> rec cessation # External defibrillator placed in --> per cards MANUEL RN and appreciate consultation Subjective Constitutional: Denies: no symptoms, chills, fever, malaise, weakness, other HEENT: Denies: no symptoms, eye pain, blurred vision, tearing, double vision, ear pain, ear discharge, nose pain, nose congestion, throat pain, throat swelling, mouth pain, mouth swelling, other Cardiovascular: Denies: no symptoms, chest pain, edema, irregular heart rate, lightheadedness, palpitations, syncope, other Gastrointestinal/Abdominal: Denies: no symptoms, abdomen distended, abdominal pain, black stools, tarry stools, blood in stool, constipated, diarrhea, difficulty swallowing, nausea, poor appetite, poor fluid intake, rectal bleeding , vomiting, other Genitourinary: Denies: no symptoms, burning, discharge, frequency, flank pain, hematuria, incontinence, pain, urgency, other Neurologic/Psychiatric: Denies: no symptoms, anxiety, depressed, emotional problems, headache, numbness, paresthesia, pre-existing deficit, seizure, tingling, tremors, weakness, other Endocrine: Denies: no symptoms, excessive sweating, flushing, intolerance to cold, intolerance to heat, increased hunger, increased thirst, increased urine, unexplained weight gain, unexplained weight loss, other Allergies: Coded Allergies: DIPHENHYDRAMINE (Unverified Allergy, Unknown, 12/18/17) Subjective 04/15/19: no events, no bleeding, labs have been reviewed Objective Objective Current Medications Medications (Trade) Dose Ordered Sig/Stephenie Route PRN Reason Start Time Stop Time Status Last Admin Dose Admin Acetaminophen (Tylenol) 500 mg Q4H PRN ORAL Mild Pain/Temp > 100.5 04/13/19 20:15 05/13/19 20:14 Acetaminophen (Tylenol) 650 mg Q6H PRN ORAL Moderate Pain (Pain Scale 4-6) 04/13/19 21:14 05/13/19 21:13 Amiodarone HCl (Cordarone) 200 mg DAILY ORAL 04/14/19 09:00 05/14/19 08:59 04/15/19 09:35 Amlodipine Besylate (Norvasc) 5 mg DAILY ORAL 04/14/19 09:00 05/14/19 08:59 04/15/19 09:35 Aspirin (ASA) 81 mg DAILY ORAL 04/14/19 09:00 05/14/19 08:59 04/15/19 09:35 Atorvastatin Calcium (Lipitor) 20 mg BEDTIME ORAL 04/14/19 21:00 05/14/19 20:59 04/14/19 22:03 Carvedilol (Coreg) 3.125 mg EVERY 12 HOURS ORAL 04/13/19 21:00 05/13/19 20:59 04/15/19 09:35 Furosemide (Lasix) 40 mg EVERY 12 HOURS IV 04/13/19 21:23 05/13/19 21:22 04/15/19 09:34 Heparin Sodium (Porcine) (Heparin 5000 units/ml) 5,000 units EVERY 12 HOURS SUBQ 04/13/19 21:00 05/13/19 20:59 Hydralazine HCl (Apresoline) 25 mg Q8H PRN ORAL For High Blood Pressure 04/13/19 21:15 05/13/19 21:14 Ipratropium [place] (Atrovent) 500 mcg Q4H PRN HHN Shortness of Breath 04/13/19 23:45 04/18/19 23:44 Ipratropium [place] (Atrovent) 500 mcg Q6HRT HHN 04/13/19 20:48 04/18/19 20:47 04/14/19 18:53 Levofloxacin (Levaquin) 750 mg DAILY ORAL 04/14/19 13:15 04/21/19 13:14 04/15/19 09:35 Lisinopril (PriniviL) 20 mg DAILY ORAL 04/14/19 09:00 05/14/19 08:59 04/15/19 09:35 Ondansetron HCl (Zofran) 4 mg Q6H PRN IVP Nausea & Vomiting 04/13/19 21:00 05/13/19 20:59 Pantoprazole (Protonix) 40 mg EVERY 12 HOURS ORAL 04/13/19 21:00 05/13/19 20:59 04/15/19 09:35 Tiotropium [place] (Spiriva Inhaler) 2 puff DAILY INH 04/14/19 09:00 05/14/19 08:59 04/14/19 08:24 Last 24 Hour Vital Signs Date Time Temp Pulse Resp B/P (MAP) Pulse Ox O2 Delivery O2 Flow Rate FiO2 04/15/19 09:35 120/67 04/15/19 09:35 82 120/67 04/15/19 09:35 82 120/67 04/15/19 08:00 97.6 82 20 120/67 (84) 94 04/15/19 07:51 Nasal Cannula 2.0 28 04/15/19 07:51 Nasal Cannula 2.0 28 04/15/19 07:50 98 Nasal Cannula 2.0 28 04/15/19 04:00 91 04/15/19 04:00 97.8 91 16 140/82 (101) 98 04/15/19 04:00 2.0 04/15/19 00:00 97.5 90 16 116/80 (92) 99 04/15/19 00:00 77 04/14/19 22:03 85 113/74 04/14/19 21:00 Nasal Cannula 2.0 04/14/19 20:00 97.3 85 16 113/74 (87) 98 04/14/19 20:00 87 04/14/19 20:00 2.0 04/14/19 19:29 70 18 100 Nasal Cannula 3.0 32 66 18 100 04/14/19 19:28 100 Nasal Cannula 3.0 32 04/14/19 16:00 84 04/14/19 16:00 97.3 94 22 102/57 (72) 99 04/14/19 16:00 2.0 04/14/19 13:07 69 18 100 Nasal Cannula 3.0 32 67 20 97 04/14/19 12:00 97.9 97 21 130/94 (106) 99 04/14/19 12:00 2.0 04/14/19 12:00 93 04/14/19 09:29 100 04/14/19 09:06 138/104 04/14/19 09:06 115 138/104 04/14/19 09:06 115 138/104 04/14/19 09:00 Nasal Cannula 2.0 04/14/19 08:38 62 18 98 Nasal Cannula 3.0 04/14/19 08:36 62 16 100 Nasal Cannula 3.0 04/14/19 08:00 2.0 04/14/19 08:00 115 04/14/19 08:00 97.5 108 20 138/104 (115) 98 04/14/19 07:51 100 Nasal Cannula 3.0 32 04/14/19 07:34 65 20 100 Nasal Cannula 3.0 32 61 18 100 04/14/19 07:29 100 04/14/19 05:27 106 22 99 Facial 28 Bi-Pap 28 04/14/19 04:00 98.1 104 21 146/99 (115) 99 04/14/19 04:00 2.0 04/14/19 04:00 94 04/14/19 03:28 94 21 99 Facial 28 Bi-Pap 28 04/14/19 01:28 105 20 100 Nasal Cannula 3.0 32 106 20 100 04/14/19 01:17 2.0 28 04/14/19 00:00 105 04/14/19 00:00 2.0 04/14/19 00:00 98.2 114 19 157/110 (126) 95 04/13/19 23:55 107 35 99 Facial 28 Bi-Pap 28 04/13/19 23:44 Nasal Cannula 2.0 04/13/19 22:02 108 144/103 04/13/19 22:00 2.0 04/13/19 21:25 88 20 100 Nasal Cannula 3.0 32 83 20 98 04/13/19 21:23 100 Nasal Cannula 3.0 32 04/13/19 21:16 73 20 98 Nasal Cannula 3.0 32 04/13/19 20:00 98.1 108 18 144/103 (117) 99 04/13/19 20:00 2.0 04/13/19 19:10 104 04/13/19 19:03 98.1 18 141/90 97 Room Air 04/13/19 19:00 98.1 110 20 138/95 (109) 98 04/13/19 18:58 98.7 79 18 120/81 100 Room Air 04/13/19 14:33 98 20 100 Room Air 21 99 23 100 04/13/19 13:57 99 23 Room Air 21 04/13/19 13:30 98.0 16 150/97 97 Room Air 04/13/19 12:59 97.5 109 16 155/108 (124) 96 Room Air Intake and Output 04/14/19 04/15/19 19:00 07:00 Intake Total 720 ml 320 ml Output Total 1050 ml Balance -330 ml 320 ml Intake Oral 720 ml 320 ml Output Urine Total 1050 ml # Voids 2 Labs Test 04/13/19 13:52 04/13/19 14:10 04/13/19 17:35 04/13/19 18:20 White Blood Count 7.0 K/UL (4.8-10.8) Red Blood Count 4.38 M/UL (4.70-6.10) Hemoglobin 13.6 G/DL (14.2-18.0) Hematocrit 41.5 % (42.0-52.0) Mean Corpuscular Volume 95 FL (80-99) Mean Corpuscular Hemoglobin 31.0 PG (27.0-31.0) Mean Corpuscular Hemoglobin Concent 32.7 G/DL (32.0-36.0) Red Cell Distribution Width 13.6 % (11.6-14.8) Platelet Count 135 K/UL (150-450) Mean Platelet Volume 8.0 FL (6.5-10.1) Neutrophils (%) (Auto) 62.1 % (45.0-75.0) Lymphocytes (%) (Auto) 15.6 % (20.0-45.0) Monocytes (%) (Auto) 13.4 % (1.0-10.0) Eosinophils (%) (Auto) 7.6 % (0.0-3.0) Basophils (%) (Auto) 1.3 % (0.0-2.0) Prothrombin Time 10.0 SEC (9.30-11.50) Prothromb Time International Ratio 0.9 (0.9-1.1) Activated Partial Thromboplast Time 26 SEC (23-33) D-Dimer 0.31 mg/L FEU (0.00-0.49) Sodium Level 145 MMOL/L (136-145) Potassium Level 4.0 MMOL/L (3.5-5.1) Chloride Level 111 MMOL/L (98-107) Carbon Dioxide Level 27 MMOL/L (21-32) Anion Gap 7 mmol/L (5-15) Blood Urea Nitrogen 29 mg/dL (7-18) Creatinine 1.1 MG/DL (0.55-1.30) Estimat Glomerular Filtration Rate > 60 mL/min (>60) Glucose Level 76 MG/DL (74-106) Calcium Level 8.4 MG/DL (8.5-10.1) Total Bilirubin 0.5 MG/DL (0.2-1.0) Aspartate Amino Transf (AST/SGOT) 41 U/L (15-37) Alanine Aminotransferase (ALT/SGPT) 86 U/L (12-78) Alkaline Phosphatase 88 U/L (46-116) Troponin I 0.099 ng/mL (0.000-0.056) 0.101 ng/mL (0.000-0.056) Pro-B-Type Natriuretic Peptide 3797 pg/mL (0-125) Total Protein 6.1 G/DL (6.4-8.2) Albumin 3.0 G/DL (3.4-5.0) Globulin 3.1 g/dL Albumin/Globulin Ratio 1.0 (1.0-2.7) Arterial Blood pH 7.439 (7.350-7.450) Arterial Blood Partial Pressure CO2 39.3 mmHg (35.0-45.0) Arterial Blood Partial Pressure O2 246.6 mmHg (75.0-100.0) Arterial Blood HCO3 26.0 mmol/L (22.0-26.0) Arterial Blood Oxygen Saturation 98.8 % (95-100) Arterial Blood Base Excess 1.9 (-2-2) Wei Test Positive Urine Color Pale yellow Urine Appearance Clear Urine pH 6.5 (4.5-8.0) Urine Specific Reynolds 1.010 (1.005-1.035) Urine Protein Negative (NEGATIVE) Urine Glucose (UA) Negative (NEGATIVE) Urine Ketones Negative (NEGATIVE) Urine Blood Negative (NEGATIVE) Urine Nitrite Negative (NEGATIVE) Urine Bilirubin Negative (NEGATIVE) Urine Urobilinogen Normal MG/DL (0.0-1.0) Urine Leukocyte Esterase Negative (NEGATIVE) Urine Opiates Screen Negative (NEGATIVE) Urine Barbiturates Screen Negative (NEGATIVE) Phencyclidine (PCP) Screen Negative (NEGATIVE) Urine Amphetamines Screen Negative (NEGATIVE) Urine Benzodiazepines Screen Negative (NEGATIVE) Urine Cocaine Screen Positive (NEGATIVE) Urine Marijuana (THC) Screen Negative (NEGATIVE) Test 04/14/19 05:45 White Blood Count 9.6 K/UL (4.8-10.8) Red Blood Count 4.50 M/UL (4.70-6.10) Hemoglobin 13.9 G/DL (14.2-18.0) Hematocrit 42.4 % (42.0-52.0) Mean Corpuscular Volume 94 FL (80-99) Mean Corpuscular Hemoglobin 30.9 PG (27.0-31.0) Mean Corpuscular Hemoglobin Concent 32.8 G/DL (32.0-36.0) Red Cell Distribution Width 13.2 % (11.6-14.8) Platelet Count 145 K/UL (150-450) Mean Platelet Volume 8.3 FL (6.5-10.1) Neutrophils (%) (Auto) 73.4 % (45.0-75.0) Lymphocytes (%) (Auto) 10.5 % (20.0-45.0) Monocytes (%) (Auto) 9.1 % (1.0-10.0) Eosinophils (%) (Auto) 5.6 % (0.0-3.0) Basophils (%) (Auto) 1.3 % (0.0-2.0) Sodium Level 139 MMOL/L (136-145) Potassium Level 3.9 MMOL/L (3.5-5.1) Chloride Level 103 MMOL/L (98-107) Carbon Dioxide Level 33 MMOL/L (21-32) Anion Gap 3 mmol/L (5-15) Blood Urea Nitrogen 25 mg/dL (7-18) Creatinine 1.2 MG/DL (0.55-1.30) Estimat Glomerular Filtration Rate > 60 mL/min (>60) Glucose Level 103 MG/DL (74-106) Calcium Level 8.8 MG/DL (8.5-10.1) Troponin I 0.106 ng/mL (0.000-0.056) Pro-B-Type Natriuretic Peptide 3661 pg/mL (0-125) HIV (1&2) Antibody Rapid Negative (NEGATIVE) Height (Feet): 5 Height (Inches): 6.00 Weight (Pounds): 121 Objective Physical Exam Vitals: reviewed, normal Gen: no apparent distress, alert, GCS 15, non-toxic HEENT: normal pharynx, no angioedema, normal voice Neck: full range of motion, supple, supple/symm/no masses Resp: chest non-tender, ++ wheezing CV: RRR, no mgr GI: normal bowel sounds, nt, soft, nd Psych: normal inspection, judgement/insight normal Skin: no rash Lymphatic: no adenopathy Navedep Sharma MD Apr 15, 2019 09:47
[2019-04-15 12:00] VITALS: BP 128/72
--- NOTE | 2019-04-15 14:23 | Infectious Diseases Prog Note ---
Assessment/Plan Assessment/Plan IMPRESSION: 1. COPD exacerbation. 2. CHF exacerbation. 3. Cocaine abuse. 4. Mitral regurgitation. 5. Pulmonary hypertension. 6. Emphysema. 7. Protein-calorie malnutrition. RECOMMENDATION: Continue Levaquin Subjective ROS Limited/Unobtainable: No Constitutional: Reports: no symptoms HEENT: Reports: no symptoms Respiratory: Reports: dry cough Cardiovascular: Reports: no symptoms Gastrointestinal/Abdominal: Reports: no symptoms Genitourinary: Reports: no symptoms Allergies: Coded Allergies: DIPHENHYDRAMINE (Unverified Allergy, Unknown, 12/18/17) Objective Vital Signs Last 24 Hour Vital Signs Date Time Temp Pulse Resp B/P (MAP) Pulse Ox O2 Delivery O2 Flow Rate FiO2 04/15/19 12:00 82 04/15/19 12:00 2.0 04/15/19 12:00 97.7 83 20 128/72 (90) 100 04/15/19 09:35 120/67 04/15/19 09:35 82 120/67 04/15/19 09:35 82 120/67 04/15/19 09:00 Nasal Cannula 2.0 04/15/19 08:00 97.6 82 20 120/67 (84) 94 04/15/19 08:00 88 04/15/19 08:00 2.0 04/15/19 07:51 Nasal Cannula 2.0 28 04/15/19 07:51 Nasal Cannula 2.0 28 04/15/19 07:50 98 Nasal Cannula 2.0 28 04/15/19 04:00 91 04/15/19 04:00 97.8 91 16 140/82 (101) 98 04/15/19 04:00 2.0 04/15/19 00:00 97.5 90 16 116/80 (92) 99 04/15/19 00:00 77 04/14/19 22:03 85 113/74 04/14/19 21:00 Nasal Cannula 2.0 04/14/19 20:00 97.3 85 16 113/74 (87) 98 04/14/19 20:00 87 04/14/19 20:00 2.0 04/14/19 19:29 70 18 100 Nasal Cannula 3.0 32 66 18 100 04/14/19 19:28 100 Nasal Cannula 3.0 32 04/14/19 16:00 84 04/14/19 16:00 97.3 94 22 102/57 (72) 99 04/14/19 16:00 2.0 Height (Feet): 5 Height (Inches): 6.00 Weight (Pounds): 121 General Appearance: no acute distress HEENT: mucous membranes moist Respiratory/Chest: lungs clear Cardiovascular: normal rate, other - on lifevest Abdomen: soft, non tender Extremities: no edema Neurologic/Psychiatric: alert, oriented x 3, responsive Microbiology Date/Time Source Procedure Growth Status 04/13/19 13:52 Nasal Nares - Final Complete 04/13/19 13:52 Nasal Nares - Final Complete Current Medications Medications (Trade) Dose Ordered Sig/Stephenie Route PRN Reason Start Time Stop Time Status Last Admin Dose Admin Acetaminophen (Tylenol) 500 mg Q4H PRN ORAL Mild Pain/Temp > 100.5 04/13/19 20:15 05/13/19 20:14 Acetaminophen (Tylenol) 650 mg Q6H PRN ORAL Moderate Pain (Pain Scale 4-6) 04/13/19 21:14 05/13/19 21:13 Amiodarone HCl (Cordarone) 200 mg DAILY ORAL 04/14/19 09:00 05/14/19 08:59 04/15/19 09:35 Amlodipine Besylate (Norvasc) 5 mg DAILY ORAL 04/14/19 09:00 05/14/19 08:59 04/15/19 09:35 Aspirin (ASA) 81 mg DAILY ORAL 04/14/19 09:00 05/14/19 08:59 04/15/19 09:35 Atorvastatin [place] (Lipitor) 20 mg BEDTIME ORAL 04/14/19 21:00 05/14/19 20:59 04/14/19 22:03 Carvedilol (Coreg) 3.125 mg EVERY 12 HOURS ORAL 04/13/19 21:00 05/13/19 20:59 04/15/19 09:35 Furosemide (Lasix) 40 mg EVERY 12 HOURS IV 04/13/19 21:23 05/13/19 21:22 04/15/19 09:34 Heparin Sodium (Porcine) (Heparin 5000 units/ml) 5,000 units EVERY 12 HOURS SUBQ 04/13/19 21:00 05/13/19 20:59 Hydralazine HCl (Apresoline) 25 mg Q8H PRN ORAL For High Blood Pressure 04/13/19 21:15 05/13/19 21:14 Ipratropium [place] (Atrovent) 500 mcg Q4H PRN HHN Shortness of Breath 04/13/19 23:45 04/18/19 23:44 Ipratropium [place] (Atrovent) 500 mcg Q6HRT HHN 04/13/19 20:48 04/18/19 20:47 04/14/19 18:53 Levofloxacin (Levaquin) 750 mg DAILY ORAL 04/14/19 13:15 04/21/19 13:14 04/15/19 09:35 Lisinopril (PriniviL) 20 mg DAILY ORAL 04/14/19 09:00 05/14/19 08:59 04/15/19 09:35 Ondansetron HCl (Zofran) 4 mg Q6H PRN IVP Nausea & Vomiting 04/13/19 21:00 05/13/19 20:59 Pantoprazole (Protonix) 40 mg EVERY 12 HOURS ORAL 04/13/19 21:00 05/13/19 20:59 04/15/19 09:35 Tiotropium [place] (Spiriva Inhaler) 2 puff DAILY INH 04/14/19 09:00 05/14/19 08:59 04/14/19 08:24 Benoit Horn MD Apr 15, 2019 14:23
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
[2019-04-15 16:00] VITALS: BP 99/52
--- NOTE | 2019-04-15 18:36 | General Progress Note ---
Assessment/Plan Problem List: (1) CHF exacerbation ICD Codes: I50.9 - Heart failure, unspecified SNOMED: 127976910, 15694320613323 (2) COPD (chronic obstructive pulmonary disease) ICD Codes: J44.9 - Chronic obstructive pulmonary disease, unspecified SNOMED: 98727495 (3) Cocaine abuse ICD Codes: F14.10 - Cocaine abuse, uncomplicated SNOMED: 35478932 (4) HTN (hypertension) ICD Codes: I10 - Essential (primary) hypertension SNOMED: 84899625 (5) Emphysema lung ICD Codes: J43.9 - Emphysema, unspecified SNOMED: 13326598 Status: progressing Assessment/Plan: cocaine induced cardiomyopathy chf r/o IA HTN Subjective ROS Limited/Unobtainable: Yes Allergies: Coded Allergies: DIPHENHYDRAMINE (Unverified Allergy, Unknown, 12/18/17) Objective Last 24 Hour Vital Signs Date Time Temp Pulse Resp B/P (MAP) Pulse Ox O2 Delivery O2 Flow Rate FiO2 04/15/19 16:00 90 04/15/19 16:00 98.0 83 20 99/52 (68) 98 04/15/19 16:00 2.0 04/15/19 12:00 82 04/15/19 12:00 2.0 04/15/19 12:00 97.7 83 20 128/72 (90) 100 04/15/19 09:35 120/67 04/15/19 09:35 82 120/67 04/15/19 09:35 82 120/67 04/15/19 09:00 Nasal Cannula 2.0 04/15/19 08:00 97.6 82 20 120/67 (84) 94 04/15/19 08:00 88 04/15/19 08:00 2.0 04/15/19 07:51 Nasal Cannula 2.0 28 04/15/19 07:51 Nasal Cannula 2.0 28 04/15/19 07:50 98 Nasal Cannula 2.0 28 04/15/19 04:00 91 04/15/19 04:00 97.8 91 16 140/82 (101) 98 04/15/19 04:00 2.0 04/15/19 00:00 97.5 90 16 116/80 (92) 99 04/15/19 00:00 77 04/14/19 22:03 85 113/74 04/14/19 21:00 Nasal Cannula 2.0 04/14/19 20:00 97.3 85 16 113/74 (87) 98 04/14/19 20:00 87 04/14/19 20:00 2.0 04/14/19 19:29 70 18 100 Nasal Cannula 3.0 32 66 18 100 04/14/19 19:28 100 Nasal Cannula 3.0 32 Intake and Output 04/14/19 04/15/19 19:00 07:00 Intake Total 720 ml 320 ml Output Total 1050 ml Balance -330 ml 320 ml Intake Oral 720 ml 320 ml Output Urine Total 1050 ml # Voids 2 Height (Feet): 5 Height (Inches): 6.00 Weight (Pounds): 121 Neck: supple Cardiovascular: normal rate Respiratory/Chest: lungs clear Abdomen: soft Alex Rene MD Apr 15, 2019 18:35
--- NOTE | 2019-04-15 19:11 | NUR ---
HAND-OFF: Report given to TEX Shi. Patient's stable, plan of care endorsed.
--- NOTE | 2019-04-15 19:30 | NUR ---
NURSE NOTES: Received report from TEX Ivan. Patient is in bed, alert and awake, responsive to verbal and tactile stimuli. Breathing regular and unlabored with no s/s of SOB noted. Patient is currently getting a breathing treatment by the RT. No c/o pain or any discomfort noted at this time. No acute distress noted at this time. IV is patent, intact, and saline locked. Bed is in lowest position, breaks engaged, and call light is within reach at all times. All other needs attended to, will continue to monitor.
[2019-04-15 20:00] VITALS: BP 111/77
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
[2019-04-15] MEDS: Atorvastatin 20mg tab ORAL SCH (23:23)
[2019-04-16] VITALS: BP 120/70
[2019-04-16] MEDS: Ipratropium 0.02% Inh Soln 2.5ml UD HHN SCH ×4 (01:43→19:00)
[2019-04-16 04:00] VITALS: BP 139/77
--- NOTE | 2019-04-16 07:30 | NUR ---
NURSE NOTES: Received report from TEX Shi. The patient is resting on the bed without acute distress or shortness of breath. The patient's bed in the lowest position, call light in reach, and fall and aspiration precaution reinforced. IV site intact and patent. The patient is on Lifevest. Will continue plan of care.
--- NOTE | 2019-04-16 07:40 | NUR ---
HAND-OFF: Report given to TEX Flores. Patient is stable, endorsed plan of care.
[2019-04-16 08:00] VITALS: BP 123/68
[2019-04-16] MEDS: Heparin 5000 units/ml inj SUBQ SCH ×2 (09:00→21:35)
[2019-04-16] MEDS: Amiodarone 200mg tab ORAL SCH (09:21)
[2019-04-16] MEDS: Aspirin Baby 81mg ORAL SCH (09:21)
[2019-04-16] MEDS: Lisinopril 20mg tab ORAL SCH (09:22)
[2019-04-16] MEDS: Levofloxacin 750mg tab ORAL SCH (09:22)
--- NOTE | 2019-04-16 11:07 | Infectious Diseases Prog Note ---
Assessment/Plan Assessment/Plan IMPRESSION: 1. COPD exacerbation. 2. CHF exacerbation. 3. Cocaine abuse. 4. Mitral regurgitation. 5. Pulmonary hypertension. 6. Emphysema. 7. Protein-calorie malnutrition. 8. Nicotine dependence RECOMMENDATION: Continue Levaquin Subjective ROS Limited/Unobtainable: No Constitutional: Reports: no symptoms Respiratory: Reports: productive cough Cardiovascular: Reports: no symptoms Gastrointestinal/Abdominal: Reports: no symptoms Genitourinary: Reports: no symptoms Allergies: Coded Allergies: DIPHENHYDRAMINE (Unverified Allergy, Unknown, 12/18/17) Objective Vital Signs Last 24 Hour Vital Signs Date Time Temp Pulse Resp B/P (MAP) Pulse Ox O2 Delivery O2 Flow Rate FiO2 04/16/19 09:22 123/68 04/16/19 09:22 78 123/68 04/16/19 09:21 78 123/68 04/16/19 07:50 99 Room Air 04/16/19 07:11 75 18 99 04/16/19 06:59 75 20 100 Room Air 21 78 20 98 04/16/19 04:00 97.4 73 20 139/77 (97) 97 04/16/19 04:00 97 04/16/19 04:00 2.0 04/16/19 01:43 71 18 100 Nasal Cannula 3.0 32 74 18 100 04/16/19 00:00 97.7 70 22 120/70 (87) 100 04/16/19 00:00 2.0 04/16/19 00:00 90 04/16/19 00:00 90 04/15/19 23:26 88 115/73 04/15/19 21:00 Nasal Cannula 2.0 04/15/19 20:15 100 Nasal Cannula 2.0 28 04/15/19 20:15 70 18 100 Nasal Cannula 3.0 32 68 18 100 04/15/19 20:00 2.0 04/15/19 20:00 97.5 70 16 111/77 (88) 99 04/15/19 20:00 79 04/15/19 16:00 90 04/15/19 16:00 98.0 83 20 99/52 (68) 98 04/15/19 16:00 2.0 04/15/19 12:00 82 04/15/19 12:00 2.0 04/15/19 12:00 97.7 83 20 128/72 (90) 100 Height (Feet): 5 Height (Inches): 6.00 Weight (Pounds): 121 General Appearance: cachetic HEENT: mucous membranes moist Respiratory/Chest: lungs clear Cardiovascular: normal rate, other - lifevest Abdomen: soft, non tender Extremities: no edema Neurologic/Psychiatric: alert, oriented x 3, responsive Microbiology Date/Time Source Procedure Growth Status 04/13/19 13:52 Nasal Nares - Final Complete 04/13/19 13:52 Nasal Nares - Final Complete Current Medications Medications (Trade) Dose Ordered Sig/Stephenie Route PRN Reason Start Time Stop Time Status Last Admin Dose Admin Acetaminophen (Tylenol) 500 mg Q4H PRN ORAL Mild Pain/Temp > 100.5 04/13/19 20:15 05/13/19 20:14 04/16/19 00:06 Acetaminophen (Tylenol) 650 mg Q6H PRN ORAL Moderate Pain (Pain Scale 4-6) 04/13/19 21:14 05/13/19 21:13 Amiodarone HCl (Cordarone) 200 mg DAILY ORAL 04/14/19 09:00 05/14/19 08:59 04/16/19 09:21 Amlodipine Besylate (Norvasc) 5 mg DAILY ORAL 04/14/19 09:00 05/14/19 08:59 04/16/19 09:22 Aspirin (ASA) 81 mg DAILY ORAL 04/14/19 09:00 05/14/19 08:59 04/16/19 09:21 Atorvastatin [place] (Lipitor) 20 mg BEDTIME ORAL 04/14/19 21:00 05/14/19 20:59 04/15/19 23:23 Carvedilol (Coreg) 3.125 mg EVERY 12 HOURS ORAL 04/13/19 21:00 05/13/19 20:59 04/16/19 09:21 Furosemide (Lasix) 40 mg EVERY 12 HOURS IV 04/13/19 21:23 05/13/19 21:22 04/16/19 09:21 Heparin Sodium (Porcine) (Heparin 5000 units/ml) 5,000 units EVERY 12 HOURS SUBQ 04/13/19 21:00 05/13/19 20:59 Hydralazine HCl (Apresoline) 25 mg Q8H PRN ORAL For High Blood Pressure 04/13/19 21:15 05/13/19 21:14 Ipratropium [place] (Atrovent) 500 mcg Q4H PRN HHN Shortness of Breath 04/13/19 23:45 04/18/19 23:44 Ipratropium [place] (Atrovent) 500 mcg Q6HRT HHN 04/13/19 20:48 04/18/19 20:47 04/16/19 06:49 Levofloxacin (Levaquin) 750 mg DAILY ORAL 04/14/19 13:15 04/21/19 13:14 04/16/19 09:22 Lisinopril (PriniviL) 20 mg DAILY ORAL 04/14/19 09:00 05/14/19 08:59 04/16/19 09:22 Ondansetron HCl (Zofran) 4 mg Q6H PRN IVP Nausea & Vomiting 04/13/19 21:00 05/13/19 20:59 Pantoprazole (Protonix) 40 mg EVERY 12 HOURS ORAL 04/13/19 21:00 05/13/19 20:59 04/16/19 09:22 Tiotropium [place] (Spiriva Inhaler) 2 puff DAILY INH 04/14/19 09:00 05/14/19 08:59 04/16/19 07:11 Benoit Horn MD Apr 16, 2019 11:07
[2019-04-16 12:00] VITALS: BP 112/71
--- NOTE | 2019-04-16 12:00 | NUR ---
NURSE NOTES: The patient is stable without acute distress or shortness of breath. Will continue plan of care.
[2019-04-16 16:00] VITALS: BP 100/43
--- NOTE | 2019-04-16 16:00 | NUR ---
NURSE NOTES: The patient is stable without acute distress or shortness of breath. Will continue plan of care.
--- NOTE | 2019-04-16 17:04 | General Progress Note ---
Assessment/Plan Problem List: (1) CHF exacerbation ICD Codes: I50.9 - Heart failure, unspecified SNOMED: 446786834, 81477995056043 (2) COPD (chronic obstructive pulmonary disease) ICD Codes: J44.9 - Chronic obstructive pulmonary disease, unspecified SNOMED: 51801051 (3) Cocaine abuse ICD Codes: F14.10 - Cocaine abuse, uncomplicated SNOMED: 18289589 (4) HTN (hypertension) ICD Codes: I10 - Essential (primary) hypertension SNOMED: 77683127 (5) Emphysema lung ICD Codes: J43.9 - Emphysema, unspecified SNOMED: 44352652 Status: progressing Assessment/Plan: cocaine induced cardiomyopathy chf HTN no sob no cp dc planning Subjective ROS Limited/Unobtainable: Yes Allergies: Coded Allergies: DIPHENHYDRAMINE (Unverified Allergy, Unknown, 12/18/17) Objective Last 24 Hour Vital Signs Date Time Temp Pulse Resp B/P (MAP) Pulse Ox O2 Delivery O2 Flow Rate FiO2 04/16/19 16:00 97.3 80 20 100/43 (62) 97 04/16/19 16:00 2.0 04/16/19 13:10 79 21 100 Nasal Cannula 3.0 32 77 15 97 04/16/19 12:00 82 04/16/19 12:00 2.0 04/16/19 12:00 98.0 85 20 112/71 (85) 99 04/16/19 09:22 123/68 04/16/19 09:22 78 123/68 04/16/19 09:21 78 123/68 04/16/19 09:00 Nasal Cannula 2.0 04/16/19 08:00 98.4 78 18 123/68 (86) 99 04/16/19 08:00 80 04/16/19 08:00 2.0 04/16/19 07:50 99 Room Air 04/16/19 07:11 75 18 99 04/16/19 06:59 75 20 100 Room Air 21 78 20 98 04/16/19 04:00 97.4 73 20 139/77 (97) 97 04/16/19 04:00 97 04/16/19 04:00 2.0 04/16/19 01:43 71 18 100 Nasal Cannula 3.0 32 74 18 100 04/16/19 00:00 97.7 70 22 120/70 (87) 100 04/16/19 00:00 2.0 04/16/19 00:00 90 04/16/19 00:00 90 04/15/19 23:26 88 115/73 04/15/19 21:00 Nasal Cannula 2.0 04/15/19 20:15 100 Nasal Cannula 2.0 28 04/15/19 20:15 70 18 100 Nasal Cannula 3.0 32 68 18 100 04/15/19 20:00 2.0 04/15/19 20:00 97.5 70 16 111/77 (88) 99 04/15/19 20:00 79 Intake and Output 04/15/19 04/16/19 19:00 07:00 Intake Total 550 ml 240 ml Output Total 500 ml 2 ml Balance 50 ml 238 ml Intake Oral 550 ml 240 ml Output Urine Total 500 ml Stool Total 2 ml # Voids 3 Height (Feet): 5 Height (Inches): 6.00 Weight (Pounds): 121 Respiratory/Chest: lungs clear Abdomen: soft Alex Rene MD Apr 16, 2019 17:04
--- NOTE | 2019-04-16 18:00 | NUR ---
NURSE NOTES: The patient is stable without acute distress or shortness of breath. Will continue plan of care.
--- NOTE | 2019-04-16 18:32 | General Progress Note ---
Assessment/Plan Assessment/Plan: (1) Degenerative joint disease (2) Congestive heart failure (3) Cocaine abuse Patient to be continued on Tylenol D/w Dr. Jackson and he concurred. Subjective Date patient seen: Apr 16, 2019 Time patient seen: 06:15 - pm Allergies: Coded Allergies: DIPHENHYDRAMINE (Unverified Allergy, Unknown, 12/18/17) Subjective REVIEW OF SYSTEMS: Denies rash, fever, chills, sweating, dizziness, drowsiness, blurred vision, sore throat, change in hearing or weight. No nausea, vomiting, diarrhea, or blood in the stool or urine. No dysuria. SUBJECTIVE: Patient is in bed no signs of pain or distress. Pain has been tolerated on the Tylenol. No new complaints at this time. Objective Last 24 Hour Vital Signs Date Time Temp Pulse Resp B/P (MAP) Pulse Ox O2 Delivery O2 Flow Rate FiO2 04/16/19 16:00 97.3 80 20 100/43 (62) 97 04/16/19 16:00 2.0 04/16/19 13:10 79 21 100 Nasal Cannula 3.0 32 77 15 97 04/16/19 12:00 82 04/16/19 12:00 2.0 04/16/19 12:00 98.0 85 20 112/71 (85) 99 04/16/19 09:22 123/68 04/16/19 09:22 78 123/68 04/16/19 09:21 78 123/68 04/16/19 09:00 Nasal Cannula 2.0 04/16/19 08:00 98.4 78 18 123/68 (86) 99 04/16/19 08:00 80 04/16/19 08:00 2.0 04/16/19 07:50 99 Room Air 04/16/19 07:11 75 18 99 04/16/19 06:59 75 20 100 Room Air 21 78 20 98 04/16/19 04:00 97.4 73 20 139/77 (97) 97 04/16/19 04:00 97 04/16/19 04:00 2.0 04/16/19 01:43 71 18 100 Nasal Cannula 3.0 32 74 18 100 04/16/19 00:00 97.7 70 22 120/70 (87) 100 1/5/20 00:00 2.0 04/16/19 00:00 90 04/16/19 00:00 90 04/15/19 23:26 88 115/73 04/15/19 21:00 Nasal Cannula 2.0 04/15/19 20:15 100 Nasal Cannula 2.0 28 04/15/19 20:15 70 18 100 Nasal Cannula 3.0 32 68 18 100 04/15/19 20:00 2.0 04/15/19 20:00 97.5 70 16 111/77 (88) 99 04/15/19 20:00 79 Intake and Output 04/15/19 04/16/19 19:00 07:00 Intake Total 550 ml 240 ml Output Total 500 ml 2 ml Balance 50 ml 238 ml Intake Oral 550 ml 240 ml Output Urine Total 500 ml Stool Total 2 ml # Voids 3 Height (Feet): 5 Height (Inches): 6.00 Weight (Pounds): 121 Objective GENERAL: Alert, awake, and oriented. LUNGS: Decreased breath sounds bilaterally. HEART: S1 and S2 irregular. ABDOMEN: Soft, nontender. EXTREMITIES: No cyanosis. No clubbing with slight edema in the left lower extremity. NEURO: No changes. Anton Laboy Apr 16, 2019 18:32
--- NOTE | 2019-04-16 19:20 | NUR ---
HAND-OFF: Report given to TEX Chin. The patient is resting on the bed without acute distress or shortness of breath. The patient's bed in the lowest position, call light in reach, and fall and aspiration precaution reinforced. IV site intact and patent. Oxygen therapy per order. Lifevest intact. Endorsed plan of care.
--- NOTE | 2019-04-16 19:30 | NUR ---
NURSE NOTES: Received patient from Sandra NICE. Patient in bed, awake, alert and oriented x3. On 2L NC, no signs of respiratory distress. Bed in low position, locked, call light within reach.
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
[2019-04-16 20:00] VITALS: BP 132/88
[2019-04-16] MEDS: Atorvastatin 20mg tab ORAL SCH (21:29)
[2019-04-17] VITALS: BP 135/94
[2019-04-17] MEDS: Ipratropium 0.02% Inh Soln 2.5ml UD HHN SCH ×3 (01:00→15:24)
[2019-04-17 04:00] VITALS: BP 121/80
--- NOTE | 2019-04-17 06:27 | Hematology/Onc Progress Note ---
Assessment/Plan Assessment/Plan Assessment and Recs: # Thrombocytopenia likely reactive process, hx of drug abuse, cocaine use and smoking currently, continues to smoke --> labs have been reviewed, no bleeding, monitor for withdrawal --> smear has been reviewed and no schistocytes are noted --> peripheral smear is pending --> hepatitis and hiv as needed --> meds have been reviewed --> plt trend 135-->145k # CHF exacerbation --> very likely related to cocaine use --> 2d echo as per cards --> diuresis per cards # COPD exacerbation --> breathing treatments as per pulm --> pulmonary toilet --> pulm consulted # Cocaine abuse --> currently still using drugs --> Sw consult as needed --> rec cessation # External defibrillator placed in --> per cards MANUEL RN and appreciate consultation Subjective Constitutional: Denies: no symptoms, chills, fever, malaise, weakness, other HEENT: Denies: no symptoms, eye pain, blurred vision, tearing, double vision, ear pain, ear discharge, nose pain, nose congestion, throat pain, throat swelling, mouth pain, mouth swelling, other Respiratory: Denies: no symptoms, cough, shortness of breath, SOB with excertion, SOB at rest, sputum, wheezing, other Gastrointestinal/Abdominal: Denies: no symptoms, abdomen distended, abdominal pain, black stools, tarry stools, blood in stool, constipated, diarrhea, difficulty swallowing, nausea, poor appetite, poor fluid intake, rectal bleeding , vomiting, other Genitourinary: Denies: no symptoms, burning, discharge, frequency, flank pain, hematuria, incontinence, pain, urgency, other Neurologic/Psychiatric: Denies: no symptoms, anxiety, depressed, emotional problems, headache, numbness, paresthesia, pre-existing deficit, seizure, tingling, tremors, weakness, other Allergies: Coded Allergies: DIPHENHYDRAMINE (Unverified Allergy, Unknown, 12/18/17) Subjective 04/15/19: no events, no bleeding, labs have been reviewed 04/17: continues to be on tylenol, does not complain of pain, on 2l nc Objective Objective Current Medications Medications (Trade) Dose Ordered Sig/Stephenie Route PRN Reason Start Time Stop Time Status Last Admin Dose Admin Acetaminophen (Tylenol) 500 mg Q4H PRN ORAL Mild Pain/Temp > 100.5 04/13/19 20:15 05/13/19 20:14 04/16/19 00:06 Acetaminophen (Tylenol) 650 mg Q6H PRN ORAL Moderate Pain (Pain Scale 4-6) 04/13/19 21:14 05/13/19 21:13 Amiodarone HCl (Cordarone) 200 mg DAILY ORAL 04/14/19 09:00 05/14/19 08:59 04/16/19 09:21 Amlodipine Besylate (Norvasc) 5 mg DAILY ORAL 04/14/19 09:00 05/14/19 08:59 04/16/19 09:22 Aspirin (ASA) 81 mg DAILY ORAL 04/14/19 09:00 05/14/19 08:59 04/16/19 09:21 Atorvastatin [place] (Lipitor) 20 mg BEDTIME ORAL 04/14/19 21:00 05/14/19 20:59 04/16/19 21:29 Carvedilol (Coreg) 3.125 mg EVERY 12 HOURS ORAL 04/13/19 21:00 05/13/19 20:59 04/16/19 21:29 Furosemide (Lasix) 40 mg EVERY 12 HOURS IV 04/13/19 21:23 05/13/19 21:22 04/16/19 21:29 Heparin Sodium (Porcine) (Heparin 5000 units/ml) 5,000 units EVERY 12 HOURS SUBQ 04/13/19 21:00 05/13/19 20:59 04/16/19 21:35 Hydralazine HCl (Apresoline) 25 mg Q8H PRN ORAL For High Blood Pressure 04/13/19 21:15 05/13/19 21:14 Ipratropium [place] (Atrovent) 500 mcg Q4H PRN HHN Shortness of Breath 04/13/19 23:45 04/18/19 23:44 Ipratropium [place] (Atrovent) 500 mcg Q6HRT HHN 04/13/19 20:48 04/18/19 20:47 04/16/19 13:10 Levofloxacin (Levaquin) 750 mg DAILY ORAL 04/14/19 13:15 04/21/19 13:14 04/16/19 09:22 Lisinopril (PriniviL) 20 mg DAILY ORAL 04/14/19 09:00 05/14/19 08:59 04/16/19 09:22 Ondansetron HCl (Zofran) 4 mg Q6H PRN IVP Nausea & Vomiting 04/13/19 21:00 05/13/19 20:59 Pantoprazole (Protonix) 40 mg EVERY 12 HOURS ORAL 04/13/19 21:00 05/13/19 20:59 04/16/19 21:29 Tiotropium [place] (Spiriva Inhaler) 2 puff DAILY INH 04/14/19 09:00 05/14/19 08:59 04/16/19 07:11 Last 24 Hour Vital Signs Date Time Temp Pulse Resp B/P (MAP) Pulse Ox O2 Delivery O2 Flow Rate FiO2 04/17/19 04:00 97.9 87 18 121/80 (94) 97 04/17/19 04:00 82 04/17/19 04:00 2.0 04/17/19 00:00 80 04/17/19 00:00 97.4 88 18 135/94 (108) 99 04/17/19 00:00 2.0 04/16/19 21:29 79 132/88 04/16/19 21:00 Nasal Cannula 2.0 04/16/19 20:00 84 04/16/19 20:00 97.6 79 18 132/88 (103) 99 04/16/19 20:00 2.0 04/16/19 19:50 79 21 100 Nasal Cannula 3.0 32 75 15 97 04/16/19 19:50 97 Room Air 04/16/19 16:00 97.3 80 20 100/43 (62) 97 04/16/19 16:00 83 04/16/19 16:00 2.0 04/16/19 13:10 79 21 100 Nasal Cannula 3.0 32 77 15 97 04/16/19 12:00 82 04/16/19 12:00 2.0 04/16/19 12:00 98.0 85 20 112/71 (85) 99 04/16/19 09:22 123/68 04/16/19 09:22 78 123/68 04/16/19 09:21 78 123/68 04/16/19 09:00 Nasal Cannula 2.0 04/16/19 08:00 98.4 78 18 123/68 (86) 99 04/16/19 08:00 80 04/16/19 08:00 2.0 04/16/19 07:50 99 Room Air 04/16/19 07:11 75 18 99 04/16/19 06:59 75 20 100 Room Air 21 78 20 98 04/16/19 04:00 97.4 73 20 139/77 (97) 97 04/16/19 04:00 97 04/16/19 04:00 2.0 04/16/19 01:43 71 18 100 Nasal Cannula 3.0 32 74 18 100 04/16/19 00:00 97.7 70 22 120/70 (87) 100 04/16/19 00:00 2.0 04/16/19 00:00 90 04/16/19 00:00 90 04/15/19 23:26 88 115/73 04/15/19 21:00 Nasal Cannula 2.0 04/15/19 20:15 100 Nasal Cannula 2.0 28 04/15/19 20:15 70 18 100 Nasal Cannula 3.0 32 68 18 100 04/15/19 20:00 2.0 04/15/19 20:00 97.5 70 16 111/77 (88) 99 04/15/19 20:00 79 04/15/19 16:00 90 04/15/19 16:00 98.0 83 20 99/52 (68) 98 04/15/19 16:00 2.0 04/15/19 12:00 82 04/15/19 12:00 2.0 04/15/19 12:00 97.7 83 20 128/72 (90) 100 04/15/19 09:35 120/67 04/15/19 09:35 82 120/67 04/15/19 09:35 82 120/67 04/15/19 09:00 Nasal Cannula 2.0 04/15/19 08:00 97.6 82 20 120/67 (84) 94 04/15/19 08:00 88 04/15/19 08:00 2.0 04/15/19 07:51 Nasal Cannula 2.0 28 04/15/19 07:51 Nasal Cannula 2.0 28 04/15/19 07:50 98 Nasal Cannula 2.0 28 Intake and Output 04/16/19 04/17/19 19:00 07:00 Intake Total 360 ml 360 ml Output Total 700 ml 850 ml Balance -340 ml -490 ml Intake Oral 360 ml 360 ml Output Urine Total 700 ml 850 ml # Voids 3 Height (Feet): 5 Height (Inches): 6.00 Weight (Pounds): 121 Objective Physical Exam Vitals: reviewed, normal Gen: no apparent distress, alert, GCS 15, non-toxic HEENT: normal pharynx, no angioedema, normal voice Neck: full range of motion, supple, supple/symm/no masses Resp: chest non-tender, ++ wheezing CV: RRR, no mgr GI: normal bowel sounds, nt, soft, nd Psych: normal inspection, judgement/insight normal Skin: no rash Lymphatic: no adenopathy Navdeep Sharma MD Apr 17, 2019 06:27
--- NOTE | 2019-04-17 07:06 | NUR ---
HAND-OFF: Report given to Sandra NICE.
--- NOTE | 2019-04-17 07:20 | NUR ---
NURSE NOTES: Received report from TEX Chin. The patient is resting on the bed without acute distress or shortness of breath. The patient's bed in the lowest position, call light in reach, and fall and aspiration precaution reinforced. Lifevest on the patient and education provided for battery replacement. Oxygen therapy per order. Will continue plan of care.
[2019-04-17 08:00] VITALS: BP 116/62
--- NOTE | 2019-04-17 08:58 | General Progress Note ---
Assessment/Plan Assessment/Plan: (1) Degenerative joint disease (2) Congestive heart failure (3) Cocaine abuse Patient to be continued on Tylenol D/w Dr. Jackson and he concurred. Subjective Date patient seen: Apr 17, 2019 Time patient seen: 08:15 - am Allergies: Coded Allergies: DIPHENHYDRAMINE (Unverified Allergy, Unknown, 12/18/17) Subjective REVIEW OF SYSTEMS: Denies rash, fever, chills, sweating, dizziness, drowsiness, blurred vision, sore throat, change in hearing or weight. No nausea, vomiting, diarrhea, or blood in the stool or urine. No dysuria. SUBJECTIVE: Patient is in bed and has no c/o pain. Doing better. No new complaints at this time Objective Last 24 Hour Vital Signs Date Time Temp Pulse Resp B/P (MAP) Pulse Ox O2 Delivery O2 Flow Rate FiO2 04/17/19 07:25 98 Nasal Cannula 3.0 32 04/17/19 07:25 81 18 100 Nasal Cannula 3.0 32 79 16 98 04/17/19 04:00 97.9 87 18 121/80 (94) 97 04/17/19 04:00 82 04/17/19 04:00 2.0 04/17/19 00:00 80 04/17/19 00:00 97.4 88 18 135/94 (108) 99 04/17/19 00:00 2.0 04/16/19 21:29 79 132/88 04/16/19 21:00 Nasal Cannula 2.0 04/16/19 20:00 84 04/16/19 20:00 97.6 79 18 132/88 (103) 99 04/16/19 20:00 2.0 04/16/19 19:50 79 21 100 Nasal Cannula 3.0 32 75 15 97 04/16/19 19:50 97 Room Air 04/16/19 16:00 97.3 80 20 100/43 (62) 97 04/16/19 16:00 83 04/16/19 16:00 2.0 04/16/19 13:10 79 21 100 Nasal Cannula 3.0 32 77 15 97 04/16/19 12:00 82 04/16/19 12:00 2.0 04/16/19 12:00 98.0 85 20 112/71 (85) 99 04/16/19 09:22 123/68 04/16/19 09:22 78 123/68 04/16/19 09:21 78 123/68 04/16/19 09:00 Nasal Cannula 2.0 Intake and Output 04/16/19 04/17/19 19:00 07:00 Intake Total 360 ml 360 ml Output Total 700 ml 1250 ml Balance -340 ml -890 ml Intake Oral 360 ml 360 ml Output Urine Total 700 ml 1250 ml # Voids 3 Height (Feet): 5 Height (Inches): 6.00 Weight (Pounds): 121 Objective GENERAL: Alert, awake, and oriented. LUNGS: Decreased breath sounds bilaterally. HEART: S1 and S2 irregular. ABDOMEN: Soft, nontender. EXTREMITIES: No cyanosis. No clubbing with slight edema in the left lower extremity. NEURO: No changes. Anton Laboy Apr 17, 2019 08:58
[2019-04-17] MEDS: Aspirin Baby 81mg ORAL SCH (09:11)
[2019-04-17] MEDS: Amiodarone 200mg tab ORAL SCH (09:11)
[2019-04-17] MEDS: Lisinopril 20mg tab ORAL SCH (09:12)
[2019-04-17] MEDS: Levofloxacin 750mg tab ORAL SCH (09:12)
[2019-04-17] MEDS: Heparin 5000 units/ml inj SUBQ SCH (09:14)
--- NOTE | 2019-04-17 09:30 | NUR ---
NURSE NOTES: The patient is stable without acute distress or shortness of breath. Will continue plan of care.
--- NOTE | 2019-04-17 10:30 | NUR ---
NURSE NOTES: Dr. Rene ordered the patient to be discharge if the following clears. 1. Do stat CMP, CBC, Troponin and report to appropriate doctor. 2. Get clearance from Dr. Sheehan, Dr. Sarah, and Dr. Horn. Cleared by Dr. Sarah with antibiotics per ID and 2L NC continuous home oxygen therapy. Cleared by Robby Melara with 2 days supplies of antibiotics upon discharge. Pending clearance from Dr. Sheehan. 3. As soon as home oxygen delivers upon discharge. Will continue plan of care until clarification made. Will continue plan of care. Addendum: 04/17/19 at 1434 by Ernesto Robertson RN Informed Dr. Sarah regarding the patient's refusal of home oxygen therapy and ABG for evaluation of home oxygen use. The primary RN assisted for ambulation to check SpO2 upon exertion, and oxygen saturation persisted 98-100% in room air at rest and ambulation. Notified to Dr. Sarah and Dr. Rene. Dr. aSrah cancelled the home oxygen therapy as the patient is stable in room air without oxygen at rest or ambulation. Will continue plan of care until getting clearance from Dr. Sheehan. Will continue plan of care.
--- NOTE | 2019-04-17 10:59 | Infectious Diseases Prog Note ---
Assessment/Plan Assessment/Plan IMPRESSION: 1. COPD exacerbation. 2. CHF exacerbation. 3. Cocaine abuse. 4. Mitral regurgitation. 5. Pulmonary hypertension. 6. Emphysema. 7. Protein-calorie malnutrition. 8. Nicotine dependence RECOMMENDATION: Continue Levaquin X 2 days Agree with discharge Subjective ROS Limited/Unobtainable: No Constitutional: Reports: no symptoms Respiratory: Reports: no symptoms Cardiovascular: Reports: no symptoms Gastrointestinal/Abdominal: Reports: no symptoms Genitourinary: Reports: no symptoms Allergies: Coded Allergies: DIPHENHYDRAMINE (Unverified Allergy, Unknown, 12/18/17) Objective Vital Signs Last 24 Hour Vital Signs Date Time Temp Pulse Resp B/P (MAP) Pulse Ox O2 Delivery O2 Flow Rate FiO2 04/17/19 09:33 80 16 100 Nasal Cannula 2.0 28 04/17/19 09:33 81 18 99 Nasal Cannula 2.0 28 04/17/19 09:12 116/62 04/17/19 09:12 74 116/62 04/17/19 09:11 74 116/62 04/17/19 07:25 98 Nasal Cannula 3.0 32 04/17/19 07:25 81 18 100 Nasal Cannula 3.0 32 79 16 98 04/17/19 04:00 97.9 87 18 121/80 (94) 97 04/17/19 04:00 82 04/17/19 04:00 2.0 04/17/19 00:00 80 04/17/19 00:00 97.4 88 18 135/94 (108) 99 04/17/19 00:00 2.0 04/16/19 21:29 79 132/88 04/16/19 21:00 Nasal Cannula 2.0 04/16/19 20:00 84 04/16/19 20:00 97.6 79 18 132/88 (103) 99 04/16/19 20:00 2.0 04/16/19 19:50 79 21 100 Nasal Cannula 3.0 32 75 15 97 04/16/19 19:50 97 Room Air 04/16/19 16:00 97.3 80 20 100/43 (62) 97 04/16/19 16:00 83 04/16/19 16:00 2.0 04/16/19 13:10 79 21 100 Nasal Cannula 3.0 32 77 15 97 04/16/19 12:00 82 04/16/19 12:00 2.0 04/16/19 12:00 98.0 85 20 112/71 (85) 99 Height (Feet): 5 Height (Inches): 6.00 Weight (Pounds): 121 General Appearance: no acute distress HEENT: mucous membranes moist Respiratory/Chest: lungs clear Cardiovascular: normal rate, other - lifevest Abdomen: soft, non tender Extremities: no edema Neurologic/Psychiatric: alert, oriented x 3, responsive Current Medications Medications (Trade) Dose Ordered Sig/Stephenie Route PRN Reason Start Time Stop Time Status Last Admin Dose Admin Acetaminophen (Tylenol) 500 mg Q4H PRN ORAL Mild Pain/Temp > 100.5 04/13/19 20:15 05/13/19 20:14 04/16/19 00:06 Acetaminophen (Tylenol) 650 mg Q6H PRN ORAL Moderate Pain (Pain Scale 4-6) 04/13/19 21:14 05/13/19 21:13 Amiodarone HCl (Cordarone) 200 mg DAILY ORAL 04/14/19 09:00 05/14/19 08:59 04/17/19 09:11 Amlodipine Besylate (Norvasc) 5 mg DAILY ORAL 04/14/19 09:00 05/14/19 08:59 04/17/19 09:12 Aspirin (ASA) 81 mg DAILY ORAL 04/14/19 09:00 05/14/19 08:59 04/17/19 09:11 Atorvastatin Calcium (Lipitor) 20 mg BEDTIME ORAL 04/14/19 21:00 05/14/19 20:59 04/16/19 21:29 Carvedilol (Coreg) 3.125 mg EVERY 12 HOURS ORAL 04/13/19 21:00 05/13/19 20:59 04/17/19 09:11 Furosemide (Lasix) 40 mg EVERY 12 HOURS IV 04/13/19 21:23 05/13/19 21:22 04/17/19 09:10 Heparin Sodium (Porcine) (Heparin 5000 units/ml) 5,000 units EVERY 12 HOURS SUBQ 04/13/19 21:00 05/13/19 20:59 04/17/19 09:14 Hydralazine HCl (Apresoline) 25 mg Q8H PRN ORAL For High Blood Pressure 04/13/19 21:15 05/13/19 21:14 Ipratropium [place] (Atrovent) 500 mcg Q4H PRN HHN Shortness of Breath 04/13/19 23:45 04/18/19 23:44 Ipratropium [place] (Atrovent) 500 mcg Q6HRT HHN 04/13/19 20:48 04/18/19 20:47 04/17/19 07:27 Levofloxacin (Levaquin) 750 mg DAILY ORAL 04/14/19 13:15 04/21/19 13:14 04/17/19 09:12 Lisinopril (PriniviL) 20 mg DAILY ORAL 04/14/19 09:00 05/14/19 08:59 04/17/19 09:12 Ondansetron HCl (Zofran) 4 mg Q6H PRN IVP Nausea & Vomiting 04/13/19 21:00 05/13/19 20:59 Pantoprazole (Protonix) 40 mg EVERY 12 HOURS ORAL 04/13/19 21:00 05/13/19 20:59 04/17/19 09:12 Tiotropium [place] (Spiriva Inhaler) 2 puff DAILY INH 04/14/19 09:00 05/14/19 08:59 04/17/19 09:32 Benoit Horn MD Apr 17, 2019 10:59
[2019-04-17] MEDS ORDERED: LEVAQUIN750 MG ORAL (11:19)
[2019-04-17 11:35] LABS: BASOPHILS % (AUTO) 2.5 % (0.0-2.0); EOSINOPHILS % (AUTO) 14.3 % (0.0-3.0); HEMATOCRIT 45.1 % (42.0-52.0); HEMOGLOBIN 14.7 G/DL (14.2-18.0); LYMPHOCYTES % (AUTO) 23.7 % (20.0-45.0); MEAN CORPUSCULAR VOLUME 94 FL (80-99); NEUTROPHILS % (AUTO) 46.5 % (45.0-75.0); PLATELET COUNT 213 K/UL (150-450); RED BLOOD COUNT 4.82 M/UL (4.70-6.10); RED CELL DISTRIBUTION WIDTH 12.7 % (11.6-14.8); WHITE BLOOD COUNT 3.8 K/UL (4.8-10.8)
[2019-04-17 11:45] LABS: ANION GAP 4 mmol/L (5-15); BLOOD UREA NITROGEN 34 mg/dL (7-18); CALCIUM 8.6 MG/DL (8.5-10.1); CARBON DIOXIDE 34 MMOL/L (21-32); CHLORIDE 101 MMOL/L (98-107); CREATININE 1.5 MG/DL (0.55-1.30); POTASSIUM 4.1 MMOL/L (3.5-5.1); SODIUM 139 MMOL/L (136-145)
[2019-04-17 11:50] LABS: ALANINE AMINOTRANSFERASE 49 U/L (12-78); ALBUMIN 2.8 G/DL (3.4-5.0); ALBUMIN/GLOBULIN RATIO 0.7 (1.0-2.7); ALKALINE PHOSPHATASE 81 U/L (46-116); ASPARTATE AMINO TRANSFERASE 27 U/L (15-37); BILIRUBIN,TOTAL 0.4 MG/DL (0.2-1.0)
[2019-04-17 12:00] VITALS: BP 100/58
--- NOTE | 2019-04-17 12:00 | NUR ---
NURSE NOTES: RT tried to get ABG but was not able to obtain since the patient refused the puncture and home oxygen therapy. Notified to Dr. Sarah. Will continue plan of care until clarification made.
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
--- NOTE | 2019-04-17 14:20 | NUR ---
NURSE NOTES: Informed Dr. Sarah regarding the patient's refusal of home oxygen therapy and ABG for evaluation of home oxygen use. The primary RN assisted for ambulation to check SpO2 upon exertion, and oxygen saturation persisted 98-100% in room air at rest and ambulation. Notified to Dr. Sarah and Dr. Rene. Dr. Sarah cancelled the home oxygen therapy as the patient is stable in room air without oxygen at rest or ambulation. Will continue plan of care until getting clearance from Dr. Sheehan. Will continue plan of care.
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
--- NOTE | 2019-04-17 15:10 | NUR ---
NURSE NOTES: Dr. Sheehan at the bedside assessed the patient. Dr. Sheehan cleared the patient from cardiac standpoint. Will work on discharge.
[2019-04-17] MEDS ORDERED: FUROSEMIDE40 MG ORAL (15:23)
--- NOTE | 2019-04-17 15:50 | NUR ---
Social Work This Sw received a consult due to substance abuse. This SW met with patient, along with spouse, Wendy Castellano ([phone]) at bedside. Patient and spouse live in a house and remains independent with ADLs, ambulation (no DME required). Patient receives SSI ($945.00) per month. Patient admits to Cocaine Abuse (for the past 20 years and has made several attempts to quit, as well as seek treatment). Patient stating that he does not believe treatment or Cocaine Anonymous meeting help him with quitting. This SW provided list of substance abuse resources and brief support/counseling to maintain sobriety after discharge. Patient denied any depression, suicidal ideations or other mental health concerns at this time. No other needs/concerns presented at this time.
[2019-04-17 16:00] VITALS: BP 114/72
--- NOTE | 2019-04-17 16:00 | NUR ---
NURSE NOTES: The patient got safely discharged back to home with self care under Dr. Rene order. That patient obtained clearance from Dr. Sarah, Dr. Sheehan, and Dr. Horn. 04/17/[address] blood test [address] by Dr. Sheehan. Dr. Sarah cleared the patient from pulmo standpoint as he is discharged with antibiotics per ID. Per Dr. Sarah, the patient does not need home oxygen as the patient's oxygen saturation is 95-98% in room air at rest and upon ambulation. Dr. Sheehan cleared the patient after adjusting the medication and have bedside assessment. Dr. Horn cleared the patient from ID standpoint, and gave 2 days supply of antibiotics upon discharge. Discharge instruction and education given to the patient and signed by the patient. Asked the patient to follow up with jet piercer operator and cork tipper in one week. The patient's belongings checked with the patient and signed by the patient. Copy of prescription signed by the patient to prove that the patient received prescription. MRSA swab completed upon discharge due to history of MRSA on nares. IV, nameband, telebox removed by the primary nurse. The patient got safely discharged back to home with self care per Dr. Rene order with stable physical symptoms and vital signs with [place], the 's support.
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
[2019-04-18] MEDS ORDERED: Furosemide 40mg tab ORAL SCH (09:00)
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
== END 2019-04-17 16:20 | disposition home or self-care (01) | DRG 292 ==
LOC: EMR 13:40 → EDBEDREQ 16:13 → 2E 17:18 → EDBEDREQ 18:13
DX: I11.0 Hypertensive heart disease with heart failure (principal); J44.1 Chronic obstructive pulmonary disease with (acute) exacerbation; E46 Unspecified protein-calorie malnutrition; I50.43 Acute on chronic combined systolic (congestive) and diastolic (congestive) heart failure; F14.10 Cocaine abuse, uncomplicated; I25.2 Old myocardial infarction; E78.5 Hyperlipidemia, unspecified; K21.9 Gastro-esophageal reflux disease without esophagitis; Z88.8 Allergy status to other drugs, medicaments and biological substances; Z79.82 Long term (current) use of aspirin; Z91.14 Patient's other noncompliance with medication regimen; F14.188 Cocaine abuse with other cocaine-induced disorder; I42.8 Other cardiomyopathies; F17.200 Nicotine dependence, unspecified, uncomplicated; G83.24 Monoplegia of upper limb affecting left nondominant side; W34.00XS Accidental discharge from unspecified firearms or gun, sequela; D69.6 Thrombocytopenia, unspecified; M19.90 Unspecified osteoarthritis, unspecified site; I27.20 Pulmonary hypertension, unspecified; I34.0 Nonrheumatic mitral (valve) insufficiency; Z86.74 Personal history of sudden cardiac arrest; I44.7 Left bundle-branch block, unspecified
CPT/HCPCS: 36415; 36600; 71045; 76700; 80048; 80053; 80307; 81003; 82803; 83880; 84484; 85025; 85379; 85610; 85730; 86703; 86705; 86709; 86710; 86803; 86850; 86900; 86901; 87340; 93005; 93306; 94640; 94660; 94664; 96374; 99285; J7620

== ENCOUNTER 2019-05-27 06:37 | Inpatient (IN) | payer OTHER ==
[~2019-05-27] VITALS: Ht 167.6 cm; Wt 54.0 kg
[2019-05-27] VITALS (10 sets, daily range): BP systolic 111–145; BP diastolic 56–98
[~2019-05-27 06:37] MED LIST changes: +AMOXICILLIN500 MG ORAL; +LEVAQUIN750 MG ORAL; +METRONIDAZOLE500 MG ORAL
--- NOTE | 2019-05-27 06:50 | NUR ---
ED Nurse Note: PT WALKED IN TO ED CO SOB SINCE THIS MORNING. PT REPORTS HF AND BILAT LEG SWELLING. PT DENIES DIZZINESS. FAMILY AT BEDSIDE, ERMD AT BEDSIDE. VSS NAD WILL CONTINUE TO MONITOR PATIENT
[2019-05-27] MEDS ORDERED: Albuterol ud Inhalation HHN ONE (07:00)
[2019-05-27] MEDS ORDERED: Morphine Sulfate 4mg/ml Inj (IV USE ONLY) IVP ONE (07:00)
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
--- NOTE | 2019-05-27 07:21 | NUR ---
ED Nurse Note: GAVE REPORT TO DIANA NICE
[2019-05-27 07:32] LABS: ANION GAP 8 mmol/L (5-15); BLOOD UREA NITROGEN 20 mg/dL (7-18); CALCIUM 8.3 MG/DL (8.5-10.1); CARBON DIOXIDE 31 MMOL/L (21-32); CHLORIDE 106 MMOL/L (98-107); CREATININE 1.5 MG/DL (0.55-1.30); POTASSIUM 3.9 MMOL/L (3.5-5.1); SODIUM 145 MMOL/L (136-145)
--- NOTE | 2019-05-27 07:37 | NUR ---
ED Nurse Note: US STAFF AT THE BED SIDE.
[2019-05-27 07:42] LABS: BASOPHILS % (AUTO) 1.1 % (0.0-2.0); EOSINOPHILS % (AUTO) 11.2 % (0.0-3.0); HEMATOCRIT 40.8 % (42.0-52.0); HEMOGLOBIN 13.8 G/DL (14.2-18.0); LYMPHOCYTES % (AUTO) 14.6 % (20.0-45.0); MEAN CORPUSCULAR VOLUME 91 FL (80-99); MONOCYTES % (AUTO) 12.5 % (1.0-10.0); NEUTROPHILS % (AUTO) 60.6 % (45.0-75.0); PLATELET COUNT 166 K/UL (150-450); RED BLOOD COUNT 4.47 M/UL (4.70-6.10); RED CELL DISTRIBUTION WIDTH 13.4 % (11.6-14.8); WHITE BLOOD COUNT 8.2 K/UL (4.8-10.8)
[2019-05-27 07:43] LABS: ALANINE AMINOTRANSFERASE 44 U/L (12-78); ALBUMIN 2.9 G/DL (3.4-5.0); ALBUMIN/GLOBULIN RATIO 0.9 (1.0-2.7); ALKALINE PHOSPHATASE 87 U/L (46-116); ASPARTATE AMINO TRANSFERASE 52 U/L (15-37); BILIRUBIN,TOTAL 0.3 MG/DL (0.2-1.0); CREATINE KINASE 285 U/L (26-308)
[2019-05-27] MEDS ORDERED: Nitroglycerin 2% oint pkt TOPIC ONE (08:00)
--- NOTE | 2019-05-27 08:28 | NUR ---
ED Nurse Note: DESIGN DRAFTSMAN AT THE BED SIDE FOR CXR.
--- NOTE | 2019-05-27 08:39 | NUR ---
ED Nurse Note: DR TORO RODRIGUEZ FOR PT TO EAT OR DRINK. WATER PROVIDED TO PT.
[2019-05-27 08:43] LABS: APPEARANCE,URINE CLEAR; BILIRUBIN, URINE NEGATIVE (NEGATIVE); COLOR,URINE PALE YELLOW; GLUCOSE, URINE (UA) NEGATIVE (NEGATIVE); KETONES,URINE NEGATIVE (NEGATIVE); LEUKOCYTE ESTERASE ,URINE NEGATIVE (NEGATIVE); NITRITE,URINE NEGATIVE (NEGATIVE); PH,URINE 7 (4.5-8.0); PROTEIN,URINE NEGATIVE (NEGATIVE); UROBILINOGEN,URINE NORMAL MG/DL (0.0-1.0)
--- NOTE | 2019-05-27 09:15 | NUR ---
ED Nurse Note: SANDWICH AND JUICE PROVIDED TO PT. CALM AND COOPERATIVE. PT STATES ''HE FEELS BETTER AT THIS TIME."'
[2019-05-27] MEDS ORDERED: HYDROcodone/Acetamin 10/325 tab ORAL PRN (12:45)
[2019-05-27] MEDS ORDERED: HydrALAZINE 25mg tab ORAL PRN (13:00)
[2019-05-27] MEDS: Heparin 5000 units/ml inj SUBQ SCH ×2 (14:00→21:24)
[2019-05-27] MEDS: Albuterol/Ipratropium 3ml neb HHN SCH ×2 (14:28→19:50)
[2019-05-27] MEDS ORDERED: Albuterol/Ipratropium 3ml neb HHN ONE (14:30)
--- NOTE | 2019-05-27 14:31 | NUR ---
ED Nurse Note: RT AT THE BED SIDE FOR BREATHING TREATMENT.
--- NOTE | 2019-05-27 15:05 | Diagnostic Imaging Report ---
EXAM: XR Chest, 1 View CLINICAL HISTORY: DYSPNEA TECHNIQUE: Frontal view of the chest. COMPARISON: None FINDINGS: Hardware: None. Lungs/pleura: Possible pulmonary vasculature congestion/mild edema. No focal consolidation. No pleural effusion or pneumothorax. Probable skinfold on the right. Heart/mediastinum: Enlargement of the cardiac silhouette. Soft tissues: Unremarkable. Bones: No acute fracture. Degenerative changes of the acromio clavicular joints Upper abdomen: Normal. IMPRESSION: Suspect pulmonary vasculature congestion/edema.
--- NOTE | 2019-05-27 15:05 | Diagnostic Imaging Report ---
EXAM: US Duplex Left Lower Extremity Veins CLINICAL HISTORY: DVT TECHNIQUE: Real-time duplex ultrasound scan of the left lower extremity veins integrating B-mode two-dimensional vascular structure, Doppler spectral analysis, color flow Doppler imaging and compression. COMPARISON: No relevant prior studies available. FINDINGS: Deep veins: Unremarkable. No DVT in the visualized common femoral, superficial femoral, or popliteal veins. The veins demonstrate normal color flow, are normally compressible, with normal phasic flow and/or augmentation response. Superficial veins: Unremarkable. Soft tissues: No popliteal cyst. IMPRESSION: No evidence of DVT in the visualized venous segments of the left lower extremity.
--- NOTE | 2019-05-27 16:45 | NUR ---
ED Nurse Note: DINNER PROVIDED TO PT. 100 % CONSUMED.
--- NOTE | 2019-05-27 17:38 | NUR ---
ED Nurse Note: WATER PROVIDED TO PT. FAMILY MEMBER AT THE BED SIDE.
[2019-05-27] MEDS: Nitroglycerin 2% oint pkt TOPIC SCH (18:00)
--- NOTE | 2019-05-27 19:09 | NUR ---
ED Nurse Note: SECOND TROPONIN SPECIMEN SENT TO LAB.
--- NOTE | 2019-05-27 19:11 | NUR ---
HAND-OFF: Report given to ANTOLIN HOGUE RN.
--- NOTE | 2019-05-27 19:15 | NUR ---
ED Nurse Note: received patient from artemio ny. patient sleeping in bed with no signs of acute distress. patient arousable to name; ao4. vss. iv flushed and patent. pt on hospital bed; side rails raised x3; bed locked at lowest position; call light within reach. belongings at bedside; belongings list completed. 2nd troponin pending. discussed plan of care; pt aware of pending admission; waiting for bed assignment.
[2019-05-27] MEDS ORDERED: Milk of Magnesia 30ml Ud ORAL PRN (21:00)
[2019-05-28] VITALS (7 sets, daily range): BP systolic 121–140; BP diastolic 72–99
--- NOTE | 2019-05-28 | NUR ---
ED Nurse Note: patient sleeping in bed with no acute distress. ao4. nad. vss. applied nitrobid to left chest. patient rates mild pain 4/10; tolerable pain; states no extra medication needed.
[2019-05-28] MEDS: Nitroglycerin 2% oint pkt TOPIC SCH ×4 (00:15→17:26)
[2019-05-28] MEDS: Albuterol/Ipratropium 3ml neb HHN SCH ×5 (01:03→19:58)
--- NOTE | 2019-05-28 02:31 | NUR ---
ED Nurse Note: patient remains sleeping in bed. vss. nad.
--- NOTE | 2019-05-28 03:50 | NUR ---
NURSE NOTES: Claudio PEREIRA RN called, gave report on pt. awaiting pt arrival to unit.
--- NOTE | 2019-05-28 04:00 | NUR ---
TRANSFER TO FLOOR: Patient transferred to [facility] 245-2 as ordered, per RAFFI NICE. Report given to TESS NICE. PATIENT IN STABLE CONDITION. PATIENT TRANSFERRED TO FLOOR VIA HOSPITAL BED WITH 2 RN. PATIENT LEFT WITH BELONGINGS AND ADMISSION PACKET. ENDORSED AM MEDS AND PENDING LABS TO RECEIVING RN.
--- NOTE | 2019-05-28 04:05 | NUR ---
NURSE NOTES: Pt arrived on unit. pt is alert and oriented times 4, able to follow commands. pt is on radiation monitor showing ST with BBB, no acute cardiac abnormalities noted. pt is on room air able to sat at 100%, no acute resp distress noted. pt bed is low, locked, armed, call light within reach, bed rails up times 3. will follow plan of care. pt arrived will all belongings.
[2019-05-28] MEDS: Heparin 5000 units/ml inj SUBQ SCH ×3 (05:56→22:18)
--- NOTE | 2019-05-28 07:25 | NUR ---
HAND-OFF: Report given to EB Quezada RN. Pt remains stable. Addendum: 05/28/19 at 0737 by JEANETTE DUBOSE RN HAND-OFF: Report given to EB Sparrow RN. Pt remains stable.
--- NOTE | 2019-05-28 07:48 | NUR ---
NURSE NOTES: Received report from Parish Mccain RN. Observed patient in bed, awake, alert, verbally responsive. Patient receiving oxygen 2LPM via NC, no respiratory distress noted. Patient is on alarm security or surveillance monitor, shows sinus tachycardia, with HR 102. Left AC 20g IV intact, patent, and asymptomatic. Patient denies pain/discomfort at this time. Bed locked, alarmed, and in lowest position, side rails up x3, and call light left within reach. All needs attended to. Instructed patient to call for assistance, verbalized understanding. Will continue plan of care and will continue to monitor patient.
--- NOTE | 2019-05-28 08:15 | NUR ---
HAND-OFF: Report given to TEX Paulino. Endorsed plan of care. Patient in stable condition.
--- NOTE | 2019-05-28 08:20 | NUR ---
HAND-OFF: Report given to Sandra Robertson RN.
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
[2019-05-28] MEDS: Aspirin EC 81mg tab ORAL SCH (09:47)
[2019-05-28] MEDS: Lisinopril 20mg tab ORAL SCH (09:47)
[2019-05-28] MEDS: Amiodarone 200mg tab ORAL SCH (09:47)
[2019-05-28] MEDS: Spironolactone 50mg tab ORAL SCH (09:47)
[2019-05-28 09:57] LABS: ANION GAP 8 mmol/L (5-15); BLOOD UREA NITROGEN 18 mg/dL (7-18); CALCIUM 8.4 MG/DL (8.5-10.1); CARBON DIOXIDE 28 MMOL/L (21-32); CHLORIDE 106 MMOL/L (98-107); CREATININE 1.3 MG/DL (0.55-1.30); POTASSIUM 4.3 MMOL/L (3.5-5.1); SODIUM 142 MMOL/L (136-145)
[2019-05-28 10:07] LABS: ALANINE AMINOTRANSFERASE 35 U/L (12-78); ALBUMIN 2.8 G/DL (3.4-5.0); ALKALINE PHOSPHATASE 82 U/L (46-116); ASPARTATE AMINO TRANSFERASE 37 U/L (15-37); BILIRUBIN,TOTAL 0.4 MG/DL (0.2-1.0)
--- NOTE | 2019-05-28 10:30 | NUR ---
NURSE NOTES: Paged Dr. Mcleod again regarding Life Vest status and PRN breathing treatment as the patient feels shortness of breath. The patient is stable without acute distress or severe degree of shortness of breath. Will continue plan of care.
--- NOTE | 2019-05-28 10:59 | NUR ---
NURSE NOTES: Dr. Mcleod made aware via telephone regarding trending up troponin. No new order at this time. Patient denies chest pain.
[2019-05-28] MEDS ORDERED: Albuterol/Ipratropium 3ml neb HHN PRN (11:00)
--- NOTE | 2019-05-28 13:00 | NUR ---
RESPIRATORY NOTE: Too close to give 1300 scheduled breathing tx. Last treatment given was at 1114. TEX Flores notified.
--- NOTE | 2019-05-28 14:00 | NUR ---
NURSE NOTES: The patient is stable without acute distress or shortness of breath. The patient is on 2L NC per order. Will continue plan of care.
--- NOTE | 2019-05-28 15:30 | NUR ---
NURSE NOTES: Paged Dr. Mcleod regarding the patient's symptom of shortness of breath with left ankle 1+ edema. The patient is on 2L NC and oxygen saturation is 98%. The patient received Lasix 40mg IVP QD as scheduled in the morning. Will wait for Dr. Mcleod to call back for further order.
--- NOTE | 2019-05-28 17:30 | NUR ---
NURSE NOTES: Dr. Mcleod at the bedside for patient assessment. Notified patient's condition including off from Life Vest due to broken Life Vest for one week, positive coccaine use, up-trend of Troponin, shortness of breath with 1+ ankle edema even after Lasix 40mg in the morning. No new order per Dr. Mcleod. The patient is stable without acute distress or shortness of breath. Will continue plan of care.
--- NOTE | 2019-05-28 19:10 | NUR ---
HAND-OFF: Report given to TEX Schuler. The patient is resting on the bed without acute distress or shortness of breath. The patient's bed in the lowest position, call light in reach, and fall and aspiration precaution reinforced. IV site intact and patent. 2L NC per ordered, and SpO2 within normal range. Endorsed plan of care.
--- NOTE | 2019-05-28 19:15 | NUR ---
NURSE NOTES: Received report from TEX Flores. Patient awake in bed with no signs of distress or pain. AOx 4. He is able to ambulate with some assistance. Checked IV site, patent and flushed. No signs of erythema, bleeding, or infiltration. Bed in the lowest position, brakes are on, and side rails up x2. Call light within reach. Will continue plan of care.
[2019-05-29] VITALS (7 sets, daily range): BP systolic 100–141; BP diastolic 73–94
[2019-05-29] MEDS: Nitroglycerin 2% oint pkt TOPIC SCH ×5 (00:42→23:28)
[2019-05-29] MEDS: Albuterol/Ipratropium 3ml neb HHN SCH ×4 (01:09→19:58)
--- NOTE | 2019-05-29 03:53 | NUR ---
NURSE NOTES: Patient is sleeping in a semi- fowlers position comfortably. No signs of distress noted at this time.
--- NOTE | 2019-05-29 04:15 | Progress Note ---
DATE: 05/28/2019 CARDIOLOGY PROGRESS NOTE SUBJECTIVE: The patient continues to complain of shortness of breath and congestion. He has been started inhaled bronchodilators and is continuing with diuretic therapy. Monitored rhythm sinus with sinus tachycardia. PHYSICAL EXAMINATION: VITAL SIGNS: Blood pressure 127/88 to 139/99, heart rate is 94 to 107, respiratory rate 20 to 22, patient is afebrile. NECK: Jugular venous pressure elevated. LUNGS: Bilateral rales. Diminished at bases. Regular rhythm. Rapid rate. Normal S1, S2. ABDOMEN: Soft. EXTREMITIES: No edema. Left upper extremity with contracture and atrophy. LABORATORY AND DIAGNOSTIC DATA: Chest x-ray reveals pulmonary venous congestion from yesterday. Troponin 0.169, BUN 18 creatinine 1.3. Albumin 2.8. Pro-natriuretic peptide 2237. IMPRESSION: 1. Acute on chronic systolic congestive heart failure. 2. Acute myocardial ischemia. 3. Cocaine abuse and intoxication. 4. Moderate protein-calorie malnutrition. 5. Paroxysmal atrial tachyarrhythmias. 6. Chronic left bundle-branch block. PLAN: 1. Inhaled bronchodilators. 2. Diuresis with intravenous loop diuretic. 3. Anti-failure regimen. 4. Cardiac monitoring. 5. Not a candidate for cardiac defibrillator due to recurring substance abuse. 6. Continue titration of anti-failure regimen. Stephen Mcleod M.D. DR: Betzaida JOB#: [id number] CC:
[2019-05-29] MEDS: Heparin 5000 units/ml inj SUBQ SCH ×3 (05:31→21:53)
--- NOTE | 2019-05-29 07:38 | NUR ---
HAND-OFF: Report given to TEX Montenegro. Patient in stable condition.
--- NOTE | 2019-05-29 07:55 | NUR ---
NURSE NOTES: Received report from TEX Starr and TEX Schuler. Pt awake in bed, A/Ox4. Pt breathing and even in 2L NC, no s/sx of acute distress. Denies any pain. IV site on L AC 20g patent and asymptomatic. Bed o lowest position, call light within reach. Will continue plan of care.
[2019-05-29] MEDS: Spironolactone 50mg tab ORAL SCH (09:16)
[2019-05-29] MEDS: Amiodarone 200mg tab ORAL SCH (09:16)
[2019-05-29] MEDS: Aspirin EC 81mg tab ORAL SCH (09:16)
[2019-05-29] MEDS: Lisinopril 20mg tab ORAL SCH (09:16)
--- NOTE | 2019-05-29 10:43 | Pulmonology Progress Note ---
Assessment/Plan Assessment/Plan IMPRESSION: 1. Acute on chronic systolic congestive heart failure. 2. Acute myocardial ischemia. 3. Cocaine abuse and intoxication. 4. Moderate protein-calorie malnutrition. 5. Paroxysmal atrial tachyarrhythmias. 6. Chronic left bundle-branch block. PLAN: 1. Inhaled bronchodilators. 2. Diuresis with intravenous loop diuretic. 3. Anti-failure regimen. 4. Cardiac monitoring. 5. Not a candidate for cardiac defibrillator due to recurring substance abuse. 6. Continue titration of anti-failure regimen. Isaiah Mccauely M.D. Subjective Interval Events: None new Constitutional: Reports: no symptoms HEENT: Repors: no symptoms Respiratory: Reports: no symptoms Cardiovascular: Reports: no symptoms Gastrointestinal/Abdominal: Reports: no symptoms Allergies: Coded Allergies: DIPHENHYDRAMINE (Unverified Allergy, Unknown, 12/18/17) Objective Last 24 Hour Vital Signs Date Time Temp Pulse Resp B/P (MAP) Pulse Ox O2 Delivery O2 Flow Rate FiO2 05/29/19 09:16 141/94 05/29/19 08:47 Nasal Cannula 2.0 05/29/19 08:00 98.1 100 18 141/94 (110) 98 05/29/19 07:43 103 20 99 Nasal Cannula 2.0 28 105 20 97 05/29/19 05:28 135/83 05/29/19 04:00 105 05/29/19 04:00 97.9 101 16 135/83 (100) 98 05/29/19 01:09 108 20 100 Room Air 108 20 98 05/29/19 00:42 133/80 05/29/19 00:00 97 05/29/19 00:00 98.1 103 15 133/80 (97) 100 05/28/19 21:00 Nasal Cannula 2.0 05/28/19 20:00 103 05/28/19 20:00 98.3 104 16 138/93 (108) 96 05/28/19 19:58 107 20 100 Room Air 108 22 97 05/28/19 17:26 139/99 05/28/19 16:00 94 2/16/20 16:00 Nasal Cannula 2.0 05/28/19 16:00 98.0 105 18 139/99 (112) 99 05/28/19 16:00 2.0 05/28/19 12:02 127/88 05/28/19 12:00 97.6 102 18 127/88 (101) 97 05/28/19 12:00 100 05/28/19 12:00 2.0 05/28/19 12:00 Nasal Cannula 2.0 05/28/19 11:14 100 20 100 Nasal Cannula 2.0 28 104 22 99 Intake and Output 05/28/19 05/29/19 19:00 07:00 Intake Total 900 ml 480 ml Balance 900 ml 480 ml Intake Oral 900 ml 480 ml # Voids 5 3 General Appearance: no acute distress HEENT: normocephalic Respiratory/Chest: chest wall non-tender, lungs clear Cardiovascular: normal peripheral pulses, normal rate Abdomen: normal bowel sounds Current Medications Medications (Trade) Dose Ordered Sig/Stephenie Route PRN Reason Start Time Stop Time Status Last Admin Dose Admin Acetaminophen/ Hydrocodone Bitart ([place] 10/325) 1 tab Q4H PRN ORAL Severe Pain (Pain Scale 7-10) 05/27/19 12:45 06/03/19 12:44 Albuterol/ Ipratropium (Albuterol/ Ipratropium) 3 ml Q4HRT PRN HHN Shortness of Breath 05/28/19 11:00 06/02/19 10:59 05/28/19 16:13 Albuterol/ Ipratropium (Albuterol/ Ipratropium) 3 ml Q6HRT HHN 05/27/19 13:00 06/01/19 12:59 05/29/19 07:33 Amiodarone HCl (Cordarone) 200 mg DAILY ORAL 05/28/19 09:00 06/27/19 08:59 05/29/19 09:16 Aspirin (Ecotrin) 81 mg DAILY ORAL 05/28/19 09:00 06/27/19 08:59 05/29/19 09:16 Famotidine (Pepcid) 20 mg DAILY ORAL 05/27/19 14:00 06/26/19 13:59 05/29/19 09:16 Furosemide (Lasix) 40 mg DAILY IV 05/28/19 09:00 06/27/19 08:59 05/29/19 09:16 Heparin Sodium (Porcine) (Heparin 5000 units/ml) 5,000 units EVERY 8 HOURS SUBQ 05/27/19 14:00 06/26/19 13:59 05/29/19 05:31 Hydralazine HCl (Apresoline) 25 mg Q4H PRN ORAL SBP above 150 05/27/19 13:00 06/26/19 12:59 Lisinopril (PriniviL) 20 mg DAILY ORAL 05/28/19 09:00 06/27/19 08:59 05/29/19 09:16 Magnesium Hydroxide (Mom) 30 ml HSPRN PRN ORAL Constipation 05/27/19 21:00 06/26/19 20:59 Nitroglycerin (Nitro-Bid) 1 inch EVERY 6 HOURS TOPIC 05/27/19 18:00 06/26/19 17:59 05/29/19 05:28 Pravastatin Sodium (Pravachol) 40 mg BEDTIME ORAL 05/27/19 21:00 06/26/19 20:59 05/28/19 22:10 Spironolactone (Aldactone) 25 mg DAILY ORAL 05/28/19 09:00 06/27/19 08:59 05/29/19 09:16 Isaiah Mccauley MD May 29, 2019 10:43
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
--- NOTE | 2019-05-29 14:36 | NUR ---
*-* INSURANCE *-* ALL AVAILABLE CLINICALS HAVE BEEN FAXED TO: TORY KRAUSE # [phone] FAX# [phone] REVIEWS/CLINICALS & [facility] [phone] NO REF# HUB[facility] # [id number] FAX# [phone] REVIEWS/CLINICALS
--- NOTE | 2019-05-29 17:17 | NUR ---
CASE MANAGEMENT: INITIAL REVIEW 59YR OLD MALE FROM HOME CC: DYSPNEA / RESP. DISTRESS / BILATERAL LEG SWELLING SI:NSTEMI . COCAINE ABUSE . CHF . RENAL INSUFFICIENCY . UNILATERAL EDEMA OF LOWER EXTREMITY 97.7 106 25 145/88 96% ON RA TROP 0.156 - 0.138 BUN 20 CREAT 1.5 BG 141 CA+ 8.3 BNP 3079 COCAINE (+) ISALBUTEROL HHN X1 PROVENTIL HHN X1 IV MORPHINE SULFATE X1 IV ZOFRAN X1 ASA PO X1 NITRO-BID TP X1 CHEST X-RAY VENOUS DUPLEX- NEGATIVE FOR DVT IN LEFT EXTREMITY \: 2E TELE UNIT PLAN: TROP SERIAL SHIPBOARD INTELLIGENCE ANALYST CASE MANAGEMENT: REVIEW 05/28/19 SI:NSTEMI . COCAINE ABUSE . CHF . RENAL INSUFFICIENCY . UNILATERAL EDEMA OF LOWER EXTREMITY 98.0 105 18 139/99 99% ON 2L NC TROP 0.169 BNP 2237 IS:IV LASIX QD HEPARIN SQ Q8HR NITRO-BID HHN Q6HR ALDACTONE PO QD AMIODARONE PO QD ASPIRIN PO QD LISINOPRIL PO QD PRAVACHOL PO QHS ALBUTEROL HHN Q4HR \: 2E TELE UNIT PLAN: TROP SERIAL SHIPBOARD INTELLIGENCE ANALYST CASE MANAGEMENT: REVIEW 05/29/19 SI:NSTEMI . COCAINE ABUSE . CHF . RENAL INSUFFICIENCY . UNILATERAL EDEMA OF LOWER EXTREMITY 98.1 100 18 141/94 98 % ON 2L NC IS:IV LASIX QD HEPARIN SQ Q8HR NITRO-BID HHN Q6HR ALDACTONE PO QD AMIODARONE PO QD ASPIRIN PO QD LISINOPRIL PO QD PRAVACHOL PO QHS ALBUTEROL HHN Q4HR \: 2E TELE UNIT PLAN: TROP SERIAL SHIPBOARD INTELLIGENCE ANALYST
--- NOTE | 2019-05-29 19:40 | NUR ---
HAND-OFF: Report given to TEX Nieves. Pt in stable condition, endorsed plan of care.
--- NOTE | 2019-05-29 19:40 | NUR ---
NURSE NOTES: RECEIVED PATIENT WALKING IN HIS ROOM, NO COMPLAINTS OF PAIN. INSTRUCTED PATIENT ON FALL PRECAUTIONS, PATIENT VERBALIZED UNDERSTANDING. CALL LIGHT WITHIN REACH, BED IN LOW POSITION, URINAL AT BEDSIDE. PLAN OF CARE REVIEWED.
[2019-05-30] VITALS: BP 130/78
[2019-05-30] MEDS: Albuterol/Ipratropium 3ml neb HHN SCH ×3 (01:22→11:26)
--- NOTE | 2019-05-30 02:45 | Progress Note ---
DATE: 05/29/2019 CARDIOLOGY AND INTERNAL MEDICINE PROGRESS NOTE SUBJECTIVE: Feeling better with less shortness of breath. OBJECTIVE: VITAL SIGNS: Blood pressure 130/78, pulse 87, respiratory rate 20. LUNGS: Few rales. CARDIAC: Regular rhythm and rate. Normal S1 and S2 with a 1/6 systolic apical murmur. ABDOMEN: Soft. EXTREMITIES: No edema. Left upper extremity with contracture and atrophy. IMPRESSION: 1. Acute on chronic systolic and diastolic congestive heart failure. 2. Recurring cocaine abuse and intoxication. 3. Hypertensive heart disease. 4. Acute myocardial ischemia. PLAN: 1. Continue diuresis. 2. of anti-failure regimen. 3. Counseling regarding cocaine abuse. 4. anti-failure and antianginal regimen. 5. Discharge planning once euvolemic. 6. Continue intravenous diuresis for now. Stephen Mcleod M.D. DR: RAY JOB#: [id number] CC:
[2019-05-30 04:00] VITALS: BP 115/78
[2019-05-30] MEDS: Heparin 5000 units/ml inj SUBQ SCH (05:43)
--- NOTE | 2019-05-30 07:27 | NUR ---
HAND-OFF: Report given to Carmelina MACHADO RN. PATIENT SITTING IN BED, NO SIGNS OF DISTRESS NOTED.
[2019-05-30 07:33] LABS: BASOPHILS % (AUTO) 2.3 % (0.0-2.0); EOSINOPHILS % (AUTO) 10.3 % (0.0-3.0); HEMATOCRIT 42.5 % (42.0-52.0); HEMOGLOBIN 13.9 G/DL (14.2-18.0); LYMPHOCYTES % (AUTO) 16.3 % (20.0-45.0); MEAN CORPUSCULAR VOLUME 92 FL (80-99); MONOCYTES % (AUTO) 16.1 % (1.0-10.0); NEUTROPHILS % (AUTO) 55.1 % (45.0-75.0); PLATELET COUNT 193 K/UL (150-450); RED BLOOD COUNT 4.63 M/UL (4.70-6.10); WHITE BLOOD COUNT 6.8 K/UL (4.8-10.8)
[2019-05-30 08:00] VITALS: BP 110/72
--- NOTE | 2019-05-30 08:00 | NUR ---
NURSE NOTES: received pt in the bed, awake, alert, oriented, ambulatory, vital signs stable, no SOB, no co pain, skin warm and dry to touch, intact, tolerate diet well, bed in low position, call light within reach.
[2019-05-30 08:31] LABS: ALANINE AMINOTRANSFERASE 27 U/L (12-78); ALBUMIN 2.8 G/DL (3.4-5.0); ALBUMIN/GLOBULIN RATIO 0.7 (1.0-2.7); ALKALINE PHOSPHATASE 71 U/L (46-116); ANION GAP 9 mmol/L (5-15); ASPARTATE AMINO TRANSFERASE 25 U/L (15-37); BILIRUBIN,TOTAL 0.4 MG/DL (0.2-1.0); BLOOD UREA NITROGEN 21 mg/dL (7-18); CALCIUM 9.1 MG/DL (8.5-10.1); CARBON DIOXIDE 29 MMOL/L (21-32); CHLORIDE 103 MMOL/L (98-107); CREATININE 1.2 MG/DL (0.55-1.30); POTASSIUM 4.3 MMOL/L (3.5-5.1); SODIUM 141 MMOL/L (136-145)
[2019-05-30] MEDS: Aspirin EC 81mg tab ORAL SCH (08:56)
[2019-05-30] MEDS: Amiodarone 200mg tab ORAL SCH (08:56)
[2019-05-30 09:00] VITALS: BP 110/72
[2019-05-30] MEDS: Lisinopril 20mg tab ORAL SCH (09:00)
[2019-05-30] MEDS ORDERED: Imdur 30mg tab ORAL SCH (09:00)
[2019-05-30] MEDS ORDERED: Spironolactone 25mg tab ORAL SCH (09:00)
--- NOTE | 2019-05-30 12:10 | NUR ---
NURSE NOTES: pt discharge home as ordered, condition stable, discharge instruction given, RX given, family aware.
[2019-05-30] MEDS ORDERED: Furosemide 40mg tab ORAL SCH (21:00)
--- NOTE | 2019-05-31 13:08 | NUR ---
*-* INSURANCE *-* ALL AVAILABLE CLINICALS HAVE BEEN FAXED TO: TORY KRAUSE # [phone] FAX# [phone] REVIEWS/CLINICALS & [facility] [phone] NO REF# [facility] # [id number] FAX# [phone] REVIEWS/CLINICALS
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
== END 2019-05-30 12:05 | disposition home or self-care (01) | DRG 190 ==
LOC: EDBEDREQ 07:10 → EMR 07:34 → EDBEDREQSVC 07:51 → EDBEDREQ 07:55 → 2W 08:16 → EDBEDREQ 05-28 03:09 → 2W 05-28 05:04 → 2E 05-28 19:18
DX: I21.4 Non-ST elevation (NSTEMI) myocardial infarction (principal); I50.43 Acute on chronic combined systolic (congestive) and diastolic (congestive) heart failure; E44.0 Moderate protein-calorie malnutrition; I11.0 Hypertensive heart disease with heart failure; Z68.1 Body mass index [BMI] 19.9 or less, adult; I44.7 Left bundle-branch block, unspecified; I51.3 Intracardiac thrombosis, not elsewhere classified; F14.129 Cocaine abuse with intoxication, unspecified; J44.9 Chronic obstructive pulmonary disease, unspecified; F17.200 Nicotine dependence, unspecified, uncomplicated; M24.50 Contracture, unspecified joint; I47.1 Supraventricular tachycardia
CPT/HCPCS: 36415; 71045; 80053; 80307; 81003; 82550; 82962; 83735; 83880; 84484; 85025; 85610; 85730; 93005; 93971; 94640; 94664; 96374; 96375; 99291; J2405; J7620

== ENCOUNTER 2019-07-14 18:17 | Inpatient (IN) | payer OTHER ==
[~2019-07-14] VITALS: Ht 170.2 cm; Wt 56.2 kg
[2019-07-14 18:09] VITALS: BP 140/109
--- NOTE | 2019-07-14 18:12 | NUR ---
ED Nurse Note: Patient walked in to ER c/o SOB since yestrday. Patient stated has Hx of astma, COPD. Patient presented calm, AAO x4, VSS at this time.
[2019-07-14] MEDS ORDERED: Albuterol 90mcg Inhaler 8gm INH PRN (19:00)
--- NOTE | 2019-07-14 19:01 | Diagnostic Imaging Report ---
EXAM: XR Chest, 1 View CLINICAL HISTORY: SOB TECHNIQUE: Frontal view of the chest. COMPARISON: 05/27/2019 FINDINGS: Lungs: Mildly low lung volumes with bronchovascular crowding. No consolidation, pleural effusion, or pneumothorax. Otherwise no acute cardiopulmonary disease. Pleural space: See above. Heart: Unchanged cardiomegaly, which is likely at least in part due to portable technique. Mediastinum: Unremarkable. Bones/joints: Unremarkable. IMPRESSION: 1. Mildly low lung volumes with bronchovascular crowding. 2. If there is continued concern recommend frontal and lateral chest radiographs or CT. 3. Unchanged cardiomegaly, which is likely at least in part due to portable technique.
[2019-07-14 19:27] LABS: BASOPHILS % (AUTO) 1.6 % (0.0-2.0); EOSINOPHILS % (AUTO) 18.1 % (0.0-3.0); HEMATOCRIT 49.3 % (42.0-52.0); HEMOGLOBIN 15.4 G/DL (14.2-18.0); LYMPHOCYTES % (AUTO) 29.8 % (20.0-45.0); MEAN CORPUSCULAR VOLUME 93 FL (80-99); MONOCYTES % (AUTO) 10.6 % (1.0-10.0); PLATELET COUNT 179 K/UL (150-450); RED CELL DISTRIBUTION WIDTH 15.3 % (11.6-14.8); WHITE BLOOD COUNT 5.3 K/UL (4.8-10.8)
[2019-07-14 19:33] LABS: ANION GAP 10 mmol/L (5-15); BLOOD UREA NITROGEN 29 mg/dL (7-18); CALCIUM 9.1 MG/DL (8.5-10.1); CARBON DIOXIDE 25 MMOL/L (21-32); CHLORIDE 106 MMOL/L (98-107); CREATININE 1.1 MG/DL (0.55-1.30); POTASSIUM 4.6 MMOL/L (3.5-5.1); SODIUM 141 MMOL/L (136-145)
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
[2019-07-14 19:44] LABS: ALANINE AMINOTRANSFERASE 44 U/L (12-78); ALBUMIN 3.8 G/DL (3.4-5.0); ALBUMIN/GLOBULIN RATIO 1.2 (1.0-2.7); ALKALINE PHOSPHATASE 68 U/L (46-116); ASPARTATE AMINO TRANSFERASE 46 U/L (15-37); BILIRUBIN,TOTAL 0.3 MG/DL (0.2-1.0)
--- NOTE | 2019-07-14 20:15 | NUR ---
ED Nurse Note: pt and report recieved from TEX Damon. pt placed on monitor, 3L NC at 98% spo2. Pt placed in high fowlers to improve WOB. BP elevated; see vital signs intervention
[2019-07-14 20:30] VITALS: BP 143/112
[2019-07-14] MEDS ORDERED: Aspirin Baby 81mg ORAL ONE (20:30)
[2019-07-14] MEDS: Albuterol 90mcg Inhaler 8gm INH PRN (20:42)
--- NOTE | 2019-07-14 20:45 | NUR ---
ED Nurse Note: all medications administered, pt tolerated well. no ss of distress noted. no adverse reactions noted.
--- NOTE | 2019-07-14 21:30 | NUR ---
ED Nurse Note: Pt still unable to provide urine sample; ERMD aware.
--- NOTE | 2019-07-14 21:52 | NUR ---
ED Nurse Note: COVID swabs sent to lab
[2019-07-14] MEDS ORDERED: Albuterol/Ipratropium 3ml neb HHN PRN (22:00)
[2019-07-14] MEDS: Wixela 250/50 Inhaler - 60 dose INH SCH (22:00)
--- NOTE | 2019-07-14 22:11 | NUR ---
ED Nurse Note: Report given to TEX Ferrari on telemetry unit. No bed on unit, pending transfer; charge nurse aware
[2019-07-14 22:14] VITALS: BP 123/103
--- NOTE | 2019-07-14 22:42 | NUR ---
ER DISCHARGE NOTE: Patient is cleared to be discharged to telemetry unit per ERMD, pt is aox4, on 3L NC, with elevated vital signs; ERMD aware. pt was able to verbalize understanding. pt is able to ambulate with steady gait. pt took all belongings. Report given to TEX Ferrari. Pt transferred to unit with 1 food stand manager and 1 RN.
[2019-07-14 23:00] VITALS: BP 146/114
--- NOTE | 2019-07-14 23:00 | NUR ---
NURSE NOTES: Report received from TEX Rider. Pt is aox4, on 3L NC, with elevated vital signs BP is 146/114. aware. pt is able to ambulate, slightly limited, due to light sided weakness. Pt is sitting up in bed, restless, complaining of shortness of breath. Pt is on oxygen, called RT for treatment however pt wants aerosolized treatment. Due to R/O covid 19 status, RT refused to give aerosol treatment as pt is not in a negative pressure room. Informed pt. He is unhappy. Checked all belongings including money, watch, bracelet, necklace. Pt said he did not want to put valuables in a safe. Belongings form signed by patient. Pt oriented to unit and that due to r/o covid that door must be shut. Pt says he needs air but we cannot give a fan to further disperse air in covid room. Pt informed. Bed is locked in lowest position, bed alarm on. side rails x2. . will continue to monitor and call RT again if needed. Informed charge nurse and repulping supervisor of dilemma with desired RT treatments
[2019-07-15 04:00] VITALS: BP 109/46
--- NOTE | 2019-07-15 04:06 | NUR ---
HAND-OFF: Report given to TEX Chau and TEX Lentz.
--- NOTE | 2019-07-15 04:10 | NUR ---
NURSE NOTES: Report received from TEX Ball. Patient awake, alert, and talkative. On 3L oxygen per nasal cannula; breathing with the use of accessory muscles. IV intact and flushed. No sign of erythema, bleeding, or infiltration. AOx4. Bed in lowest position, brakes engaged. Call light placed within reach. Able to make needs known. will continue to monitor.
--- NOTE | 2019-07-15 07:25 | NUR ---
HAND-OFF: Report given to TEX Lu. Patient stable. Plan of care endorsed.
--- NOTE | 2019-07-15 07:45 | NUR ---
NURSE NOTES: Received patient from Akhil Chau. Patient is lying comfortably in bed. Stated he is tired appears very sleepy. Patient complained he didn't have a good sleep last night. Patient noted breathing with accessory muscles complaining of SOB. Inahler given to patient by Rt. Awaiting negative pressure room to move patient. Dr. Cabrera in to see patient updated re patients status. Will continue paln of care.
[2019-07-15] MEDS: Albuterol 90mcg Inhaler 8gm INH PRN ×2 (07:59→17:05)
[2019-07-15 08:00] VITALS: BP 141/80
[2019-07-15] MEDS: Wixela 250/50 Inhaler - 60 dose INH SCH ×2 (08:01→21:47)
--- NOTE | 2019-07-15 08:30 | History and Physical Report ---
DATE OF ADMISSION: 07/14/2019 CHIEF COMPLAINT: Shortness of breath and asthma exacerbation. HISTORY OF PRESENT ILLNESS: The patient is a 59-year-old male. He has a history of ischemic cardiomyopathy, hypertension, congestive heart failure, and asthma, presented with complaints of two days of progressive shortness of breath. On evaluation in the emergency room, he was noted to be hypoxic and required 3 liters of nasal cannula. He was noted to have diffuse wheezing. He denies any fevers, but he has had nonproductive cough. Denies any ill contacts or recent travel. PAST MEDICAL HISTORY: As above. PAST SURGICAL HISTORY: None. CURRENT MEDICATIONS: Reconciled and reviewed. ALLERGIES: None. FAMILY HISTORY: None. SOCIAL HISTORY: The patient apparently has a history of substance abuse. REVIEW OF SYSTEMS: Negative except for cough and shortness of breath. PHYSICAL EXAMINATION: VITAL SIGNS: Temperature 98 degrees, pulse 99, respirations 24, blood pressure 190/46. GENERAL: The patient is well developed, no apparent distress. HEART: Regular rate and rhythm. LUNGS: Significant for diffuse wheezes with poor air movement. No rales. ABDOMEN: Soft, nontender, nondistended. EXTREMITIES: Without clubbing, cyanosis, or edema. LABORATORY DATA: Labs were reviewed. ASSESSMENT AND PLAN: This is a pleasant male admitted with complaints of shortness of breath and cough suspect secondary to asthma exacerbation. With exception of cough, which is likely due to asthma, I think the patient is not likely to have COVID disease, but he will be ruled out. He received steroids for his asthma exacerbation and breathing treatments. Plan of care was discussed with the patient and . Mikey Cabrera M.D. DR: SUGEY JOB#: [id number] CC:
[2019-07-15] MEDS ORDERED: Lisinopril 20mg tab ORAL SCH (09:00)
[2019-07-15] MEDS ORDERED: Furosemide 40mg tab ORAL SCH (09:00)
[2019-07-15] MEDS: Heparin 5000 units/ml inj SUBQ SCH ×2 (09:00→21:07)
[2019-07-15] MEDS: Amiodarone 200mg tab ORAL SCH (09:11)
[2019-07-15] MEDS: Aspirin Baby 81mg ORAL SCH (09:11)
[2019-07-15] MEDS: Solu-MEDROL 125mg Inj IVP SCH ×2 (09:11→17:01)
--- NOTE | 2019-07-15 10:15 | NUR ---
NURSE NOTES: summoned to patients room patient complaining of extreme shortness of breath. SPO2 100% on 3 L/min nasal cannula. Patient very restless screaming in bed. Respiratory therapist at bedside patient moved to [facility] negative pressure room and placed on Bipap 15/5 35%. patient verbalizes immediate relief and is now resting comfortably. Dr. Cabrera made aware and ordered PRN Bipap. Will monitor patients status.
[2019-07-15] MEDS: Albuterol/Ipratropium 3ml neb HHN SCH ×4 (11:00→23:00)
[2019-07-15 11:40] LABS: ALANINE AMINOTRANSFERASE 79 U/L (12-78); ALBUMIN 3.8 G/DL (3.4-5.0); ALBUMIN/GLOBULIN RATIO 1.1 (1.0-2.7); ALKALINE PHOSPHATASE 92 U/L (46-116); ANION GAP 9 mmol/L (5-15); ASPARTATE AMINO TRANSFERASE 92 U/L (15-37); BILIRUBIN,TOTAL 0.6 MG/DL (0.2-1.0); BLOOD UREA NITROGEN 35 mg/dL (7-18); CALCIUM 9.2 MG/DL (8.5-10.1); CARBON DIOXIDE 26 MMOL/L (21-32); CHLORIDE 105 MMOL/L (98-107); CREATININE 1.1 MG/DL (0.55-1.30); SODIUM 140 MMOL/L (136-145)
[2019-07-15 11:55] VITALS: BP 123/97
[2019-07-15 16:00] VITALS: BP 136/64
--- NOTE | 2019-07-15 16:00 | NUR ---
NURSE NOTES: Patient now on 2 L/min oxygen via nasal cannula. Stated he felt better after being on Bipap for few hours. "i felt a lot better. I don't feel like im dying anymore like this morning". Reassurance provided to patient. will continue to monitor.
--- NOTE | 2019-07-15 19:30 | NUR ---
HAND-OFF: Report given to Akhil Valdez.Patient stable. Plan of care endorsed. .
--- NOTE | 2019-07-15 19:30 | NUR ---
NURSE NOTES: Received report from TEX Lu. Patient is asleep, arousable to name, on Bipap 15/5, lying in semi rand's; resting comfortably. A/Ox4. Denies pain at this time. No signs of acute distress noted. Checked IV site and flushed. No erythema, bleeding or infiltration noted. Bed at lowest position, brakes on, siderailsx3. Call light within reach. Will continue to monitor.
[2019-07-15 20:00] VITALS: BP 150/95
[2019-07-15] MEDS: Atorvastatin 20mg tab ORAL SCH (21:05)
[2019-07-16] VITALS: BP 153/102
[2019-07-16] MEDS: Solu-MEDROL 125mg Inj IVP SCH ×3 (00:12→17:44)
[2019-07-16] MEDS: Albuterol 90mcg Inhaler 8gm INH PRN ×2 (01:07→08:12)
--- NOTE | 2019-07-16 01:29 | NUR ---
NURSE NOTES: Resting throughout the night. No significant change of condition noted. Will continue to monitor.
--- NOTE | 2019-07-16 01:30 | NUR ---
NURSE NOTES: Per tech, patient's rhythm is SR, BBB with 74 bpm. No signs of distress noted. Notified Dr. Mcleod of patient's rhythm strip.
[2019-07-16] MEDS: Albuterol/Ipratropium 3ml neb HHN SCH ×6 (02:55→19:50)
[2019-07-16 04:00] VITALS: BP 137/98
--- NOTE | 2019-07-16 04:15 | Progress Note ---
DATE: 07/15/2019 CARDIOLOGY PROGRESS NOTE SUBJECTIVE: The patient is still congested and short of breath. He has some wheezing. OBJECTIVE: VITAL SIGNS: Blood pressure 150/95, pulse 91, respirations 18, and afebrile. LUNGS: Coarse breath sounds. Rhonchi. Few wheezes. CARDIAC: Regular rhythm and rate. Normal S1 and S2. A 1/6 systolic murmur at apex. ABDOMEN: Soft. EXTREMITIES: Trace edema. LABORATORY DATA: Sodium 140, potassium 5, bicarbonate 26, BUN 35, and creatinine 1.1. Magnesium 1.9. Pro-natriuretic peptide 5035. Troponin 0.159. IMPRESSION: 1. Acute on chronic systolic congestive heart failure. 2. Acute bronchospasm. 3. Chronic obstructive pulmonary disease exacerbation. 4. Ischemic cardiomyopathy. 5. Chronic myocardial ischemia. 6. Hypertension with labile blood pressure. PLAN: 1. Advance antihypertensive and anti-failure regimen. 2. Steroids per primary care physician. 3. Maintain intravenous diuresis. 4. Long-acting nitrates added. Stephen Mcleod M.D. DR: RAY JOB#: [id number] CC:
--- NOTE | 2019-07-16 07:16 | NUR ---
HAND-OFF: Report given to TEX Lu. Plan of care endorsed.
--- NOTE | 2019-07-16 07:41 | NUR ---
RESPIRATORY NOTE: Neb tx on hold due to pt "CVD-19 Pending"
--- NOTE | 2019-07-16 07:45 | NUR ---
NURSE NOTES: Received patient from Akhil Valdez. Patient is awake and alert sitting up in bed. Patient in good spirits. Denies pain or discomfort at this time. Patient on 2 L/min oxygen via nasal cannula- denies SOB. VSS. Reminded patient re:safety precautions and encouraged patient to call for assistance when needed. Call moraes within patients reached. Will follow.
[2019-07-16 07:59] VITALS: BP 123/94
[2019-07-16] MEDS: Spironolactone 25mg tab ORAL SCH (09:06)
[2019-07-16] MEDS: Lisinopril 20mg tab ORAL SCH (09:06)
[2019-07-16] MEDS: Amiodarone 200mg tab ORAL SCH (09:06)
[2019-07-16] MEDS: Imdur 30mg tab ORAL SCH (09:06)
[2019-07-16] MEDS: Aspirin Baby 81mg ORAL SCH (09:07)
[2019-07-16] MEDS: Heparin 5000 units/ml inj SUBQ SCH ×2 (09:11→20:31)
--- NOTE | 2019-07-16 11:03 | General Progress Note ---
Assessment/Plan Problem List: (1) CHF (congestive heart failure) ICD Codes: I50.9 - Heart failure, unspecified SNOMED: 63614906 (2) Suspected COVID-19 virus infection ICD Codes: R68.89 - Other general symptoms and signs SNOMED: 912397503 (3) COPD (chronic obstructive pulmonary disease) ICD Codes: J44.9 - Chronic obstructive pulmonary disease, unspecified SNOMED: 64627984 (4) Non-ST elevation ME (NSTEMI) ICD Codes: I21.4 - Non-ST elevation (NSTEMI) myocardial infarction SNOMED: 409091110 Status: stable Assessment/Plan: Intravenous steroid. Respiratory treatments [id number]. Continue BiPAP as needed. IV Lasix. Monitor renal function and lites. Await coronavirus PCR Subjective ROS Limited/Unobtainable: No Constitutional: Reports: weakness HEENT: Reports: no symptoms Cardiovascular: Reports: no symptoms Respiratory: Reports: shortness of breath Gastrointestinal/Abdominal: Reports: no symptoms Genitourinary: Reports: no symptoms Neurologic/Psychiatric: Reports: no symptoms Endocrine: Reports: no symptoms Hematologic/Lymphatic: Reports: no symptoms Allergies: Coded Allergies: DIPHENHYDRAMINE (Unverified Allergy, Unknown, 12/18/17) All Systems: reviewed and negative except above Subjective No overnight events. Patient is currently off BiPAP. He is on intravenous steroids and breathing treatments [id number]. Currently in a negative pressure isolation room. Cardiology input appreciated. Objective Last 24 Hour Vital Signs Date Time Temp Pulse Resp B/P (MAP) Pulse Ox O2 Delivery O2 Flow Rate FiO2 07/16/19 09:06 123/94 07/16/19 09:06 123/94 07/16/19 09:06 99 123/94 07/16/19 09:00 Nasal Cannula 3.0 07/16/19 08:00 2.0 07/16/19 08:00 95 07/16/19 07:59 97.7 99 22 123/94 (104) 100 99 07/16/19 07:00 93 Nasal Cannula 2.0 28 07/16/19 05:35 92 28 96 35 07/16/19 04:00 35 07/16/19 04:00 97.2 99 22 137/98 (111) 100 99 07/16/19 04:00 102 07/16/19 00:00 96.4 101 22 153/102 (119) 99 101 07/16/19 00:00 91 07/16/19 00:00 35 07/15/19 21:48 89 18 96 Nasal Cannula 3.0 32 07/15/19 21:47 89 20 96 Nasal Cannula 3.0 98 07/15/19 21:06 91 150/95 07/15/19 21:00 Nasal Cannula 3.0 07/15/19 20:00 83 07/15/19 20:00 35 07/15/19 20:00 96.4 91 22 150/95 (113) 93 91 07/15/19 19:47 99 Bi-Pap 35 07/15/19 19:20 90 21 99 35 07/15/19 16:00 79 07/15/19 16:00 35 07/15/19 16:00 96.8 100 22 136/64 (88) 100 100 07/15/19 15:20 80 21 100 35 07/15/19 13:49 82 27 93 35 07/15/19 12:00 86 07/15/19 12:00 35 07/15/19 11:55 97.9 97 22 123/97 (106) 100 97 Intake and Output 07/15/19 07/16/19 19:00 07:00 Intake Total 360 ml 120 ml Output Total 1200 ml 700 ml Balance -840 ml -580 ml Intake Oral 360 ml 120 ml Output Urine Total 1200 ml 700 ml Height (Feet): 5 Height (Inches): 7.00 Weight (Pounds): 124 General Appearance: WD/WN, thin Neck: supple Cardiovascular: regular rhythm Respiratory/Chest: expiratory wheezing Abdomen: normal bowel sounds, non tender, soft, no organomegaly Edema: no edema noted Arm (L), no edema noted Arm (R), no edema noted Leg (L), no edema noted Leg (R), no edema noted Pedal (L), no edema noted Pedal (R), no edema noted Generalized Mikey Cabrera MD Jul 16, 2019 11:03
[2019-07-16] MEDS: Wixela 250/50 Inhaler - 60 dose INH SCH ×2 (11:34→21:41)
[2019-07-16 11:40] VITALS: BP 112/62
--- NOTE | 2019-07-16 12:48 | NUR ---
RD ASSESSMENT & RECOMMENDATIONS SEE CARE ACTIVITY FOR COMPLETE ASSESSMENT DAILY ESTIMATED NEEDS: Needs based on Underweight, wasting, cardiac, pulmonary 56.4kg 30-35 kcals/kg 2697-0668 total kcals 1-1.5 g protein/kg 56-85 g total protein Fluid per MD, on lasix NUTRITION DIAGNOSIS: Increased kcal and pro needs r/t underweight status as evidenced by pt w/ h/o COPD, 87% of [place] Body weight, previously w/ signs of moderate to severe wasting. CURRENT DIET: Cardiac PO DIET RECOMMENDATIONS: Low NA/ texture as tolerated ADDITIONAL RECOMMENDATIONS: 1) Obtain a standing weight if able- if not able, calibrated bed scale. + Weekly standing weights for eval 2) Add ENSURE daily Add snacks in b/w meals 3) Monitor BG w/ solumedrol/ need for niss . .
[2019-07-16 15:55] VITALS: BP 127/75
--- NOTE | 2019-07-16 19:34 | NUR ---
HAND-OFF: Report given to Akhil Ball. Patient stable. Plan of care endorsed.
--- NOTE | 2019-07-16 19:36 | NUR ---
NURSE NOTES: Received patient from Tabitha Huerta RN. Rn. Patient is awake and alert and oriented x4, sitting up in bed. Denies pain or discomfort at this time. Patient on 2 L/min oxygen via nasal cannula- denies SOB, but has all lobe wheezing at rest. VSS. Reminded patient re:safety precautions and encouraged patient to call for assistance when needed, placed call moraes within patients reach. Will follow plan of care and continue to monitor pt
[2019-07-16 20:00] VITALS: BP 139/101
[2019-07-16] MEDS: Atorvastatin 20mg tab ORAL SCH (20:28)
[2019-07-17] VITALS: BP 146/109
[2019-07-17] MEDS: Solu-MEDROL 125mg Inj IVP SCH (01:50)
[2019-07-17] MEDS: Albuterol/Ipratropium 3ml neb HHN SCH ×2 (03:55→07:00)
[2019-07-17 04:00] VITALS: BP 140/70
--- NOTE | 2019-07-17 05:00 | Progress Note ---
DATE: 07/16/2019 CARDIOLOGY PROGRESS NOTE SUBJECTIVE: The patient is still congested with wheezing. He is on inhaled bronchodilator. The patient has a known history of severe left ventricular systolic dysfunction. He has a history of repeated cocaine use and has not been offered a defibrillator due to his drug use. OBJECTIVE: VITAL SIGNS: Blood pressure 139/101, pulse 91, respirations 20, afebrile. LUNGS: Bilateral breath sounds, rhonchi and wheezes. CARDIAC: Regular rhythm and rate. Normal S1, S2. A 1/6 systolic murmur at apex. ABDOMEN: Soft. EXTREMITIES: Trace edema. IMPRESSION: 1. Acute bronchospasm. 2. COPD exacerbation. 3. Chronic myocardial ischemia. 4. Acute on chronic systolic congestive heart failure. 5. History of cocaine abuse. 6. Hypertensive heart disease with labile blood pressure. 7. Paroxysmal atrial and ventricular ectopy. PLAN: 1. Steroids inhaled bronchodilators. 2. Maximize anti-failure and antihypertensive regimen. 3. Continue anti-platelet therapy. Check tox screen. 4. We will follow. Stephen Mcleod M.D. DR: RAFA JOB#: [id number] CC:
--- NOTE | 2019-07-17 05:30 | Consultation ---
DATE OF CONSULTATION: 07/14/2019 CARDIOLOGY CONSULTATION CONSULTING PHYSICIAN: Stephen Mcleod M.D. REASON FOR CONSULTATION: Shortness of breath in the setting of cardiomyopathy. HISTORY OF PRESENT ILLNESS: This 59-year-old male has a known history of ischemic and cocaine-induced cardiomyopathy as well as a history of hypertensive heart disease and labile blood pressure. He has been hospitalized repeatedly over the past 6 months with heart failure exacerbations and documented cocaine intoxication. On this occasion, the patient presented with 2 days of progressive shortness of breath. He was noted to be hypoxic and wheezing in the emergency room with a nonproductive cough. He was started on inhaled bronchodilators, steroids, and antimicrobial. The patient has a known history of atrial and ventricular arrhythmias and is on amiodarone for arrhythmia suppression. He has not been on anticoagulation due to compliance issues. He has not been offered a defibrillator for primary prevention, again due to chronic substance abuse and compliance issues. PAST MEDICAL HISTORY: As outlined above. His recent echocardiogram revealed an ejection fraction of less than 35%. MEDICATIONS: Reviewed, compliance poor. ALLERGIES: None known. SOCIAL HISTORY: Positive for substance abuse. REVIEW OF SYSTEMS: Otherwise unremarkable. PHYSICAL EXAMINATION: VITAL SIGNS: Blood pressure up to 190/50, heart rate 99, respiratory rate 24, afebrile. LUNGS: Some accessory muscle use. Bilateral rales and expiratory wheezes. CARDIAC: Regular rhythm and rate. Normal S1, S2 with a 1/6 systolic murmur at apex. ABDOMEN: Soft. EXTREMITIES: No edema. EKG was reviewed notable for sinus rhythm, nonspecific ST-T wave changes. Chest x-ray with cardiomegaly. IMPRESSION: 1. Acute bronchospasm. 2. COPD exacerbation. 3. Acute upper respiratory infection. 4. Acute on chronic systolic congestive heart failure. 5. Cardiomyopathy. 6. History of cocaine abuse. 7. Paroxysmal atrial and ventricular arrhythmias, on amiodarone therapy. 8. Hypertensive heart disease with labile blood pressure. PLAN: 1. Respiratory therapy per primary care physician. 2. Optimize anti failure and antihypertensive regimen. 3. Continue amiodarone for arrhythmia suppression. 4. Continue anti-platelet drugs. 5. We will follow. Stephen cMleod M.D. DR: STACY JOB#: [id number] CC:
[2019-07-17 06:32] LABS: ANION GAP 13 mmol/L (5-15); BLOOD UREA NITROGEN 28 mg/dL (7-18); CALCIUM 9.1 MG/DL (8.5-10.1); CARBON DIOXIDE 24 MMOL/L (21-32); CHLORIDE 102 MMOL/L (98-107); CREATININE 1.2 MG/DL (0.55-1.30); POTASSIUM 4.1 MMOL/L (3.5-5.1); SODIUM 139 MMOL/L (136-145)
--- NOTE | 2019-07-17 07:24 | NUR ---
HAND-OFF: Report given to TEX Stoddard. Left message for Dr Cabrera that patient's urine drug screen is positive for PCP and cocaine. Also his magnesium is low at 1.7 He gave order for 3 g magnesium IVPB. will input and endorse to day shift
--- NOTE | 2019-07-17 07:58 | NUR ---
NURSE NOTES: REPORTED NEGATIVE COVID RESULT TO DR. ABEBE. MESSAGE LEFT TO DR. CORONADO REPORTING RESULT AND ASKING IF WE MAY REMOVE ISOLATION.
[2019-07-17 08:00] VITALS: BP 149/108
--- NOTE | 2019-07-17 08:21 | NUR ---
NURSE NOTES: PER DR. ABEBE, MAY REMOVE ISOLATION.
[2019-07-17] MEDS ORDERED: SPIRIVA INHALE1 PUF1 INH (08:28)
[2019-07-17] MEDS ORDERED: ADVAIR 250/501 PUFFS INH (08:28)
[2019-07-17] MEDS ORDERED: PROVENTIL HFA6.7 G1 INH (08:28)
[2019-07-17] MEDS: Imdur 30mg tab ORAL SCH (08:53)
[2019-07-17] MEDS: Spironolactone 25mg tab ORAL SCH (08:53)
[2019-07-17 08:54] VITALS: BP 149/108
[2019-07-17] MEDS: Lisinopril 20mg tab ORAL SCH (08:54)
[2019-07-17] MEDS: Aspirin Baby 81mg ORAL SCH (08:54)
[2019-07-17] MEDS: Amiodarone 200mg tab ORAL SCH (08:54)
[2019-07-17] MEDS: Heparin 5000 units/ml inj SUBQ SCH (08:56)
[2019-07-17] MEDS ORDERED: Solu-MEDROL 125mg Inj IVP SCH (09:00)
--- NOTE | 2019-07-17 09:00 | NUR ---
NURSE NOTES: PATIENT STABLE, AOX4. NO COMPLAINTS. NO S/SX OF DISTRESS. RR EVEN AND UNLABORED ON RA. SIDE RAILS UPX2, CALL LIGHT WITHIN REACH, BED LOW AND LOCKED. WILL CONTINUE TO MONITOR.
[2019-07-17] MEDS: Wixela 250/50 Inhaler - 60 dose INH SCH (09:12)
--- NOTE | 2019-07-17 10:39 | NUR ---
*-* INSURANCE *-* ALL AVAILABLE CLINICALS HAVE BEEN FAXED TO: [facility] NCM: CEZAR P: [phone] F: [phone]
--- NOTE | 2019-07-17 10:48 | General Progress Note ---
Assessment/Plan Problem List: (1) CHF (congestive heart failure) ICD Codes: I50.9 - Heart failure, unspecified SNOMED: 56519262 (2) Suspected COVID-19 virus infection ICD Codes: R68.89 - Other general symptoms and signs SNOMED: 099728527 (3) COPD (chronic obstructive pulmonary disease) ICD Codes: J44.9 - Chronic obstructive pulmonary disease, unspecified SNOMED: 87451464 (4) Non-ST elevation [place] (NSTEMI) ICD Codes: I21.4 - Non-ST elevation (NSTEMI) myocardial infarction SNOMED: 298804795 Status: stable Assessment/Plan: Intravenous steroid- wean. Respiratory treatments [id number]. Continue BiPAP as needed. IV Lasix. Monitor renal function and lites. check room air o2 sat. ?dc planning Subjective ROS Limited/Unobtainable: No Constitutional: Reports: malaise, weakness HEENT: Reports: no symptoms Cardiovascular: Reports: no symptoms Respiratory: Reports: cough Gastrointestinal/Abdominal: Reports: no symptoms Genitourinary: Reports: no symptoms Neurologic/Psychiatric: Reports: no symptoms Endocrine: Reports: no symptoms Hematologic/Lymphatic: Reports: no symptoms Allergies: Coded Allergies: DIPHENHYDRAMINE (Unverified Allergy, Unknown, 12/18/17) All Systems: reviewed and negative except above Subjective No overnight events. covid 19 negative. Patient is currently off BiPAP. He is on intravenous steroids and breathing treatments [id number]. Currently in a negative pressure isolation room. Cardiology input appreciated. overall feels better, asking to go home Objective Last 24 Hour Vital Signs Date Time Temp Pulse Resp B/P (MAP) Pulse Ox O2 Delivery O2 Flow Rate FiO2 07/17/19 09:12 87 18 98 Nasal Cannula 3.0 32 07/17/19 09:12 87 18 98 Nasal Cannula 3.0 32 07/17/19 09:00 Room Air 07/17/19 08:54 88 149/108 07/17/19 08:54 149/108 07/17/19 08:53 149/108 07/17/19 08:53 88 149/108 07/17/19 08:00 98.1 88 22 149/108 (122) 98 88 07/17/19 08:00 86 07/17/19 08:00 98 Nasal Cannula 2.0 28 07/17/19 04:08 79 07/17/19 04:00 97.6 80 24 140/70 (93) 98 80 07/17/19 04:00 2.0 07/17/19 00:09 35 07/17/19 00:00 97.0 83 22 146/109 (121) 96 83 07/17/19 00:00 63 07/16/19 22:54 75 18 99 30 07/16/19 22:00 Nasal Cannula 3.0 07/16/19 21:45 80 20 98 Nasal Cannula 2.0 28 07/16/19 21:41 80 20 98 Nasal Cannula 2.0 28 07/16/19 20:28 80 138/75 07/16/19 20:00 97.3 91 20 139/101 (114) 98 91 07/16/19 20:00 79 07/16/19 20:00 2.0 07/16/19 19:50 97 Nasal Cannula 2.0 28 07/16/19 16:00 80 07/16/19 16:00 2.0 07/16/19 15:55 97.7 87 20 127/75 (92) 98 87 07/16/19 12:00 2.0 07/16/19 12:00 71 07/16/19 11:40 97.5 64 20 112/62 (79) 100 64 07/16/19 11:34 70 20 94 Nasal Cannula 3.0 32 07/16/19 11:34 70 20 94 Nasal Cannula 3.0 32 Intake and Output 07/16/19 07/17/19 19:00 07:00 Intake Total 460 ml Output Total 1200 ml 800 ml Balance -740 ml -800 ml Intake Oral 460 ml Output Urine Total 1200 ml 800 ml Laboratory Tests 07/17/19 04:50: Sodium Level 139, Potassium Level 4.1, Chloride Level 102, Carbon Dioxide Level 24, Anion Gap 13, Blood Urea Nitrogen 28H, Creatinine 1.2, Estimat Glomerular Filtration Rate > 60, Glucose Level 217H, Calcium Level 9.1, Magnesium Level 1.7L, Pro-B-Type Natriuretic Peptide 2375H 07/17/19 05:00: Urine Opiates Screen Negative, Urine Barbiturates Screen Negative, Phencyclidine (PCP) Screen PositiveH, Urine Amphetamines Screen Negative, Urine Benzodiazepines Screen Negative, Urine Cocaine Screen PositiveH, Urine Marijuana (THC) Screen Negative Height (Feet): 5 Height (Inches): 7.00 Weight (Pounds): 124 General Appearance: WD/WN, alert Neck: supple Cardiovascular: regular rhythm Respiratory/Chest: lungs clear Abdomen: normal bowel sounds, non tender, soft, no organomegaly Edema: no edema noted Arm (L), no edema noted Arm (R), no edema noted Leg (L), no edema noted Leg (R), no edema noted Pedal (L), no edema noted Pedal (R), no edema noted Generalized Mikey Cabrera MD Jul 17, 2019 10:48
--- NOTE | 2019-07-17 10:56 | NUR ---
CASE MANAGEMENT:REVIEW 59 YR OLD MALE WALKED IN TO ER CC: SOB SI: CHF. ELEVATED TROPONIN. SUSPECTED COVID 19 97.5 110 20 140/109 96% ON RA BUN+29 TROPONIN(+) 0.177 BNP+4043 IS: PLACED ON 3L/NC 1L NS BOLUS ASA PO COVID 19 CHEST XRAY : TO TELEMETRY 07/16/19 SI: CHF. NSTEMI. COPD. SUSPECTED COV 19 97.5 64 20 112/62 100% ON 2L/NC IS: IV SOLUMEDROL Q8HRS IV LASIX QD ASA PO QD AMIODARONE PO QD ALDACTONE PO QD DUONEB HHN Q4HRS SPIRIVA ING QD IMDUR PO QD LISINOPRIL PO QD : TELEMETRY STATUS 07/17/19 SI: CHF. NSTEMI. COPD. SUSPECTED COV 19 98.1 88 22 149/108 98% ON 3L/NC MAG-1.7 BNP+2375 URINE(+) PCP AND COCAINE IS: IV MAG SULFATE Q1HRS X3 BAGS IV SOLUMEDROL QD LISINOPRIL PO QD NORVASC PO QD IV LASIX QD ASA PO QD AMIODARONE PO QD ALDACTONE PO QD DUONEB HHN Q4HRS SPIRIVA ING QD IMDUR PO QD LISINOPRIL PO QD : TELEMETRY STATUS DCP: FROM HOME PLAN: DISCHARGE HOME TODAY
--- NOTE | 2019-07-17 12:22 | Diagnostic Imaging Report ---
Indication: Edema and pain in both legs Technique: Grayscale and duplex images of the bilateral lower extremity veins Comparison: None Findings: Bilaterally, grayscale and duplex images demonstrate no evidence of intraluminal thrombus. Normal phasic Doppler waveforms, demonstrating normal augmentation response and no evidence of valvular insufficiency. Greater saphenous vein(s) and tibial veins are patent. Normal compressibility. Impression: Negative for evidence of lower extremity deep venous thrombosis bilaterally
--- NOTE | 2019-07-17 13:05 | NUR ---
NURSE NOTES: Patient discharged. Patient stable. No s/sx of distress. 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 Discharge paperwork given with prescription. No questions at this time.
--- NOTE | 2019-07-18 04:29 | Progress Note ---
DATE: 07/17/2019 CARDIOLOGY PROGRESS NOTE SUBJECTIVE: The patient has a positive cocaine screen. COVID-19 negative. He continues on bronchodilators. PHYSICAL EXAMINATION: VITAL SIGNS: Blood pressure 149/108, heart rate 88, respiratory rate 22. LUNGS: Bilateral breath sounds. Scattered rhonchi and rales. HEART: Regular rhythm and rate. Normal S1, S2. ABDOMEN: Soft. EXTREMITIES: No edema. IMPRESSION: 1. Cardiomyopathy. 2. [id number]-[id number] systolic congestive heart failure. 3. Cocaine abuse. 4. Paroxysmal bronchospasm. 5. Non-ST elevation myocardial infarction precipitated by cocaine use. PLAN: Not a candidate for cardiac defibrillator due to noncompliance and persistent use of cocaine. Additional antihypertensive therapy added and will be further titrated. Continue anti-platelet therapy, steroid taper with maintenance dose diuretic regimen. Dietary restrictions of sodium discussed and risks of cocaine abuse with regard to sudden cardiac . Again, ____ has been done on prior hospitalizations with this patient. Stephen Mcleod M.D. : Khoa JOB#: [id number] CC:
--- NOTE | 2019-07-18 14:08 | NUR ---
*-* INSURANCE *-* ALL AVAILABLE CLINICALS HAVE BEEN FAXED TO: [facility]: KIRTIMarichuy P: [phone] F: [phone] Addendum: 07/18/19 at 1408 by JOVON SANCHEZ NO DISCHARGE SUMMARY IN THE SYSTEM DISCHARGE INSTRUCTIONS HAVE BEEN FAXED
--- NOTE | 2019-07-18 14:15 | Discharge Summary ---
Discharge Summary Discharge Summary _ DATE OF ADMISSION: 07/14/2019 DATE OF DISCHARGE: 07/17/2019 DISCHARGED BY: Dr. Cabrera REASON FOR ADMISSION: 59 years old male with past medical history of ischemic cardiomyopathy, hypertension, congestive heart failure, asthma, presented with complaints of progressively worsening shortness of breath for the last 2 days. Upon evaluation in emergency department he was hypoxic and required supplemental oxygen via nasal cannula. Patient was tachycardic. Patient noted to have diffuse wheezing. No fever, no chills. No chest pain, no palpitations. Patient reported nonproductive cough. No hemoptysis. He denied any ill contacts or recent traveling. Laboratory work-up revealed no leukocytosis, stable hemoglobin, hematocrit and platelet count. Stable electrolytes. BUN 29, creatinine 1.1. Glucose 84. AST 46, ALT 44. Troponin 0.177. pro BNP 4043. EKG revealed sinus tachycardia, no acute ischemic changes. Urine toxicology screen was positive for phencyclidine and cocaine. Chest x-ray demonstrated mildly low lung volumes with bronchovascular crowding. Cardiomegaly. Patient was tested for COVID 19. Patient subsequently admitted to monitored floor for further management. CONSULTANTS: certified orthotist/pedorthist [facility] COURSE: Patient admitted to telemetry floor. Supplemental oxygen provided and titrated to keep pulse oximetry above 92%. Bronchodilator therapy provided [id number] and as needed. Patient started on the IV steroids with gradual tapering. Advair inhaler continued. Antitussive provided as needed. DVT and GI prophylaxis provided. Venous duplex bilateral lower extremity revealed no evidence of acute DVT. Echocardiogram, done in May 2019 on prior admission , revealed global left ventricular hypokinesis with left ventricular ejection fraction of 15%; right ventricular systolic pressure of 19. Serial troponin were monitored: second troponin trended down but remains elevated. Per certified orthotist/pedorthist, patient has NSTEMI precipitated by cocaine use as well as the acute on chronic systolic congestive heart failure. Patient was not a candidate for cardiac defibrillator due to noncompliance and persistent use of cocaine. Guideline directed medical therapy for congestive heart failure provided. Antihypertensive regimen was uptitrated as per certified orthotist/pedorthist. Antiplatelet therapy and statin continued. Diuresis provided with close monitoring of volumes and cardiorenal parameters. Dietary restriction of sodium was discussed with patient. Patient was counseled on abstinence from cocaine . Risk of cocaine abuse with regards to sudden cardiac were discussed with patient. COVID19 came back negative. Patient clinically stabilized and was ready for discharge home. Reinforced compliance with medication regimen. FINAL DIAGNOSES: Cardiomyopathy with ejection fraction 15% Acute on chronic systolic congestive heart failure NSTEMI , precipitated by cocaine use COPD exacerbation Acute bronchospasm Cocaine abuse Hypertensive heart disease with labile blood pressure Paroxysmal atrial and ventricular ectopy Chronic myocardial ischemia Suspected COVID 19 infection - was ruled out DISCHARGE MEDICATIONS: See Medication Reconciliation list. DISCHARGE INSTRUCTIONS: Patient was discharged home. Follow primary care provider in 1 week. I have been assigned to dictate discharge summary for this account. I was not involved in the patient's management. Ignacia Candelaria NP Jul 18, 2019 14:15
== END 2019-07-17 13:35 | disposition home or self-care (01) | DRG 194 ==
LOC: EDBD 18:17 → EMR 19:09 → 2E 20:52 → EDBEDREQ 21:38 → 2E 07-15 10:00
DX: I11.0 Hypertensive heart disease with heart failure (principal); I50.23 Acute on chronic systolic (congestive) heart failure; J44.1 Chronic obstructive pulmonary disease with (acute) exacerbation; I25.5 Ischemic cardiomyopathy; I21.4 Non-ST elevation (NSTEMI) myocardial infarction; J98.01 Acute bronchospasm; R09.02 Hypoxemia; I49.1 Atrial premature depolarization; I49.3 Ventricular premature depolarization; I25.9 Chronic ischemic heart disease, unspecified
CPT/HCPCS: 36415; 71045; 80048; 80053; 80307; 83735; 83880; 84484; 85025; 85610; 85730; 86140; 87635; 93005; 93970; 94640; 94660; 96360; 99285; J7030; J7620

== ENCOUNTER 2019-09-21 16:35 | Inpatient (IN) | payer OTHER ==
[~2019-09-21] VITALS: Ht 167.6 cm; Wt 59.0 kg
[~2019-09-21 16:35] MED LIST changes: +ADVAIR 250/501 PUFFS INH; +PROVENTIL HFA6.7 G1 INH
--- NOTE | 2019-09-21 16:43 | NUR ---
ED Nurse Note: Pt ambulated to ED d/t shortness of breath d/t asthma since yesterday. Pt is AOx4, calm and cooperative, VSS, afebrile on triage, satting at 96% on RA. Pt denies any chest pain nor recent fever. Placed on bed. will continue to monitor.
--- NOTE | 2019-09-21 16:50 | NUR ---
ED Nurse Note: IV line estalished. Blood sample collected and sent to lab.
[2019-09-21 17:04] LABS: BASOPHILS % (AUTO) 2.2 % (0.0-2.0); EOSINOPHILS % (AUTO) 11.3 % (0.0-3.0); HEMOGLOBIN 14.6 G/DL (14.2-18.0); LYMPHOCYTES % (AUTO) 24.9 % (20.0-45.0); MEAN CORPUSCULAR VOLUME 98 FL (80-99); MONOCYTES % (AUTO) 15.3 % (1.0-10.0); NEUTROPHILS % (AUTO) 46.3 % (45.0-75.0); PLATELET COUNT 160 K/UL (150-450); RED BLOOD COUNT 4.92 M/UL (4.70-6.10); RED CELL DISTRIBUTION WIDTH 15.2 % (11.6-14.8); WHITE BLOOD COUNT 4.7 K/UL (4.8-10.8)
[2019-09-21 17:12] VITALS: BP 147/90
[2019-09-21 17:24] LABS: ANION GAP 11 mmol/L (5-15); BLOOD UREA NITROGEN 28 mg/dL (7-18); CALCIUM 8.7 MG/DL (8.5-10.1); CARBON DIOXIDE 26 MMOL/L (21-32); CHLORIDE 106 MMOL/L (98-107); CREATININE 1.6 MG/DL (0.55-1.30); POTASSIUM 3.6 MMOL/L (3.5-5.1); SODIUM 143 MMOL/L (136-145)
--- NOTE | 2019-09-21 17:45 | NUR ---
ED Nurse Note: Report received from TEX Alva.
[2019-09-21] MEDS ORDERED: LISINOPRIL10 MG ORAL (17:48)
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
--- NOTE | 2019-09-21 17:50 | NUR ---
ED Nurse Note: PT states he is hungry, per ERMD pt is okat to eat. [place] and water provided to pt
[2019-09-21 17:52] VITALS: BP 137/98
--- NOTE | 2019-09-21 18:03 | Diagnostic Imaging Report ---
Indication: Chest pain Technique: One view of the chest Comparison: 07/14/2019 Findings: The heart is enlarged. Lungs pleural spaces are clear. Findings are unchanged Impression: Cardiomegaly. No acute process
--- NOTE | 2019-09-21 19:00 | NUR ---
HAND-OFF: Report given to TEX mendoza. endorsed plan of care.
--- NOTE | 2019-09-21 19:00 | NUR ---
ED Nurse Note: Received report from TEX Sher. Patient resting in bed, no acute distress noted.
--- NOTE | 2019-09-21 19:16 | NUR ---
ED Nurse Note: Patient provided with juice.
[2019-09-21 19:17] VITALS: BP 130/86
--- NOTE | 2019-09-21 21:50 | NUR ---
TRANSFER TO FLOOR: Patient transferred to telemetry as ordered, per ERMD. Report given to TEX Mcfarlane. Patient transported via gurney on ACLS protocol in stable condition accompanied by 1 RN and computer support technician.
--- NOTE | 2019-09-21 21:51 | NUR ---
ED Nurse Note: Report given to TEX Mcfarlane.
[2019-09-21 22:10] VITALS: BP 140/95
--- NOTE | 2019-09-21 22:15 | NUR ---
NURSE NOTES: Pt received from TEX Ramírez alert and oriented x4 with no acute s/s of distress noted ambulated from gurney to bed with steady gait. On room air. potline monitor on - Sinus Rhythm with BBB (90s). IV site asymptomatic and patent on L ac 20g, saline lock. 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 Skin intact upon assessment. Bed in lowest position, call light and belongings within reach. VS stable.
--- NOTE | 2019-09-21 22:45 | NUR ---
NURSE NOTES: RN left message for Dr. Moore and Dr. Sarabia for admission orders, currently awaiting call back.
--- NOTE | 2019-09-21 23:40 | NUR ---
NURSE NOTES: Admission orders received from Dr. Moore, will carry out orders accordingly.
[2019-09-21] MEDS ORDERED: Albuterol 90mcg Inhaler 8gm INH PRN (23:45)
[2019-09-22] VITALS: BP 136/87
[2019-09-22 04:00] VITALS: BP 132/96
[2019-09-22] MEDS: Heparin 5000 units/ml inj SUBQ SCH ×3 (05:28→20:46)
--- NOTE | 2019-09-22 07:22 | NUR ---
HAND-OFF: Report given to TEX Gifford. Plan of care endorsed.
[2019-09-22 07:26] LABS: BASOPHILS % (AUTO) 1.6 % (0.0-2.0); EOSINOPHILS % (AUTO) 15.7 % (0.0-3.0); HEMATOCRIT 47.9 % (42.0-52.0); HEMOGLOBIN 15.2 G/DL (14.2-18.0); LYMPHOCYTES % (AUTO) 25.3 % (20.0-45.0); MEAN CORPUSCULAR VOLUME 95 FL (80-99); MONOCYTES % (AUTO) 14.6 % (1.0-10.0); NEUTROPHILS % (AUTO) 42.8 % (45.0-75.0); PLATELET COUNT 136 K/UL (150-450); RED BLOOD COUNT 5.07 M/UL (4.70-6.10); RED CELL DISTRIBUTION WIDTH 13.6 % (11.6-14.8); WHITE BLOOD COUNT 4.6 K/UL (4.8-10.8)
--- NOTE | 2019-09-22 07:36 | NUR ---
NURSE NOTES: Received report from TEX Daugherty. Patient in bed resting, no active s/s cardiac, respiratory distress noticed at this time. Patient AOx4, on room air, SR with HR 82. IV on left AC 20g, asymptomatic, patent, intact. Bed in lowest position, side rails upx2, call light within reach, urinal at easy reach. Will continue to monitor.
[2019-09-22 07:41] LABS: ALANINE AMINOTRANSFERASE 55 U/L (12-78); ALBUMIN 3.1 G/DL (3.4-5.0); ALKALINE PHOSPHATASE 62 U/L (46-116); ANION GAP 9 mmol/L (5-15); ASPARTATE AMINO TRANSFERASE 45 U/L (15-37); BILIRUBIN,TOTAL 0.6 MG/DL (0.2-1.0); BLOOD UREA NITROGEN 26 mg/dL (7-18); CALCIUM 8.3 MG/DL (8.5-10.1); CARBON DIOXIDE 29 MMOL/L (21-32); CHLORIDE 104 MMOL/L (98-107); CREATININE 1.4 MG/DL (0.55-1.30); POTASSIUM 3.3 MMOL/L (3.5-5.1); SODIUM 142 MMOL/L (136-145)
[2019-09-22 08:00] VITALS: BP 121/88
[2019-09-22] MEDS: Aspirin Baby 81mg ORAL SCH (09:13)
[2019-09-22] MEDS: Amiodarone 200mg tab ORAL SCH (09:13)
[2019-09-22] MEDS: Lisinopril 20mg tab ORAL SCH (09:14)
--- NOTE | 2019-09-22 09:54 | NUR ---
NURSE NOTES: Paged Dr. Streeter regarding troponin level, Awaiting for callback, Will continue to follow up.
--- NOTE | 2019-09-22 10:13 | NUR ---
CASE MANAGEMENT: INITIAL REVIEW 59YR OLD MALE AMBULATED INTO ER FROM HOME CC: UPPER RESPIRATORY ILLNESS; SOB PMH: COPD AND CHF SI:CHF . LE EDEMA . NSTEMI 97.8 85 16 147/90 94% ON RA TROP 0.167 WBC 4.7 BUN/CREAT 28/1.6 BNP 5019 IS:IV LASIX X1 ASA PO X1 XRAY Chest 1v: Chest pain-Cardiomegaly. No acute process \: 2E TELE UNIT DCP: HOME WHEN STABLE PLAN: CARDIO CONSULT SERIAL TROP MONITOR LABS START ON BREATHING TREATMENTS CASE MANAGEMENT: REVIEW 09/22/19 SI:CHF . LE EDEMA . NSTEMI 97.4 82 19 132/96 98% ON RA TROP 0.189 K+ 3.3 WBC 4.6 BUN/CREAT 26/1.4 IS:IV LASIX QD AMIODARONE PO QD COREG PO BID LISINOPRIL PO QD PROTONIX PO QD HEPARIN SQ TID ASA PO QD \: 2E TELE UNIT DCP: HOME WHEN STABLE PLAN: 2D ECHOCARDIOGRAM PULMONARY CONSULT START ON BREATHING TREATMENTS MONITOR LABS
--- NOTE | 2019-09-22 10:57 | NUR ---
NURSE NOTES: Dr. Moore made aware of K level today, no new order received at this time. Will continue to monitor.
--- NOTE | 2019-09-22 11:38 | NUR ---
NURSE NOTES: Per Dr. Moore, KCl 40 mEq PO once, Order noted, entered, carried out.
[2019-09-22 12:00] VITALS: BP 133/96
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
--- NOTE | 2019-09-22 14:16 | NUR ---
*-* INSURANCE *-* ALL CLINICALS AND REVIEWS HAVE BEEN FAXED TO: [employer] P:[phone] F:[phone] & [facility] F: [phone] Addendum: 09/25/19 at 1018 by JOVON SANCHEZ [facility]# [id number] Fax Clinicals to [phone] Case Man: Sonam ext [phone]
[2019-09-22 16:00] VITALS: BP 118/92
--- NOTE | 2019-09-22 16:17 | History & Physical ---
History and Physical History & Physicial Satish Moore MD Sep 22, 2019 16:17
[2019-09-22] MEDS: Albuterol ud Inhalation HHN PRN (17:30)
--- NOTE | 2019-09-22 18:59 | NUR ---
NURSE NOTES: Dr. Streeter at the bedside made aware of troponin, EF 10%, 11 beats of V tach last night, no new order received at this time. Will continue to follow up.
--- NOTE | 2019-09-22 19:24 | NUR ---
HAND-OFF: Report given to TEX Ventura. Endorsed plan of care.
--- NOTE | 2019-09-22 19:25 | NUR ---
NURSE NOTES: Got report from Balta NICE. Pt in stable condition. No s/s of distress or discomfort noted. Pt resting in bed comfortably. Bed in low and locked position, call light within reach, bedside table within reach. Continue to monitor.
[2019-09-22 20:00] VITALS: BP 122/77
[2019-09-22] MEDS ORDERED: LISINOPRIL20 MG ORAL (20:29)
[2019-09-22] MEDS ORDERED: PRAVACHOL40 MG ORAL (20:29)
[2019-09-22] MEDS ORDERED: SPIRIVA18 MCG INH (20:30)
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
[2019-09-22] MEDS: Atorvastatin 20mg tab ORAL SCH (20:46)
[2019-09-23] VITALS: BP 120/75
[2019-09-23 04:00] VITALS: BP 125/85
[2019-09-23] MEDS: Heparin 5000 units/ml inj SUBQ SCH ×3 (05:58→21:42)
[2019-09-23] MEDS: Albuterol ud Inhalation HHN PRN ×3 (07:09→20:14)
--- NOTE | 2019-09-23 07:15 | NUR ---
HAND-OFF: Report given to Rufina NICE.
[2019-09-23 08:00] VITALS: BP 145/92
[2019-09-23] MEDS: Aspirin Baby 81mg ORAL SCH (08:56)
[2019-09-23] MEDS: Amiodarone 200mg tab ORAL SCH (08:56)
[2019-09-23 09:51] LABS: ANION GAP 9 mmol/L (5-15); BLOOD UREA NITROGEN 25 mg/dL (7-18); CALCIUM 8.2 MG/DL (8.5-10.1); CARBON DIOXIDE 27 MMOL/L (21-32); CHLORIDE 105 MMOL/L (98-107); CREATININE 1.4 MG/DL (0.55-1.30); POTASSIUM 4.4 MMOL/L (3.5-5.1); SODIUM 141 MMOL/L (136-145)
[2019-09-23] MEDS: Lisinopril 20mg tab ORAL SCH (10:14)
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
[2019-09-23 12:00] VITALS: BP 134/83
[2019-09-23 16:00] VITALS: BP 130/98
--- NOTE | 2019-09-23 19:29 | NUR ---
HAND-OFF: Report given to TEX Ball.
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
[2019-09-23 20:00] VITALS: BP 136/93
--- NOTE | 2019-09-23 20:12 | NUR ---
NURSE NOTES: Pt just received breathing treatment. Satting at 100%. Now back on 2 L NC O2. Breathing even and unlabored. In no acute distress, sitting up at side of the bed watching
--- NOTE | 2019-09-23 21:39 | Cardiology Progress Note ---
Subjective Subjective [id number] Objective Last 24 Hour Vital Signs Date Time Temp Pulse Resp B/P (MAP) Pulse Ox O2 Delivery O2 Flow Rate FiO2 09/23/19 20:13 87 18 99 Nasal Cannula 2.0 28 85 18 98 09/23/19 16:00 97 09/23/19 16:00 97.5 90 22 130/98 (109) 100 09/23/19 13:25 87 20 97 Nasal Cannula 2.0 28 89 20 94 09/23/19 12:00 97.0 83 24 134/83 (100) 100 09/23/19 12:00 88 09/23/19 10:14 145/92 09/23/19 09:00 Room Air 09/23/19 08:56 82 145/92 09/23/19 08:00 97.2 82 22 145/92 (109) 93 09/23/19 08:00 83 09/23/19 07:08 85 20 98 Nasal Cannula 2.0 28 84 20 95 09/23/19 04:00 88 09/23/19 04:00 97.0 92 18 125/85 (98) 100 09/23/19 00:00 75 09/23/19 00:00 97.5 85 18 120/75 (90) 97 09/22/19 22:00 Room Air Intake and Output 09/22/19 09/23/19 19:00 07:00 Intake Total 800 ml Balance 800 ml Intake Oral 800 ml # Voids 6 5 # Bowel Movements 1 Laboratory Tests Test 09/23/19 08:10 Sodium Level 141 MMOL/L (136-145) Potassium Level 4.4 MMOL/L (3.5-5.1) Chloride Level 105 MMOL/L (98-107) Carbon Dioxide Level 27 MMOL/L (21-32) Anion Gap 9 mmol/L (5-15) Blood Urea Nitrogen 25 mg/dL (7-18) H Creatinine 1.4 MG/DL (0.55-1.30) H Estimat Glomerular Filtration Rate > 60 mL/min (>60) Glucose Level 134 MG/DL (74-106) H Calcium Level 8.2 MG/DL (8.5-10.1) Selena Abreu MD Sep 23, 2019 21:39
[2019-09-23] MEDS: Atorvastatin 20mg tab ORAL SCH (21:41)
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
[2019-09-24] VITALS (7 sets, daily range): BP systolic 104–128; BP diastolic 65–94
[2019-09-24] MEDS: Albuterol ud Inhalation HHN PRN ×3 (01:50→15:52)
[2019-09-24] MEDS: Heparin 5000 units/ml inj SUBQ SCH ×3 (05:21→20:21)
--- NOTE | 2019-09-24 07:29 | NUR ---
HAND-OFF: Report given to TEX Almaraz.
--- NOTE | 2019-09-24 08:20 | NUR ---
NURSE NOTES: Received report from TEX Ball. pt A/O x4. No s/s of acute respiratory and cardiac distress. On o2 2L NC. SL on right FA 22G asymptomatic, patent and intact. Bed in low position, side rails up x2 and call light within reach. Will continue to monitor.
[2019-09-24 08:54] LABS: EOSINOPHILS % (AUTO) 12.3 % (0.0-3.0); HEMATOCRIT 46.7 % (42.0-52.0); HEMOGLOBIN 14.1 G/DL (14.2-18.0); LYMPHOCYTES % (AUTO) 23.8 % (20.0-45.0); MEAN CORPUSCULAR VOLUME 98 FL (80-99); MONOCYTES % (AUTO) 12.9 % (1.0-10.0); NEUTROPHILS % (AUTO) 49.1 % (45.0-75.0); PLATELET COUNT 150 K/UL (150-450); RED BLOOD COUNT 4.75 M/UL (4.70-6.10); RED CELL DISTRIBUTION WIDTH 15.1 % (11.6-14.8); WHITE BLOOD COUNT 4.7 K/UL (4.8-10.8)
[2019-09-24 09:17] LABS: ANION GAP 9 mmol/L (5-15); BLOOD UREA NITROGEN 30 mg/dL (7-18); CALCIUM 8.4 MG/DL (8.5-10.1); CARBON DIOXIDE 28 MMOL/L (21-32); CHLORIDE 102 MMOL/L (98-107); CREATININE 1.3 MG/DL (0.55-1.30); POTASSIUM 3.8 MMOL/L (3.5-5.1); SODIUM 139 MMOL/L (136-145)
[2019-09-24] MEDS: Amiodarone 200mg tab ORAL SCH (09:28)
[2019-09-24] MEDS: Aspirin Baby 81mg ORAL SCH (09:29)
[2019-09-24] MEDS: Lisinopril 20mg tab ORAL SCH (09:30)
[2019-09-24] MEDS: Tylenol #3 tab (300mg/30mg) ORAL PRN ×2 (13:13→21:34)
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
--- NOTE | 2019-09-24 19:00 | NUR ---
HAND-OFF: Report given to TEX Ball. Endorsed plan of care.
--- NOTE | 2019-09-24 19:15 | NUR ---
NURSE NOTES: Received report from TEX Almaraz. Patient is sitting upright in bed resting, no active s/s cardiac, No observed respiratory distress, on room air, lungs clear upon auscultation. Patient AOx4, SR w BBB with HR 82. IV on right forearm 22 g NS lock, asymptomatic, patent, intact. Bed in lowest position, side rails upx2, call light within reach, urinal and bedside table within reach. Will continue to monitor. Contacted No and got order for respiratory treatments scheduled q 4 hours as pt requests them anyway. Input order and will carry out.
[2019-09-24] MEDS ORDERED: Albuterol ud Inhalation HHN SCH ×2 (20:45→23:15)
--- NOTE | 2019-09-24 21:11 | Cardiology Progress Note ---
Assessment/Plan Assessment/Plan continue diuresis, continue treatment for COPD, LV thrombus ?, not clear how reliable the patient is for fci anticoagulation will d/w Dr Streeter Subjective Subjective The patient feels better, his dyspnea is lightly better Objective Last 24 Hour Vital Signs Date Time Temp Pulse Resp B/P (MAP) Pulse Ox O2 Delivery O2 Flow Rate FiO2 09/24/19 20:00 97.9 66 22 121/86 (98) 94 09/24/19 16:00 98.1 69 18 104/65 (78) 96 09/24/19 16:00 87 09/24/19 15:51 91 20 97 Nasal Cannula 2.0 28 94 20 95 09/24/19 12:00 78 09/24/19 12:00 97.7 63 20 113/86 (95) 96 09/24/19 09:30 124/79 09/24/19 09:29 90 124/79 09/24/19 09:00 Nasal Cannula 2.0 09/24/19 08:00 97.9 90 22 124/79 (94) 97 09/24/19 08:00 84 09/24/19 07:47 90 20 99 Nasal Cannula 2.0 28 89 20 94 09/24/19 04:00 96.4 76 26 124/90 (101) 99 09/24/19 04:00 82 09/24/19 01:51 93 18 99 Nasal Cannula 2.0 28 91 18 98 09/24/19 00:00 90 09/24/19 00:00 96.3 84 24 128/94 (105) 98 09/23/19 21:41 86 136/93 General Appearance: thin, other - cachectic EENT: PERRL/EOMI Neck: JVD Rhythm: NSR Cardiovascular: regular rhythm, systolic murmur Abdomen: hypoactive bowel sounds Extremities: moderate edema Intake and Output 09/23/19 09/24/19 19:00 07:00 Intake Total 720 ml 500 ml Balance 720 ml 500 ml Intake Oral 720 ml 500 ml # Voids 3 3 Laboratory Tests Test 09/24/19 08:02 White Blood Count 4.7 K/UL (4.8-10.8) L Red Blood Count 4.75 M/UL (4.70-6.10) Hemoglobin 14.1 G/DL (14.2-18.0) L Hematocrit 46.7 % (42.0-52.0) Mean Corpuscular Volume 98 FL (80-99) Mean Corpuscular Hemoglobin 29.7 PG (27.0-31.0) Mean Corpuscular Hemoglobin Concent 30.2 G/DL (32.0-36.0) L Red Cell Distribution Width 15.1 % (11.6-14.8) H Platelet Count 150 K/UL (150-450) Mean Platelet Volume 10.6 FL (6.5-10.1) H Neutrophils (%) (Auto) 49.1 % (45.0-75.0) Lymphocytes (%) (Auto) 23.8 % (20.0-45.0) Monocytes (%) (Auto) 12.9 % (1.0-10.0) H Eosinophils (%) (Auto) 12.3 % (0.0-3.0) H Basophils (%) (Auto) 2.0 % (0.0-2.0) Sodium Level 139 MMOL/L (136-145) Potassium Level 3.8 MMOL/L (3.5-5.1) Chloride Level 102 MMOL/L (98-107) Carbon Dioxide Level 28 MMOL/L (21-32) Anion Gap 9 mmol/L (5-15) Blood Urea Nitrogen 30 mg/dL (7-18) H Creatinine 1.3 MG/DL (0.55-1.30) Estimat Glomerular Filtration Rate > 60 mL/min (>60) Glucose Level 144 MG/DL (74-106) H Calcium Level 8.4 MG/DL (8.5-10.1) L Pro-B-Type Natriuretic Peptide 2542 pg/mL (0-125) H Selena Bran MD Sep 24, 2019 21:11
[2019-09-24] MEDS: Atorvastatin 20mg tab ORAL SCH (21:31)
[2019-09-24] MEDS: Albuterol ud Inhalation HHN SCH (23:27)
[2019-09-25 00:11] VITALS: BP 122/84
[2019-09-25] MEDS: Albuterol ud Inhalation HHN SCH ×2 (03:04→09:00)
[2019-09-25] MEDS: Tylenol #3 tab (300mg/30mg) ORAL PRN (03:31)
[2019-09-25 04:00] VITALS: BP 127/87
[2019-09-25] MEDS: Heparin 5000 units/ml inj SUBQ SCH (05:39)
[2019-09-25 06:32] LABS: BASOPHILS % (AUTO) 1.4 % (0.0-2.0); EOSINOPHILS % (AUTO) 10.8 % (0.0-3.0); HEMATOCRIT 45.7 % (42.0-52.0); HEMOGLOBIN 14.2 G/DL (14.2-18.0); LYMPHOCYTES % (AUTO) 30.3 % (20.0-45.0); MEAN CORPUSCULAR VOLUME 97 FL (80-99); MONOCYTES % (AUTO) 13.1 % (1.0-10.0); NEUTROPHILS % (AUTO) 44.4 % (45.0-75.0); PLATELET COUNT 136 K/UL (150-450); RED CELL DISTRIBUTION WIDTH 15.1 % (11.6-14.8)
--- NOTE | 2019-09-25 07:03 | NUR ---
HAND-OFF: Report given to TEX Foster
[2019-09-25 07:35] LABS: ANION GAP 7 mmol/L (5-15); BLOOD UREA NITROGEN 27 mg/dL (7-18); CALCIUM 8.4 MG/DL (8.5-10.1); CARBON DIOXIDE 31 MMOL/L (21-32); CHLORIDE 102 MMOL/L (98-107); CREATININE 1.2 MG/DL (0.55-1.30); POTASSIUM 3.6 MMOL/L (3.5-5.1); SODIUM 140 MMOL/L (136-145)
[2019-09-25 08:00] VITALS: BP 135/69
[2019-09-25] MEDS: Lisinopril 20mg tab ORAL SCH (09:08)
[2019-09-25] MEDS: Aspirin Baby 81mg ORAL SCH (09:08)
[2019-09-25] MEDS: Amiodarone 200mg tab ORAL SCH (09:08)
[2019-09-25 09:09] VITALS: BP 141/79
[2019-09-25] MEDS ORDERED: PRINIVIL20 MG ORAL (11:52)
[2019-09-25] MEDS ORDERED: PACERONE200 MG ORAL (11:52)
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
--- NOTE | 2019-09-25 15:43 | NUR ---
*-* INSURANCE *-* UPDATE CLINICALS (NO DISCHARGE SUMMARY IN THE SYSTEM YET) HAVE BEEN FAXED TO: [facility]# [id number] Case Man: Sonam P:[phone] ext [phone] F:[phone] & [facility] F: [phone]
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
--- NOTE | 2019-09-26 11:36 | NUR ---
*-* INSURANCE *-* DISCHARGE SUMMARY HAS BEEN FAXED: [facility]# [id number] Case Man: Sonam P:[phone] ext [phone] F:[phone] & TORY KRAUSE F: [phone]
== END 2019-09-25 13:00 | disposition home or self-care (01) | DRG 194 ==
LOC: EMR 17:00 → EDBEDREQ 17:29 → EDBEDREQSVC 17:38 → EDBEDREQ 17:38 → 2E 17:53 → EDBEDREQ 19:07
DX: I11.0 Hypertensive heart disease with heart failure (principal); J44.1 Chronic obstructive pulmonary disease with (acute) exacerbation; I50.43 Acute on chronic combined systolic (congestive) and diastolic (congestive) heart failure; E43 Unspecified severe protein-calorie malnutrition; G81.94 Hemiplegia, unspecified affecting left nondominant side; W34.00XS Accidental discharge from unspecified firearms or gun, sequela; I42.9 Cardiomyopathy, unspecified; F17.200 Nicotine dependence, unspecified, uncomplicated; Z88.8 Allergy status to other drugs, medicaments and biological substances; F14.10 Cocaine abuse, uncomplicated; I27.20 Pulmonary hypertension, unspecified; I34.0 Nonrheumatic mitral (valve) insufficiency; I42.0 Dilated cardiomyopathy; Z68.1 Body mass index [BMI] 19.9 or less, adult
CPT/HCPCS: 36415; 71045; 80048; 80053; 83735; 83880; 84484; 85025; 93005; 93306; 94640; 96374; 99285; J8499

== ENCOUNTER 2019-12-16 17:44 | Inpatient (IN) | payer OTHER ==
[~2019-12-16] VITALS: Ht 170.2 cm; Wt 50.5 kg
[~2019-12-16 17:44] MED LIST changes: +LISINOPRIL10 MG ORAL; +PACERONE200 MG ORAL; +PRAVACHOL40 MG ORAL; +PRINIVIL20 MG ORAL
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
[2019-12-16 18:20] VITALS: BP 139/88
[2019-12-16 18:24] LABS: ANION GAP 8 mmol/L (5-15); BLOOD UREA NITROGEN 20 mg/dL (7-18); CALCIUM 8.3 MG/DL (8.5-10.1); CARBON DIOXIDE 30 MMOL/L (21-32); CHLORIDE 108 MMOL/L (98-107); CREATININE 1.3 MG/DL (0.55-1.30); POTASSIUM 4.3 MMOL/L (3.5-5.1); SODIUM 145 MMOL/L (136-145)
[2019-12-16 18:25] LABS: BASOPHILS % (AUTO) 1.9 % (0.0-2.0); EOSINOPHILS % (AUTO) 18.2 % (0.0-3.0); HEMOGLOBIN 14.3 G/DL (14.2-18.0); LYMPHOCYTES % (AUTO) 32.7 % (20.0-45.0); MEAN CORPUSCULAR VOLUME 94 FL (80-99); MONOCYTES % (AUTO) 12.3 % (1.0-10.0); PLATELET COUNT 155 K/UL (150-450); RED BLOOD COUNT 4.69 M/UL (4.70-6.10); RED CELL DISTRIBUTION WIDTH 14.1 % (11.6-14.8); WHITE BLOOD COUNT 4.6 K/UL (4.8-10.8)
--- NOTE | 2019-12-16 18:25 | Diagnostic Imaging Report ---
EXAM: XR Chest, 1 View CLINICAL HISTORY: SOB TECHNIQUE: Frontal view of the chest. COMPARISON: No relevant prior studies available. FINDINGS: Lungs: Question subtle airspace opacity seen within the right lung and left upper lobe which may be asymmetric pulmonary vascular congestion versus an infectious process. Pleural space: Unremarkable. Heart: Moderate enlargement of the cardiomediastinal silhouette. Mediastinum: See above. Bones/joints: Unremarkable. IMPRESSION: Question subtle airspace opacity seen within the right lung and left upper lobe which may be asymmetric pulmonary vascular congestion versus an infectious process.
[2019-12-16 18:36] LABS: ALANINE AMINOTRANSFERASE 31 U/L (12-78); ALKALINE PHOSPHATASE 64 U/L (46-116); ASPARTATE AMINO TRANSFERASE 28 U/L (15-37); BILIRUBIN,TOTAL 0.3 MG/DL (0.2-1.0)
[2019-12-16 22:03] VITALS: BP 146/92
--- NOTE | 2019-12-16 22:21 | History and Physical ---
History of Present Illness General Date patient seen: Dec 16, 2019 Reason for Hospitalization: Dyspnea/RespdistressAcute on chronic decompensated systolic heart failure Present Illness HPI Mr. Castellano is a 59 YO gentleman with essential hypertension, hyperlipidemia, COPD, systolic HF (Last EF: 10%) and substance abuse presenting with worsening SOB and bilateral lower extremity edema. Patient reports that over the last 1-2 weeks he has been experiencing dyspnea specially on exertion. He has also noticed significant swelling in his b/l LEs. Patient's symptoms have also been associated with orthopnea and PND. Patient denies any chest pain , near syncope or syncope. He denies any n/v/d/f/c/abdominal pain/melena or hematochezia. Patient endorses the use of cocaine almost on daily basis. He states that his attempts to quit have been unsuccessful. Upon arrival to the ED, vitals were WNL. Labs values significant for highly elevated BNP (2900) and urine toxicology positive for cocaine. CXR showed significant pulmonary vascular congestion. He is being admitted for further observation and medical management. Allergies: Coded Allergies: DIPHENHYDRAMINE (Unverified Allergy, Unknown, 12/18/17) COVID-19 Screening Contact w/high risk pt: No Recent Travel to affected area: No Experienced COVID-19 symptoms?: Yes COVID-19 symptoms experienced: Shortness of Breath, Runny Nose Medication History Scheduled Amiodarone Hcl* (Pacerone*), 200 MG ORAL DAILY Aspirin* (Aspirin*), 81 MG ORAL DAILY, (Reported) Carvedilol* (Carvedilol*), 3.125 MG ORAL EVERY 12 HOURS, (Reported) Furosemide* (Lasix*), 40 MG ORAL DAILY, (Reported) Lisinopril (Lisinopril*), 20 MG ORAL DAILY, (Reported) Lisinopril* (Prinivil*), 10 MG ORAL DAILY Pravastatin Sodium (Pravachol), 40 MG ORAL BEDTIME, (Reported) Tiotropium [place]* (Spiriva*), 1 PUFF INH DAILY, (Reported) Scheduled PRN Albuterol Sulfate (Proventil Hfa), 2 PUFF INH Q4H PRN Albuterol Sulfate* (Albuterol Sulfate Hhn*), 3 ML INH Q4H PRN for Shortness of Breath, (Reported) Patient History Healthcare decision maker Resuscitation status Advanced Directive on File Review of Systems Constitutional: Reports: no symptoms Eye: Reports: no symptoms Respiratory: Reports: orthopnea, shortness of breath Cardiovascular: Reports: edema, PND Gastrointestinal: Reports: no symptoms Genitourinary: Reports: no symptoms Musculoskeletal: Reports: no symptoms Skin: Reports: no symptoms Psychiatric: Reports: no symptoms Neurological: Reports: no symptoms Endocrine: Reports: no symptoms Hematologic/Lymphatic: Reports: no symptoms Physical Exam General Appearance: no apparent distress, alert Lines, tubes and drains: peripheral HEENT: normocephalic, atraumatic Neck: non-tender Respiratory/Chest: chest wall non-tender, lungs clear, no respiratory distress , crackles/rales Cardiovascular/Chest: normal peripheral pulses, normal rate, regular rhythm, JVD, gallop/S3 Abdomen: non tender, soft Extremities: normal range of motion, severe edema Skin Exam: normal pigmentation Neurologic: abnormal gait, alert, oriented x 3 Musculoskeletal: normal muscle bulk, atrophy Last 24 Hour Vital Signs Date Time Temp Pulse Resp B/P (MAP) Pulse Ox O2 Delivery O2 Flow Rate FiO2 12/16/19 18:20 97.5 87 30 139/88 99 Room Air 12/16/19 18:20 82 30 Room Air 12/16/19 17:53 97.5 82 30 139/88 (105) 99 Room Air Laboratory Tests Test 12/16/19 18:00 12/16/19 18:35 12/16/19 18:50 White Blood Count 4.6 K/UL (4.8-10.8) L Red Blood Count 4.69 M/UL (4.70-6.10) L Hemoglobin 14.3 G/DL (14.2-18.0) Hematocrit 44.0 % (42.0-52.0) Mean Corpuscular Volume 94 FL (80-99) Mean Corpuscular Hemoglobin 30.5 PG (27.0-31.0) Mean Corpuscular Hemoglobin Concent 32.5 G/DL (32.0-36.0) Red Cell Distribution Width 14.1 % (11.6-14.8) Platelet Count 155 K/UL (150-450) Mean Platelet Volume 8.9 FL (6.5-10.1) Neutrophils (%) (Auto) 35.0 % (45.0-75.0) L Lymphocytes (%) (Auto) 32.7 % (20.0-45.0) Monocytes (%) (Auto) 12.3 % (1.0-10.0) H Eosinophils (%) (Auto) 18.2 % (0.0-3.0) H Basophils (%) (Auto) 1.9 % (0.0-2.0) Sodium Level 145 MMOL/L (136-145) Potassium Level 4.3 MMOL/L (3.5-5.1) Chloride Level 108 MMOL/L (98-107) H Carbon Dioxide Level 30 MMOL/L (21-32) Anion Gap 8 mmol/L (5-15) Blood Urea Nitrogen 20 mg/dL (7-18) H Creatinine 1.3 MG/DL (0.55-1.30) Estimat Glomerular Filtration Rate > 60 mL/min (>60) Glucose Level 99 MG/DL (74-106) Calcium Level 8.3 MG/DL (8.5-10.1) L Total Bilirubin 0.3 MG/DL (0.2-1.0) Aspartate Amino Transf (AST/SGOT) 28 U/L (15-37) Alanine Aminotransferase (ALT/SGPT) 31 U/L (12-78) Alkaline Phosphatase 64 U/L (46-116) Troponin I 0.129 ng/mL (0.000-0.056) Pro-B-Type Natriuretic Peptide 2889 pg/mL (0-125) H Total Protein 6.1 G/DL (6.4-8.2) L Albumin 3.0 G/DL (3.4-5.0) L Globulin 3.1 g/dL Albumin/Globulin Ratio 1.0 (1.0-2.7) Prothrombin Time 10.8 SEC (9.30-11.50) Prothromb Time International Ratio 1.0 (0.9-1.1) Activated Partial Thromboplast Time 25 SEC (23-33) Urine Opiates Screen Negative (NEGATIVE) Urine Barbiturates Screen Negative (NEGATIVE) Phencyclidine (PCP) Screen Negative (NEGATIVE) Urine Amphetamines Screen Negative (NEGATIVE) Urine Benzodiazepines Screen Negative (NEGATIVE) Urine Cocaine Screen Positive (NEGATIVE) H Urine Marijuana (THC) Screen Negative (NEGATIVE) Microbiology Date/Time Source Procedure Growth Status 12/16/19 18:35 Nasopharynx SARS-CoV-2 RdRp Gene Assay - Final Complete Height (Feet): 5 Height (Inches): 6.00 Weight (Pounds): 130 Assessment/Plan Problem List: (1) Cocaine abuse ICD Codes: F14.10 - Cocaine abuse, uncomplicated SNOMED: 01150281 (2) CHF exacerbation ICD Codes: I50.9 - Heart failure, unspecified SNOMED: 970928091, 89175508140148, 023135314 (3) HTN (hypertension) ICD Codes: I10 - Essential (primary) hypertension SNOMED: 98633001 (4) Severe protein-calorie malnutrition ICD Codes: E43 - Unspecified severe protein-calorie malnutrition SNOMED: 994883839 Assessment/Plan: 59 YO M with HTN, HLD, 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 -Continuous cardiac monitoring. -Start diuresis with IV Lasix 40 MG BID. -Strict I's and O's. -Daily weight. -Monitor lytes -Fluid restriction (<1500cc/day) -Resume home coreg and Lisinopril. -TTE ordered; will follow the results. -Cardiology consult (Dr. Sheehan and Tate). Appreciate further recommendations. -Importance of cocaine cessation emphasized. #Essential Hypertension: -Resume home Antihypertensives. -CTM #COPD: -Resume home spiriva. -Duoneb PRN #HLD: -Resume home statin. #Drug use disorder: -Utox positive for cocaine. -Encouraged pt to join group meetings. -long term care social worker consult prior to discharge. I spent 60 minutes on patient's case, including review of labs, imaging, consultation. An additional 16 minutes was dedicated discussing code status. Anderson Perkins MD. [facility]. Anderson Perkins M.D. Dec 16, 2019 22:21
[2019-12-16] MEDS: Albuterol/Ipratropium 3ml neb HHN SCH (23:14)
[2019-12-17] VITALS: BP 140/96
[2019-12-17] MEDS: Albuterol/Ipratropium 3ml neb HHN SCH ×4 (01:00→19:30)
[2019-12-17 04:00] VITALS: BP 145/93
[2019-12-17] MEDS: Albuterol/Ipratropium 3ml neb HHN PRN ×3 (05:34→22:03)
[2019-12-17 08:00] VITALS: BP 141/96
[2019-12-17] MEDS: Heparin 5000 units/ml inj SUBQ SCH ×2 (09:00→21:29)
[2019-12-17] MEDS: Aspirin Baby 81mg ORAL SCH (09:08)
[2019-12-17] MEDS: Lisinopril 20mg tab ORAL SCH (09:08)
[2019-12-17] MEDS: Amiodarone 200mg tab ORAL SCH (09:08)
[2019-12-17 09:32] LABS: BASOPHILS % (AUTO) 1.6 % (0.0-2.0); EOSINOPHILS % (AUTO) 16.8 % (0.0-3.0); HEMATOCRIT 48.4 % (42.0-52.0); HEMOGLOBIN 15.1 G/DL (14.2-18.0); LYMPHOCYTES % (AUTO) 25.2 % (20.0-45.0); MEAN CORPUSCULAR VOLUME 94 FL (80-99); MONOCYTES % (AUTO) 12.5 % (1.0-10.0); NEUTROPHILS % (AUTO) 43.9 % (45.0-75.0); PLATELET COUNT 162 K/UL (150-450); RED BLOOD COUNT 5.15 M/UL (4.70-6.10); RED CELL DISTRIBUTION WIDTH 13.5 % (11.6-14.8); WHITE BLOOD COUNT 4.7 K/UL (4.8-10.8)
[2019-12-17 10:16] LABS: ALANINE AMINOTRANSFERASE 32 U/L (12-78); ALBUMIN 3.1 G/DL (3.4-5.0); ALKALINE PHOSPHATASE 50 U/L (46-116); ANION GAP 8 mmol/L (5-15); ASPARTATE AMINO TRANSFERASE 32 U/L (15-37); BILIRUBIN,TOTAL 0.4 MG/DL (0.2-1.0); BLOOD UREA NITROGEN 21 mg/dL (7-18); CALCIUM 8.8 MG/DL (8.5-10.1); CARBON DIOXIDE 30 MMOL/L (21-32); CHLORIDE 107 MMOL/L (98-107); CREATININE 1.4 MG/DL (0.55-1.30); POTASSIUM 4.1 MMOL/L (3.5-5.1); SODIUM 145 MMOL/L (136-145)
[2019-12-17 12:00] VITALS: BP 128/82
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
[2019-12-17 16:00] VITALS: BP 126/79
[2019-12-17 20:00] VITALS: BP 140/101
[2019-12-18] VITALS: BP 124/74
[2019-12-18] MEDS: Albuterol/Ipratropium 3ml neb HHN SCH ×4 (01:35→19:18)
[2019-12-18 04:00] VITALS: BP 134/98
[2019-12-18] MEDS: Albuterol/Ipratropium 3ml neb HHN PRN (05:37)
[2019-12-18 08:00] VITALS: BP 128/73
[2019-12-18] MEDS: Lisinopril 20mg tab ORAL SCH (08:40)
[2019-12-18] MEDS: Amiodarone 200mg tab ORAL SCH (08:40)
[2019-12-18] MEDS: Aspirin Baby 81mg ORAL SCH (08:40)
[2019-12-18] MEDS: Heparin 5000 units/ml inj SUBQ SCH ×2 (08:48→20:36)
[2019-12-18 12:00] VITALS: BP 109/51
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
[2019-12-18 12:35] LABS: ANION GAP 9 mmol/L (5-15); BLOOD UREA NITROGEN 29 mg/dL (7-18); CARBON DIOXIDE 29 MMOL/L (21-32); CHLORIDE 103 MMOL/L (98-107); CREATININE 1.4 MG/DL (0.55-1.30); SODIUM 141 MMOL/L (136-145)
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
[2019-12-18 16:00] VITALS: BP 117/76
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
[2019-12-18 20:00] VITALS: BP 129/79
[2019-12-19] VITALS: BP 131/77
[2019-12-19] MEDS: Albuterol/Ipratropium 3ml neb HHN SCH ×4 (01:27→19:02)
[2019-12-19 07:15] LABS: ANION GAP 7 mmol/L (5-15); BLOOD UREA NITROGEN 37 mg/dL (7-18); CALCIUM 8.6 MG/DL (8.5-10.1); CARBON DIOXIDE 33 MMOL/L (21-32); CHLORIDE 102 MMOL/L (98-107); CREATININE 1.6 MG/DL (0.55-1.30); POTASSIUM 3.8 MMOL/L (3.5-5.1); SODIUM 142 MMOL/L (136-145)
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
[2019-12-19 08:00] VITALS: BP 141/67
--- NOTE | 2019-12-19 08:50 | Consultation ---
History of Present Illness General Chief Complaint: Dyspnea/Respdistress Reason for Consultation: KIMO Present Illness HPI Patient is a 59 YO gentleman with essential hypertension, hyperlipidemia, COPD, systolic HF (Last EF: 10%) and substance abuse presenting with worsening SOB and bilateral lower extremity edema. Patient reports that over the last 1-2 weeks he has been experiencing dyspnea specially on exertion. He has also noticed significant swelling in his b/l LEs. Patient's symptoms have also been associated with orthopnea and PND. Patient denies any chest pain , near syncope or syncope. He denies any n/v/d/f/c/abdominal pain/melena or hematochezia. Patient endorses the use of cocaine almost on daily basis. He states that his attempts to quit have been unsuccessful. Upon arrival to the ED, vitals were WNL. Labs values significant for highly elevated BNP (2900) and urine toxicology positive for cocaine. CXR showed significant pulmonary vascular congestion. He is being admitted for further observation and medical management. Allergies: Coded Allergies: DIPHENHYDRAMINE (Unverified Allergy, Unknown, 12/18/17) Medication History Scheduled Amiodarone Hcl* (Pacerone*), 200 MG ORAL DAILY Aspirin* (Aspirin*), 81 MG ORAL DAILY, (Reported) Furosemide* (Lasix*), 20 MG ORAL BID, (Reported) Lisinopril* (Prinivil*), 10 MG ORAL DAILY Tiotropium [place]* (Spiriva*), 1 PUFF INH DAILY, (Reported) Scheduled PRN Albuterol Sulfate (Proventil Hfa), 2 PUFF INH Q4H PRN Albuterol Sulfate* (Albuterol Sulfate Hhn*), 3 ML INH Q4H PRN for Shortness of Breath, (Reported) Discontinued Medications Carvedilol* (Carvedilol*), 3.125 MG ORAL EVERY 12 HOURS, (Reported) Discontinued Reason: Pt stopped taking med Lisinopril (Lisinopril*), 20 MG ORAL DAILY, (Reported) Discontinued Reason: Pt stopped taking med Pravastatin Sodium (Pravachol), 40 MG ORAL BEDTIME, (Reported) Discontinued Reason: Pt stopped taking med Patient History Healthcare decision maker Resuscitation status Advanced Directive on File Review of Systems All Other Systems: negative except mentioned in HPI Physical Exam General Appearance: alert Lines, tubes and drains: peripheral HEENT: normocephalic, atraumatic Neck: non-tender, normal alignment Respiratory/Chest: chest wall non-tender, lungs clear Cardiovascular/Chest: normal peripheral pulses, normal rate Abdomen: normal bowel sounds, non tender Extremities: normal range of motion, moderate edema Skin Exam: normal pigmentation Neurologic: oriented x 3 Last 24 Hour Vital Signs Date Time Temp Pulse Resp B/P (MAP) Pulse Ox O2 Delivery O2 Flow Rate FiO2 12/19/19 08:00 97.9 69 20 141/67 (91) 98 12/19/19 07:41 97 Nasal Cannula 2.0 28 12/19/19 07:41 69 18 99 Nasal Cannula 2.0 28 66 18 97 12/19/19 04:00 65 12/19/19 01:27 74 18 99 Nasal Cannula 2.0 28 68 16 99 12/19/19 00:00 97.2 82 18 131/77 (95) 98 12/18/19 21:12 Nasal Cannula 2.0 12/18/19 20:00 82 12/18/19 20:00 96.6 80 18 129/79 (96) 98 12/18/19 19:18 74 16 100 Nasal Cannula 2.0 28 78 18 98 12/18/19 19:18 98 Nasal Cannula 2.0 28 12/18/19 16:00 97.8 77 20 117/76 (90) 99 12/18/19 16:00 70 12/18/19 12:02 74 18 100 Nasal Cannula 2.0 28 72 18 96 12/18/19 12:00 94 12/18/19 12:00 97.7 71 20 109/51 (70) 96 12/18/19 09:00 Nasal Cannula 2.0 Intake and Output 12/18/19 12/19/19 19:00 07:00 Intake Total 240 ml Output Total 1000 ml Balance -760 ml Intake Oral 240 ml Output Urine Total 1000 ml Laboratory Tests Test 12/18/19 10:52 12/19/19 06:05 Sodium Level 141 MMOL/L (136-145) 142 MMOL/L (136-145) Potassium Level 4.0 MMOL/L (3.5-5.1) 3.8 MMOL/L (3.5-5.1) Chloride Level 103 MMOL/L (98-107) 102 MMOL/L (98-107) Carbon Dioxide Level 29 MMOL/L (21-32) 33 MMOL/L (21-32) H Anion Gap 9 mmol/L (5-15) 7 mmol/L (5-15) Blood Urea Nitrogen 29 mg/dL (7-18) H 37 mg/dL (7-18) H Creatinine 1.4 MG/DL (0.55-1.30) H 1.6 MG/DL (0.55-1.30) H Estimat Glomerular Filtration Rate > 60 mL/min (>60) 53.9 mL/min (>60) Glucose Level 101 MG/DL (74-106) 105 MG/DL (74-106) Calcium Level 9.0 MG/DL (8.5-10.1) 8.6 MG/DL (8.5-10.1) Troponin I 0.100 ng/mL (0.000-0.056) Pro-B-Type Natriuretic Peptide 1870 pg/mL (0-125) H Height (Feet): 5 Height (Inches): 7.00 Weight (Pounds): 130 Medications Current Medications Medications (Trade) Dose Ordered Sig/Stephenie Route PRN Reason Start Time Stop Time Status Last Admin Dose Admin Acetaminophen (Tylenol) 650 mg Q6H PRN ORAL mild pain 12/16/19 22:30 01/15/20 22:29 Albuterol/ Ipratropium (Albuterol/ Ipratropium) 3 ml Q4H PRN HHN Shortness of Breath 12/17/19 05:00 12/22/19 04:59 12/18/19 05:37 Albuterol/ Ipratropium (Albuterol/ Ipratropium) 3 ml Q6HRT HHN 12/16/19 23:00 12/21/19 22:59 12/19/19 07:40 Amiodarone HCl (Cordarone) 200 mg DAILY ORAL 12/17/19 09:00 03/16/20 08:59 12/18/19 08:40 Aspirin (ASA) 81 mg DAILY ORAL 12/17/19 09:00 01/31/20 08:59 12/18/19 08:40 Furosemide (Lasix) 40 mg EVERY 12 HOURS IV 12/17/19 09:00 12/19/19 09:00 12/18/19 20:34 Heparin Sodium (Porcine) (Heparin 5000 units/ml) 5,000 units EVERY 12 HOURS SUBQ 12/17/19 09:00 01/31/20 08:59 12/18/19 20:36 Lisinopril (PriniviL) 20 mg DAILY ORAL 12/17/19 09:00 01/16/20 08:59 12/18/19 08:40 Ondansetron HCl (Zofran) 4 mg Q6H PRN IVP Nausea & Vomiting 12/16/19 22:30 01/15/20 22:29 Pravastatin Sodium (Pravachol) 40 mg BEDTIME ORAL 12/17/19 21:00 01/16/20 20:59 12/18/19 20:35 Tiotropium [place] (Spiriva Inhaler) 1 puff DAILY INH 12/17/19 09:00 01/16/20 08:59 12/18/19 08:41 Assessment/Plan Diagnosis [place] I: #KIMO on CKD III- due to CRS1 in the setting of active diuresis #acute on chronic CHF # Cardiomyopathy with EF 10% #HTN #COPD #HLD #polysubstance abuse - continue lasix 40 iv BID - monitor UOP - strict I&Os - daily weights - hold lisinopril 20mg daily if Cr continues to increase - on amiodarone - asa 81 - pravastatin - avoid nephrotoxins Times spent 70 min Parris Vanegas M.D. Dec 19, 2019 08:50
[2019-12-19] MEDS: Aspirin Baby 81mg ORAL SCH (09:27)
[2019-12-19] MEDS: Amiodarone 200mg tab ORAL SCH (09:27)
[2019-12-19] MEDS: Lisinopril 20mg tab ORAL SCH (09:28)
[2019-12-19] MEDS: Heparin 5000 units/ml inj SUBQ SCH ×2 (09:28→21:04)
[2019-12-19 12:00] VITALS: BP 98/56
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
[2019-12-19 16:00] VITALS: BP 110/54
[2019-12-19 20:00] VITALS: BP 116/74
[2019-12-20] VITALS: BP 128/80
[2019-12-20] MEDS: Albuterol/Ipratropium 3ml neb HHN SCH ×4 (01:20→19:30)
--- NOTE | 2019-12-20 01:50 | Cardiology Report ---
APPROVED REPORT EXAM: Two-dimensional and M-mode echocardiogram with Doppler and color Doppler. INDICATION EJECTION FRACTION M-Mode DIMENSIONS IVSd1.4 (0.7-1.1cm)Left Atrium (MM)4.2 (1.6-4.0cm) LVDd7.8 (3.5-5.6cm)Aortic Root3.1 (2.0-3.7cm) PWd1.4 (0.7-1.1cm)Aortic Cusp Exc.2.0 (1.5-2.0cm) IVSs1.5 cmEPSS2.8 (>1.0cm) LVDs7.4 (2.5-4.0cm) PWs1.4 cm LVEF (%)10.0 (>50%) <Conclusion> Severely depressed left ventricular systolic function with ejection fraction estimated to be 25-30%. Global severe left ventricular hypokinesis constantine mid to distal posterior wall, and the infeiror eall appear akinetic Mild left ventricular hypertrophy. No evidence of pericardial effusion. Mild left atrial enlargement. Mild left ventricle dilation. Right cardiac chamber sizes are upper limits of normal. Focal aortic valve sclerosis with adequate cusp excursion. Thickened mitral valve leaflets with normal excursion. Mitral annulus and aortic root calcification. Normal pulmonic valve structure. Normal tricuspid valve structure. IVC at normal size and collapsing with respiration. A color flow and spectral Doppler study was performed and revealed: Mild aortic insufficiency. Moderate to severe mitral regurgitation. Can not determine left ventricular diastolic function by mitral diastolic velocities due to atrial fibrillation. Moderate tricuspid regurgitation. Tricuspid systolic velocities suggests peak right ventricular systolic pressure of 57mmHg, consistent with moderate pulmonary hypertension. Pulmonic regurgitation present.
--- NOTE | 2019-12-20 01:57 | Cardiology Report ---
APPROVED REPORT EKG Measurement Heart [id number] <Conclusion> Normal sinus rhythm Biatrial enlargement Left axis deviation Left ventricular hypertrophy with QRS widening and repolarization abnormality Abnormal ECG
[2019-12-20 04:00] VITALS: BP 125/84
[2019-12-20 07:38] LABS: ANION GAP 3 mmol/L (5-15); BLOOD UREA NITROGEN 41 mg/dL (7-18); CARBON DIOXIDE 35 MMOL/L (21-32); CHLORIDE 102 MMOL/L (98-107); CREATININE 1.4 MG/DL (0.55-1.30); PHOSPHORUS 3.7 MG/DL (2.5-4.9); POTASSIUM 4.3 MMOL/L (3.5-5.1); SODIUM 140 MMOL/L (136-145)
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
[2019-12-20 07:49] LABS: BASOPHILS % (AUTO) 2.3 % (0.0-2.0); EOSINOPHILS % (AUTO) 12.8 % (0.0-3.0); HEMATOCRIT 53.7 % (42.0-52.0); HEMOGLOBIN 17.2 G/DL (14.2-18.0); LYMPHOCYTES % (AUTO) 17.5 % (20.0-45.0); MEAN CORPUSCULAR VOLUME 92 FL (80-99); MONOCYTES % (AUTO) 14.6 % (1.0-10.0); NEUTROPHILS % (AUTO) 52.8 % (45.0-75.0); PLATELET COUNT 168 K/UL (150-450); RED BLOOD COUNT 5.83 M/UL (4.70-6.10); RED CELL DISTRIBUTION WIDTH 13.5 % (11.6-14.8); WHITE BLOOD COUNT 6.7 K/UL (4.8-10.8)
[2019-12-20 08:00] VITALS: BP_SYST 121; BP_SYST 131; BP_DIAS 68; BP_DIAS 84
--- NOTE | 2019-12-20 08:54 | Nephrology Progress Note ---
Assessment/Plan Plan #KIMO on CKD III- due to CRS1 in the setting of active diuresis #acute on chronic CHF # Cardiomyopathy with EF 10% #HTN #COPD #HLD #polysubstance abuse - switch tolasix 40 PO BID - monitor UOP - strict I&Os - daily weights - can hold lisinopril 20mg daily for a few days and resume as outpatient - on amiodarone - asa 81 - pravastatin - avoid nephrotoxins Times spent 70 min Subjective ROS Limited/Unobtainable: No Constitutional: Reports: weakness HEENT: Denies: no symptoms, eye pain, blurred vision, tearing, double vision, ear pain, ear discharge, nose pain, nose congestion, throat pain, throat swelling, mouth pain, mouth swelling, other Genitourinary: Denies: no symptoms, burning, discharge, frequency, flank pain, hematuria, incontinence, pain, urgency, other Neurologic/Psychiatric: Denies: no symptoms, anxiety, depressed, emotional problems, headache, numbness, paresthesia, pre-existing deficit, seizure, tingling, tremors, weakness, other Subjective cr 1.4 remains on 2l NC sounds dyspneic when he talks has not ambulated much Echo with Severely depressed left ventricular systolic function with ejection fraction estimated to be 25-30% Objective Objective Last 24 Hour Vital Signs Date Time Temp Pulse Resp B/P (MAP) Pulse Ox O2 Delivery O2 Flow Rate FiO2 12/20/19 08:05 79 20 97 Nasal Cannula 2.0 28 79 20 94 12/20/19 08:04 93 Nasal Cannula 2.0 28 12/20/19 04:00 88 12/20/19 04:00 96.4 68 19 125/84 (98) 95 12/20/19 01:20 74 18 100 Nasal Cannula 2.0 28 76 18 99 12/20/19 00:00 97.9 79 17 128/80 (96) 99 12/20/19 00:00 69 12/19/19 21:00 Room Air 12/19/19 20:00 72 12/19/19 20:00 97.6 72 17 116/74 (88) 98 12/19/19 19:04 96 Nasal Cannula 2.0 28 12/19/19 19:03 74 18 100 Nasal Cannula 2.0 28 71 18 96 12/19/19 16:00 97.1 63 20 110/54 (72) 99 12/19/19 16:00 67 12/19/19 12:52 61 18 99 Nasal Cannula 2.0 28 56 18 95 12/19/19 12:00 81 12/19/19 12:00 98.0 66 20 98/56 (70) 100 12/19/19 09:28 141/67 12/19/19 09:00 Nasal Cannula 2.0 Intake and Output 12/19/19 12/20/19 19:00 07:00 Intake Total 500 ml 400 ml Output Total 1400 ml Balance -900 ml 400 ml Intake Oral 500 ml 400 ml Output Urine Total 1400 ml # Voids 4 3 Laboratory Tests 12/19/19 13:00: Urine Random Total Protein 4, Urine Random Sodium 108, Urine Creatinine 32.9 12/20/19 06:12: White Blood Count 6.7, Red Blood Count 5.83, Hemoglobin 17.2, Hematocrit 53.7H, Mean Corpuscular Volume 92, Mean Corpuscular Hemoglobin 29.4, Mean Corpuscular Hemoglobin Concent 32.0, Red Cell Distribution Width 13.5, Platelet Count 168, Mean Platelet Volume 8.3, Neutrophils (%) (Auto) 52.8, Lymphocytes (%) (Auto) 17.5L, Monocytes (%) (Auto) 14.6H, Eosinophils (%) (Auto) 12.8H, Basophils (%) ( Auto) 2.3H, Sodium Level 140, Potassium Level 4.3, Chloride Level 102, Carbon Dioxide Level 35H, Anion Gap 3L, Blood Urea Nitrogen 41H, Creatinine 1.4H, Estimat Glomerular Filtration Rate > 60, Glucose Level 78, Calcium Level 9.0, Phosphorus Level 3.7, Magnesium Level 2.1 Height (Feet): 5 Height (Inches): 7.00 Weight (Pounds): 130 Parris Vanegas M.D. Dec 20, 2019 08:54
[2019-12-20] MEDS: Aspirin Baby 81mg ORAL SCH (09:41)
[2019-12-20] MEDS: Amiodarone 200mg tab ORAL SCH (09:41)
[2019-12-20] MEDS: Heparin 5000 units/ml inj SUBQ SCH ×2 (09:42→20:52)
[2019-12-20 12:00] VITALS: BP 125/58
--- NOTE | 2019-12-20 15:09 | Diagnostic Imaging Report ---
Indication: Reason For Exam: COUGH Technique: One view of the chest Comparison: 12/16/2019 Findings: Heart is enlarged. Lungs and pleural spaces are clear. Findings are unchanged Impression: Cardiomegaly. No acute process or significant interim change
[2019-12-20 16:00] VITALS: BP 112/59
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
[2019-12-20 20:00] VITALS: BP 116/66
[2019-12-21] VITALS: BP 120/61
[2019-12-21] MEDS: Albuterol/Ipratropium 3ml neb HHN SCH ×2 (00:03→06:52)
[2019-12-21 04:00] VITALS: BP 109/70
[2019-12-21 07:35] LABS: BASOPHILS % (AUTO) 3.6 % (0.0-2.0); EOSINOPHILS % (AUTO) 11.3 % (0.0-3.0); HEMATOCRIT 53.5 % (42.0-52.0); HEMOGLOBIN 16.7 G/DL (14.2-18.0); LYMPHOCYTES % (AUTO) 25.6 % (20.0-45.0); MEAN CORPUSCULAR VOLUME 94 FL (80-99); MONOCYTES % (AUTO) 16.3 % (1.0-10.0); NEUTROPHILS % (AUTO) 43.3 % (45.0-75.0); PLATELET COUNT 164 K/UL (150-450); RED CELL DISTRIBUTION WIDTH 13.7 % (11.6-14.8); WHITE BLOOD COUNT 6.1 K/UL (4.8-10.8)
[2019-12-21 07:44] LABS: ANION GAP 7 mmol/L (5-15); BLOOD UREA NITROGEN 37 mg/dL (7-18); CALCIUM 9.8 MG/DL (8.5-10.1); CARBON DIOXIDE 32 MMOL/L (21-32); CHLORIDE 100 MMOL/L (98-107); CREATININE 1.3 MG/DL (0.55-1.30); POTASSIUM 4.9 MMOL/L (3.5-5.1); SODIUM 139 MMOL/L (136-145)
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
[2019-12-21 08:00] VITALS: BP 108/66
[2019-12-21] MEDS ORDERED: PRAVACHOL20 MG ORAL (08:52)
[2019-12-21] MEDS: Aspirin Baby 81mg ORAL SCH (09:10)
[2019-12-21] MEDS: Heparin 5000 units/ml inj SUBQ SCH (09:10)
[2019-12-21] MEDS: Amiodarone 200mg tab ORAL SCH (09:10)
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
== END 2019-12-21 11:15 | disposition home or self-care (01) | DRG 194 ==
LOC: EMR 18:00 → EDBEDREQ 19:00 → 2E 19:21 → EDBEDREQ 20:28
DX: I13.0 Hypertensive heart and chronic kidney disease with heart failure and stage 1 through stage 4 chronic kidney disease, or unspecified chronic kidney disease (principal); I11.0 Hypertensive heart disease with heart failure; I50.23 Acute on chronic systolic (congestive) heart failure; J44.9 Chronic obstructive pulmonary disease, unspecified; I44.7 Left bundle-branch block, unspecified; E43 Unspecified severe protein-calorie malnutrition; Z68.1 Body mass index [BMI] 19.9 or less, adult; N17.9 Acute kidney failure, unspecified; N18.3 Chronic kidney disease, stage 3 (moderate); E78.5 Hyperlipidemia, unspecified; I42.8 Other cardiomyopathies; F14.10 Cocaine abuse, uncomplicated; Z86.74 Personal history of sudden cardiac arrest; Z91.19 Patient's noncompliance with other medical treatment and regimen; F17.200 Nicotine dependence, unspecified, uncomplicated; W34.00XS Accidental discharge from unspecified firearms or gun, sequela; G83.9 Paralytic syndrome, unspecified; I47.2 Ventricular tachycardia; Z88.8 Allergy status to other drugs, medicaments and biological substances; F19.10 Other psychoactive substance abuse, uncomplicated; J96.00 Acute respiratory failure, unspecified whether with hypoxia or hypercapnia
CPT/HCPCS: 36415; 71045; 80048; 80053; 80307; 82044; 82570; 83735; 83880; 84100; 84300; 84484; 85025; 85610; 85730; 93005; 93306; 94640; 94664; 96374; 99291; J7620; U0002

== ENCOUNTER 2020-05-02 04:36 | Inpatient (IN) | payer OTHER ==
[~2020-05-02] VITALS: Ht 167.6 cm; Wt 65.8 kg
[~2020-05-02 04:36] MED LIST changes: +PRAVACHOL20 MG ORAL
[2020-05-02 05:00] VITALS: BP 130/91
--- NOTE | 2020-05-02 05:00 | NUR ---
ED Nurse Note: pt placed in RM 05. Pt walked into ED c/o bilateral leg swelling and SOB worsening for the past 2 days. Pt reports history of CHF, COPD. Pt is AAOx4, breathing even and unlabored. Vital signs stable.
--- NOTE | 2020-05-02 05:15 | NUR ---
ED Nurse Note: blood collected and sent to lab
--- NOTE | 2020-05-02 05:20 | NUR ---
ED Nurse Note: clinical support tech at bedside
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
[2020-05-02] MEDS ORDERED: Aspirin Baby 81mg ORAL ONE (05:30)
[2020-05-02] MEDS ORDERED: Nitroglycerin 2% oint pkt TOPIC ONE (05:30)
[2020-05-02] MEDS ORDERED: Bacitracin Oint UD TOPIC ONE (05:30)
[2020-05-02] MEDS ORDERED: Vancomycin 1 GM in NS 275 ML IV ONE (05:30)
[2020-05-02] MEDS ORDERED: Piperacillin/Tazobactam 3.375 GM in NS 110 ML IVPB ONE (05:30)
[2020-05-02] MEDS ORDERED: Aspirin Baby 81mg ONE (05:42)
[2020-05-02 05:59] LABS: BASOPHILS % (AUTO) 1.7 % (0.0-2.0); EOSINOPHILS % (AUTO) 9.8 % (0.0-3.0); HEMATOCRIT 47.6 % (42.0-52.0); HEMOGLOBIN 14.8 G/DL (14.2-18.0); MEAN CORPUSCULAR VOLUME 96 FL (80-99); MONOCYTES % (AUTO) 11.4 % (1.0-10.0); NEUTROPHILS % (AUTO) 59.1 % (45.0-75.0); PLATELET COUNT 177 K/UL (150-450); RED BLOOD COUNT 4.97 M/UL (4.70-6.10); RED CELL DISTRIBUTION WIDTH 14.5 % (11.6-14.8); WHITE BLOOD COUNT 4.7 K/UL (4.8-10.8)
[2020-05-02 06:05] LABS: ANION GAP 6 mmol/L (5-15); BLOOD UREA NITROGEN 26 mg/dL (7-18); CALCIUM 8.6 MG/DL (8.5-10.1); CARBON DIOXIDE 29 MMOL/L (21-32); CHLORIDE 107 MMOL/L (98-107); CREATININE 1.3 MG/DL (0.55-1.30); POTASSIUM 4.6 MMOL/L (3.5-5.1); SODIUM 142 MMOL/L (136-145)
[2020-05-02 06:14] LABS: ALANINE AMINOTRANSFERASE 66 U/L (12-78); ALBUMIN 2.7 G/DL (3.4-5.0); ALBUMIN/GLOBULIN RATIO 0.8 (1.0-2.7); ALKALINE PHOSPHATASE 91 U/L (46-116); ASPARTATE AMINO TRANSFERASE 66 U/L (15-37); BILIRUBIN,TOTAL 0.3 MG/DL (0.2-1.0); CREATINE KINASE 435 U/L (26-308)
[2020-05-02 06:43] LABS: APPEARANCE,URINE CLEAR; BILIRUBIN, URINE NEGATIVE (NEGATIVE); GLUCOSE, URINE (UA) NEGATIVE (NEGATIVE); KETONES,URINE NEGATIVE (NEGATIVE); LEUKOCYTE ESTERASE ,URINE 1+ (NEGATIVE); NITRITE,URINE NEGATIVE (NEGATIVE); PH,URINE 6 (4.5-8.0); PROTEIN,URINE 1+ (NEGATIVE); UROBILINOGEN,URINE 1 MG/DL (0.0-1.0)
[2020-05-02 06:44] LABS: COLOR,URINE YELLOW
--- NOTE | 2020-05-02 06:51 | NUR ---
ED Nurse Note: Attempted to give report. Per Yrn no one is able to receive report.
--- NOTE | 2020-05-02 07:11 | NUR ---
HAND-OFF: Report given to TEX Stevenson. Aware attempted to call for report but floor refused. Lactic resent.
--- NOTE | 2020-05-02 07:45 | NUR ---
ED Nurse Note: report given to TEX Duvall.
--- NOTE | 2020-05-02 08:00 | NUR ---
ED Nurse Note: pt transferred safely to 2E on the monitor.
--- NOTE | 2020-05-02 08:02 | NUR ---
NURSE NOTES: Patient arrived from ED to room 203-2. Received report from Elva/TEX. Pt on room air, no distress or SOB noted. Belonging check list done and signed by receiving nurse, pt has $861 at bedside, refused to send it to safe. Vital signs taken, carbon electrodes supervisor placed. Pt has two small vascular wounds in right and left lateral lower legs. Bed in lowest position and locked, call light within reach, encouraged to use it when needed. Will contact primary Dr for admission orders.
[2020-05-02 08:50] VITALS: BP 132/94
--- NOTE | 2020-05-02 09:02 | Diagnostic Imaging Report ---
Indication: Chest pain Technique: XRAY Chest 1v Comparison: 12/20/2019 Findings: Stable cardiomegaly. Mediastinal contours are sharp. There is asymmetric hazy opacities in the right lung. No significant pleural effusion. No pneumothorax. No appreciable acute osseous abnormality. IMPRESSION: Stable cardiomegaly. Asymmetric hazy opacities in the right lung. Findings are concerning for pneumonia (including viral pneumonia). Correlation with COVID 19 status recommend. Additional consideration would include asymmetric pulmonary edema. Clinical correlation and follow-up recommended.
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
[2020-05-02] MEDS ORDERED: Morphine Sulfate 2mg/ml Inj(IV/IM USE ONLY) IVP PRN (10:00)
[2020-05-02] MEDS ORDERED: Albuterol/Ipratropium 3ml neb HHN PRN (10:00)
[2020-05-02] MEDS ORDERED: Albuterol ud Inhalation HHN PRN (10:15)
[2020-05-02] MEDS: cefTRIAXone 1 GM in D5W 55 ML IVPB SCH (10:16)
[2020-05-02 12:00] VITALS: BP 138/97
--- NOTE | 2020-05-02 12:02 | NUR ---
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
--- NOTE | 2020-05-02 13:30 | NUR ---
NURSE NOTES: Patient refused Ferguson catheter, Dr Farmer is aware.
[2020-05-02] MEDS: Albuterol 90mcg Inhaler 8gm INH SCH ×2 (15:00→22:18)
--- NOTE | 2020-05-02 15:19 | Consultation ---
Consult Note Consult Note DATE OF CONSULTATION: 05/02/2020 CONSULTING PHYSICIAN: Isaiah Mccauley MD. ATTENDING PHYSICIAN: Dr. Farmer REASON FOR CONSULTATION: Shortness of breath, asymmetric hazy opacities in the right lung, history of asthma HISTORY OF PRESENT ILLNESS: This is a 60-year-old male with history of asthma, CHF, and cellulitis of the lower extremities, who presented to the ED for evaluation of worsening lower extremity edema and pain. He reports the pain is worse on the left leg. His echocardiogram estimated his ejection fraction to be 15%. He reports taking Lasix at home. He reports smoking cigarettes and using cocaine. He denies fever, chills, sore throat, cough, palpitation, nausea, vomiting, diarrhea, dysuria, abdominal pain, joint pain,, depression, anxiety, visual changes, dizziness, or headache. Patient tested negative for COVID-19 via rapid gene assay test in the ER. PCR result is pending. Chest x-ray was notable for asymmetric hazy opacities in the right lung concerning for pneumonia. No pleural effusion or pneumothorax appreciated. Patient reports using albuterol 2-3 times a day and he uses nebulizer at home. Patient is now admitted to the hospital and was seen in telemetry. PAST MEDICAL HISTORY: Hypertension, asthma, COPD, left-sided paralysis MEDICATIONS: Albuterol, amiodarone, aspirin, furosemide, pravastatin, tiotropium ALLERGIES: Diphenhydramine FAMILY HISTORY: Unknown PERSONAL/SOCIAL HISTORY: Lives at home REVIEW OF SYSTEMS: Negative except mentioned in HPI PHYSICAL EXAMINATION: VITAL SIGNS: Blood pressure 130/91, heart rate 91, respiratory rate 20, weight 65 kg, height 167 cm. General: He is sitting on the edge of the bed, with retractions and wheezing. Patient is on 2 L nasal cannula. Mildly increased work of breathing. HEENT: Head exam reveals that the head is normocephalic, atraumatic without deformity or unusual swelling. Subconjunctival hemorrhage CHEST AND LUNGS: Bilateral diffuse wheezing appreciated CARDIOVASCULAR: Reveals normal S1, S2 without murmurs, rubs, or clicks. ABDOMEN: Abdomen seems tense on palpation, nontender. RECTAL: Deferred. MUSCULOSKELETAL: There is no tenderness to palpation. Range of motion is normal. NEUROLOGICAL: Left-sided paralysis LABORATORY DATA: Laboratory testing shows WBC 4.7, otherwise unremarkable Chemistries show BUN 26, glucose 157, AST 66, CK 435, troponin 0.165, BNP 2872, albumin 2.7 Urinalysis shows 1+ protein, 1+ urobilinogen, 1+ leuk esterase Assessment/Plan 1. Pneumonia -He is on ceftriaxone for concurrent cellulitis coverage -Monitor for hypoxia and provide supplemental oxygen as needed - Given shortness of breath, we will initiate Decadron 2. Asthma -Agree with albuterol and tiotropium -We will initiate breathing treatment prn 3. KIMO 4. Hyperglycemia 5. Transaminitis, likely secondary to pneumonia 6. Elevated troponin -Cardiology following 7. CHF exacerbation -On Lasix -Cardiology recs reviewed -He would benefit from biventricular defibrillator implant, however being on cocaine is a contraindication 8. Hypertension -On lisinopril and Lasix 9. Cellulitis -Seen by ID -Started on ceftriaxone per ID 10. Bilateral lower extremity edema -Venous duplex ultrasound ordered -Antiembolism elastic stockings -We will initiate Lovenox The care for this patient was discussed with my supervising physician. Time spent for this case was approximately 31 minutes. Aung Blancas May 02, 2020 15:19
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
[2020-05-02 16:00] VITALS: BP 133/92
--- NOTE | 2020-05-02 16:34 | Diagnostic Imaging Report ---
Indication: Lower extremity pain and swelling Technique: Grayscale and duplex images of the bilateral lower extremity veins Comparison: 07/17/2019 Findings: Bilaterally, grayscale and duplex images demonstrate no evidence of intraluminal thrombus. Normal phasic Doppler waveforms, demonstrating normal augmentation response and no evidence of valvular insufficiency. Normal compressibility. Impression: Negative for evidence of lower extremity deep venous thrombosis bilaterally
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
[2020-05-02] MEDS ORDERED: Vancomycin 1gm/D5W 275ml IVPB SCH ×2 (18:00)
--- NOTE | 2020-05-02 18:14 | History and Physical Report ---
DATE OF ADMISSION: 05/02/2020 APPROXIMATE TIME: 1 p.m. CONSULTANTS: 1. Agustin Sheehan MD. 2. Blaine Frankel MD 3. Isaiah Mccauley MD. CHIEF COMPLAINT: Lower extremity swelling and pain, left leg cellulitis, CHF, chest pain, NSTEMI. BRIEF HISTORY: This is a 68-year-old male complaining of bilateral lower extremity swelling increasing in the past week and increasing pain especially on left side. He does have a history of left leg cellulitis and it was getting red and painful, came to [place], diagnosed with the above as well as chest pain, CHF, NSTEMI, and admitted to telemetry. Currently, O2 NC, calm, in bed, slight short of breath, no complaint. REVIEW OF SYSTEMS: No chest pain. Slight short of breath. No nausea, vomiting, or diarrhea. PAST MEDICAL HISTORY: KIMO, asthma, COPD, hypertension, CHF, lower extremity edema. PAST SURGICAL HISTORY: Unknown. MEDICATIONS: Include aspirin, amiodarone, lisinopril, pravastatin, heparin, chlorhexidine, furosemide, vancomycin, morphine, albuterol. ALLERGIES: Diphenhydramine. SOCIAL HISTORY: Positive smoke. Positive alcohol. Positive cocaine use. OBJECTIVE: GENERAL: Calm in bed, oriented x 3, no acute distress. VITAL SIGNS: Temperature is 98, pulse 100, respiratory rate 18, blood pressure 138/97. CARDIOVASCULAR: No murmur. LUNGS: Poor air exchange. ABDOMEN: Bowel sounds distant. EXTREMITIES: No cyanosis, clubbing, 1+ edema. Bilateral leg swelling and left lower extremity redness noted. NEUROLOGIC: The patient moves all extremities, slightly weak. LABORATORY AND DIAGNOSTIC DATA: Labs at this time show white count 4.7, otherwise CBC is normal. BUN 26, glucose 157. Lactic acid 3. AST 66, alkaline phosphatase 435. Troponin 0.165. Albumin 2.7. INR is 1.0. Urinalysis shows 1+ leukocyte esterase. ASSESSMENT: 1. Left leg cellulitis. 2. UTI. 3. CHF. 4. Chest pain. 5. Malnutrition. 6. NSTEMI. 7. Drug abuse. 8. KIMO. 9. Asthma. 10. COPD. 11. Hypertension. PLAN: 1. Resume home medications. 2. O2 and pulmonary treatment. 3. Antibiotics per Infectious Disease. 4. Blood pressure, pain control. 5. Wound care. 6. Dietary followup. 7. We will add Dr. Mccauley, pulmonary evaluation. 8. CBC and BMP in the morning. Chris Farmer D.O. DR: Iker JOB#: [id number] CC:
--- NOTE | 2020-05-02 19:27 | NUR ---
NURSE HAND-OFF REPORT: Important Events on Shift:New admit Patient Status: Stable Diet: Low sodium Pending Orders: Pending Results/Labs: Pending MD notification: Latest Vital Signs: Temperature 98.2 , Pulse 92 , B/P 133 /92 , Respiratory Rate 18 , O2 SAT 100 , Room Air, O2 Flow Rate 2.0 . Vital Sign Comment: Stable EKG Rhythm: SR w/BBB Rhythm change?: N MD Notified?: - MD Response: Latest Kate Fall Score: 20 Fall Risk: Low Risk Safety Measures: Call light Within Reach, Bed Alarm Zone 1, Side Rails Side Rails x2, Bed position Low and Locked. Fall Precautions: Yellow Socks Yellow Gown Patient Fall Education Report given to Kirk/RN.
--- NOTE | 2020-05-02 19:37 | NUR ---
NURSE NOTES: Pt received from TEX [place]. Pt is resting comfortably in bed and denies any pain. Pt is A/Ox4 and ambulatory with restroom privileges. Pt has cardiac monitoring SR and asymptomatic. Pt is on NC 3LPM and c/o difficulty breathing relieved by raising head of bed; will continue to monitor for change in condition. PT has RFA 20G patent with dressing dry and intact. Bed is locked and in lowest position with call light within reach. Will continue to monitor.
[2020-05-02 20:00] VITALS: BP 155/93
[2020-05-02] MEDS ORDERED: Heparin 5000 units/ml inj SUBQ SCH (21:00)
[2020-05-02] MEDS ORDERED: Dyna-Hex 2% Top Sol 2oz TOPIC SCH (21:00)
[2020-05-03] VITALS: BP 136/82
[2020-05-03 03:55] VITALS: BP 132/88
[2020-05-03] MEDS: Albuterol 90mcg Inhaler 8gm INH SCH ×3 (05:57→22:20)
--- NOTE | 2020-05-03 06:58 | NUR ---
CASE MANAGEMENT:REVIEW 05/03/20 SI: BLE CELLULITIS. PNA. CHF W/ EF 10% 97.4 99 22 132/88 96% ON 3L/NC LAST TROPONIN(+) 0.165 IS: IV DECADRON QD IV LASIX Q12 IV ROCEPHIN Q24 ALBUTEROL INH Q8HRS LOVENOX SQ QD SPIRIVA INH QD ASA PO QD LISINOPRIL PO QD PRAVASTATIN PO QHS : TELEMETRY STATUS DCP: FROM HOME
--- NOTE | 2020-05-03 07:29 | NUR ---
NURSE HAND-OFF REPORT: Important Events on Shift:Pt continued scheduled medications; reported lessening shortness of breath. Patient Status: Stable Diet: Low Sodium Diet Pending Orders: Pending Results/Labs:AM Labs Pending MD notification: Latest Vital Signs: Temperature 97.4 , Pulse 87 , B/P 132 /88 , Respiratory Rate 22 , O2 SAT 96 , Room Air, O2 Flow Rate 3.0 . Vital Sign Comment: VSS EKG Rhythm: SR w/BBB Rhythm change?: N MD Notified?: - MD Response: Latest Kate Fall Score: 20 Fall Risk: Low Risk Safety Measures: Call light Within Reach, Bed Alarm Zone 1, Side Rails Side Rails x2, Bed position Low and Locked. Fall Precautions: Yellow Socks Yellow Gown Patient Fall Education Report given to TEX Mcwilliams.
--- NOTE | 2020-05-03 07:37 | NUR ---
NURSE NOTES: Pt received from TEX Gordon. Pt is resting comfortably in bed and denies any pain. Pt is A/Ox4 and ambulatory with restroom privileges. Pt has cardiac monitoring SR and asymptomatic. Pt is on NC 2LPM and patient denies pain noted at this time; will continue to monitor for change in condition. Iv site patent and intact. RN instructed patient to use call light before ambulating for assistance. Bed is locked and placed in lowest position. Call light within reach. Will continue to monitor
[2020-05-03 08:00] VITALS: BP 124/85
[2020-05-03 08:29] LABS: BASOPHILS % (AUTO) 1.7 % (0.0-2.0); EOSINOPHILS % (AUTO) 12.1 % (0.0-3.0); HEMATOCRIT 47.5 % (42.0-52.0); HEMOGLOBIN 14.8 G/DL (14.2-18.0); LYMPHOCYTES % (AUTO) 25.1 % (20.0-45.0); MEAN CORPUSCULAR VOLUME 96 FL (80-99); MONOCYTES % (AUTO) 14.9 % (1.0-10.0); NEUTROPHILS % (AUTO) 46.3 % (45.0-75.0); PLATELET COUNT 176 K/UL (150-450); RED BLOOD COUNT 4.93 M/UL (4.70-6.10); RED CELL DISTRIBUTION WIDTH 14.6 % (11.6-14.8); WHITE BLOOD COUNT 4.6 K/UL (4.8-10.8)
[2020-05-03] MEDS: Enoxaparin 40mg Inj SUBQ SCH (08:54)
[2020-05-03] MEDS: Amiodarone 200mg tab ORAL SCH (08:55)
[2020-05-03] MEDS: Aspirin Baby 81mg ORAL SCH (08:55)
[2020-05-03] MEDS: Lisinopril 10mg tab ORAL SCH (08:55)
[2020-05-03] MEDS: cefTRIAXone 1 GM in D5W 55 ML IVPB SCH (08:57)
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
[2020-05-03] MEDS ORDERED: dexAMETHasone 10mg/ml Inj IV SCH (09:00)
[2020-05-03] MEDS ORDERED: Lisinopril 10mg tab ORAL SCH (09:00)
[2020-05-03 09:10] LABS: ANION GAP 8 mmol/L (5-15); BLOOD UREA NITROGEN 26 mg/dL (7-18); CARBON DIOXIDE 28 MMOL/L (21-32); CHLORIDE 106 MMOL/L (98-107); CREATININE 1.2 MG/DL (0.55-1.30); POTASSIUM 4.1 MMOL/L (3.5-5.1); SODIUM 142 MMOL/L (136-145)
--- NOTE | 2020-05-03 09:55 | NUR ---
PT EVALUATION NOTE Patient seen for evaluation. Patient is independent with bed mobility, transfers and ambulation without assistive device. Patient is slightly unsteady with ambulation however patient is at baseline level of function with no history of falls. Skilled inpatient PT intervention is not indicated at this time, patient discharged from PT, Oj [facility]ICE notified. Addendum: 05/03/20 at 1133 by CIPRIANO BEDOYA PT Amended: Links added.
--- NOTE | 2020-05-03 09:57 | Pulmonology Progress Note ---
Subjective ROS Limited/Unobtainable: No Interval Events: none major reported per nursing Constitutional: Reports: no symptoms HEENT: Repors: no symptoms Respiratory: Reports: shortness of breath Cardiovascular: Reports: no symptoms Gastrointestinal/Abdominal: Reports: no symptoms Allergies: Coded Allergies: DIPHENHYDRAMINE (Unverified Allergy, Unknown, 12/18/17) Objective Last 24 Hour Vital Signs Date Time Temp Pulse Resp B/P (MAP) Pulse Ox O2 Delivery O2 Flow Rate FiO2 05/03/20 08:55 124/85 05/03/20 04:00 87 05/03/20 03:55 97.4 99 22 132/88 (103) 96 05/03/20 00:00 93 05/03/20 00:00 98.5 99 22 136/82 (100) 98 05/02/20 21:00 Nasal Cannula 3.0 05/02/20 20:00 97.8 97 18 155/93 (113) 98 05/02/20 20:00 86 05/02/20 16:00 98.2 96 18 133/92 (106) 100 05/02/20 16:00 92 05/02/20 12:00 98.4 93 18 138/97 (111) 97 05/02/20 12:00 100 Intake and Output 05/02/20 05/03/20 19:00 07:00 Intake Total 480 ml 480 ml Balance 480 ml 480 ml Intake Oral 480 ml 480 ml # Bowel Movements 2 1 General Appearance: no acute distress HEENT: atraumatic Respiratory: crackles/rales Cardiovascular: normal rate, regular rhythm Abdomen: soft, non tender Microbiology Date/Time Source Procedure Growth Status 05/02/20 06:00 Nasopharynx SARS-CoV-2 RdRp Gene Assay - Final Complete Laboratory Tests 05/03/20 07:16: White Blood Count 4.6L, Red Blood Count 4.93, Hemoglobin 14.8, Hematocrit 47.5, Mean Corpuscular Volume 96, Mean Corpuscular Hemoglobin 30.0, Mean Corpuscular Hemoglobin Concent 31.1L, Red Cell Distribution Width 14.6, Platelet Count 176, Mean Platelet Volume 9.0, Neutrophils (%) (Auto) 46.3, Lymphocytes (%) (Auto) 25.1, Monocytes (%) (Auto) 14.9H, Eosinophils (%) (Auto) 12.1H, Basophils (%) (Auto) 1.7, Erythrocyte Sedimentation Rate 3, Prothrombin Time 11.4, Prothromb Time International Ratio 1.0, Activated Partial Thromboplast Time 27, Sodium Level 142, Potassium Level 4.1, Chloride Level 106, Carbon Dioxide Level 28, Anion Gap 8, Blood Urea Nitrogen 26H, Creatinine 1.2, Estimat Glomerular Filtration Rate > 60, Glucose Level 110H, Calcium Level 9.0, Troponin I 0.179H, C-Reactive Protein, Quantitative [Pending], Pro-B-Type Natriuretic Peptide 5266H Current Medications Medications (Trade) Dose Ordered Sig/Stephenie Route PRN Reason Start Time Stop Time Status Last Admin Dose Admin Albuterol Sulfate (Proventil MDI) 2 puff Q8HR INH 05/02/20 15:00 07/31/20 14:59 05/03/20 05:57 Albuterol/ Ipratropium (Albuterol/ Ipratropium) 3 ml Q6H PRN HHN Shortness of Breath 05/02/20 10:00 05/07/20 09:59 Amiodarone HCl (Cordarone) 200 mg DAILY ORAL 05/03/20 09:00 08/01/20 08:59 05/03/20 08:55 Aspirin (ASA) 81 mg DAILY ORAL 05/03/20 09:00 06/17/20 08:59 05/03/20 08:55 Ceftriaxone Sodium 1 gm/ Dextrose 55 ml @ 110 mls/hr Q24H IVPB 05/02/20 09:30 05/09/20 09:29 05/03/20 08:57 Dexamethasone Sodium Phosphate (Decadron 10mg/ ml Inj) 6 mg DAILY IV 05/03/20 09:00 05/12/20 09:01 05/03/20 08:55 Enoxaparin Sodium (Lovenox) 40 mg DAILY SUBQ 05/03/20 09:00 08/01/20 08:59 05/03/20 08:54 Furosemide (Lasix) 40 mg EVERY 12 HOURS IV 05/02/20 21:00 06/01/20 20:59 05/03/20 08:55 Lisinopril (ZestriL) 10 mg DAILY ORAL 05/03/20 09:00 06/02/20 08:59 05/03/20 08:55 Morphine Sulfate (Morphine Sulfate) 2 mg Q4H PRN IVP For Pain 05/02/20 10:00 05/09/20 09:59 Pravastatin Sodium (Pravachol) 40 mg BEDTIME ORAL 05/02/20 21:00 06/01/20 20:59 05/02/20 20:34 Tiotropium [place] (Spiriva Inhaler) 1 puff DAILY INH 05/03/20 09:00 06/02/20 08:59 05/03/20 09:13 Assessment/Plan Assessment/Plan 1. Pneumonia -He is on ceftriaxone for concurrent cellulitis coverage -Monitor for hypoxia and provide supplemental oxygen as needed - Will hold decadron until COVID-19 PCR result available per ID recommendation, given severe CHF 2. Asthma -Agree with albuterol and tiotropium -We will initiate breathing treatment prn 3. KIMO 4. Hyperglycemia 5. Transaminitis, likely secondary to pneumonia 6. Elevated troponin -Cardiology following 7. CHF exacerbation -On Lasix -Cardiology recs reviewed -He would benefit from biventricular defibrillator implant, however being on cocaine is a contraindication 8. Hypertension -On lisinopril and Lasix 9. Cellulitis -Seen by ID -Started on ceftriaxone per ID 10. Bilateral lower extremity edema -Venous duplex ultrasound ordered -Antiembolism elastic stockings -We will initiate Lovenox The care for this patient was discussed with my supervising physician. Time spent for this case was approximately 31 minutes. Aung Blancas May 03, 2020 09:56
--- NOTE | 2020-05-03 09:59 | General Progress Note ---
Subjective Constitutional: Reports: weakness Allergies: Coded Allergies: DIPHENHYDRAMINE (Unverified Allergy, Unknown, 12/18/17) All Systems: reviewed and negative except above Subjective o2nc sitting calm Objective Last 24 Hour Vital Signs Date Time Temp Pulse Resp B/P (MAP) Pulse Ox O2 Delivery O2 Flow Rate FiO2 05/03/20 08:55 124/85 05/03/20 04:00 87 05/03/20 03:55 97.4 99 22 132/88 (103) 96 05/03/20 00:00 93 05/03/20 00:00 98.5 99 22 136/82 (100) 98 05/02/20 21:00 Nasal Cannula 3.0 05/02/20 20:00 97.8 97 18 155/93 (113) 98 05/02/20 20:00 86 05/02/20 16:00 98.2 96 18 133/92 (106) 100 05/02/20 16:00 92 05/02/20 12:00 98.4 93 18 138/97 (111) 97 05/02/20 12:00 100 Intake and Output 05/02/20 05/03/20 19:00 07:00 Intake Total 480 ml 480 ml Balance 480 ml 480 ml Intake Oral 480 ml 480 ml # Bowel Movements 2 1 Laboratory Tests 05/03/20 07:16: White Blood Count 4.6L, Red Blood Count 4.93, Hemoglobin 14.8, Hematocrit 47.5, Mean Corpuscular Volume 96, Mean Corpuscular Hemoglobin 30.0, Mean Corpuscular Hemoglobin Concent 31.1L, Red Cell Distribution Width 14.6, Platelet Count 176, Mean Platelet Volume 9.0, Neutrophils (%) (Auto) 46.3, Lymphocytes (%) (Auto) 25.1, Monocytes (%) (Auto) 14.9H, Eosinophils (%) (Auto) 12.1H, Basophils (%) (Auto) 1.7, Erythrocyte Sedimentation Rate 3, Prothrombin Time 11.4, Prothromb Time International Ratio 1.0, Activated Partial Thromboplast Time 27, Sodium Level 142, Potassium Level 4.1, Chloride Level 106, Carbon Dioxide Level 28, Anion Gap 8, Blood Urea Nitrogen 26H, Creatinine 1.2, Estimat Glomerular Filtration Rate > 60, Glucose Level 110H, Calcium Level 9.0, Troponin I 0.179H, C-Reactive Protein, Quantitative [Pending], Pro-B-Type Natriuretic Peptide 5266H Height (Feet): 5 Height (Inches): 6.00 Weight (Pounds): 145 General Appearance: lethargic EENT: normal ENT inspection Neck: normal alignment Cardiovascular: normal peripheral pulses, normal rate, regular rhythm Respiratory/Chest: chest wall non-tender, lungs clear, normal breath sounds Abdomen: normal bowel sounds, non tender, soft Extremities: normal inspection Edema: 1+ Arm (L), 1+ Arm (R), 1+ Leg (L), 1+ Leg (R), 1+ Pedal (L), 1+ Pedal (R), 1+ Generalized Neurologic: motor weakness Skin: normal pigmentation, warm/dry Objective r leg sl red Assessment/Plan Problem List: (1) Cellulitis ICD Codes: L03.90 - Cellulitis, unspecified SNOMED: 748788106 Qualifiers: Qualified Codes: L03.116 - Cellulitis of left lower limb (2) CHF (congestive heart failure) ICD Codes: I50.9 - Heart failure, unspecified SNOMED: 43979257 Qualifiers: Qualified Codes: I50.42 - Chronic combined systolic (congestive) and diastolic (congestive) heart failure (3) UTI (urinary tract infection) ICD Codes: N39.0 - Urinary tract infection, site not specified SNOMED: 99861451 (4) COPD (chronic obstructive pulmonary disease) ICD Codes: J44.9 - Chronic obstructive pulmonary disease, unspecified SNOMED: 65039865 (5) HTN (hypertension) ICD Codes: I10 - Essential (primary) hypertension SNOMED: 58657189 (6) Non-ST elevation [place] (NSTEMI) ICD Codes: I21.4 - Non-ST elevation (NSTEMI) myocardial infarction SNOMED: 563367949 Status: unchanged Assessment/Plan: o2 pulm tx abx cardio f/u cbc bmp am Chris Farmerg DO May 03, 2020 09:59
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
[2020-05-03 12:00] VITALS: BP 122/85
[2020-05-03] MEDS ORDERED: LISINOPRIL20 MG ORAL (13:31)
[2020-05-03] MEDS ORDERED: ADVAIR 250-501 EACH INH (13:31)
[2020-05-03] MEDS ORDERED: ATORVASTATIN CA20 MG ORAL (13:31)
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
[2020-05-03 16:00] VITALS: BP 127/82
--- NOTE | 2020-05-03 19:41 | NUR ---
NURSE HAND-OFF REPORT: Important Events on Shift: n/a Patient Status: stable Diet: low sodium Pending Orders: n/a Pending Results/Labs:n/a Pending MD notification:n/a Latest Vital Signs: Temperature 97.6 , Pulse 93 , B/P 127 /82 , Respiratory Rate 20 , O2 SAT 98 , Room Air, O2 Flow Rate 3.0 . Vital Sign Comment: stable EKG Rhythm: SR w/BBB Rhythm change?: N MD Notified?: - MD Response: Latest Kate Fall Score: 20 Fall Risk: Low Risk Safety Measures: Call light Within Reach, Bed Alarm Zone 1, Side Rails Side Rails x2, Bed position Low and Locked. Fall Precautions: Yellow Socks Yellow Gown Patient Fall Education Report given to TEX Liu.
--- NOTE | 2020-05-03 19:48 | NUR ---
NURSE NOTES: The patient is alert and oriented x4 and is cooperative with his care and does not appear to be in any active distress at this time.The patient is on 2 liters of oxygen via NC well tolerated. He is able to ambulate to the bathroom with minimal assistance needed.The patient has a Right FA 20g saline lock that is patent and asymptomatic.The bed in low level and call light within easy reach. Will continue to monitor as indicated
[2020-05-03 20:00] VITALS: BP 136/82
[2020-05-04] VITALS: BP 145/71
[2020-05-04 04:00] VITALS: BP 137/80
[2020-05-04] MEDS: Albuterol 90mcg Inhaler 8gm INH SCH ×3 (06:00→22:01)
--- NOTE | 2020-05-04 06:49 | NUR ---
NURSE NOTES: The patient remained alert and stable and was able to ambulate to the bathroom without assistance. He continuously asks for food the entire night and was provided with snacks as indeed. Will continue to monitor
--- NOTE | 2020-05-04 07:08 | NUR ---
NURSE HAND-OFF REPORT: Important Events on Shift:Alert and stable Patient Status: Diet: Pending Orders: Pending Results/Labs: Pending MD notification: Latest Vital Signs: Temperature 97.4 , Pulse 65 , B/P 137 /80 , Respiratory Rate 18 , O2 SAT 78 , Room Air, O2 Flow Rate 3.0 . Vital Sign Comment: EKG Rhythm: SR w/BBB Rhythm change?: N MD Notified?: - MD Response: Latest Kate Fall Score: 20 Fall Risk: Low Risk Safety Measures: Call light Within Reach, Bed Alarm Zone 1, Side Rails Side Rails x2, Bed position Low and Locked. Fall Precautions: Yellow Socks Yellow Gown Patient Fall Education Report given to .
--- NOTE | 2020-05-04 07:11 | NUR ---
NURSE NOTES: Received report from TEX Liu. The patient is alert and oriented x4 and is cooperative with his care and does not appear to be in any active distress at this time.The patient is on 2 liters of oxygen via NC well tolerated. He is able to ambulate to the bathroom with minimal assistance needed. RN instructed patient to use call light for assistance. The patient has a Right FA 20g saline lock that is patent and asymptomatic.The bed in low level and call light within easy reach. Will continue to monitor as indicated
[2020-05-04 08:00] VITALS: BP 125/68
[2020-05-04] MEDS: Aspirin Baby 81mg ORAL SCH (08:28)
[2020-05-04] MEDS: Amiodarone 200mg tab ORAL SCH (08:28)
[2020-05-04] MEDS: Lisinopril 10mg tab ORAL SCH (08:29)
[2020-05-04] MEDS: Enoxaparin 40mg Inj SUBQ SCH (08:29)
[2020-05-04] MEDS: cefTRIAXone 1 GM in D5W 55 ML IVPB SCH (08:30)
[2020-05-04 08:39] LABS: BASOPHILS % (AUTO) 1.2 % (0.0-2.0); EOSINOPHILS % (AUTO) 3.2 % (0.0-3.0); HEMATOCRIT 47.7 % (42.0-52.0); LYMPHOCYTES % (AUTO) 15.7 % (20.0-45.0); MEAN CORPUSCULAR VOLUME 96 FL (80-99); MONOCYTES % (AUTO) 11.4 % (1.0-10.0); NEUTROPHILS % (AUTO) 68.5 % (45.0-75.0); PLATELET COUNT 172 K/UL (150-450); RED BLOOD COUNT 4.99 M/UL (4.70-6.10); RED CELL DISTRIBUTION WIDTH 13.8 % (11.6-14.8)
[2020-05-04 09:03] LABS: ANION GAP 5 mmol/L (5-15); BLOOD UREA NITROGEN 26 mg/dL (7-18); CALCIUM 8.9 MG/DL (8.5-10.1); CARBON DIOXIDE 32 MMOL/L (21-32); CHLORIDE 103 MMOL/L (98-107); CREATININE 1.3 MG/DL (0.55-1.30); POTASSIUM 3.8 MMOL/L (3.5-5.1); SODIUM 140 MMOL/L (136-145)
--- NOTE | 2020-05-04 10:14 | Pulmonology Progress Note ---
Subjective ROS Limited/Unobtainable: No Interval Events: none major reported per nursing Constitutional: Reports: no symptoms HEENT: Repors: no symptoms Respiratory: Reports: shortness of breath Cardiovascular: Reports: no symptoms Gastrointestinal/Abdominal: Reports: no symptoms Allergies: Coded Allergies: DIPHENHYDRAMINE (Unverified Allergy, Unknown, 12/18/17) All Systems: reviewed and negative except above Objective Last 24 Hour Vital Signs Date Time Temp Pulse Resp B/P (MAP) Pulse Ox O2 Delivery O2 Flow Rate FiO2 05/04/20 09:00 Nasal Cannula 3.0 05/04/20 08:29 125/60 05/04/20 08:00 74 05/04/20 08:00 96.8 79 21 125/68 (87) 100 05/04/20 04:00 97.4 65 18 137/80 (99) 78 05/04/20 04:00 76 05/04/20 00:00 86 05/04/20 00:00 98.1 84 19 145/71 (95) 83 05/03/20 21:00 Nasal Cannula 3.0 05/03/20 20:00 83 05/03/20 20:00 97.8 79 20 136/82 (100) 98 05/03/20 16:00 93 05/03/20 16:00 97.6 86 20 127/82 (97) 98 05/03/20 12:00 98.0 83 20 122/85 (97) 98 05/03/20 12:00 89 Intake and Output 05/03/20 05/04/20 19:00 07:00 Intake Total 400 ml 410 ml Balance 400 ml 410 ml Intake Oral 400 ml 410 ml # Voids 3 # Bowel Movements 1 General Appearance: no acute distress HEENT: atraumatic Respiratory: crackles/rales Cardiovascular: normal rate, regular rhythm Abdomen: soft, non tender Microbiology Date/Time Source Procedure Growth Status 05/02/20 06:00 Nasopharynx SARS-CoV-2 RdRp Gene Assay - Final Complete 05/02/20 05:36 Blood Blood Culture - Preliminary NO GROWTH AFTER 48 HOURS Resulted 05/02/20 05:15 Blood Blood Culture - Preliminary NO GROWTH AFTER 48 HOURS Resulted Laboratory Tests 05/04/20 08:04: White Blood Count 8.0#, Red Blood Count 4.99, Hemoglobin 15.0, Hematocrit 47.7, Mean Corpuscular Volume 96, Mean Corpuscular Hemoglobin 30.0, Mean Corpuscular Hemoglobin Concent 31.4L, Red Cell Distribution Width 13.8, Platelet Count 172, Mean Platelet Volume 9.7, Neutrophils (%) (Auto) 68.5, Lymphocytes (%) (Auto) 15.7L, Monocytes (%) (Auto) 11.4H, Eosinophils (%) (Auto) 3.2H, Basophils (%) (Auto) 1.2, Sodium Level 140, Potassium Level 3.8, Chloride Level 103, Carbon Dioxide Level 32, Anion Gap 5, Blood Urea Nitrogen 26H, Creatinine 1.3, Estimat Glomerular Filtration Rate > 60, Glucose Level 157H, Calcium Level 8.9 Current Medications Medications (Trade) Dose Ordered Sig/Stephenie Route PRN Reason Start Time Stop Time Status Last Admin Dose Admin Albuterol Sulfate (Proventil MDI) 2 puff Q8HR INH 05/02/20 15:00 07/31/20 14:59 05/04/20 06:00 Albuterol/ Ipratropium (Albuterol/ Ipratropium) 3 ml Q6H PRN HHN Shortness of Breath 05/02/20 10:00 05/07/20 09:59 Amiodarone HCl (Cordarone) 200 mg DAILY ORAL 05/03/20 09:00 08/01/20 08:59 05/04/20 08:28 Aspirin (ASA) 81 mg DAILY ORAL 05/03/20 09:00 06/17/20 08:59 05/04/20 08:28 Ceftriaxone Sodium 1 gm/ Dextrose 55 ml @ 110 mls/hr Q24H IVPB 05/02/20 09:30 05/09/20 09:29 05/04/20 08:30 Enoxaparin Sodium (Lovenox) 40 mg DAILY SUBQ 05/03/20 09:00 08/01/20 08:59 05/04/20 08:29 Furosemide (Lasix) 40 mg EVERY 12 HOURS IV 05/02/20 21:00 06/01/20 20:59 05/04/20 08:28 Lisinopril (ZestriL) 10 mg DAILY ORAL 05/03/20 09:00 06/02/20 08:59 05/04/20 08:29 Morphine Sulfate (Morphine Sulfate) 2 mg Q4H PRN IVP For Pain 05/02/20 10:00 05/09/20 09:59 Pravastatin Sodium (Pravachol) 40 mg BEDTIME ORAL 05/02/20 21:00 06/01/20 20:59 05/03/20 20:39 Tiotropium [place] (Spiriva Inhaler) 1 puff DAILY INH 05/03/20 09:00 06/02/20 08:59 05/04/20 08:29 Assessment/Plan Assessment/Plan Assessment/Plan Assessment/Plan 1. Pneumonia -He is on ceftriaxone for concurrent cellulitis coverage -Monitor for hypoxia and provide supplemental oxygen as needed - Will hold decadron until COVID-19 PCR result available per ID recommendation, given severe CHF 2. Asthma -Agree with albuterol and tiotropium -We will initiate breathing treatment prn 3. KIMO 4. Hyperglycemia 5. Transaminitis, likely secondary to pneumonia 6. Elevated troponin -Cardiology following 7. CHF exacerbation -On Lasix -Cardiology recs reviewed -He would benefit from biventricular defibrillator implant, however being on cocaine is a contraindication 8. Hypertension -On lisinopril and Lasix 9. Cellulitis -Seen by ID -Started on ceftriaxone per ID 10. Bilateral lower extremity edema -Venous duplex ultrasound negative for evidence of lower extremity deep venous thrombosis bilaterally -Antiembolism elastic stockings -We will initiate Lovenox The care for this patient was discussed with my supervising physician. Keaton [place] NP May 04, 2020 10:14
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
--- NOTE | 2020-05-04 10:25 | General Progress Note ---
Subjective Constitutional: Reports: weakness Allergies: Coded Allergies: DIPHENHYDRAMINE (Unverified Allergy, Unknown, 12/18/17) All Systems: reviewed and negative except above Subjective sitting calm Objective Last 24 Hour Vital Signs Date Time Temp Pulse Resp B/P (MAP) Pulse Ox O2 Delivery O2 Flow Rate FiO2 05/04/20 09:00 Nasal Cannula 3.0 05/04/20 08:29 125/60 05/04/20 08:00 74 05/04/20 08:00 96.8 79 21 125/68 (87) 100 05/04/20 04:00 97.4 65 18 137/80 (99) 78 05/04/20 04:00 76 05/04/20 00:00 86 05/04/20 00:00 98.1 84 19 145/71 (95) 83 05/03/20 21:00 Nasal Cannula 3.0 05/03/20 20:00 83 05/03/20 20:00 97.8 79 20 136/82 (100) 98 05/03/20 16:00 93 05/03/20 16:00 97.6 86 20 127/82 (97) 98 05/03/20 12:00 98.0 83 20 122/85 (97) 98 05/03/20 12:00 89 Intake and Output 05/03/20 05/04/20 19:00 07:00 Intake Total 400 ml 410 ml Balance 400 ml 410 ml Intake Oral 400 ml 410 ml # Voids 3 # Bowel Movements 1 Laboratory Tests 05/04/20 08:04: White Blood Count 8.0#, Red Blood Count 4.99, Hemoglobin 15.0, Hematocrit 47.7, Mean Corpuscular Volume 96, Mean Corpuscular Hemoglobin 30.0, Mean Corpuscular Hemoglobin Concent 31.4L, Red Cell Distribution Width 13.8, Platelet Count 172, Mean Platelet Volume 9.7, Neutrophils (%) (Auto) 68.5, Lymphocytes (%) (Auto) 15.7L, Monocytes (%) (Auto) 11.4H, Eosinophils (%) (Auto) 3.2H, Basophils (%) (Auto) 1.2, Sodium Level 140, Potassium Level 3.8, Chloride Level 103, Carbon Dioxide Level 32, Anion Gap 5, Blood Urea Nitrogen 26H, Creatinine 1.3, Estimat Glomerular Filtration Rate > 60, Glucose Level 157H, Calcium Level 8.9 Height (Feet): 5 Height (Inches): 6.00 Weight (Pounds): 145 General Appearance: lethargic EENT: normal ENT inspection Neck: normal alignment Cardiovascular: normal peripheral pulses, normal rate, regular rhythm Respiratory/Chest: chest wall non-tender, lungs clear, normal breath sounds Abdomen: normal bowel sounds, non tender, soft Extremities: normal inspection Edema: no edema noted Arm (L), no edema noted Arm (R), no edema noted Leg (L), no edema noted Leg (R), no edema noted Pedal (L), no edema noted Pedal (R), no edema noted Generalized Neurologic: motor weakness Skin: normal pigmentation, warm/dry Objective r leg sl red Assessment/Plan Problem List: (1) Cellulitis ICD Codes: L03.90 - Cellulitis, unspecified SNOMED: 800270017 Qualifiers: Qualified Codes: L03.116 - Cellulitis of left lower limb (2) CHF (congestive heart failure) ICD Codes: I50.9 - Heart failure, unspecified SNOMED: 43880403 Qualifiers: Qualified Codes: I50.42 - Chronic combined systolic (congestive) and diastolic (congestive) heart failure (3) UTI (urinary tract infection) ICD Codes: N39.0 - Urinary tract infection, site not specified SNOMED: 43441828 (4) COPD (chronic obstructive pulmonary disease) ICD Codes: J44.9 - Chronic obstructive pulmonary disease, unspecified SNOMED: 38679664 (5) HTN (hypertension) ICD Codes: I10 - Essential (primary) hypertension SNOMED: 79894032 (6) Non-ST elevation [place] (NSTEMI) ICD Codes: I21.4 - Non-ST elevation (NSTEMI) myocardial infarction SNOMED: 219507567 Status: stable, progressing Assessment/Plan: o2 pulm tx abx cardio f/u cbc bmp am Chris Farmer DO May 04, 2020 10:25
[2020-05-04 11:57] VITALS: BP 117/68
--- NOTE | 2020-05-04 14:24 | NUR ---
CASE MANAGEMENT:REVIEW 05/04/20 SI: BLE CELLULITIS. PNA. CHF W/ EF 10% 98.1 97 18 117/68 100% ON 3L/NC BUN+26 IS: IV DECADRON QD IV LASIX Q12 IV ROCEPHIN Q24 ALBUTEROL INH Q8HRS LOVENOX SQ QD SPIRIVA INH QD ASA PO QD AMIODARONE PO QD LISINOPRIL PO QD PRAVASTATIN PO QHS : TELEMETRY STATUS DCP: FROM HOME
--- NOTE | 2020-05-04 15:00 | NUR ---
NURSE NOTES: PCR received negative. Rn notified Dr. larios and made aware. RN receive orders to d/c isolation. Orders carried out
[2020-05-04 15:56] VITALS: BP 126/83
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
--- NOTE | 2020-05-04 19:31 | NUR ---
HAND-OFF: Report given to TEX Liu.
--- NOTE | 2020-05-04 19:43 | NUR ---
NURSE NOTES: The patient remained alert and stable and is cooperative with his care.The patient is on 2 liters of oxygen via NC well tolerated. He is able to ambulate to the bathroom with minimal assistance needed.The patient has a Right FA 20g saline lock that is patent and asymptomatic.The bed in low level and call light within easy reach. Will continue to monitor as indicated
[2020-05-04 20:00] VITALS: BP 133/81
[2020-05-05] VITALS: BP 138/71
[2020-05-05 04:00] VITALS: BP 132/68
--- NOTE | 2020-05-05 05:10 | NUR ---
NURSE NOTES: The patient was able to sleep all night long and is alert and cooperative with his care. Was still pradeep to ambulate to the bathroom as indicated. He remained on oxygen via NC @ 2 liters well tolerated. will continue to monitor as indicated
[2020-05-05] MEDS: Albuterol 90mcg Inhaler 8gm INH SCH ×3 (05:42→21:07)
--- NOTE | 2020-05-05 07:30 | NUR ---
NURSE NOTES: Received patient report from TEX Liu. Patient is AO x4, in bed asleep at this time. Patient on NC @ 2L satting at 97%. Breathing is even and unlabored with no signs of respiratory distress. No pain or discomfort noted at this time.patient has a Right FA 20g saline lock that is patent and asymptomatic. Bed in lowest position, locked with side rails x2 up. Call light within reach.
--- NOTE | 2020-05-05 07:41 | NUR ---
NURSE HAND-OFF REPORT: Important Events on Shift:Alert and stable Patient Status: Diet: Pending Orders: Pending Results/Labs: Pending MD notification: Latest Vital Signs: Temperature 97.2 , Pulse 84 , B/P 132 /68 , Respiratory Rate 17 , O2 SAT 97 , Room Air, O2 Flow Rate 3.0 . Vital Sign Comment: EKG Rhythm: SR w/BBB Rhythm change?: N MD Notified?: - MD Response: Latest Kate Fall Score: 20 Fall Risk: Low Risk Safety Measures: Call light Within Reach, Bed Alarm Zone 1, Side Rails Side Rails x2, Bed position Low and Locked. Fall Precautions: Yellow Socks Yellow Gown Patient Fall Education Report given to .
[2020-05-05 08:00] VITALS: BP 124/90
[2020-05-05 08:16] LABS: BASOPHILS % (AUTO) 1.7 % (0.0-2.0); EOSINOPHILS % (AUTO) 8.7 % (0.0-3.0); HEMATOCRIT 49.7 % (42.0-52.0); HEMOGLOBIN 15.5 G/DL (14.2-18.0); LYMPHOCYTES % (AUTO) 25.7 % (20.0-45.0); MEAN CORPUSCULAR VOLUME 96 FL (80-99); MONOCYTES % (AUTO) 14.2 % (1.0-10.0); NEUTROPHILS % (AUTO) 49.7 % (45.0-75.0); PLATELET COUNT 185 K/UL (150-450); RED BLOOD COUNT 5.17 M/UL (4.70-6.10); RED CELL DISTRIBUTION WIDTH 14.4 % (11.6-14.8); WHITE BLOOD COUNT 5.7 K/UL (4.8-10.8)
[2020-05-05] MEDS: cefTRIAXone 1 GM in D5W 55 ML IVPB SCH (08:29)
[2020-05-05] MEDS: Lisinopril 10mg tab ORAL SCH (08:29)
[2020-05-05] MEDS: Aspirin Baby 81mg ORAL SCH (08:29)
[2020-05-05] MEDS: Enoxaparin 40mg Inj SUBQ SCH (08:30)
[2020-05-05 08:56] LABS: ANION GAP 5 mmol/L (5-15); BLOOD UREA NITROGEN 29 mg/dL (7-18); CARBON DIOXIDE 35 MMOL/L (21-32); CHLORIDE 101 MMOL/L (98-107); CREATININE 1.3 MG/DL (0.55-1.30); SODIUM 141 MMOL/L (136-145)
--- NOTE | 2020-05-05 08:58 | General Progress Note ---
Subjective Constitutional: Reports: weakness Allergies: Coded Allergies: DIPHENHYDRAMINE (Unverified Allergy, Unknown, 12/18/17) All Systems: reviewed and negative except above Subjective o2nc sitting calm Objective Last 24 Hour Vital Signs Date Time Temp Pulse Resp B/P (MAP) Pulse Ox O2 Delivery O2 Flow Rate FiO2 05/05/20 08:29 124/90 05/05/20 08:00 96.7 82 18 124/90 (101) 98 05/05/20 04:00 97.2 84 17 132/68 (89) 97 05/05/20 04:00 74 05/05/20 00:00 88 05/05/20 00:00 97.4 79 19 138/71 (93) 96 05/04/20 22:50 Nasal Cannula 3.0 32 05/04/20 22:50 Nasal Cannula 3.0 32 05/04/20 21:00 Nasal Cannula 3.0 05/04/20 20:16 96 Nasal Cannula 3.0 32 05/04/20 20:00 80 05/04/20 20:00 97.8 84 19 133/81 (98) 96 05/04/20 16:00 80 05/04/20 15:56 97.7 83 19 126/83 (97) 96 05/04/20 12:00 96 05/04/20 11:57 98.1 97 18 117/68 (84) 100 05/04/20 09:00 Nasal Cannula 3.0 Intake and Output 05/04/20 05/05/20 19:00 07:00 Intake Total 500 ml 520 ml Balance 500 ml 520 ml Intake Oral 500 ml 520 ml Laboratory Tests 05/05/20 06:57: White Blood Count 5.7, Red Blood Count 5.17, Hemoglobin 15.5, Hematocrit 49.7, Mean Corpuscular Volume 96, Mean Corpuscular Hemoglobin 29.9, Mean Corpuscular Hemoglobin Concent 31.1L, Red Cell Distribution Width 14.4, Platelet Count 185, Mean Platelet Volume 9.0, Neutrophils (%) (Auto) 49.7, Lymphocytes (%) (Auto) 25.7, Monocytes (%) (Auto) 14.2H, Eosinophils (%) (Auto) 8.7H, Basophils (%) (Auto) 1.7, Sodium Level 141, Potassium Level 4.0, Chloride Level 101, Carbon Dioxide Level 35H, Anion Gap 5, Blood Urea Nitrogen 29H, Creatinine 1.3, Estimat Glomerular Filtration Rate > 60, Glucose Level 75, Calcium Level 9.0 Height (Feet): 5 Height (Inches): 6.00 Weight (Pounds): 145 General Appearance: lethargic EENT: normal ENT inspection Neck: normal alignment Cardiovascular: normal peripheral pulses, normal rate, regular rhythm Respiratory/Chest: chest wall non-tender, lungs clear, normal breath sounds Abdomen: normal bowel sounds, non tender, soft Extremities: normal inspection Edema: no edema noted Arm (L), no edema noted Arm (R), no edema noted Leg (L), no edema noted Leg (R), no edema noted Pedal (L), no edema noted Pedal (R), no edema noted Generalized Neurologic: motor weakness Skin: normal pigmentation, warm/dry Objective r leg sl red Assessment/Plan Problem List: (1) Cellulitis ICD Codes: L03.90 - Cellulitis, unspecified SNOMED: 113704567 Qualifiers: Qualified Codes: L03.116 - Cellulitis of left lower limb (2) CHF (congestive heart failure) ICD Codes: I50.9 - Heart failure, unspecified SNOMED: 69622330 Qualifiers: Qualified Codes: I50.42 - Chronic combined systolic (congestive) and diastolic (congestive) heart failure (3) UTI (urinary tract infection) ICD Codes: N39.0 - Urinary tract infection, site not specified SNOMED: 54790402 (4) COPD (chronic obstructive pulmonary disease) ICD Codes: J44.9 - Chronic obstructive pulmonary disease, unspecified SNOMED: 79100813 (5) HTN (hypertension) ICD Codes: I10 - Essential (primary) hypertension SNOMED: 24748585 (6) Non-ST elevation [place] (NSTEMI) ICD Codes: I21.4 - Non-ST elevation (NSTEMI) myocardial infarction SNOMED: 360552266 Status: stable, progressing Assessment/Plan: o2 pulm tx abx cardio f/u cbc bmp am DarianChrisbrigitte McdonnellIrma DO May 05, 2020 08:58
[2020-05-05] MEDS: Amiodarone 200mg tab ORAL SCH (09:25)
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
--- NOTE | 2020-05-05 10:51 | Pulmonology Progress Note ---
Subjective ROS Limited/Unobtainable: No Interval Events: none major reported per nursing Constitutional: Reports: no symptoms HEENT: Repors: no symptoms Respiratory: Reports: shortness of breath Cardiovascular: Reports: no symptoms Gastrointestinal/Abdominal: Reports: no symptoms Allergies: Coded Allergies: DIPHENHYDRAMINE (Unverified Allergy, Unknown, 12/18/17) All Systems: reviewed and negative except above Objective Last 24 Hour Vital Signs Date Time Temp Pulse Resp B/P (MAP) Pulse Ox O2 Delivery O2 Flow Rate FiO2 05/05/20 09:00 Nasal Cannula 3.0 05/05/20 08:29 124/90 05/05/20 08:00 96.7 82 18 124/90 (101) 98 05/05/20 08:00 84 05/05/20 04:00 97.2 84 17 132/68 (89) 97 05/05/20 04:00 74 05/05/20 00:00 88 05/05/20 00:00 97.4 79 19 138/71 (93) 96 05/04/20 22:50 Nasal Cannula 3.0 32 05/04/20 22:50 Nasal Cannula 3.0 32 05/04/20 21:00 Nasal Cannula 3.0 05/04/20 20:16 96 Nasal Cannula 3.0 32 05/04/20 20:00 80 05/04/20 20:00 97.8 84 19 133/81 (98) 96 05/04/20 16:00 80 05/04/20 15:56 97.7 83 19 126/83 (97) 96 05/04/20 12:00 96 05/04/20 11:57 98.1 97 18 117/68 (84) 100 Intake and Output 05/04/20 05/05/20 19:00 07:00 Intake Total 500 ml 520 ml Balance 500 ml 520 ml Intake Oral 500 ml 520 ml General Appearance: no acute distress HEENT: atraumatic Respiratory: crackles/rales Cardiovascular: normal rate, regular rhythm Abdomen: soft, non tender Microbiology Date/Time Source Procedure Growth Status 05/02/20 11:05 Nasopharynx Coronavirus COVID-19 PCR (ELISA) - Final Complete Laboratory Tests 05/05/20 06:57: White Blood Count 5.7, Red Blood Count 5.17, Hemoglobin 15.5, Hematocrit 49.7, Mean Corpuscular Volume 96, Mean Corpuscular Hemoglobin 29.9, Mean Corpuscular Hemoglobin Concent 31.1L, Red Cell Distribution Width 14.4, Platelet Count 185, Mean Platelet Volume 9.0, Neutrophils (%) (Auto) 49.7, Lymphocytes (%) (Auto) 25.7, Monocytes (%) (Auto) 14.2H, Eosinophils (%) (Auto) 8.7H, Basophils (%) (Auto) 1.7, Sodium Level 141, Potassium Level 4.0, Chloride Level 101, Carbon Dioxide Level 35H, Anion Gap 5, Blood Urea Nitrogen 29H, Creatinine 1.3, Estimat Glomerular Filtration Rate > 60, Glucose Level 75, Calcium Level 9.0 Current Medications Medications (Trade) Dose Ordered Sig/Stephenie Route PRN Reason Start Time Stop Time Status Last Admin Dose Admin Albuterol Sulfate (Proventil MDI) 2 puff Q8HR INH 05/02/20 15:00 07/31/20 14:59 05/05/20 05:42 Albuterol/ Ipratropium (Albuterol/ Ipratropium) 3 ml Q6H PRN HHN Shortness of Breath 05/02/20 10:00 05/07/20 09:59 Amiodarone HCl (Cordarone) 200 mg DAILY ORAL 05/03/20 09:00 08/01/20 08:59 05/05/20 09:25 Aspirin (ASA) 81 mg DAILY ORAL 05/03/20 09:00 06/17/20 08:59 05/05/20 08:29 Ceftriaxone Sodium 1 gm/ Dextrose 55 ml @ 110 mls/hr Q24H IVPB 05/02/20 09:30 05/09/20 09:29 05/05/20 08:29 Enoxaparin Sodium (Lovenox) 40 mg DAILY SUBQ 05/03/20 09:00 08/01/20 08:59 05/05/20 08:30 Furosemide (Lasix) 40 mg EVERY 12 HOURS IV 05/02/20 21:00 06/01/20 20:59 05/05/20 08:30 Lisinopril (ZestriL) 10 mg DAILY ORAL 05/03/20 09:00 06/02/20 08:59 05/05/20 08:29 Morphine Sulfate (Morphine Sulfate) 2 mg Q4H PRN IVP For Pain 05/02/20 10:00 05/09/20 09:59 Pravastatin Sodium (Pravachol) 40 mg BEDTIME ORAL 05/02/20 21:00 06/01/20 20:59 05/04/20 20:48 Tiotropium [place] (Spiriva Inhaler) 1 puff DAILY INH 05/03/20 09:00 06/02/20 08:59 05/05/20 08:38 Assessment/Plan Assessment/Plan Assessment/Plan Assessment/Plan 1. Pneumonia -He is on ceftriaxone for concurrent cellulitis coverage -Monitor for hypoxia and provide supplemental oxygen as needed 3L/min sat 97- 98% - COVID Neg 2. Asthma -Agree with albuterol and tiotropium -We will initiate breathing treatment prn 3. KIMO 4. Hyperglycemia 5. Transaminitis, likely secondary to pneumonia 6. Elevated troponin -Cardiology following 7. CHF exacerbation -On Lasix -Cardiology recs reviewed -He would benefit from biventricular defibrillator implant, however being on cocaine is a contraindication 8. Hypertension -On lisinopril and Lasix 9. Cellulitis -Seen by ID -Started on ceftriaxone per ID 10. Bilateral lower extremity edema -Venous duplex ultrasound negative for evidence of lower extremity deep venous thrombosis bilaterally -Antiembolism elastic stockings -We will initiate Lovenox The care for this patient was discussed with my supervising physician. [place] NP May 05, 2020 10:51
[2020-05-05 12:00] VITALS: BP 117/73
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
[2020-05-05 16:00] VITALS: BP 118/67
--- NOTE | 2020-05-05 19:00 | NUR ---
NURSE HAND-OFF REPORT: Important Events on Shift:NA Patient Status: Stable Diet: low Na diet Pending Orders: NA Pending Results/Labs:NA Pending MD notification:NA Latest Vital Signs: Temperature 96.8 , Pulse 73 , B/P 118 /67 , Respiratory Rate 19 , O2 SAT 98 , Room Air, O2 Flow Rate 3.0 . Vital Sign Comment: Stable EKG Rhythm: SR w/BBB Rhythm change?: N MD Notified?: - MD Response: Latest Kate Fall Score: 20 Fall Risk: Low Risk Safety Measures: Call light Within Reach, Bed Alarm Zone 1, Side Rails Side Rails x2, Bed position Low and Locked. Fall Precautions: Yellow Socks Yellow Gown Patient Fall Education Report given to TEX Mack.
--- NOTE | 2020-05-05 19:10 | NUR ---
NURSE NOTES: Received patient from Jovany NICE. Patient is awake siting at the end of the bed. A/x4. Noted patient walks stable to restroom. The patient is on 2 liters of oxygen via NC well tolerated. The patient has a Right FA 20g saline lock that is patent, flushed and asymptomatic; no erythema or bleeding noted. The bed in low level and call light within easy reach. Will continue to monitor as indicated
[2020-05-05 20:00] VITALS: BP 128/82
[2020-05-06] VITALS: BP 126/72
[2020-05-06 04:00] VITALS: BP 126/68
[2020-05-06] MEDS: Albuterol 90mcg Inhaler 8gm INH SCH ×2 (06:07→13:34)
--- NOTE | 2020-05-06 06:55 | NUR ---
CASE MANAGEMENT:REVIEW 05/06/20 SI: BLE CELLULITIS. PNA. CHF W/ EF 15% 98.3 79 18 126/72 95% ON 3L/NC IS: IV LASIX Q12 ALBUTEROL INH Q8HRS LOVENOX SQ QD SPIRIVA INH QD ASA PO QD AMIODARONE PO QD LISINOPRIL PO QD PRAVASTATIN PO QHS : TELEMETRY STATUS DCP: FROM HOME PLAN: BECAUSE PATIENT IS NON COMPLIANT ~ COCAINE USE ~ WILL TREAT MEDICALLY HAD A LIFE VEST IN THE PAST
--- NOTE | 2020-05-06 07:25 | NUR ---
NURSE NOTES: Report received from Martina NICE. Patient seen on rounds, asleep but easily rousable, on 3lpm via NC with no signs of acute distress. No complaints of pain. PIV on right forearm patent and intact. Pt is ambulatory with steady gait and continent, able to ambulate to the bathroom independently. Bed low and locked, siderails up x 2, call light placed within reach and instructed to call nurse for assistance. Will continue to monitor.
--- NOTE | 2020-05-06 07:30 | NUR ---
NURSE HAND-OFF REPORT: Important Events on Shift: Patient Status: No distress Diet: Low NA+ Pending Orders: Pending Results/Labs: Pending MD notification: Latest Vital Signs: Temperature 98.6 , Pulse 80 , B/P 126 /68 , Respiratory Rate 18 , O2 SAT 95 , Room Air, O2 Flow Rate 3.0 . Vital Sign Comment: EKG Rhythm: SR w/BBB Rhythm change?: N MD Notified?: - MD Response: Latest Kate Fall Score: 20 Fall Risk: Low Risk Safety Measures: Call light Within Reach, Bed Alarm Zone 1, Side Rails Side Rails x2, Bed position Low and Locked. Fall Precautions: Yellow Socks Yellow Gown Patient Fall Education Report given to Ginger NICE .
[2020-05-06 08:00] VITALS: BP 128/83
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
[2020-05-06 08:51] LABS: BASOPHILS % (AUTO) 1.9 % (0.0-2.0); EOSINOPHILS % (AUTO) 8.8 % (0.0-3.0); HEMATOCRIT 48.8 % (42.0-52.0); HEMOGLOBIN 15.1 G/DL (14.2-18.0); LYMPHOCYTES % (AUTO) 20.8 % (20.0-45.0); MEAN CORPUSCULAR VOLUME 96 FL (80-99); MONOCYTES % (AUTO) 15.7 % (1.0-10.0); NEUTROPHILS % (AUTO) 52.8 % (45.0-75.0); PLATELET COUNT 191 K/UL (150-450); RED BLOOD COUNT 5.07 M/UL (4.70-6.10); RED CELL DISTRIBUTION WIDTH 14.1 % (11.6-14.8); WHITE BLOOD COUNT 4.8 K/UL (4.8-10.8)
--- NOTE | 2020-05-06 09:00 | General Progress Note ---
Subjective Constitutional: Reports: weakness Allergies: Coded Allergies: DIPHENHYDRAMINE (Unverified Allergy, Unknown, 12/18/17) All Systems: reviewed and negative except above Subjective o2nc sitting calm Objective Last 24 Hour Vital Signs Date Time Temp Pulse Resp B/P (MAP) Pulse Ox O2 Delivery O2 Flow Rate FiO2 05/06/20 08:02 Nasal Cannula 05/06/20 08:02 97 Nasal Cannula 3.0 32 05/06/20 08:02 Nasal Cannula 05/06/20 04:00 98.6 80 18 126/68 (87) 95 05/06/20 04:00 77 05/06/20 00:00 98.3 79 18 126/72 (90) 95 05/05/20 23:33 77 05/05/20 23:23 Nasal Cannula 05/05/20 23:22 Nasal Cannula 05/05/20 21:00 Nasal Cannula 3.0 05/05/20 20:00 79 05/05/20 20:00 97.5 87 18 128/82 (97) 97 05/05/20 19:58 97 Nasal Cannula 3.0 32 05/05/20 16:00 96.8 83 19 118/67 (84) 98 05/05/20 16:00 73 05/05/20 14:01 Nasal Cannula 3.0 32 05/05/20 14:01 Nasal Cannula 3.0 32 05/05/20 12:00 97.6 93 20 117/73 (88) 96 05/05/20 12:00 76 05/05/20 09:00 Nasal Cannula 3.0 Intake and Output 05/05/20 05/06/20 19:00 07:00 Intake Total 535 ml Balance 535 ml Intake Oral 480 ml IV Total 55 ml # Voids 3 3 # Bowel Movements 1 Laboratory Tests 05/06/20 07:40: White Blood Count 4.8, Red Blood Count 5.07, Hemoglobin 15.1, Hematocrit 48.8, Mean Corpuscular Volume 96, Mean Corpuscular Hemoglobin 29.8, Mean Corpuscular Hemoglobin Concent 31.0L, Red Cell Distribution Width 14.1, Platelet Count 191, Mean Platelet Volume 10.4H, Neutrophils (%) (Auto) 52.8, Lymphocytes (%) (Auto) 20.8, Monocytes (%) (Auto) 15.7H, Eosinophils (%) (Auto) 8.8H, Basophils (%) (Auto) 1.9, Sodium Level [Pending], Potassium Level [Pending], Chloride Level [Pending], Carbon Dioxide Level [Pending], Blood Urea Nitrogen [Pending], Creatinine [Pending], Estimat Glomerular Filtration Rate [Pending], Glucose Level [Pending], Calcium Level [Pending] Height (Feet): 5 Height (Inches): 6.00 Weight (Pounds): 145 General Appearance: lethargic EENT: normal ENT inspection Neck: normal alignment Cardiovascular: normal peripheral pulses, normal rate, regular rhythm Respiratory/Chest: chest wall non-tender, lungs clear, normal breath sounds Abdomen: normal bowel sounds, non tender, soft Extremities: normal inspection Edema: no edema noted Arm (L), no edema noted Arm (R), no edema noted Leg (L), no edema noted Leg (R), no edema noted Pedal (L), no edema noted Pedal (R), no edema noted Generalized Neurologic: motor weakness Skin: normal pigmentation, warm/dry Objective r leg sl red Assessment/Plan Problem List: (1) Cellulitis ICD Codes: L03.90 - Cellulitis, unspecified SNOMED: 974465327 Qualifiers: Qualified Codes: L03.116 - Cellulitis of left lower limb (2) CHF (congestive heart failure) ICD Codes: I50.9 - Heart failure, unspecified SNOMED: 40339429 Qualifiers: Qualified Codes: I50.42 - Chronic combined systolic (congestive) and diastolic (congestive) heart failure (3) UTI (urinary tract infection) ICD Codes: N39.0 - Urinary tract infection, site not specified SNOMED: 88425053 (4) COPD (chronic obstructive pulmonary disease) ICD Codes: J44.9 - Chronic obstructive pulmonary disease, unspecified SNOMED: 05635579 (5) HTN (hypertension) ICD Codes: I10 - Essential (primary) hypertension SNOMED: 39686349 (6) Non-ST elevation [place] (NSTEMI) ICD Codes: I21.4 - Non-ST elevation (NSTEMI) myocardial infarction SNOMED: 606492112 Status: stable, progressing Assessment/Plan: o2 pulm tx abx cardio f/u cbc bmp am Chris Farmer DO May 06, 2020 08:59
[2020-05-06] MEDS: Amiodarone 200mg tab ORAL SCH (09:07)
[2020-05-06] MEDS: Aspirin Baby 81mg ORAL SCH (09:08)
[2020-05-06] MEDS: Lisinopril 10mg tab ORAL SCH (09:08)
[2020-05-06 09:09] LABS: ANION GAP 6 mmol/L (5-15); BLOOD UREA NITROGEN 29 mg/dL (7-18); CALCIUM 8.7 MG/DL (8.5-10.1); CARBON DIOXIDE 32 MMOL/L (21-32); CHLORIDE 100 MMOL/L (98-107); CREATININE 1.2 MG/DL (0.55-1.30); POTASSIUM 4.3 MMOL/L (3.5-5.1); SODIUM 138 MMOL/L (136-145)
[2020-05-06] MEDS: Enoxaparin 40mg Inj SUBQ SCH (09:09)
[2020-05-06 12:00] VITALS: BP 99/60
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
--- NOTE | 2020-05-06 13:38 | NUR ---
INSURANCE CLINCALS AND REVIEW FAXED TO [facility] T: [phone] F: [phone] AND LOCATED WITHIN [facility] T: [phone] F: [phone]
--- NOTE | 2020-05-06 14:55 | Pulmonology Progress Note ---
Subjective ROS Limited/Unobtainable: No Interval Events: none major reported per nursing Constitutional: Reports: no symptoms HEENT: Repors: no symptoms Respiratory: Reports: shortness of breath - resolved Cardiovascular: Reports: no symptoms Gastrointestinal/Abdominal: Reports: no symptoms Allergies: Coded Allergies: DIPHENHYDRAMINE (Unverified Allergy, Unknown, 12/18/17) All Systems: reviewed and negative except above Objective Last 24 Hour Vital Signs Date Time Temp Pulse Resp B/P (MAP) Pulse Ox O2 Delivery O2 Flow Rate FiO2 05/06/20 12:00 83 05/06/20 12:00 97.7 74 20 99/60 (73) 100 05/06/20 09:08 128/83 05/06/20 09:00 Nasal Cannula 3.0 05/06/20 08:02 Nasal Cannula 05/06/20 08:02 97 Nasal Cannula 3.0 32 05/06/20 08:02 Nasal Cannula 05/06/20 08:00 97.4 77 20 128/83 (98) 99 05/06/20 08:00 68 05/06/20 04:00 98.6 80 18 126/68 (87) 95 05/06/20 04:00 77 05/06/20 00:00 98.3 79 18 126/72 (90) 95 05/05/20 23:33 77 05/05/20 23:23 Nasal Cannula 05/05/20 23:22 Nasal Cannula 05/05/20 21:00 Nasal Cannula 3.0 05/05/20 20:00 79 05/05/20 20:00 97.5 87 18 128/82 (97) 97 05/05/20 19:58 97 Nasal Cannula 3.0 32 05/05/20 16:00 96.8 83 19 118/67 (84) 98 05/05/20 16:00 73 Intake and Output 05/05/20 05/06/20 19:00 07:00 Intake Total 535 ml Balance 535 ml Intake Oral 480 ml IV Total 55 ml # Voids 3 3 # Bowel Movements 1 General Appearance: no acute distress HEENT: atraumatic Respiratory: crackles/rales Cardiovascular: normal rate, regular rhythm Abdomen: soft, non tender Laboratory Tests 05/06/20 07:40: White Blood Count 4.8, Red Blood Count 5.07, Hemoglobin 15.1, Hematocrit 48.8, Mean Corpuscular Volume 96, Mean Corpuscular Hemoglobin 29.8, Mean Corpuscular Hemoglobin Concent 31.0L, Red Cell Distribution Width 14.1, Platelet Count 191, Mean Platelet Volume 10.4H, Neutrophils (%) (Auto) 52.8, Lymphocytes (%) (Auto) 20.8, Monocytes (%) (Auto) 15.7H, Eosinophils (%) (Auto) 8.8H, Basophils (%) (Auto) 1.9, Sodium Level 138, Potassium Level 4.3, Chloride Level 100, Carbon Dioxide Level 32, Anion Gap 6, Blood Urea Nitrogen 29H, Creatinine 1.2, Estimat Glomerular Filtration Rate > 60, Glucose Level 176#H, Calcium Level 8.7 Current Medications Medications (Trade) Dose Ordered Sig/Stephenie Route PRN Reason Start Time Stop Time Status Last Admin Dose Admin Albuterol Sulfate (Proventil MDI) 2 puff Q8HR INH 05/02/20 15:00 07/31/20 14:59 05/06/20 13:34 Albuterol/ Ipratropium (Albuterol/ Ipratropium) 3 ml Q6H PRN HHN Shortness of Breath 05/02/20 10:00 05/07/20 09:59 Amiodarone HCl (Cordarone) 200 mg DAILY ORAL 05/03/20 09:00 08/01/20 08:59 05/06/20 09:07 Aspirin (ASA) 81 mg DAILY ORAL 05/03/20 09:00 06/17/20 08:59 05/06/20 09:08 Enoxaparin Sodium (Lovenox) 40 mg DAILY SUBQ 05/03/20 09:00 08/01/20 08:59 05/06/20 09:09 Furosemide (Lasix) 40 mg DAILY ORAL 05/07/20 09:00 06/06/20 08:59 Lisinopril (ZestriL) 10 mg DAILY ORAL 05/03/20 09:00 06/02/20 08:59 05/06/20 09:08 Morphine Sulfate (Morphine Sulfate) 2 mg Q4H PRN IVP For Pain 05/02/20 10:00 05/09/20 09:59 Pravastatin Sodium (Pravachol) 40 mg BEDTIME ORAL 05/02/20 21:00 06/01/20 20:59 05/05/20 21:07 Tiotropium [place] (Spiriva Inhaler) 1 puff DAILY INH 05/03/20 09:00 06/02/20 08:59 05/06/20 09:07 Assessment/Plan Assessment/Plan 1. Pneumonia -s/p ceftriaxone for concurrent cellulitis coverage -Monitor for hypoxia and provide supplemental oxygen as needed; on room air - COVID Neg 2. Asthma -Agree with albuterol and tiotropium -We will initiate breathing treatment prn 3. KIMO 4. Hyperglycemia 5. Transaminitis, likely secondary to pneumonia 6. Elevated troponin -Cardiology following 7. CHF exacerbation -On Lasix -Cardiology recs reviewed -He would benefit from biventricular defibrillator implant, however being on cocaine is a contraindication 8. Hypertension -On lisinopril and Lasix 9. Cellulitis -Seen by ID -Started on ceftriaxone per ID 10. Bilateral lower extremity edema -Venous duplex ultrasound negative for evidence of lower extremity deep venous thrombosis bilaterally -Antiembolism elastic stockings -We will initiate Lovenox Medically stable for discharge on medical therapy from pulmonary standpoint We will Rx albuterol and Advair The care for this patient was discussed with my supervising physician. Time spent for this case was approximately 31 minutes Aung Blancas May 06, 2020 14:55
[2020-05-06] MEDS ORDERED: FUROSEMIDE40 MG ORAL ×2 (15:20→15:45)
[2020-05-06] MEDS ORDERED: LISINOPRIL5 MG ORAL (15:21)
[2020-05-06] MEDS ORDERED: PACERONE200 MG ORAL (15:45)
[2020-05-06] MEDS ORDERED: ZESTRIL10 M1 ORAL (15:45)
[2020-05-06] MEDS ORDERED: PRAVACHOL20 MG ORAL (15:45)
[2020-05-06] MEDS ORDERED: ALBUTEROL SULF8.5 G1 INH (15:45)
[2020-05-06] MEDS ORDERED: DUONEB 0.5-3(2.53 ML HHN (15:45)
--- NOTE | 2020-05-06 16:31 | NUR ---
NURSE NOTES: Patient discharged to home, AxOx4, not in distress or pain, tolerating room air with sats 98-100%. No pressure injuries noted. PIV removed and dressed. All discharge instructions and medications as well as prescription handed to patient, explained medications and s/sx to warrant emergency care and patient verbalized understanding. All belongings accounted for and signed by patient. Pt discharged accompanied by in private vehicle.
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
[2020-05-07] MEDS ORDERED: Furosemide 40mg tab ORAL SCH (09:00)
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
--- NOTE | 2020-05-10 05:12 | Cardiology Report ---
APPROVED REPORT EXAM: Two-dimensional and M-mode echocardiogram with Doppler and color Doppler. INDICATION Congestive Heart Failure M-Mode DIMENSIONS IVSd1.1 (0.7-1.1cm)Left Atrium (MM)4.0 (1.6-4.0cm) LVDd8.0 (3.5-5.6cm)Aortic Root3.5 (2.0-3.7cm) PWd1.1 (0.7-1.1cm)Aortic Cusp Exc.1.5 (1.5-2.0cm) IVSs1.5 cmEPSS2.8 (>1.0cm) LVDs7.5 (2.5-4.0cm) PWs1.4 cm <Conclusion> Severe global left ventricular hypokinesis. Severe left ventricular enlargement. Left ventricular ejection fraction estimated to be 15 %. No evidence of left ventricular hypertrophy. No evidence of pericardial effusion. Severe left atrial enlargement. Mild right atrial enlargement. Mild right ventricle enlargement Focal aortic valve sclerosis with adequate cusp excursion. Mildly thickened mitral valve leaflets with normal excursion. Mild mitral annulus and aortic root calcification. Pulmonic valve not well visualized. Normal tricuspid valve structure. IVC dilated at 3.0 cm without physiologic collapse suggestive of increased RA pressure. A color flow and spectral Doppler study was performed and revealed: No aortic regurgitation. Severe mitral regurgitation. Left ventricular diastolic function could not be determined due to arrhythmia. Severe tricuspid regurgitation. Tricuspid systolic velocities suggests peak right ventricular systolic pressure of 72 mmHg, consistent with severe pulmonary hypertension.
--- NOTE | 2020-05-10 05:12 | Cardiology Report ---
APPROVED REPORT EKG Measurement Heart [id number] <Conclusion> Normal sinus rhythm Left atrial enlargement Left axis deviation Left bundle branch block Abnormal ECG
== END 2020-05-06 16:25 | disposition home or self-care (01) | DRG 194 ==
LOC: EMR 05:03 → 2E 05:57 → EDBEDREQ 06:31 → EDBEDREQSVC 06:31 → EDBEDREQ 06:35
DX: I11.0 Hypertensive heart disease with heart failure (principal); L03.116 Cellulitis of left lower limb; I50.43 Acute on chronic combined systolic (congestive) and diastolic (congestive) heart failure; J18.9 Pneumonia, unspecified organism; L03.115 Cellulitis of right lower limb; N17.9 Acute kidney failure, unspecified; G81.94 Hemiplegia, unspecified affecting left nondominant side; E43 Unspecified severe protein-calorie malnutrition; I21.4 Non-ST elevation (NSTEMI) myocardial infarction; T14.90XS Injury, unspecified, sequela; W34.00XS Accidental discharge from unspecified firearms or gun, sequela; Z88.8 Allergy status to other drugs, medicaments and biological substances; N39.0 Urinary tract infection, site not specified; F17.200 Nicotine dependence, unspecified, uncomplicated; Z79.82 Long term (current) use of aspirin; R73.9 Hyperglycemia, unspecified; J44.1 Chronic obstructive pulmonary disease with (acute) exacerbation; I27.20 Pulmonary hypertension, unspecified; F14.10 Cocaine abuse, uncomplicated; I42.8 Other cardiomyopathies; L97.828 Non-pressure chronic ulcer of other part of left lower leg with other specified severity; I44.7 Left bundle-branch block, unspecified; Z86.74 Personal history of sudden cardiac arrest; Z91.14 Patient's other noncompliance with medication regimen; R09.02 Hypoxemia
CPT/HCPCS: 36415; 71045; 80048; 80053; 81003; 82550; 83605; 83690; 83735; 83880; 84484; 85025; 85610; 85651; 85730; 86140; 86703; 87040; 93005; 93306; 93970; 94640; 96365; 96367; 99291; U0002